=== PATIENT | male | born 1965 | race African-American/Black ===

== ENCOUNTER 2018-06-19 18:17 | Emergency (ER) | payer MEDICARE ==
[~2018-06-19] VITALS: Ht 166.4 cm; Wt 85.6 kg
[2018-06-19 18:17] VITALS: BP 147/92
[~2018-06-19 18:17] MED LIST: ALPR0.254 PO; ARIP2TAB35 PO; ASPI-482 PO; ATOR20TA58 PO; BUPR150T11 PO; CARV12.5 PO; CARV6.25 PO; FERR325T14 PO; FINA5TAB4 PO; FLUT16SP21 NS; HYDR12.58 PO; HYDR4TAB45 PO; INSU100V31 SQ; INSU100V8 SQ; LIPA1CAP14 PO; LISI40TA PO; LOPE2CAP PO; METF500T16 PO; MULT1TAB52 PO; OXYC1TAB22 PO; OXYC5TAB4 PO; PANCREAZE DR 41 EACH PO; POLY255P11 PO; PREG300C PO; RANI150T2 PO; TAMS0.4C2 PO; ZOLP10TA PO
--- NOTE | 2018-06-19 18:24 | ED.ADGEN ---
Past History Past Medical History: CAD, Diabetes, Hypertension, Pancreatitis Past Surgical History: Other Smoking: Less than 1pk/day Alcohol Use: None Drug Use: None Adult General Chief Complaint Chief Complaint "...I was coming down the stairs... and slipped... and fell on my butt and Lt. side... all way down the stairs.... I hurt like heck now... on my Lt side.. lower chest and back..."... " I even hit the back of my head and neck... " " I did not get knocked out... but I sure was stunned...." HPI HPI Patient is a 53 year old male who presents with above hx and complaints fall down stairs. Went down entire flight of stairs primarily on his left side. Patient instructed his head neck and back thoracic and posterior lumbar sacral area. Patient has been ambulatory since the fall but complains of muscle spasm and tenderness. Patient denies any loss of consciousness. Patient does have a history of marijuana and tobacco use. Patient does have a history of diabetes, hypertension, pancreatitis,. Pt. follows with Dr. Jim at [facility]. Review of Systems Review of Systems Constitutional: Denies fever or chills [] Eyes: Denies change in visual acuity, redness, or eye pain [] HENT: Denies nasal congestion or sore throat []complains of neck pain Respiratory: Denies cough or shortness of breath [] Cardiovascular: No additional information not addressed in HPI [] GI: Complaints of left flank abdominal pain, nausea,. Denies vomiting, bloody stools or diarrhea [] : Denies dysuria or hematuria [] Musculoskeletal: Complaints of back pain Integument: Denies rash or skin lesions [] Neurologic: Complains of headache,. Focal weakness or sensory changes [] Endocrine: Denies polyuria or polydipsia [] All other systems were reviewed and found to be within normal limits, except as documented in this note. Family History Family History Noncontributory Current Medications Current Medications Current Medications Medications (Trade) Dose Ordered Sig/Elfego Start Time Stop Time Status Last Admin Dose Admin Info (Do NOT chart on this entry -- for MONITORING) 1 each PRN DAILY PRN 06/19/18 19:15 06/19/18 23:41 DC Iohexol (Omnipaque 240 Mg/ml) 50 ml 1X ONCE 06/19/18 20:30 06/19/18 20:31 DC 06/19/18 20:32 50 ML Iohexol (Omnipaque 300 Mg/ml) 75 ml 1X ONCE 06/19/18 19:30 06/19/18 19:31 DC Lactated Ringer's 1,000 ml @ 1,000 mls/hr Q1H 06/19/18 18:43 06/19/18 19:42 DC Morphine Sulfate (Morphine 10mg Syringe) 10 mg 1X ONCE 06/19/18 21:45 06/19/18 21:46 DC 06/19/18 21:39 10 MG Allergies Allergies Allergies Coded Allergies Type Severity Reaction Last Updated Verified aspirin Allergy Intermediate 06/19/18 Yes fentanyl Allergy Intermediate 06/19/18 Yes ketorolac Allergy Intermediate 06/19/18 No naproxen Allergy Intermediate 06/19/18 No tramadol Allergy Intermediate 06/19/18 Yes Physical Exam Physical Exam Constitutional: Moderately acute acute distress, non-toxic appearance. [] HENT: Normocephalic, posterior scalp tender to palpation no large hematoma appreciated, bilateral external ears normal, oropharynx moist, no oral exudates , nose normal. [] Eyes: PERRLA, EOMI, conjunctiva normal, no discharge. [] Neck: Normal range of motion, no tenderness, supple, no stridor. Posterior per cervical muscles are spasming and tender to palpation. Cardiovascular:Heart rate regular rhythm, no murmur [] Lungs & Thorax: Bilateral breath sounds equal at apex with scattered wheezing throughout auscultation []trapezius pain and muscle spasm Abdomen: Bowel sounds normal, soft, left upper tenderness, no masses, no pulsatile masses. [] Large old Whipple abd. scar. Some flank tenderness on left. Skin: Warm, dry, no erythema, no rash. [] Back: Entire back is tenderness, left CVA tenderness. [] Extremities: No tenderness, no cyanosis, no clubbing, ROM intact, no edema. [] Neurologic: Alert and oriented X 3, normal motor function, normal sensory function, no focal deficits noted. [] Psychologic: Affect anxious, judgement normal, mood normal. [] Current Patient Data Vital Signs Vital Signs Date Time Temp Pulse Resp B/P (MAP) Pulse Ox O2 Delivery O2 Flow Rate FiO2 06/19/18 18:17 98.2 87 20 99 Room Air Lab Results Laboratory Tests Test 06/19/18 19:50 06/19/18 22:00 06/19/18 23:30 White Blood Count 7.0 x10^3/uL (4.0-11.0) Red Blood Count 5.09 x10^6/uL (4.30-5.70) Hemoglobin 14.5 g/dL (13.0-17.5) Hematocrit 45.2 % (39.0-53.0) Mean Corpuscular Volume 89 fL (79-100) Mean Corpuscular Hemoglobin 29 pg (25-35) Mean Corpuscular Hemoglobin Concent 32 g/dL (31-37) Red Cell Distribution Width 16.4 % (11.5-14.5) H Platelet Count 251 x10^3/uL (140-400) Neutrophils (%) (Auto) 64 % (31-73) Lymphocytes (%) (Auto) 25 % (24-48) Monocytes (%) (Auto) 10 % (0-9) H Eosinophils (%) (Auto) 1 % (0-3) Basophils (%) (Auto) 1 % (0-3) Neutrophils # (Auto) 4.4 x10^3uL (1.8-7.7) Lymphocytes # (Auto) 1.8 x10^3/uL (1.0-4.8) Monocytes # (Auto) 0.7 x10^3/uL (0.0-1.1) Eosinophils # (Auto) 0.0 x10^3/uL (0.0-0.7) Basophils # (Auto) 0.0 x10^3/uL (0.0-0.2) Prothrombin Time 9.5 SEC (9.4-11.4) Prothrombin Time INR 1.0 (0.9-1.1) PTT 25 SEC (23-33) Sodium Level 143 mmol/L (136-145) Potassium Level 4.1 mmol/L (3.5-5.1) Chloride Level 108 mmol/L (98-107) H Carbon Dioxide Level 25 mmol/L (21-32) Anion Gap 10 (6-14) Blood Urea Nitrogen 8 mg/dL (8-26) Creatinine 0.8 mg/dL (0.7-1.3) Estimated GFR (Cockcroft-Gault) 121.9 Glucose Level 78 mg/dL (70-99) Calcium Level 8.3 mg/dL (8.5-10.1) L Magnesium Level 2.2 mg/dL (1.8-2.4) Total Bilirubin 0.3 mg/dL (0.2-1.0) Direct Bilirubin 0.1 mg/dL (0.0-0.2) Aspartate Amino Transferase (AST) 27 U/L (15-37) Alanine Aminotransferase (ALT) 40 U/L (16-63) Alkaline Phosphatase 124 U/L (46-116) H Creatine Kinase 256 U/L (39-308) Troponin I Quantitative < 0.017 ng/mL (0-0.055) ZS-Cws-R-Type Natriuretic Peptide 110 pg/mL (0-124) Total Protein 6.4 g/dL (6.4-8.2) Albumin 3.1 g/dL (3.4-5.0) L Lipase 25 U/L (73-393) L Thyroid Stimulating Hormone (TSH) 1.396 uIU/mL (0.358-3.740) Urine Collection Type Void Urine Color Yellow Urine Clarity Clear Urine pH 6.5 Urine Specific [place] 1.020 Urine Protein Neg (NEG-TRACE) Urine Glucose (UA) Neg mg/dL (NEG) Urine Ketones (Stick) Neg mg/dL (NEG) Urine Blood Neg (NEG) Urine Nitrite Neg (NEG) Urine Bilirubin Neg (NEG) Urine Urobilinogen Dipstick 0.2 mg/dL (0.2 mg/dL) Urine Leukocyte Esterase Neg (NEG) Urine RBC 0 /HPF (0-2) Urine WBC 0 /HPF (0-4) Urine Bacteria 0 /HPF (0-FEW) Urine Opiates Screen Pos (NEG) Urine Methadone Screen Neg (NEG) Urine Barbiturates Neg (NEG) Urine Phencyclidine Screen Neg (NEG) Urine Amphetamine/Methamphetamine Neg (NEG) Urine Benzodiazepines Screen Neg (NEG) Urine Cocaine Screen Neg (NEG) Urine Cannabinoids Screen Pos (NEG) Urine Ethyl Alcohol Neg (NEG) Glucose (Fingerstick) 54 mg/dL (70-99) L EKG EKG My interpretation EKG shows a sinus rhythm at 57 bpm. No findings acute STEMI with contralateral changes.[] Radiology/Procedures Radiology/Procedures Interpretation of chest x-ray shows no acute cardiopulmonary findings. No free air in the diaphragm. No pneumothorax. My interpretation CT of head shows no shift, mass, edema, bleed, or fracture. Cervical shows no obvious fracture. Does have some degenerative joint changes. My interpretation of back and lumbar portions of CT shows degenerative joint changes. Scoliosis. There appears to have increased degenerative joint changes levels of 3,4 and 5 and sacral area. fracture. Some spinal stenosis Foraminal stenosis Low lumbar. No obvious displaced fractures[] see formal report when available. Course & Med Decision Making Course & Med Decision Making Pertinent Labs and Imaging studies reviewed. (See chart for details) Patient to expect increased soreness and pain over the next 3 days. Use ice packs liberally. Take Tylenol for pain. Follow-up primary care. May take Flexeril 10 mg 3 times a day. Patient to stop smoking. Patient return of any concerns. Patient to monitor his glucose levels. Recommend patient stay on a clear fluid level. Patient return if any concerns. Patient keep follow-up with Dr. Jim. [] Final Impression Final Impression 1. Multiple contusions- sprain and strain -head neck and back and lumbar area[] 2. Marijuana and tobacco use 3. History of diabetes Dragon Disclaimer Dragon Disclaimer This electronic medical record was generated, in whole or in part, using a voice recognition dictation system. Discharge Summary Visit Information Final Diagnosis Problems Medical Problems: (1) Multiple contusions Status: Acute Brief Hospital Course Allergies Allergies Coded Allergies Type Severity Reaction Last Updated Verified aspirin Allergy Intermediate 06/19/18 Yes fentanyl Allergy Intermediate 06/19/18 Yes ketorolac Allergy Intermediate 06/19/18 No naproxen Allergy Intermediate 06/19/18 No tramadol Allergy Intermediate 06/19/18 Yes Vital Signs Vital Signs Date Time Temp Pulse Resp B/P (MAP) Pulse Ox O2 Delivery O2 Flow Rate FiO2 06/19/18 18:17 98.2 87 20 99 Room Air Lab Results Laboratory Tests Test 06/19/18 19:50 06/19/18 22:00 06/19/18 23:30 White Blood Count 7.0 x10^3/uL (4.0-11.0) Red Blood Count 5.09 x10^6/uL (4.30-5.70) Hemoglobin 14.5 g/dL (13.0-17.5) Hematocrit 45.2 % (39.0-53.0) Mean Corpuscular Volume 89 fL (79-100) Mean Corpuscular Hemoglobin 29 pg (25-35) Mean Corpuscular Hemoglobin Concent 32 g/dL (31-37) Red Cell Distribution Width 16.4 % (11.5-14.5) Platelet Count 251 x10^3/uL (140-400) Neutrophils (%) (Auto) 64 % (31-73) Lymphocytes (%) (Auto) 25 % (24-48) Monocytes (%) (Auto) 10 % (0-9) Eosinophils (%) (Auto) 1 % (0-3) Basophils (%) (Auto) 1 % (0-3) Neutrophils # (Auto) 4.4 x10^3uL (1.8-7.7) Lymphocytes # (Auto) 1.8 x10^3/uL (1.0-4.8) Monocytes # (Auto) 0.7 x10^3/uL (0.0-1.1) Eosinophils # (Auto) 0.0 x10^3/uL (0.0-0.7) Basophils # (Auto) 0.0 x10^3/uL (0.0-0.2) Prothrombin Time 9.5 SEC (9.4-11.4) Prothromb Time International Ratio 1.0 (0.9-1.1) Activated Partial Thromboplast Time 25 SEC (23-33) Sodium Level 143 mmol/L (136-145) Potassium Level 4.1 mmol/L (3.5-5.1) Chloride Level 108 mmol/L (98-107) Carbon Dioxide Level 25 mmol/L (21-32) Anion Gap 10 (6-14) Blood Urea Nitrogen 8 mg/dL (8-26) Creatinine 0.8 mg/dL (0.7-1.3) Estimated GFR (Cockcroft-Gault) 121.9 Glucose Level 78 mg/dL (70-99) Calcium Level 8.3 mg/dL (8.5-10.1) Magnesium Level 2.2 mg/dL (1.8-2.4) Total Bilirubin 0.3 mg/dL (0.2-1.0) Direct Bilirubin 0.1 mg/dL (0.0-0.2) Aspartate Amino Transf (AST/SGOT) 27 U/L (15-37) Alanine Aminotransferase (ALT/SGPT) 40 U/L (16-63) Alkaline Phosphatase 124 U/L (46-116) Creatine Kinase 256 U/L (39-308) Troponin I Quantitative < 0.017 ng/mL (0-0.055) AN-Vuz-H-Type Natriuretic Peptide 110 pg/mL (0-124) Total Protein 6.4 g/dL (6.4-8.2) Albumin 3.1 g/dL (3.4-5.0) Lipase 25 U/L (73-393) Thyroid Stimulating Hormone (TSH) 1.396 uIU/mL (0.358-3.740) Urine Collection Type Void Urine Color Yellow Urine Clarity Clear Urine pH 6.5 Urine Specific [place] 1.020 Urine Protein Neg (NEG-TRACE) Urine Glucose (UA) Neg mg/dL (NEG) Urine Ketones (Stick) Neg mg/dL (NEG) Urine Blood Neg (NEG) Urine Nitrite Neg (NEG) Urine Bilirubin Neg (NEG) Urine Urobilinogen Dipstick 0.2 mg/dL (0.2 mg/dL) Urine Leukocyte Esterase Neg (NEG) Urine RBC 0 /HPF (0-2) Urine WBC 0 /HPF (0-4) Urine Bacteria 0 /HPF (0-FEW) Urine Opiates Screen Pos (NEG) Urine Methadone Screen Neg (NEG) Urine Barbiturates Neg (NEG) Urine Phencyclidine Screen Neg (NEG) Urine Amphetamine/Methamphetamine Neg (NEG) Urine Benzodiazepines Screen Neg (NEG) Urine Cocaine Screen Neg (NEG) Urine Cannabinoids Screen Pos (NEG) Urine Ethyl Alcohol Neg (NEG) Glucose (Fingerstick) 54 mg/dL (70-99) Brief Hospital Course Mr. Dawson is a 53 old male who presented with hx of fall down a flight of stairs. Discharge Information Condition at Discharge: Improved, Stable Disposition/Orders: D/C to Home Dischare Medications Current Medications Morphine Sulfate (Morphine 10mg Syringe) 10 mg 1X ONCE SQ Last administered on 06/19/18at 19:55; Admin Dose 10 MG; Start 06/19/18 at 18:45; Stop 06/19/18 at 18:50; Status DC Lactated Ringer's 1,000 ml @ 1,000 mls/hr Q1H IV ; Start 06/19/18 at 18:43; Stop 06/19/18 at 19:42; Status DC Iohexol (Omnipaque 300 Mg/ml) 75 ml 1X ONCE IV ; Start 06/19/18 at 19:30; Stop 06/19/18 at 19:31; Status DC Info (Do NOT chart on this entry -- for MONITORING) 1 each PRN DAILY PRN MC SEE COMMENTS; Start 06/19/18 at 19:15; Stop 06/19/18 at 23:41; Status DC Iohexol (Omnipaque 240 Mg/ml) 50 ml STK-MED ONCE .ROUTE ; Start 06/19/18 at 20: 14; Stop 06/19/18 at 20:15; Status DC Iohexol (Omnipaque 240 Mg/ml) 50 ml 1X ONCE PO Last administered on 06/19/18at 20:32; Admin Dose 50 ML; Start 06/19/18 at 20:30; Stop 06/19/18 at 20:31; Status DC Morphine Sulfate (Morphine 10mg Syringe) 10 mg 1X ONCE SQ Last administered on 06/19/18at 21:39; Admin Dose 10 MG; Start 06/19/18 at 21:45; Stop 06/19/18 at 21:46; Status DC Active Scripts Active Cyclobenzaprine Hcl 10 Mg Tablet 10 Mg PO TIDP Percocet 5-325 Mg Tablet (Oxycodone Hcl/Acetaminophen) 1 Each Tablet 1 Tab PO PRN Q6HRS PRN Reported Zenpep Dr 20,000 Units Capsule (Lipase/Protease/Amylase) 1 Each Capsule.dr 1 Each PO TID Multivitamins (Multivitamin) 1 Each Tablet 1 Each PO DAILY Tamsulosin Hcl 0.4 Mg Cap.er.24h 0.4 Mg PO DAILY Ranitidine Hcl 150 Mg Tablet 150 Mg PO BID Polyethylene Glycol 3350 255 Gm Powder 255 Gm PO DAILY Oxycodone Hcl Immed.release (Oxycodone Hcl) 5 Mg Tablet 5 Mg PO Q6HRS PRN Loperamide (Loperamide Hcl) 2 Mg Capsule 2 Mg PO Q4HRS PRN Hydrochlorothiazide Tablet (Hydrochlorothiazide) 12.5 Mg Tablet 12.5 Mg PO DAILY Fluticasone Propionate Nasal [place] (Fluticasone Propionate) 16 Gm [place].susp 2 [place] NS DAILY Finasteride 5 Mg Tablet 5 Mg PO DAILY Ferrous Sulfate 325 Mg Tablet 325 Mg PO BID Bupropion Hcl Sr (Bupropion Hcl) 150 Mg Tablet.er 150 Mg PO BID Abilify (Aripiprazole) 2 Mg Tablet 2.5 Mg PO DAILY Alprazolam 0.25 Mg Tablet 0.25 Mg PO QHS PRN Coreg (Carvedilol) 12.5 Mg Tablet 12.5 Mg PO BIDWMEALS Aspir 81 (Aspirin) 81 Mg Tablet.dr 81 Mg PO DAILY16 Indication: heart health LAST DOSE; YESTERDAY AT 4 PM NEXT DOSE; TODAY AT 4 PM Lantus (Insulin Glargine,Hum.rec.anlog) 100 Unit/1 Ml Vial 30 Unit SQ QHS Indication: diabetes LAST DOSE; Next dose: tonight at bedtime Lyrica (Pregabalin) 300 Mg Capsule 300 Mg PO BID LAST DOSE; TODAY AT 9 AM NEXT DOSE; TODAY AT 9 PM Novolog (Insulin Aspart) 100 Unit/1 Ml Vial 9 Unit SQ TIDWMEALS Indication: Diabetes LAST DOSE; NEXT DOSE; TODAY WITH DINNER Ambien (Zolpidem Tartrate) 10 Mg Tablet 10 Mg PO PRN QHS PRN Indication: insomnia LAST DOSE; NEXT DOSE; TONIGHT AT 9 PM IF NEEDED Curt Disclaimer This chart was dictated in whole or in part using Voice Recognition software in a busy, high-work load, and often noisy Emergency Department environment. It may contain unintended and wholly unrecognized errors or omissions. ISSAC DORAN MD Jun 19, 2018 18:24
[2018-06-19] MEDS ORDERED: IV RINGERS SOLUTION,LACTATED 1,000 ML IV SCH (18:43)
[2018-06-19] MEDS ORDERED: MORPHINE SULFATE 10 MG/ML SYRINGE. SQ ONE ×2 (18:45→21:45)
[2018-06-19] MEDS ORDERED: CONTRAST GIVEN MC PRN (19:15)
[2018-06-19] MEDS ORDERED: IOHEXOL 300 MG/ML 75 ML VIAL. IV ONE (19:30)
[2018-06-19] MEDS ORDERED: IOHEXOL 240 MG/ML 50ML VIAL. ONE (20:14)
[2018-06-19 20:21] LABS: BASO % 1 % (0-3); EOS % 1 % (0-3); HEMATOCRIT 45.2 % (39.0-53.0); HEMOGLOBIN 14.5 g/dL (13.0-17.5); LYMPH # 1.8 x10^3/uL (1.0-4.8); LYMPH % 25 % (24-48); MEAN CORPUSCULAR HEMOGLOBIN 29 pg (25-35); MEAN CORPUSCULAR HGB CONC 32 g/dL (31-37); MEAN CORPUSCULAR VOLUME 89 fL (79-100); MONO # 0.7 x10^3/uL (0.0-1.1); MONO % 10 % (0-9); NEUT # 4.4 x10^3uL (1.8-7.7); NEUT % 64 % (31-73); PLATELET COUNT 251 x10^3/uL (140-400); RED BLOOD COUNT 5.09 x10^6/uL (4.30-5.70); RED CELL DISTRIBUTION WIDTH 16.4 % (11.5-14.5)
[2018-06-19] MEDS ORDERED: IOHEXOL 240 MG/ML 50ML VIAL. PO ONE (20:30)
[2018-06-19 20:42] LABS: ALBUMIN 3.1 g/dL (3.4-5.0); CALCIUM 8.3 mg/dL (8.5-10.1); CREATININE 0.8 mg/dL (0.7-1.3); DIRECT BILIRUBIN 0.1 mg/dL (0.0-0.2); GFR 121.9; MAGNESIUM 2.2 mg/dL (1.8-2.4); POTASSIUM 4.1 mmol/L (3.5-5.1); TOTAL BILIRUBIN 0.3 mg/dL (0.2-1.0); TOTAL PROTEIN 6.4 g/dL (6.4-8.2)
--- NOTE | 2018-06-19 20:50 | RAD ---
EXAM: Chest, 2 views. HISTORY: Fall. COMPARISON: 11/12/2013 FINDINGS: 2 views the chest are obtained. There is no infiltrate, pleural effusion or pneumothorax. There is minimal biapical emphysema. The heart is normal in size. IMPRESSION: No acute pulmonary finding. Electronically signed by: Erum Sutton MD (06/19/2018 8:47 PM) [facility]
--- NOTE | 2018-06-19 21:03 | RAD ---
CT head without contrast. CT cervical spine without contrast. CT lumbar spine without contrast. CT chest and abdomen without contrast. TECHNIQUE: Helical noncontrast CT imaging of the head and cervical spine and CT imaging of the chest and abdomen with oral contrast only. HISTORY: Fall down stairs. Left-sided chest and abdomen pain. Head and neck pain. Injury. CT head findings: No intracranial hemorrhage, mass, hydrocephalus or infarction. Focal soft tissue density left occipital scalp at the vertex at site of trauma could represent small contusion. Imaged orbits, mastoids and bones are unremarkable. IMPRESSION: No acute intracranial CT abnormality. CT cervical spine findings: Craniocervical junction intact. Cervical vertebral body height and alignment intact. ACDF C4-C5 with interbody cage and osseous fusion. No fracture of the cervical spine. Scattered soft disc bulges as well as uncovertebral and facet spurs and disc osteophytes with spinal canal and neural foraminal stenoses. Imaged lung apices and paraspinal tissues are unremarkable. IMPRESSION: No acute osseous injury of the cervical spine. Cervical disc disease. ACDF C4-C5. CT lumbar spine findings: Mild thoracolumbar levoconvex scoliosis. Lumbar vertebral body height and alignment intact. No fracture. No spondylolysis defect. Scattered lumbar disc bulges and mild endplate osteophytes and facet spurs. There may be mild spinal canal stenosis at L4-L5. There may be mild neural foraminal stenoses L3-L4 through L5-S1. IMPRESSION: No acute osseous injury of the lumbar spine. Lumbar scoliosis and disc disease. CT chest findings: Absence of contrast decreases sensitivity to characterize at traumatic vascular or solid organ injury. Extensive coronary calcified plaque. Heart size normal. No pericardial effusion. Pulmonary vessels and esophagus unremarkable. Mild reflux of contrast at the esophagus. No mediastinal hematoma. Pulmonary vessels unremarkable. No adenopathy. No pneumothorax, pulmonary opacities or pleural effusions. Mild apical paraseptal pulmonary emphysema. Mild thoracic scoliosis and disc osteophytes from disc disease. IMPRESSION: No acute process in the chest. Abdomen findings: Absence of contrast decreases sensitivity to characterize vascular and organ injury. Very mild perinephric groundglass edema bilaterally perhaps the sequela of renal insufficiency. 15 mm left adrenal nodule consistent with an adenoma density of 7 units. 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 No obstruction or inflammatory changes in GI tract. No abdominal fluid or hematoma. Aortoiliac artery calcified plaque. IMPRESSION: No acute process in the abdomen. Exposure: One or more of the following individualized dose reduction techniques were utilized for this examination: 1. Automated exposure control 2. Adjustment of the mA and/or kV according to patient size 3. Use of iterative reconstruction technique Electronically signed by: Henrique Barrios MD (06/19/2018 9:00 PM) [id number]
--- NOTE | 2018-06-19 21:04 | EKG ---
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
[2018-06-19] MEDS ORDERED: CYCL-331 PO (22:38)
[2018-06-19] MEDS ORDERED: OXYC1TAB15 PO (22:38)
[2018-06-19 23:59] LABS: AMPHETAMINE/METHAMPHETAMINE NEG (NEG); BARBITURATES NEG (NEG); BENZODIAZEPINES NEG (NEG); CANNABINOIDS POS (NEG); COCAINE NEG (NEG); METHADONE NEG (NEG); OPIATES POS (NEG); PHENCYCLIDINE NEG (NEG)
[2018-06-20 00:03] LABS: BILIRUBIN,URINE NEG (NEG); CLARITY,URINE CLEAR; COLOR,URINE YELLOW; GLUCOSE,URINE NEG (NEG)
[2018-06-20 00:04] LABS: BACTERIA,URINE 0 /HPF (0-FEW); NITRITE,URINE NEG (NEG); RBC,URINE 0 /HPF (0-2); UROBILINOGEN,URINE 0.2 mg/dL (0.2 mg/dL); WBC,URINE 0 /HPF (0-4)
== END 2018-06-19 23:41 | disposition home or self-care (01) ==
LOC: ER 18:17
DX: S13.4XXA Sprain of ligaments of cervical spine, initial encounter (principal); S39.012A Strain of muscle, fascia and tendon of lower back, initial encounter; S29.012A Strain of muscle and tendon of back wall of thorax, initial encounter; S00.03XA Contusion of scalp, initial encounter; I25.10 Atherosclerotic heart disease of native coronary artery without angina pectoris; E11.9 Type 2 diabetes mellitus without complications; I10 Essential (primary) hypertension; F17.200 Nicotine dependence, unspecified, uncomplicated; Z88.6 Allergy status to analgesic agent; Z88.4 Allergy status to anesthetic agent; W10.8XXA Fall (on) (from) other stairs and steps, initial encounter; Y93.89 Activity, other specified; Y92.89 Other specified places as the place of occurrence of the external cause; Y99.8 Other external cause status
CPT/HCPCS: 36415; 70450; 71046; 71250; 72125; 72131; 74150; 80048; 80076; 80307; 81001; 82550; 82947; 83690; 83735; 83880; 84443; 84484; 85025; 85610; 85730; 93005; 96372; 99284; J2270; Q9966

== ENCOUNTER 2018-07-21 12:52 | Emergency (ER) | payer MEDICARE ==
[~2018-07-21] VITALS: Ht 166.4 cm; Wt 82.1 kg
[~2018-07-21 12:52] MED LIST changes: +CYCL-331 PO; +OXYC1TAB15 PO
[2018-07-21] MEDS ORDERED: IV NORMAL SALINE 1,000ML 1,000 ML IV SCH (13:02)
[2018-07-21] MEDS ORDERED: HYOSCYAMINE 0.125 MG TAB.RAPDIS PO ONE ×2 (13:10→13:30)
[2018-07-21] MEDS ORDERED: PROCHLORPERAZINE 10 MG/2 ML VIAL. ONE (13:10)
--- NOTE | 2018-07-21 13:19 | PHYS DOC ---
Past History Past Medical History: Diabetes, Hypertension Past Surgical History: Other Additional Past Surgical Histo: Whipple, neck surgery Smoking: Less than 1pk/day Alcohol Use: None Drug Use: None Adult General Chief Complaint Chief Complaint: ABDOMINAL PAIN HPI HPI Patient is a 53-year-old male with upper abdominal pain, diarrhea, and dysuria for the past 4 days. No blood in the stool or urine. There has been some nausea , no vomiting. Patient denies any recent travel. No migration of the pain. Nothing really seems to make the discomfort better or worse. No relief with home medication. He did receive the flu vaccination earlier this year. He does report some subjective fevers but has not taken his temperature. No shaking chills. 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 gallbladder disease.[] Review of Systems Review of Systems Constitutional: See history of present illness[] Eyes: Denies change in visual acuity, redness, or eye pain [] HENT: Denies sore throat, reports nasal congestion [] Respiratory: Denies cough or shortness of breath [] Cardiovascular: No chest pain or palpitations[] GI: See history of present illness[] : Denies dysuria or hematuria [] Musculoskeletal: Denies back pain or joint pain [] Integument: Denies rash or skin lesions [] Neurologic: Denies headache, focal weakness or sensory changes [] Endocrine: Denies polyuria or polydipsia [] All other systems were reviewed and found to be within normal limits, except as documented in this note. Allergies Allergies Allergies Coded Allergies Type Severity Reaction Last Updated Verified aspirin Allergy Intermediate 07/21/18 Yes fentanyl Allergy Intermediate 07/21/18 Yes ketorolac Allergy Intermediate 07/21/18 No naproxen Allergy Intermediate 07/21/18 No tramadol Allergy Intermediate 07/21/18 Yes Physical Exam Physical Exam Constitutional: Well developed, well nourished, no acute distress, non-toxic appearance. [] HENT: Normocephalic, atraumatic, bilateral external ears normal, oropharynx moist, no oral exudates, nose normal. [] Eyes: PERRLA, EOMI, conjunctiva normal, no discharge. [] Neck: Normal range of motion, no tenderness, supple, no stridor. [] Cardiovascular:Heart rate regular rhythm, no murmur [] Lungs & Thorax: Bilateral breath sounds clear to auscultation [] Abdomen: Bowel sounds normal, soft, epigastric tenderness, no rebound, no guarding, no rigidity, sits up and lays back without any difficulty, no masses, no pulsatile masses. : Normal male with bilateral descended testes, no tenderness, normal cremaster reflex, circumcised, no urethral discharge [] Skin: Warm, dry, no erythema, no rash. [] Back: No tenderness, no CVA tenderness. [] Extremities: No tenderness, no cyanosis, no clubbing, ROM intact, no edema. [] Neurologic: Alert and oriented X 3, normal motor function, normal sensory function, no focal deficits noted. [] Psychologic: Affect normal, judgement normal, mood normal. [] Current Patient Data Vital Signs Vital Signs Date Time Temp Pulse Resp B/P (MAP) Pulse Ox O2 Delivery O2 Flow Rate FiO2 07/21/18 12:57 97.9 90 18 100 Room Air EKG EKG EKG shows a sinus rhythm at 71 bpm, normal axis, normal QTC, no ST elevations. Interpreted by me at 1316[] Radiology/Procedures Radiology/Procedures Examination: CT ABD PELV W/ IV CONTRST ONLY History: Omni 300 75cc: Upper abdominal pain, diarrhea, history of Whipple Comparison/Correlation: 06/19/2018 CT chest abdomen and pelvis without contrast Findings: Axial images of the abdomen and pelvis were obtained following IV contrast. Sagittal and coronal reformatted images were provided. The chest lung bases are clear. Cholecystectomy noted. Suture material involving the upper abdomen is evident. Liver is unremarkable. Nodular appearance of the adrenal glands which may represent underlying adenomatous involvement is evident especially on the left. Absence of the pancreatic head. Pancreas is very diminutive. Postoperative findings corresponding to Whipple's procedure history. Moderate quantity of stool in the colon noted. No extraluminal gas. Fluid filled nondistended loops of small bowel are present without significant distention. Very small to characterize renal low-attenuation lesions which may represent cysts noted. No enlarged abdominal or pelvic lymph nodes. No ascites or pelvic free fluid. Urinary bladder is unremarkable. Impression: No evidence of obstruction. No inflammatory process identified. [] Course & Med Decision Making Course & Med Decision Making Pertinent Labs and Imaging studies reviewed. (See chart for details) ED course: Patient arrived, was placed in bed, and tolerated exam well he received minimal relief with the initial medicines administered. He was transported to and from radiology with any complications. After the return of the laboratory and imaging studies, these were discussed with the patient who voiced understanding. And all questions were answered. Medical decision making: There is no evidence of pancreatitis, acute coronary syndrome, obstruction, perforation, urinary tract infection, pyelonephritis, appendicitis, nor other significant intra-abdominal pathology. There is no evidence of torsion or infection of the scrotum. On review of [facility] patient has had multiple narcotic prescriptions from many different physicians since May of this year. This makes me reluctant to write for additional narcotic medication at this time given the possibly of findings on laboratory testing or imaging. Believe he would be better served by 1 healthcare professional managing his pain medication needs.[] Dragon Disclaimer Dragon Disclaimer This electronic medical record was generated, in whole or in part, using a voice recognition dictation system. Departure Departure: Impression: Primary Impression: Abdominal pain Disposition: HOME, SELF-CARE Condition: IMPROVED Referrals: AGNES VALDERRAMA MD (PCP) Follow-up in 2 days Patient Instructions: Abdominal Pain Additional Instructions: Drink plenty of fluids, frequent small sips. No fatty foods, no milk, and no pepper for the next 48 hours. For the next 48 hours eat a diet rich in carbohydrates with foods such as bananas, rice, applesauce, and toast. Follow- up with your regular doctor in 2 days. Return to the ER if worsening pain, unable to tolerate liquids, or any other concerns. Scripts Dicyclomine Hcl (DICYCLOMINE HCL) 20 Mg Tablet 1 TAB PO TID for abdominal pain, #30 TAB 1 Refill Prov: JEROD BLACK DO 07/21/18 Metoclopramide Hcl (REGLAN) 10 Mg Tablet 10 MG PO QID for nausea and vomiting, #30 TAB Prov: JEROD BLACK DO 07/21/18 Problem Qualifiers Primary Impression: Abdominal pain Abdominal location: unspecified location Qualified Codes: R10.9 - Unspecified abdominal pain JEROD BLACK DO Jul 21, 2018 13:19
[2018-07-21] MEDS ORDERED: IOHEXOL 300 MG/ML 75 ML VIAL. IV ONE (13:30)
[2018-07-21] MEDS ORDERED: PROCHLORPERAZINE 10 MG/2 ML VIAL. IV ONE (13:30)
[2018-07-21 13:52] LABS: BASO # 0.1 x10^3/uL (0.0-0.2); BASO % 1 % (0-3); EOS # 0.1 x10^3/uL (0.0-0.7); EOS % 1 % (0-3); HEMATOCRIT 46.1 % (39.0-53.0); HEMOGLOBIN 15.4 g/dL (13.0-17.5); LYMPH # 1.6 x10^3/uL (1.0-4.8); LYMPH % 17 % (24-48); MEAN CORPUSCULAR HEMOGLOBIN 29 pg (25-35); MEAN CORPUSCULAR HGB CONC 33 g/dL (31-37); MEAN CORPUSCULAR VOLUME 88 fL (79-100); MONO # 0.7 x10^3/uL (0.0-1.1); MONO % 7 % (0-9); NEUT # 7.3 x10^3uL (1.8-7.7); NEUT % 75 % (31-73); PLATELET COUNT 252 x10^3/uL (140-400); RED BLOOD COUNT 5.22 x10^6/uL (4.30-5.70); WHITE BLOOD COUNT 9.8 x10^3/uL (4.0-11.0)
[2018-07-21 14:06] LABS: ALBUMIN 3.1 g/dL (3.4-5.0); ALBUMIN/GLOBULIN RATIO 0.9 (1.0-1.7); CALCIUM 8.4 mg/dL (8.5-10.1); GFR 94.2; POTASSIUM 4.5 mmol/L (3.5-5.1); TOTAL BILIRUBIN 0.4 mg/dL (0.2-1.0); TOTAL PROTEIN 6.7 g/dL (6.4-8.2)
[2018-07-21 14:08] LABS: INFLUENZA A PATIENT NEGATIVE (NEGATIVE); INFLUENZA B PATIENT NEGATIVE (NEGATIVE)
--- NOTE | 2018-07-21 14:11 | RAD ---
Examination: CT ABD PELV W/ IV CONTRST ONLY History: Omni 300 75cc: Upper abdominal pain, diarrhea, history of Whipple Comparison/Correlation: 06/19/2018 CT chest abdomen and pelvis without contrast Findings: Axial images of the abdomen and pelvis were obtained following IV contrast. Sagittal and coronal reformatted images were provided. The chest lung bases are clear. Cholecystectomy noted. Suture material involving the upper abdomen is evident. Liver is unremarkable. Nodular appearance of the adrenal glands which may represent underlying adenomatous involvement is evident especially on the left. Absence of the pancreatic head. Pancreas is very diminutive. Postoperative findings corresponding to Whipple's procedure history. Moderate quantity of stool in the colon noted. No extraluminal gas. Fluid filled nondistended loops of small bowel are present without significant distention. Very small to characterize renal low-attenuation lesions which may represent cysts noted. No enlarged abdominal or pelvic lymph nodes. No ascites or pelvic free fluid. Urinary bladder is unremarkable. Impression: No evidence of obstruction. No inflammatory process identified. PQRS Compliance Statement: One or more of the following individualized dose reduction techniques were utilized for this examination: 1. Automated exposure control 2. Adjustment of the mA and/or kV according to patient size 3. Use of iterative reconstruction technique Electronically signed by: Sanjiv Farias MD (07/21/2018 2:08 PM) [facility]
[2018-07-21] MEDS ORDERED: DICYCLOMINE 20 MG/2 ML AMPUL. IM ONE (15:00)
[2018-07-21 15:18] LABS: BILIRUBIN,URINE NEG (NEG); CLARITY,URINE CLEAR; COLOR,URINE STRAW; GLUCOSE,URINE >=1000 mg/dL (NEG); UROBILINOGEN,URINE 0.2 mg/dL (0.2 mg/dL)
[2018-07-21 15:19] LABS: BACTERIA,URINE 0 /HPF (0-FEW); NITRITE,URINE NEG (NEG); RBC,URINE 0 /HPF (0-2); SQUAMOUS EPITHELIAL CELL,UR FEW /LPF; WBC,URINE 0 /HPF (0-4)
[2018-07-21] MEDS ORDERED: DICY20TA3 PO (15:46)
[2018-07-21] MEDS ORDERED: METO10TA81 PO (15:46)
[2018-07-21 15:50] VITALS: BP 133/78
--- NOTE | 2018-07-21 17:14 | EKG ---
[address] [address] Test Date: 2018-07-21 Test Time: 13:15:44 Pat Name: ADAM CASTELAN Department: Room: Gender: M [employer] Worker: : 1965 Requested By: JEROD BLACK Order Number: [id number] Reading MD: Clovis Anderson MD Measurements Intervals [place] Rate: 71 P: 45 CT: 154 QRS: 36 QRSD: 80 T: 52 QT: 368 QTc: 404 Interpretive Statements SINUS RHYTHM Electronically Signed On 08-01-2018 10:23:33 CDT by Clovis Anderson MD
== END 2018-07-21 15:50 | disposition home or self-care (01) ==
LOC: ER 12:52
DX: R10.13 Epigastric pain (principal); R19.7 Diarrhea, unspecified; R30.0 Dysuria; R11.0 Nausea; E11.9 Type 2 diabetes mellitus without complications; I10 Essential (primary) hypertension; F17.200 Nicotine dependence, unspecified, uncomplicated; Z88.6 Allergy status to analgesic agent; Z88.8 Allergy status to other drugs, medicaments and biological substances
CPT/HCPCS: 36415; 74177; 80053; 81001; 83690; 84484; 85025; 85610; 87491; 87591; 87804; 93005; 96361; 96372; 96374; 99284; J0500; J0780; Q9967; J7030

== ENCOUNTER 2019-03-20 09:42 | Emergency (ER) | payer MEDICARE ==
[~2019-03-20] VITALS: Ht 166.4 cm; Wt 82.1 kg
[~2019-03-20 09:42] MED LIST changes: +DICY20TA3 PO; +METO10TA81 PO
--- NOTE | 2019-03-20 10:04 | PHYS DOC ---
Past History Past Medical History: Anxiety, Depression, Diabetes, Hypertension Past Surgical History: Other Additional Past Surgical Histo: Whipple, neck surgery Smoking: Less than 1pk/day Alcohol Use: None Drug Use: None Adult General Chief Complaint Chief Complaint: HAND PROBLEM HPI HPI Patient is a 53-year-old male who presents to the emergency department for evaluation of bilateral hand swelling. He states his left hand has been swollen for several weeks, the swelling began after he had an ER visit, to [facility], where he had numerous IV attempts and finally had an IV placed in his left hand, and he thinks that he may have had some IV fluid infiltration. He went to an urgent care after this, and was given a course of Keflex which she completed. He states that this morning he began expressing some right hand edema. He denies any injuries, although he does report some soreness to his hands. He denies any fevers or chills, and his hands are not warm or erythematous. Movement and palpation seems to worsen his pain. There are no alleviating or exacerbating factors to his symptoms otherwise. Review of Systems Review of Systems Constitutional: Denies fever or chills [] Eyes: Denies change in visual acuity, redness, or eye pain [] HENT: Denies nasal congestion or sore throat [] Respiratory: Denies cough or shortness of breath [] Cardiovascular:The patient denies any shortness of breath, chest pain, pal pitations, or orthopnea [] GI: Denies abdominal pain, nausea, vomiting, bloody stools or diarrhea [] : Denies dysuria or hematuria [] Musculoskeletal: Denies back pain or joint pain [] Integument: Denies rash or skin lesions [] Neurologic: Denies headache, focal weakness or sensory changes [] Endocrine: Denies polyuria or polydipsia [] All other systems were reviewed and found to be within normal limits, except as documented in this note. Allergies Allergies Allergies Coded Allergies Type Severity Reaction Last Updated Verified aspirin Allergy Intermediate 07/21/18 Yes fentanyl Allergy Intermediate 07/21/18 Yes ketorolac Allergy Intermediate 07/21/18 No naproxen Allergy Intermediate 07/21/18 No tramadol Allergy Intermediate 07/21/18 Yes Physical Exam Physical Exam PHYSICAL EXAM: CONSTITUTIONAL: Well developed, well nourished HEAD: normocephalic, atraumatic EENT: PERRL, EOMI. Conjunctivae normal color, sclerae non-icteric; moist mucous membranes. NECK: Supple, non-tender; no meningismus. LUNGS: Lungs CTA, breathing even and unlabored. Normal air movement. HEART: Regular rate and rhythm, no murmur CHEST: No deformity; non-tender ABDOMEN: The abdomen is soft, and non-tender, no masses or bruits. EXTREM: There is mild to moderate edema to the left hand, mostly dorsally, without any warmth or erythema, or any skin wounds. There is trace edema noted to the dorsal aspect of the right hand. The palmar surface of the hands do not show any abnormality and are not particularly tender. There is questionable mild tenderness to palpation to the left forearm, without any significant edema, and there is no tenderness to palpation proximally. The remainder of extremities are unremarkable, with Normal ROM; no deformity, no calf tenderness. Normal pulses palpable in all extremities. There is no pedal edema. SKIN: No rash; no diaphoresis NEURO: Alert; normal speech and cognition; CN's grossly intact; strength grossly intact without focal deficit. BACK: No CVA TTP. Current Patient Data Lab Results Laboratory Tests Test 03/20/19 10:09 White Blood Count 6.5 x10^3/uL Red Blood Count 4.77 x10^6/uL Hemoglobin 13.8 g/dL Hematocrit 42.3 % Mean Corpuscular Volume 89 fL Mean Corpuscular Hemoglobin 29 pg Mean Corpuscular Hemoglobin Concent 33 g/dL Red Cell Distribution Width 15.6 % Platelet Count 211 x10^3/uL Neutrophils (%) (Auto) 74 % Lymphocytes (%) (Auto) 18 % Monocytes (%) (Auto) 8 % Eosinophils (%) (Auto) 1 % Basophils (%) (Auto) 0 % Neutrophils # (Auto) 4.8 x10^3uL Lymphocytes # (Auto) 1.1 x10^3/uL Monocytes # (Auto) 0.5 x10^3/uL Eosinophils # (Auto) 0.1 x10^3/uL Basophils # (Auto) 0.0 x10^3/uL Erythrocyte Sedimentation Rate Pending Sodium Level 140 mmol/L Potassium Level 5.1 mmol/L Chloride Level 107 mmol/L Carbon Dioxide Level 26 mmol/L Anion Gap 7 Blood Urea Nitrogen 9 mg/dL Creatinine 0.8 mg/dL Estimated GFR (Cockcroft-Gault) 121.9 BUN/Creatinine Ratio 11 Glucose Level 267 mg/dL Uric Acid 4.4 mg/dL Calcium Level 8.2 mg/dL Total Bilirubin 0.5 mg/dL Aspartate Amino Transf (AST/SGOT) 35 U/L Alanine Aminotransferase (ALT/SGPT) 59 U/L Alkaline Phosphatase 152 U/L C-Reactive Protein < 0.5 mg/L Total Protein 5.7 g/dL Albumin 2.9 g/dL Albumin/Globulin Ratio 1.0 Current Medications Medications (Trade) Dose Ordered Sig/Elfego Route PRN Reason Start Time Stop Time Status Last Admin Dose Admin Acetaminophen (Tylenol) 650 mg 1X ONCE PO 03/20/19 10:45 03/20/19 10:46 DC 03/20/19 10:46 EKG EKG [] Radiology/Procedures Radiology/Procedures PROCEDURE: VENOUS UPPER EXTREMITY LEFT VENOUS UPPER EXTREMITY LEFT History: Hand edema. Comparison: None. Procedure: Color flow Doppler, Doppler spectral analysis, and 2D images are obtained with and without compression in the jugular vein, subclavian vein, axillary vein, brachial vein, radial vein, ulnar vein, and basilic and cephalic veins. Findings: Patent left internal jugular, subclavian, brachial, radial and ulnar veins. Noncompressibility and echogenic foci within the left cephalic vein at the level of the forearm. The cephalic vein is not well seen at the level of the upper arm. IMPRESSION: 1. Left cephalic superficial vein thrombosis at the level of the forearm. 2. No evidence of deep vein thrombosis.[] PROCEDURE: HAND BILAT 2V Examination: HAND BILAT 2V History: Hand swelling bilaterally which is greater on the left Comparison/Correlation: None Findings: Frontal and lateral views of the right hand and frontal and lateral views of the left hand were provided. A total of 4 images were provided. Joint spaces are unremarkable for the patient's age. No definite or significant degenerative change. No fracture or bone destruction. Soft tissues unremarkable. Impression: No suspicious process. Course & Med Decision Making Course & Med Decision Making Pertinent Labs and Imaging studies reviewed. (See chart for details) []11:20 AM: The patient's condition remains stable. I discussed test results in detail with the patient, the need for close follow-up, and return precautions. I discussed the use of NSAIDs, he has taken ibuprofen in the past without difficulty. I discussed the importance of heat and warm compresses to the affected area, he will be started on a course of doxycycline. Dragon Disclaimer Dragon Disclaimer This electronic medical record was generated, in whole or in part, using a voice recognition dictation system. Departure Departure: Impression: Primary Impression: Superficial thrombophlebitis Disposition: HOME, SELF-CARE Condition: STABLE Referrals: AGNES VALDERRAMA MD (PCP) Patient Instructions: Phlebitis Additional Instructions: Ibuprofen 400-600 mg every 6 hours may help improve your symptoms. Applying a heating pad to the affected area may help improve your symptoms. Scripts Doxycycline Hyclate (DOXYCYCLINE HYCLATE) 100 Mg Capsule 1 CAP PO BID for -, #20 CAP Prov: CODY RAMIREZ MD 03/20/19 CODY RAMIREZ MD Mar 20, 2019 10:04
[2019-03-20 10:21] LABS: BASO % 0 % (0-3); EOS # 0.1 x10^3/uL (0.0-0.7); EOS % 1 % (0-3); HEMATOCRIT 42.3 % (39.0-53.0); HEMOGLOBIN 13.8 g/dL (13.0-17.5); LYMPH # 1.1 x10^3/uL (1.0-4.8); LYMPH % 18 % (24-48); MEAN CORPUSCULAR HEMOGLOBIN 29 pg (25-35); MEAN CORPUSCULAR HGB CONC 33 g/dL (31-37); MEAN CORPUSCULAR VOLUME 89 fL (79-100); MONO # 0.5 x10^3/uL (0.0-1.1); MONO % 8 % (0-9); NEUT # 4.8 x10^3uL (1.8-7.7); NEUT % 74 % (31-73); PLATELET COUNT 211 x10^3/uL (140-400); RED BLOOD COUNT 4.77 x10^6/uL (4.30-5.70); RED CELL DISTRIBUTION WIDTH 15.6 % (11.5-14.5); WHITE BLOOD COUNT 6.5 x10^3/uL (4.0-11.0)
[2019-03-20 10:38] LABS: ALBUMIN 2.9 g/dL (3.4-5.0); ALK PHOS 152 U/L (46-116); ALT (SGPT) 59 U/L (16-63); ANION GAP 7 (6-14); AST (SGOT) 35 U/L (15-37); BLOOD UREA NITROGEN 9 mg/dL (8-26); BUN/CREATININE RATIO 11 (6-20); CALCIUM 8.2 mg/dL (8.5-10.1); CARBON DIOXIDE 26 mmol/L (21-32); CHLORIDE 107 mmol/L (98-107); CREATININE 0.8 mg/dL (0.7-1.3); GFR 121.9; GLUCOSE 267 mg/dL (70-99); POTASSIUM 5.1 mmol/L (3.5-5.1); SODIUM 140 mmol/L (136-145); TOTAL BILIRUBIN 0.5 mg/dL (0.2-1.0); TOTAL PROTEIN 5.7 g/dL (6.4-8.2)
[2019-03-20 10:40] LABS: C REACTIVE PROTEIN < 0.5 mg/L (0-3.3)
[2019-03-20] MEDS ORDERED: ACETAMINOPHEN 325 MG TABLET PO ONE (10:45)
--- NOTE | 2019-03-20 10:46 | RAD ---
VENOUS UPPER EXTREMITY LEFT History: Hand edema. Comparison: None. Procedure: Color flow Doppler, Doppler spectral analysis, and 2D images are obtained with and without compression in the jugular vein, subclavian vein, axillary vein, brachial vein, radial vein, ulnar vein, and basilic and cephalic veins. Findings: Patent left internal jugular, subclavian, brachial, radial and ulnar veins. Noncompressibility and echogenic foci within the left cephalic vein at the level of the forearm. The cephalic vein is not well seen at the level of the upper arm. IMPRESSION: 1. Left cephalic superficial vein thrombosis at the level of the forearm. 2. No evidence of deep vein thrombosis. Electronically signed by: Nicholas Anderson DO (03/20/2019 10:44 AM) [id number]
--- NOTE | 2019-03-20 10:53 | RAD ---
Examination: HAND BILAT 2V History: Hand swelling bilaterally which is greater on the left Comparison/Correlation: None Findings: Frontal and lateral views of the right hand and frontal and lateral views of the left hand were provided. A total of 4 images were provided. Joint spaces are unremarkable for the patient's age. No definite or significant degenerative change. No fracture or bone destruction. Soft tissues unremarkable. Impression: No suspicious process. Electronically signed by: Sanjiv Farias MD (03/20/2019 10:51 AM) [facility]
[2019-03-20] MEDS ORDERED: DOXY100C2 PO (11:23)
[2019-03-20 11:24] LABS: SEDIMENTATION RATE 7 (0-15)
[2019-03-20 11:50] VITALS: BP 135/76
[2019-04-07] MEDS ORDERED: CIPR500T94 PO (11:49)
[2019-04-07] MEDS ORDERED: METR250T PO (11:49)
== END 2019-03-20 11:51 | disposition home or self-care (01) ==
LOC: ER 09:42
DX: I80.8 Phlebitis and thrombophlebitis of other sites (principal); E11.9 Type 2 diabetes mellitus without complications; I10 Essential (primary) hypertension; F17.200 Nicotine dependence, unspecified, uncomplicated; Z88.6 Allergy status to analgesic agent; Z88.8 Allergy status to other drugs, medicaments and biological substances
CPT/HCPCS: 36415; 73120; 80053; 84550; 85025; 85651; 86140; 93971; 99285

== ENCOUNTER 2019-04-05 23:57 | Observation (INO) | payer MEDICARE, MEDICAID ==
[~2019-04-05] VITALS: Ht 165.1 cm; Wt 67.2 kg
[~2019-04-05 23:57] MED LIST changes: +DOXY100C2 PO
[2019-04-06] MEDS ORDERED: ONDANSETRON PF 4 MG/2 ML VIAL. IVP ONE (00:45)
[2019-04-06] MEDS ORDERED: MORPHINE SULFATE 2 MG/ML DISP.SYRIN. IV ONE (00:45)
[2019-04-06] MEDS ORDERED: IV NORMAL SALINE 1,000ML 1,000 ML IV ONE (00:45)
[2019-04-06] MEDS ORDERED: CONTRAST GIVEN MC PRN (01:00)
[2019-04-06] MEDS ORDERED: IOHEXOL 300 MG/ML 75 ML VIAL. IV ONE (01:00)
[2019-04-06 01:07] LABS: BASO % 0 % (0-3); EOS % 0 % (0-3); HEMATOCRIT 48.2 % (39.0-53.0); HEMOGLOBIN 15.8 g/dL (13.0-17.5); LYMPH # 0.9 x10^3/uL (1.0-4.8); LYMPH % 10 % (24-48); MEAN CORPUSCULAR HEMOGLOBIN 30 pg (25-35); MEAN CORPUSCULAR HGB CONC 33 g/dL (31-37); MEAN CORPUSCULAR VOLUME 90 fL (79-100); MONO # 0.4 x10^3/uL (0.0-1.1); MONO % 5 % (0-9); NEUT # 8.2 x10^3uL (1.8-7.7); NEUT % 85 % (31-73); PLATELET COUNT 186 x10^3/uL (140-400); RED BLOOD COUNT 5.35 x10^6/uL (4.30-5.70); RED CELL DISTRIBUTION WIDTH 15.5 % (11.5-14.5); WHITE BLOOD COUNT 9.6 x10^3/uL (4.0-11.0)
[2019-04-06 01:16] LABS: CALCIUM 9.2 mg/dL (8.5-10.1); CREATININE 1.1 mg/dL (0.7-1.3); GFR 84.4; POTASSIUM 4.2 mmol/L (3.5-5.1)
[2019-04-06 01:21] LABS: ALBUMIN 3.6 g/dL (3.4-5.0); ALBUMIN/GLOBULIN RATIO 0.9 (1.0-1.7); TOTAL PROTEIN 7.5 g/dL (6.4-8.2)
--- NOTE | 2019-04-06 01:29 | PHYS DOC ---
Past History Past Medical History: Anxiety, Depression, Diabetes, Hypertension Past Surgical History: Other Additional Past Surgical Histo: Whipple, neck surgery, carpal tunnel Smoking: Less than 1pk/day Alcohol Use: None Drug Use: None Adult General Chief Complaint Chief Complaint: ABDOMINAL PAIN HPI HPI 53-year-old male presents with abdominal pain and vomiting. The patient woke up early in the morning with abdominal cramping soon followed by vomiting. He's had several episodes of vomiting throughout the day. His abdominal pain as a gene ralized cramping around the umbilicus 8 out of 10. The patient is unsure if he's had a fever. He is on chronic narcotics for pain. He has no other complaints at this time. Review of Systems Review of Systems Constitutional: Denies fever or chills [] Eyes: Denies change in visual acuity, redness, or eye pain [] HENT: Denies nasal congestion or sore throat [] Respiratory: Denies cough or shortness of breath [] Cardiovascular: No additional information not addressed in HPI [] GI: Periumbilical abdominal pain, nausea, vomiting. [] : Denies dysuria or hematuria [] Musculoskeletal: Denies back pain or joint pain [] Integument: Denies rash or skin lesions [] Neurologic: Denies headache, focal weakness or sensory changes [] Endocrine: Denies polyuria or polydipsia [] All other systems were reviewed and found to be within normal limits, except as documented in this note. Current Medications Current Medications Current Medications Medications (Trade) Dose Ordered Sig/Elfego Start Time Stop Time Status Last Admin Dose Admin Info (Do NOT chart on this entry -- for MONITORING) 1 each PRN DAILY PRN 04/06/19 01:00 04/08/19 00:59 Iohexol (Omnipaque 300 Mg/ml) 75 ml 1X ONCE 04/06/19 01:00 04/06/19 01:01 DC 04/06/19 01:03 75 ML Morphine Sulfate (Morphine 2mg Syringe) 2 mg 1X ONCE 04/06/19 00:45 04/06/19 00:46 DC 04/06/19 00:56 2 MG Morphine Sulfate (Morphine 4mg Syringe) 4 mg 1X ONCE 04/06/19 01:30 04/06/19 01:31 UNV Ondansetron HCl (Zofran) 4 mg 1X ONCE 04/06/19 00:45 04/06/19 00:46 DC 04/06/19 00:55 4 MG Sodium Chloride 1,000 ml @ 1,000 mls/hr 1X ONCE 04/06/19 00:45 04/06/19 01:44 04/06/19 00:55 1,000 MLS/HR Allergies Allergies Allergies Coded Allergies Type Severity Reaction Last Updated Verified aspirin Allergy Intermediate 07/21/18 Yes fentanyl Allergy Intermediate 07/21/18 Yes ketorolac Allergy Intermediate 07/21/18 No naproxen Allergy Intermediate 07/21/18 No tramadol Allergy Intermediate 07/21/18 Yes Physical Exam Physical Exam Constitutional: Well developed, well nourished, no acute distress, non-toxic appearance. [] HENT: Normocephalic, atraumatic, bilateral external ears normal, oropharynx mois t, no oral exudates, nose normal. [] Eyes: PERRLA, EOMI, conjunctiva normal, no discharge. [] Neck: Normal range of motion, no tenderness, supple, no stridor. [] Cardiovascular:Heart rate regular rhythm, no murmur [] Lungs & Thorax: Bilateral breath sounds clear to auscultation [] Abdomen: Bowel sounds normal, soft, mild generalized tenderness, no masses, no pulsatile masses. [] Skin: Warm, dry, no erythema, no rash. [] Back: No tenderness, no CVA tenderness. [] Extremities: No tenderness, no cyanosis, no clubbing, ROM intact, no edema. [] Neurologic: Alert and oriented X 3, normal motor function, normal sensory function, no focal deficits noted. [] Psychologic: Affect normal, judgement normal, mood normal. [] Current Patient Data Vital Signs Vital Signs Date Time Temp Pulse Resp B/P (MAP) Pulse Ox O2 Delivery O2 Flow Rate FiO2 04/06/19 00:56 14 100 04/06/19 00:09 98.0 88 Room Air Lab Results Laboratory Tests Test 04/06/19 00:48 White Blood Count 9.6 x10^3/uL (4.0-11.0) Red Blood Count 5.35 x10^6/uL (4.30-5.70) Hemoglobin 15.8 g/dL (13.0-17.5) Hematocrit 48.2 % (39.0-53.0) Mean Corpuscular Volume 90 fL (79-100) Mean Corpuscular Hemoglobin 30 pg (25-35) Mean Corpuscular Hemoglobin Concent 33 g/dL (31-37) Red Cell Distribution Width 15.5 % (11.5-14.5) H Platelet Count 186 x10^3/uL (140-400) Neutrophils (%) (Auto) 85 % (31-73) H Lymphocytes (%) (Auto) 10 % (24-48) L Monocytes (%) (Auto) 5 % (0-9) Eosinophils (%) (Auto) 0 % (0-3) Basophils (%) (Auto) 0 % (0-3) Neutrophils # (Auto) 8.2 x10^3uL (1.8-7.7) H Lymphocytes # (Auto) 0.9 x10^3/uL (1.0-4.8) L Monocytes # (Auto) 0.4 x10^3/uL (0.0-1.1) Eosinophils # (Auto) 0.0 x10^3/uL (0.0-0.7) Basophils # (Auto) 0.0 x10^3/uL (0.0-0.2) Sodium Level 139 mmol/L (136-145) Potassium Level 4.2 mmol/L (3.5-5.1) Chloride Level 99 mmol/L (98-107) Carbon Dioxide Level 29 mmol/L (21-32) Anion Gap 11 (6-14) Blood Urea Nitrogen 19 mg/dL (8-26) Creatinine 1.1 mg/dL (0.7-1.3) Estimated GFR (Cockcroft-Gault) 84.4 BUN/Creatinine Ratio 17 (6-20) Glucose Level 384 mg/dL (70-99) H Calcium Level 9.2 mg/dL (8.5-10.1) Total Bilirubin Pending Aspartate Amino Transferase (AST) Pending Alanine Aminotransferase (ALT) Pending Alkaline Phosphatase Pending Total Protein Pending Albumin Pending Albumin/Globulin Ratio Pending EKG EKG [] Radiology/Procedures Radiology/Procedures [] Impressions: Exam: CT abdomen and pelvis with contrast INDICATION: Abdominal pain TECHNIQUE: Sequential axial images through the abdomen and pelvis obtained following the administration of 75 mL of Omni 300 IV contrast. Sagittal and coronal reformatted images were reconstructed from the axial data and reviewed. Comparisons: 07/21/2018 FINDINGS: Heart size is normal. No pericardial effusion. Visualized lung bases are clear. No pleural effusion. Liver, spleen are unremarkable. There is a 2.0 cm nodule within the medial limb of the left adrenal gland, similar to the prior study. Postsurgical changes with resection of the pancreatic head, pancreaticojejunostomy and hepaticojejunostomy. These demonstrate symmetric enhancement. No perinephric inflammation or hydronephrosis. No renal or ureteral calculi are identified. Several hypoattenuating cystic lesions within the kidneys bilaterally likely representing simple cysts. Bladder is distended and appears thin-walled. Prostate is not enlarged. Bowel wall thickening involving the descending colon with mild adjacent inflammatory changes. Remainder of the large bowel is decompressed. Appendix is normal. Small bowel is unremarkable. No free intra-abdominal air or fluid. No obstruction. Abdominal aorta has normal course and caliber. Abdominal vasculature is patent. No enlarged intra-abdominal lymph nodes are identified. No suspicious osseous lesions or acute fractures. IMPRESSION: 1. Wall thickening involving the descending colon favored represent colitis. May be infectious or inflammatory in etiology. 2. Other stable findings as described above. Exposure: One or more of the following in the visualized dose reduction techniques were utilized for this examination: 1. Automated exposure control 2. Adjustment of the MA and/or KV according to patient size 3. Use of iterative of reconstructive technique Electronically signed by: Estella Singleton MD (04/06/2019 1:27 AM) [facility] DICTATED AND SIGNED BY: ESTELLA SINGLETON MD DATE: 04/06/19 0127 CC: CHAVO JASSO DO; AGNES VALDERRAMA MD ~ Course & Med Decision Making Course & Med Decision Making Pertinent Labs and Imaging studies reviewed. (See chart for details) The patient's labs are significant for a blood sugar 384. His anion gap is normal. The patient is a diabetic on insulin. Given a liter of normal saline and start with 10 units of regular insulin. The patient's CT scan shows colitis of the descending colon. I have given the patient a total of 6 mg of morphine. 2 mg and then 4 mg. He was also given Zofran. He has had no further vomiting in the ED. Given the patient's hyperglycemia, colitis, and level of pain, I will admit him to the hospital. The patient told me he was also recently on antibiotics for a hand infection. He has had several episodes of diarrhea. I ordered a C. difficile PCR. I spoke with Dr. Jeong and he has accepted the patient for admission. [] Dragon Disclaimer Dragon Disclaimer This electronic medical record was generated, in whole or in part, using a voice recognition dictation system. Departure Departure: Impression: Primary Impression: Colitis Additional Impressions: Hyperglycemia due to type 2 diabetes mellitus Abdominal pain, LLQ Disposition: ADMITTED INPATIENT Admitting Physician: Angelique Jeong Condition: STABLE Referrals: AGNES VALDERRAMA MD (PCP) Problem Qualifiers Additional Impressions: Hyperglycemia due to type 2 diabetes mellitus Diabetes mellitus [facility] insulin use: with medical terminologist use Qualified Codes: E11.65 - Type 2 diabetes mellitus with hyperglycemia; Z79.4 - joint terminal attack controller (current) use of insulin CHAVO JASSO DO Apr 06, 2019 01:29
[2019-04-06] MEDS ORDERED: MORPHINE SULFATE 4 MG/ML DISP.SYRIN. IV ONE (01:30)
[2019-04-06] MEDS ORDERED: INSULIN REGULAR 100 UNIT/ML 3ML VIAL. IV ONE (01:30)
[2019-04-06 01:42] LABS: CLARITY,URINE CLEAR; COLOR,URINE YELLOW; GLUCOSE,URINE 500 mg/dL (NEG)
[2019-04-06 01:43] LABS: BACTERIA,URINE 0 /HPF (0-FEW); BILIRUBIN,URINE NEG (NEG); NITRITE,URINE NEG (NEG); RBC,URINE OCC /HPF (0-2); SQUAMOUS EPITHELIAL CELL,UR OCC /LPF; UROBILINOGEN,URINE 0.2 mg/dL (0.2 mg/dL); WBC,URINE 0 /HPF (0-4)
[2019-04-06] MEDS: MORPHINE SULFATE 2 MG/ML DISP.SYRIN. IV PRN ×4 (02:49→21:57)
[2019-04-06] MEDS: ONDANSETRON PF 4 MG/2 ML VIAL. IV PRN ×3 (02:49→09:03)
[2019-04-06 03:00] VITALS: BP 100/69
--- NOTE | 2019-04-06 03:00 | NUR ---
Admission Note: Pt transported from ED to room 120 by EMS. Pt ambulated from cart to bed w/standby assistance. VSS. Pt continues to c/o of nausea and headache. Admission documentation completed. Home Medications not completed as pt is not knowledgeable of his current med list, to come in tomorrow with current med list. Zofran given for nausea. Pt is currently clear liquid diet, water and lemon bishop paiute rony provided.
[2019-04-06 06:25] VITALS: BP 107/63
[2019-04-06] MEDS ORDERED: DEXTROSE 50% 25 GM / 50ML DISP.SYRIN. IV PRN (09:00)
[2019-04-06] MEDS ORDERED: OXYC1TAB19 PO (09:01)
[2019-04-06] MEDS: INSULIN LISPRO 300 UNITS/3 ML VIAL. SQ SCH ×4 (09:13→20:52)
[2019-04-06 11:52] VITALS: BP 131/74
[2019-04-06] MEDS ORDERED: oxyCODONE/APAP 7.5/325 1 TAB TABLET ONE (12:44)
[2019-04-06] MEDS: oxyCODONE/APAP 7.5/325 1 TAB TABLET PO PRN (12:48)
[2019-04-06] MEDS ORDERED: INSU100V37 SQ (14:30)
[2019-04-06] MEDS ORDERED: VORT20TA PO (14:30)
--- NOTE | 2019-04-06 15:00 | NUR ---
Dr Jeong here to see patient, orders placed. Patient continues to have abdominal pain but no N/V/D. Patient resting in bed and requests to have diet advanced, okay with physician to do so. Will continue to monitor.
[2019-04-06 15:32] VITALS: BP 143/78
--- NOTE | 2019-04-06 16:47 | HP ---
ADMIT DATE: 04/06/2019 HISTORY OF PRESENT ILLNESS: The patient is a 53-year-old, -Surinamese male patient who came to the Emergency Room complaining of abdominal pain and vomiting. On Thu, the patient woke up early in the morning with abdominal cramping, soon followed by vomiting. He has had several episodes of vomiting throughout the day, abdominal pain, generalized cramping around the umbilicus, 8/10 in severity. The patient is unsure if he has fever. He is on chronic narcotic for pain. He has no other complaints at this time. He was extensively investigated in the Emergency Room. His white cell count was normal. His chemistry was unremarkable. His lipase was 29. Urinalysis was unremarkable. He has had CT scan of the abdomen and pelvis, which showed that the patient has wall thickening involving the descending colon, favored to represent colitis, may be infectious, inflammatory etiology or other stable findings as described above. The patient was admitted with acute colitis. He was treated in the Emergency Room with IV fluid, morphine, as well as regular insulin and was admitted to continue with that and monitor his blood sugar. The plan was to be started on IV antibiotic. For some reason, they did not continue his IV fluid. PAST MEDICAL HISTORY: Significant for Whipple's procedure. He is known to have hypertension, hyperlipidemia, and coronary artery disease. He has also morbid obesity, obstructive sleep apnea on CPAP, history of epilepsy before. He has also 4 or 5 episodes of pancreatitis in a span of 10 years. PAST SURGICAL HISTORY: Significant for cervical spine fusion, bilateral carpal tunnel release. He underwent esophagogastroduodenoscopy twice and colonoscopy with polypectomy twice. He apparently was recently diagnosed with a mass between his eyes from which a biopsy was taken and surgery was planned at [facility] in the near future. He has Whipple's procedure done at [facility]. ALLERGIES: HE IS ALLERGIC TO ASPIRIN, FENTANYL, KETOROLAC, NAPROXEN, AND TRAMADOL. FAMILY HISTORY: He has 1 brother and 1 sister, they are younger; 5 sisters older, almost all of them have diabetes and hypertension. His father at the age of 78 because of lymphoma and mother at the age of 76 because of end-stage renal disease and complication of hemodialysis. SOCIAL HISTORY: He is , has 1 daughter and 1 son. He smokes almost a pack a day. He used to be a heavy drinker. He quit about 7 years ago. His last alcoholic drink was about 6 years ago according to him. He smokes marijuana. He has never used illicit drugs. He is currently disabled. MEDICATIONS: He is on tamsulosin 0.4 mg at bedtime, oxycodone/APAP 7.5/325 one tablet 3 times a day as needed, pregabalin 300 mg twice a day, Wellbutrin-SR 300 mg once a day, and Trintellix 20 mg once a day, Ambien 10 mg at bedtime, hydrochlorothiazide 12.5 mg daily. He is on 9 units subcutaneous 3 times a day and Tresiba 30 units subcutaneously at bedtime, we are not really sure that his actually brings his list of medication. PHYSICAL EXAMINATION: GENERAL: On arrival to the Emergency Room, the patient looked unwell, but there is no pallor, jaundice, cyanosis, or thyromegaly. No jugular venous distention. No limb edema. VITAL SIGNS: Heart rate was 88, blood pressure was 146/73, temperature was 98, respiratory rate was 16, and oxygen saturation was 100%. HEAD, EYES, EARS, NOSE, AND THROAT: Showed normocephalic, atraumatic. NECK: Supple. HEART: Showed normal first and second heart sounds. No gallop, rub, or murmur. CHEST: Clear to auscultation. No crepitation or rhonchi. ABDOMEN: Distended, soft, mild diffuse tenderness. No guarding or rigidity. No organomegaly. All hernial orifice intact. Bowel sounds normal. NEUROLOGIC: He was awake, alert, oriented in time, place, and person. All cranial nerves intact. EXTREMITIES: He moves extremities without difficulty. He ambulates without assistance or assistive devices. LABORATORY DATA: His white cell count was 9600, hemoglobin 16.8, hematocrit 48, MCV 90, and platelet count of 186,000 with normal manual differential. His chemistry showed a serum sodium 139, potassium 4.2, chloride 99, bicarbonate 29, anion gap of 11, BUN 19, creatinine 1.1, estimated GFR was 84 mL per minute. His glucose was 184, calcium was 9.2. Total bilirubin is 1, estimated AST, ALT were normal. Alkaline phosphatase slightly elevated. Total protein 7.5, albumin 3.6. Serum lipase was 29. Urinalysis showed the urine was yellow, clear with a pH of 6.5, specific gravity 1.015, the urine was negative for protein. There was large amount of glucose, large amount of ketones, negative for blood, negative for nitrite, bilirubin and alkaline leukocyte esterase, no rbc's, no wbc's, and no bacteria. His stool was sent for C. diff toxins. He has had a CT scan of the abdomen and pelvis, which showed that the heart size is normal, no pericardial effusion. Visualized lung bases are clear, no pleural effusion. Liver and spleen are unremarkable. There is a 2-cm nodule within the medial limb of the left adrenal gland, similar to prior study. Postsurgical changes with resection of the pancreatic head, pancreaticojejunostomy, and hepatojejunostomy. Kidneys demonstrate symmetric enhancement. No perinephric inflammation or hydronephrosis, no renal or ureteral calculi identified. Several hypoattenuating cystic lesion within the kidneys bilaterally, likely representing simple cyst. Bladder is distended, appears thin walled. Prostate is not enlarged, bowel with wall thickening involving the descending colon with mild adjacent inflammatory changes. Remainder of the large bowel is decompressed. The appendix is normal. Small bowel is unremarkable. No free intra-abdominal air or fluid, no obstruction. Abdominal aorta is normal in course and caliber. Abdominal vasculature is patent. No enlarged intraabdominal lymph nodes identified. No suspicious osseous lesion or acute fracture. With the impression, the patient has wall thickening involving the descending colon. Favored represents colitis may be infectious, inflammatory in etiology. Other stable findings are described. PLAN: The plan is to start him on IV fluid, IV Cipro and Flagyl, pain medication. Await the result of the C. diff toxin and decide the further management accordingly. We will obviously monitor his blood sugar and we started him on insulin sliding scale. JOHNATHAN MORIN MD DR: FAVIAN/kyleigh JOB#: [id number] / [id number]
[2019-04-06] MEDS: IV NORMAL SALINE 1,000ML 1,000 ML IV SCH (17:01)
[2019-04-06] MEDS: CIPROFLOXACIN 400MG PREMIX 200 ML IV SCH (17:03)
[2019-04-06] MEDS: PANTOPRAZOLE IV 40 MG VIAL. IVP SCH (17:05)
[2019-04-06 19:36] VITALS: BP 108/68
[2019-04-06] MEDS ORDERED: ZOLPIDEM 5 MG TABLET. PO PRN (20:15)
[2019-04-06] MEDS: PREGABALIN 75 MG CAPSULE PO SCH (20:48)
[2019-04-06] MEDS ORDERED: INSULIN GLARGINE SYRINGE. SQ SCH (21:00)
[2019-04-06 22:22] VITALS: BP 110/74
[2019-04-07] MEDS: oxyCODONE/APAP 7.5/325 1 TAB TABLET PO PRN ×2 (02:20→08:33)
[2019-04-07] MEDS: CIPROFLOXACIN 400MG PREMIX 200 ML IV SCH (04:32)
[2019-04-07] MEDS: IV NORMAL SALINE 1,000ML 1,000 ML IV SCH (04:32)
[2019-04-07 05:01] VITALS: BP 119/75
[2019-04-07 07:48] LABS: HEMATOCRIT 39.1 % (39.0-53.0); RED BLOOD COUNT 4.46 x10^6/uL (4.30-5.70); RED CELL DISTRIBUTION WIDTH 15.1 % (11.5-14.5)
[2019-04-07 08:04] LABS: ALBUMIN 2.5 g/dL (3.4-5.0); ALBUMIN/GLOBULIN RATIO 0.9 (1.0-1.7); CALCIUM 7.9 mg/dL (8.5-10.1); CREATININE 0.7 mg/dL (0.7-1.3); GFR 142.2; POTASSIUM 4.1 mmol/L (3.5-5.1); TOTAL BILIRUBIN 0.6 mg/dL (0.2-1.0); TOTAL PROTEIN 5.3 g/dL (6.4-8.2)
[2019-04-07] MEDS: PANTOPRAZOLE IV 40 MG VIAL. IVP SCH (08:31)
[2019-04-07] MEDS: PREGABALIN 75 MG CAPSULE PO SCH (08:34)
[2019-04-07] MEDS: INSULIN LISPRO 300 UNITS/3 ML VIAL. SQ SCH (08:39)
[2019-04-07 10:58] VITALS: BP 116/69
--- NOTE | 2019-04-07 11:45 | NUR ---
Dr Jeong here to see patient, plan is to discharge home with Mikki and Kay. Prescriptions copied and given to patient. IV removed at this time. Patient verbalized understanding and feels safe to discharge home. Patient calling at this time for ride at this time.
[2019-04-07] MEDS ORDERED: METR250T PO (11:49)
[2019-04-07] MEDS ORDERED: CIPR500T94 PO (11:49)
--- NOTE | 2019-04-07 12:33 | NUR ---
Discharge instructions given to patient at this time, verbalized instructions and prescriptions given to patient, as well as transcribed to odell. Patient ambulated off unit independently with belongings, outside to crop picker patient.
--- NOTE | 2019-04-07 16:15 | DS ---
DATE OF DISCHARGE: 04/07/2019 HOSPITAL COURSE: The patient is a 53-year-old -Japanese male patient who was admitted with recurrent bouts of nausea, vomiting, abdominal cramping as well as diarrhea. His urinalysis was unremarkable and his CT scan of the abdomen and pelvis showed that he has wall thickening involving the descending colon, favored to represent colitis. Therefore, the patient was started on IV fluid, IV antibiotic in the form of Cipro and Flagyl and the patient actually did very well today. He has had no ____. No vomiting, no abdominal pain, has been up and about, tolerating his ____ therefore, a decision was made to discharge home to continue with oral antibiotic orally. PHYSICAL EXAMINATION: GENERAL: When I saw him this morning, he was resting slightly propped up in bed, in no apparent distress. No pallor, jaundice, cyanosis or thyromegaly. No jugular venous distention. No limb edema. VITAL SIGNS: His heart rate was 82, blood pressure was 116/69, temperature was 98.5, respiratory rate was 20, and oxygen saturation was 98%. HEAD, EYES, EARS, NOSE AND THROAT: Showed normocephalic, atraumatic. NECK: Supple. HEART: Showed normal first and second heart sounds. No gallop, rub or murmur. CHEST: Clear to auscultation. No crepitation or rhonchi. ABDOMEN: Distended, soft, nontender. There is no guarding or rigidity. No organomegaly. All hernial orifices intact. Bowel sounds normal. NEUROLOGIC: He is awake, alert, responding appropriately. All his cranial nerves are intact. He moves extremities without difficulty. LABORATORY DATA: His white cell count is 6000, hemoglobin 13, hematocrit 39, MCV 88 and platelet count of 153,000. Serum sodium was 137, potassium 4.1, chloride 104, bicarbonate 25, anion gap of 8, BUN 7, creatinine 0.7, estimated GFR was 142, glucose 159, calcium was 7.9. Total bilirubin, AST, ALT, alkaline phosphatase were normal. Total protein was 5.3, albumin was 2.5. Urinalysis was unremarkable and stools for C. diff toxins were negative. DISCHARGE MEDICATIONS: The patient was discharged home to continue all his medications, together with ciprofloxacin 500 mg twice a day for 7 days and metronidazole 250 mg 3 times a day. The patient was warned about drinking alcohol as Flagyl can cause severe disulfiram-like reaction. FINAL DISCHARGE DIAGNOSES: 1. Acute gastroenteritis, acute colitis, improving. 2. Acute kidney injury, resolved. His creatinine came down from 1.1 to 0.7. Other medical problems include type 2 diabetes mellitus, diabetic peripheral neuropathy, benign prostatic hypertrophy, insomnia, depression and anxiety. JOHNATHAN MORIN MD DR: FAVIAN/kyleigh JOB#: [id number] / [id number]
[2019-04-07] MEDS ORDERED: LACTOBACILLUS RHAMNOSUS GG 1 CAPSULE. PO SCH (21:00)
[2019-04-07] MEDS ORDERED: INSULIN GLARGINE SYRINGE. SQ SCH (21:00)
== END 2019-04-07 12:33 | disposition home or self-care (01) ==
LOC: ER 23:57 → 1 SOUTH 04-06 01:30 → INTOOBSV 04-06 01:30
PROVIDERS: ADMIT Internal Medicine; ATTEND Internal Medicine
DX: K52.9 Noninfective gastroenteritis and colitis, unspecified (principal); E11.65 Type 2 diabetes mellitus with hyperglycemia; I25.10 Atherosclerotic heart disease of native coronary artery without angina pectoris; I10 Essential (primary) hypertension; E78.5 Hyperlipidemia, unspecified; E66.01 Morbid (severe) obesity due to excess calories; G47.33 Obstructive sleep apnea (adult) (pediatric); F41.9 Anxiety disorder, unspecified; F17.210 Nicotine dependence, cigarettes, uncomplicated; F32.9 Major depressive disorder, single episode, unspecified
CPT/HCPCS: 36415; 74177; 80053; 81001; 82947; 83690; 85025; 85027; 87493; 96361; 96365; 96366; 96367; 96372; 96375; 96376; 99284; C9113; G0378; J0744; J1815; J2270; J2405; J3490; Q9967; 96374; G0379; 99285-25; J7030

== ENCOUNTER 2019-04-12 18:47 | Inpatient (IN) | payer MEDICARE, MEDICAID ==
[~2019-04-12] VITALS: Ht 165.1 cm; Wt 66.4 kg
[~2019-04-12 18:47] MED LIST changes: +CIPR500T94 PO; +INSU100V37 SQ; +METR250T PO; +OXYC1TAB19 PO; +VORT20TA PO
--- NOTE | 2019-04-12 18:50 | PHYS DOC ---
Past History Past Medical History: Anxiety, Arthritis, Depression, Diabetes, Hypertension, Other Past Surgical History: Other Additional Past Surgical Histo: Whipple, neck surgery, carpal tunnel Smoking: Less than 1pk/day Alcohol Use: None Drug Use: None Adult General Chief Complaint Chief Complaint: ".. I am not doing well.. I was seen in Dr. Jim office and diagnosis of Colitis.. and put on Cipro and Flagyl... but I still sick .. not able to eat... pain... fever, chills. I am diabetic... I could not keep my meds down today... " HPI HPI Patient is a 53 year old male who presents with above hx and complaints flu like symptoms. Pt. did receive flu vaccination this season. and grand child sick with colds. No recent travel. Pt. follows with Dr. Jim. Patient seen earlier in the week in Dr. Jim's office and diagnosed with colitis. Patient started on Cipro and Flagyl. Patient however complaining of increased abdomen pain and diarrhea. Patient complains of fever and chills. No history of exposure to ill animals, birds, snakes ext. patient denies any recent contact with individuals with C. difficile. No history of prior C. difficile. Abdomen pain is somewhat generalized. Pt. last took his insulin at noon. Pt. has hx of Wipple procedure 2014. Review of Systems Review of Systems Constitutional: Complaints of fever or chills [] Eyes: Denies change in visual acuity, redness, or eye pain [] HENT: Denies nasal congestion or sore throat [] Respiratory: Denies cough or shortness of breath [] Cardiovascular: No additional information not addressed in HPI [] GI: Complaints of generalize abdominal pain, nausea, vomiting, and diarrhea [] : Denies dysuria or hematuria [] Musculoskeletal: Chronic back pain and joint pain [] Integument: Denies rash or skin lesions [] Neurologic: Denies headache, focal weakness or sensory changes [] Endocrine: Denies polyuria or polydipsia []Hx DM All other systems were reviewed and found to be within normal limits, except as documented in this note. Family History Family History and grandchildren are sick with an upper respiratory infection Current Medications Current Medications See nursing for home meds Allergies Allergies Allergies Coded Allergies Type Severity Reaction Last Updated Verified aspirin Allergy Intermediate 07/21/18 Yes fentanyl Allergy Intermediate 07/21/18 Yes ketorolac Allergy Intermediate 07/21/18 No naproxen Allergy Intermediate 07/21/18 No tramadol Allergy Intermediate 07/21/18 Yes Physical Exam Physical Exam Constitutional: Moderate acute distress, non-toxic appearance. [] HENT: Normocephalic, atraumatic, bilateral external ears normal, oropharynx dry, no oral exudates, nose normal. [] Eyes: PERRLA, EOMI, conjunctiva normal, no discharge. [] Neck: Normal range of motion, no tenderness, supple, no stridor. []Old surgical scars Cardiovascular:Heart rate regular rhythm, no murmur []PMI slightly to the left Lungs & Thorax: Bilateral breath sounds equal apex on auscultation [] Abdomen: Bowel sounds hyperactive, soft, generalized tenderness, no masses, no pulsatile masses. A large inverted V-shaped scar from open procedure. No focalization on rebound- just generalized pain every where. Skin: Warm, dry, no erythema, no rash. Poor turgor Back: No tenderness, no CVA tenderness. [] Extremities: No tenderness, no cyanosis, no clubbing, ROM intact, no edema. No true psoas sign. Wrist scars. Neurologic: Alert and oriented X 3, moves extremities on request, has distal sensory function, no focal deficits noted. [] Psychologic: Affect anxious, judgement normal, mood depressed. EKG EKG I interpretation EKG shows sinus rhythm at 84 bpm. No findings of acute STEMI with contralateral changes[] Radiology/Procedures Radiology/Procedures [[address] [address] IMAGING REPORT Signed PATIENT: ADAM CASTELAN ACCOUNT: [id number] : 1965 LOCATION: ER AGE: 53 SEX: M EXAM STATUS: REG ER ORD. PHYSICIAN: ISSAC DORAN MD REASON: Chest and abdomen pain, fever, nausea PROCEDURE: ABDOMEN SUPINE & UPRIGHT ABDOMEN SUPINE UPRIGHT, CHEST PA LATERAL History: Chest and abdomen pain. Fever and nausea.. Two-view chest Comparison with 06/19/2018. Cardiomediastinal silhouette is not enlarged. No evidence of pneumothorax. No pleural effusion. Right convexity thoracic scoliosis is again seen. Bones otherwise appear grossly intact. IMPRESSION: No evidence of consolidating infiltrate. Supine and upright abdomen Scattered mildly air-filled loops of bowel are seen. No evidence of obstructive bowel gas pattern. No definite free intraperitoneal gas. Surgical clips in the abdomen. No obvious organomegaly. No evidence of concerning pathologic calcification. Pelvic calcifications are likely phleboliths. Bones appear grossly intact. IMPRESSION: Bowel gas pattern does not appear obstructive. Electronically signed by: German Galloway MD (04/12/2019 7:55 PM) [facility] DICTATED AND SIGNED BY: GERMAN GALLOWAY MD DATE: 04/12/191954 CC: ISSAC DORAN MD; AGNES JIM MD ~ ][place] [address] IMAGING REPORT Signed PATIENT: ADAM CASTELAN ACCOUNT: [id number] : 1965 LOCATION: ER AGE: 53 SEX: M EXAM STATUS: REG ER ORD. PHYSICIAN: ISSAC DORAN MD REASON: Chest and abdomen pain, fever, nausea PROCEDURE: ABDOMEN SUPINE & UPRIGHT ABDOMEN SUPINE UPRIGHT, CHEST PA LATERAL History: Chest and abdomen pain. Fever and nausea.. Two-view chest Comparison with 06/19/2018. Cardiomediastinal silhouette is not enlarged. No evidence of pneumothorax. No pleural effusion. Right convexity thoracic scoliosis is again seen. Bones otherwise appear grossly intact. IMPRESSION: No evidence of consolidating infiltrate. Supine and upright abdomen Scattered mildly air-filled loops of bowel are seen. No evidence of obstructive bowel gas pattern. No definite free intraperitoneal gas. Surgical clips in the abdomen. No obvious organomegaly. No evidence of concerning pathologic calcification. Pelvic calcifications are likely phleboliths. Bones appear grossly intact. IMPRESSION: Bowel gas pattern does not appear obstructive. Electronically signed by: German Galloway MD (04/12/2019 7:55 PM) [facility] DICTATED AND SIGNED BY: GERMAN GALLOWAY MD DATE: 04/12/191954 CC: ISSAC DORAN MD; AGNES JIM MD ~ Course & Med Decision Making Course & Med Decision Making Pertinent Labs and Imaging studies reviewed. (See chart for details) Pt. admitted to Dr Jeong for further eval . and tx. .. Will continue to hydrate, and give Levaquin and Flagyl IV. Consider switch to po Flagyl as soon as pt. tolerate po. Plan to keep pt. NPO except meds tonight to allow bowel rest. Impression: 1. Abdomen Pain 2. DM 3. Hx. Colitis ( Has been on Cipro 500 bid and Flagyl 500 tid) 4. Elevated Alk Phos 136 5. Malnutrition Alb. 2.8 6. Hx of Whipple 2015 7. Episodic Hypoglycemic - in ED that require repeat D50W [] Dragon Disclaimer Dragon Disclaimer This electronic medical record was generated, in whole or in part, using a voice recognition dictation system. Departure Departure: Disposition: 01 HOME/RESIDENCE PRIOR TO ADM Condition: STABLE Referrals: AGNES JIM MD (PCP) Curt Disclaimer This chart was dictated in whole or in part using Voice Recognition software in a busy, high-work load, and often noisy Emergency Department environment. It may contain unintended and wholly unrecognized errors or omissions. Dragon Disclaimer This chart was dictated in whole or in part using Voice Recognition software in a busy, high-work load, and often noisy Emergency Department environment. It may contain unintended and wholly unrecognized errors or omissions. Dragon Disclaimer This chart was dictated in whole or in part using Voice Recognition software in a busy, high-work load, and often noisy Emergency Department environment. It may contain unintended and wholly unrecognized errors or omissions. ISSAC DORAN MD Apr 12, 2019 18:50
[2019-04-12] MEDS ORDERED: IV RINGERS SOLUTION,LACTATED 1,000 ML IV SCH (19:12)
[2019-04-12] MEDS ORDERED: ONDANSETRON PF 4 MG/2 ML VIAL. IVP ONE (19:15)
[2019-04-12] MEDS ORDERED: FAMOTIDINE 20 MG/2 ML VIAL IVP ONE (19:15)
[2019-04-12] MEDS ORDERED: MORPHINE SULFATE 10 MG/ML SYRINGE. SQ ONE ×3 (19:30→22:00)
[2019-04-12 19:51] LABS: INFLUENZA A PATIENT NEGATIVE (NEGATIVE); INFLUENZA B PATIENT NEGATIVE (NEGATIVE)
--- NOTE | 2019-04-12 19:58 | RAD ---
ABDOMEN SUPINE UPRIGHT, CHEST PA LATERAL History: Chest and abdomen pain. Fever and nausea.. Two-view chest Comparison with 06/19/2018. Cardiomediastinal silhouette is not enlarged. No evidence of pneumothorax. No pleural effusion. Right convexity thoracic scoliosis is again seen. Bones otherwise appear grossly intact. IMPRESSION: No evidence of consolidating infiltrate. Supine and upright abdomen Scattered mildly air-filled loops of bowel are seen. No evidence of obstructive bowel gas pattern. No definite free intraperitoneal gas. Surgical clips in the abdomen. No obvious organomegaly. No evidence of concerning pathologic calcification. Pelvic calcifications are likely phleboliths. Bones appear grossly intact. IMPRESSION: Bowel gas pattern does not appear obstructive. Electronically signed by: German Galloway MD (04/12/2019 7:55 PM) [facility]
[2019-04-12 20:18] LABS: BASO % 1 % (0-3); EOS % 0 % (0-3); HEMOGLOBIN 14.4 g/dL (13.0-17.5); LYMPH # 0.7 x10^3/uL (1.0-4.8); LYMPH % 16 % (24-48); MEAN CORPUSCULAR HEMOGLOBIN 29 pg (25-35); MEAN CORPUSCULAR HGB CONC 33 g/dL (31-37); MEAN CORPUSCULAR VOLUME 88 fL (79-100); MONO # 0.5 x10^3/uL (0.0-1.1); MONO % 12 % (0-9); NEUT # 3.1 x10^3uL (1.8-7.7); NEUT % 72 % (31-73); PLATELET COUNT 172 x10^3/uL (140-400); RED BLOOD COUNT 5.01 x10^6/uL (4.30-5.70); RED CELL DISTRIBUTION WIDTH 15.3 % (11.5-14.5); WHITE BLOOD COUNT 4.3 x10^3/uL (4.0-11.0)
[2019-04-12 20:25] LABS: AMPHETAMINE/METHAMPHETAMINE NEG (NEG); BARBITURATES NEG (NEG); BENZODIAZEPINES NEG (NEG); CANNABINOIDS NEG (NEG); COCAINE NEG (NEG); METHADONE NEG (NEG); OPIATES NEG (NEG); PHENCYCLIDINE NEG (NEG)
[2019-04-12] MEDS ORDERED: IOHEXOL 240 MG/ML 50ML VIAL. PO ONE (20:30)
[2019-04-12] MEDS ORDERED: IOHEXOL 300 MG/ML 75 ML VIAL. IV ONE (20:30)
[2019-04-12 20:32] LABS: CALCIUM 8.3 mg/dL (8.5-10.1); CREATININE 0.9 mg/dL (0.7-1.3); GFR 106.4; POTASSIUM 4.1 mmol/L (3.5-5.1)
[2019-04-12 20:34] LABS: ALBUMIN 2.8 g/dL (3.4-5.0); DIRECT BILIRUBIN 0.1 mg/dL (0.0-0.2); TOTAL BILIRUBIN 0.2 mg/dL (0.2-1.0)
[2019-04-12] MEDS ORDERED: CONTRAST GIVEN MC PRN (21:00)
[2019-04-12 21:12] LABS: BACTERIA,URINE 0 /HPF (0-FEW); BILIRUBIN,URINE NEG (NEG); CLARITY,URINE CLEAR; COLOR,URINE YELLOW; GLUCOSE,URINE >=1000 mg/dL (NEG); NITRITE,URINE NEG (NEG); RBC,URINE 0 /HPF (0-2); SQUAMOUS EPITHELIAL CELL,UR OCC /LPF; UROBILINOGEN,URINE 0.2 mg/dL (0.2 mg/dL); WBC,URINE OCC /HPF (0-4)
[2019-04-12] MEDS ORDERED: ACETAMINOPHEN 325 MG TABLET PO PRN (21:15)
[2019-04-12] MEDS ORDERED: IV RINGERS SOLUTION,LACTATED 1,000 ML IV ONE (21:30)
[2019-04-12] MEDS ORDERED: DEXTROSE 50% 25 GM / 50ML DISP.SYRIN. IV ONE ×4 (21:51→23:15)
--- NOTE | 2019-04-12 22:32 | RAD ---
CT abdomen and pelvis with contrast 04/12/2019. Reason for exam: Chest and abdomen pain with nausea, vomiting and fever. History of Whipple procedure. CT images were performed through the abdomen and pelvis following oral contrast ingestion and using an infusion of 75 mL Omnipaque 300. Sagittal and coronal reconstructions were performed. Exposure: One or more of the following individualized dose reduction techniques were utilized for this examination: 1. Automated exposure control 2. Adjustment of the mA and/or kV according to patient size 3. Use of iterative reconstruction technique. Comparison is made with a study of 04/06/2019. FINDINGS: The lung bases are clear. The liver and spleen are homogeneous in density and normal in configuration. Both kidneys enhance with contrast. No solid mass or obstruction is seen. A small cyst is shown anteriorly in the left kidney. The adrenal glands are not enlarged. The pancreas shows postoperative change. An atrophied pancreatic tail is demonstrated. No mass is seen, although evaluation is limited by adjacent unopacified bowel loops. No retroperitoneal or mesenteric adenopathy is seen. There is no apparent abdominal mass or inflammatory process. No bowel obstruction is seen. Images through the pelvis show no abnormality of the distal ureters or bladder. No pelvic or inguinal adenopathy is seen. There is no apparent pelvic mass or inflammatory process. There is a large amount of stool in the distal colon. There is no longer evidence of colon wall thickening to indicate colitis. At least a portion of a normal appendix is thought to be shown in the right upper pelvis. IMPRESSION: No apparent acute abnormality. Electronically signed by: Coleman Cordero Jr., MD (04/12/2019 10:29 PM) [facility]
--- NOTE | 2019-04-12 22:49 | EKG ---
[address] [address] Test Date: 2019-04-12 Test Time: 19:37:08 Pat Name: ADAM CASTELAN Department: Room: Gender: M Requisition Approver: : 1965 Requested By: ISSAC DORAN Order Number: [id number] Reading MD: Measurements Intervals [facility] Rate: 84 P: 64 MT: 134 QRS: 69 QRSD: 82 T: 54 QT: 350 QTc: 417 Interpretive Statements SINUS RHYTHM NO SPECIFIC ECG ABNORMALITIES RI6.01 No previous ECG available for comparison
--- NOTE | 2019-04-13 00:20 | NUR ---
Admission: The patient, ADAM CASTELAN, 53 y/o, M admitted by JOHNATHAN MORIN MD, was given written information regarding hospital policies, unit procedures and contact persons. Pt to room 119 via [place] accompanied by [facility] and nursing sup. Pt amb independently from gurney to bed, steady gait noted. VSS. FSBS checked = 95. IVF D10 started at 75cc/hr per order. PRN dilaudid given for pain, rates 8/10 to abdomen. Pt currently NPO, ice chips provided. Call light in reach. Valuables were checked and logged.
[2019-04-13 00:37] VITALS: BP 139/77
[2019-04-13] MEDS: IV DEXTROSE 10% 1,000 ML IV SCH ×2 (00:37→12:35)
[2019-04-13] MEDS ORDERED: FINA5TAB4 PO (00:40)
[2019-04-13] MEDS: HYDROmorphone PF 2 MG/ML VIAL IM PRN ×3 (01:08→13:33)
[2019-04-13 05:01] VITALS: BP 127/78
[2019-04-13] MEDS: ONDANSETRON PF 4 MG/2 ML VIAL. IV PRN ×2 (05:56→19:46)
[2019-04-13 07:20] LABS: BASO # 0.1 x10^3/uL (0.0-0.2); BASO % 1 % (0-3); EOS % 0 % (0-3); HEMATOCRIT 39.4 % (39.0-53.0); LYMPH # 0.9 x10^3/uL (1.0-4.8); LYMPH % 12 % (24-48); MEAN CORPUSCULAR HEMOGLOBIN 29 pg (25-35); MEAN CORPUSCULAR HGB CONC 33 g/dL (31-37); MEAN CORPUSCULAR VOLUME 88 fL (79-100); MONO # 0.7 x10^3/uL (0.0-1.1); MONO % 9 % (0-9); NEUT # 5.5 x10^3uL (1.8-7.7); NEUT % 77 % (31-73); PLATELET COUNT 147 x10^3/uL (140-400); RED CELL DISTRIBUTION WIDTH 15.1 % (11.5-14.5); WHITE BLOOD COUNT 7.2 x10^3/uL (4.0-11.0)
[2019-04-13 07:33] LABS: CALCIUM 7.8 mg/dL (8.5-10.1); CREATININE 0.7 mg/dL (0.7-1.3); GFR 142.2; POTASSIUM 3.5 mmol/L (3.5-5.1)
[2019-04-13] MEDS ORDERED: LOSA25TA11 PO (07:53)
[2019-04-13] MEDS ORDERED: ATOR10TA60 PO (07:53)
[2019-04-13] MEDS ORDERED: INSULIN ASPART 8 UNIT SQ SCH (08:00)
[2019-04-13] MEDS ORDERED: IPRATRPIUM/ALBUTEROL 0.5/2.5MG 3 ML NEBU. NEB SCH (08:00)
[2019-04-13] MEDS: NICOTINE 14MG PATCH. TD SCH (09:05)
[2019-04-13] MEDS: oxyCODONE/APAP 7.5/325 1 TAB TABLET PO PRN ×2 (09:05→21:08)
[2019-04-13] MEDS: INSULIN LISPRO 300 UNITS/3 ML VIAL. SQ SCH ×3 (10:04→17:00)
[2019-04-13 11:08] VITALS: BP 127/72
[2019-04-13] MEDS ORDERED: IPRATRPIUM/ALBUTEROL 0.5/2.5MG 3 ML NEBU. NEB PRN (11:15)
[2019-04-13] MEDS ORDERED: INSULIN LISPRO 300 UNITS/3 ML VIAL. SQ SCH (12:00)
--- NOTE | 2019-04-13 13:56 | NUR ---
Awaiting for Dr Jeong here at this time. Spoke with patient in regards to his pain, states that he has chronic pain and feels very achy. States pain is in his lower back, abdomen and lower extremities. Patient states pain is chronic but he also states he is having oily and loose stools. Patient has has had appts with GI and recently had EGD and Colonoscopy stating that they were normal. Will discuss with Dr Jeong plan of care.
[2019-04-13 15:28] VITALS: BP 127/76
--- NOTE | 2019-04-13 17:38 | HP ---
ADMIT DATE: 04/12/2019 HISTORY OF PRESENT ILLNESS: The patient is a 53-year-old -[place] male patient who came to the Emergency Room complaining that he is not doing well. He was seen in Dr. Jim's office and diagnosed with colitis and put on Cipro and Flagyl but still sick and not able to eat and has pain, fever, chills and he was unable to keep his medication down. His and grandchildren were sick with cold. No recent travel and the patient was seen earlier in the week in Dr. Jim's office and diagnosed with colitis. The patient started on Cipro and Flagyl. The patient, however, complaining of increased abdominal pain and diarrhea. The patient complains of fever and chills. No history of exposure to ill animals, birds or snakes. Patient denied any recent contact with individuals with C. diff. No history of prior C. diff. Abdominal pain is somewhat generalized. The patient last took his ____. He had a history of Whipple procedure in 2014. He was evaluated in the Emergency Room and has had lab work done which was unremarkable. His lactic acid was slightly elevated at 2.3. He was extremely hypoglycemic with glucose of 25. His white cell count was normal and his coagulation tests are all normal. Urinalysis was essentially unremarkable. Toxic screen was essentially negative. He has had a chest x-ray which showed that there are scattered mildly air filled loops of bowel are seen. No evidence of obstructive bowel gas pattern, no definite free intraperitoneal gas. His CT scan of the abdomen and pelvis showed no apparent acute abnormality. He was admitted and he was diagnosed with abdominal pain and hypoglycemia and was started on Flagyl and Levaquin. PAST MEDICAL HISTORY: Significant for Whipple's procedure. He is known to have hypertension, hyperlipidemia, coronary artery disease, also morbid obesity, obstructive sleep apnea on CPAP, history of epilepsy before. He has also 4 or 5 episodes of pancreatitis in a span of 10 years. PAST SURGICAL HISTORY: Significant for cervical spine fusion, bilateral carpal tunnel release. He underwent esophagogastroduodenoscopy twice and colonoscopy with polypectomy twice. He apparently was recently diagnosed with a mass between his eyes for which a biopsy was taken and surgery was planned at [facility] in near future. He has Whipple procedure done at [facility]. ALLERGIES: He is allergic to ASPIRIN, FENTANYL, KETOROLAC, NAPROXEN, and TRAMADOL. FAMILY HISTORY: He has 1 brother and 1 sister, they are younger and 5 sisters older. Almost all of them have diabetes and hypertension. His father at the age 78 because of lymphoma and mother at the age of 76 because of end-stage renal disease and complication of hemodialysis. SOCIAL HISTORY: He is , has 1 daughter and 1 son. He smokes almost a pack a day. He used to be a heavy drinker. He quit about 7 years ago. His last alcoholic drink was about 6 years ago according to him. He smokes marijuana, has never used illicit drugs. He is currently disabled. MEDICATIONS: He is currently on following medications: He is on tamsulosin 0.4 mg at bedtime, atorvastatin 10 mg once at bedtime, losartan potassium 25 mg once a day, oxycodone/APAP 7.5/325 one tablet 3 times a day, Wellbutrin 300 mg once a day, and Trintellix 1 tablet daily, Ambien 10 mg at bedtime, hydrochlorothiazide 12.5 mg once a day, insulin NovoLog 8 units 3 times a day before meals, Tresiba 28 units subcutaneous at bedtime, finasteride 5 mg once a day. REVIEW OF SYSTEMS: As per history of present illness. PHYSICAL EXAMINATION: GENERAL: On arrival to the patient looked well and was clearly in no apparent respiratory distress. There is no pallor, jaundice, cyanosis or thyromegaly. No jugular venous distention. No limb edema. VITAL SIGNS: His heart rate was 82, blood pressure was 126/70, temperature was 98.3, respiratory rate was 18 and oxygen saturation was 98%. HEAD, EYES, EARS, NOSE AND THROAT: Showed normocephalic, atraumatic. NECK: Supple. HEART: Showed normal first and second heart sounds. No gallop or murmur. CHEST: Clear to auscultation. No crepitation or rhonchi. ABDOMEN: Distended, soft, nontender. NEUROLOGIC: He was awake, alert, responding appropriately. All cranial nerves intact. EXTREMITIES: He moves extremities without difficulty. LABORATORY DATA: On admission showed a white cell count 4300, hemoglobin 14.4, hematocrit 44, MCV 88 and platelet count of 172,000. His serum sodium was 143, potassium 4.1, chloride 104, bicarbonate 30, anion gap of 9, BUN 11, creatinine 0.9, estimated GFR was 106 mL per minute, his glucose 138, calcium was 8.3. Total bilirubin, AST, ALT, alkaline phosphatase were normal. Total protein was 6, albumin was 2.8. Coagulation: Prothrombin time, INR and aPTT were normal. Urinalysis was essentially unremarkable. Toxic screen was negative and influenza A and B and group A Streptococcus were negative. Clostridium difficile toxins were still pending at the time of this dictation. ASSESSMENT AND PLAN: The patient was admitted and was treated with IV fluid together with Levaquin as well as Flagyl on the assumption that the patient has C. diff colitis, although the CT scan clearly did not show it. JOHNATHAN MORIN MD DR: FAVIAN/kyleigh JOB#: [id number] / [id number]
[2019-04-13] MEDS: IV NORMAL SALINE 1,000ML 1,000 ML IV SCH (19:00)
[2019-04-13 19:45] VITALS: BP 142/79
[2019-04-13] MEDS ORDERED: INSULIN DEGLUDEC 28 UNIT SQ SCH (21:00)
[2019-04-13] MEDS ORDERED: INSULIN GLARGINE SYRINGE. SQ SCH (21:00)
[2019-04-13] MEDS ORDERED: ZOLPIDEM 5 MG TABLET. PO PRN (22:00)
[2019-04-13 22:29] VITALS: BP 131/81
--- NOTE | 2019-04-14 01:16 | PN ---
DATE: 04/13/2019 SUBJECTIVE: The patient is resting, slightly propped up in bed, in no apparent distress. On questioning, he continued to complain that he has nausea and he has no vomiting at all this morning. Said he has 2 small bowel movements this morning, although nobody has witnessed that. PHYSICAL EXAMINATION: GENERAL: When I examined him, he looked well and was clearly in no apparent respiratory distress. No pallor, jaundice, cyanosis or thyromegaly. No jugular venous distention. No limb edema. VITAL SIGNS: His heart rate was 73, blood pressure was 139/77, temperature 98.3, respiratory rate was 18 and oxygen saturation was 94% on room air. The rest of physical examination is unremarkable. His intake was 3974, output was 500. LABORATORY DATA: His lab work this morning showed his serum sodium was 138, potassium 3.5, chloride 102, bicarbonate 27, anion gap of 9, BUN 5, creatinine 0.7, estimated GFR was 142 mL per minute. His glucose was 249, calcium was 7.8. His white cell count was 7200, hemoglobin 13, hematocrit 39, MCV 88 and platelet count of 147,000. The C. diff toxins were negative. His CT scan of the abdomen and pelvis showed basically there is large amount of stool in the distal colon. There is no longer evidence of colon wall thickening to indicate colitis, at least portion of normal appendix thought to be shown in the right pelvis. PLAN: My plan is to discontinue the Levaquin and Flagyl. Continue with IV fluid. I will repeat all his labs tomorrow morning including ESR, sed rate, LDH and if they are all normal, he will be discharged home. JOHNATHAN MORIN MD DR: FAVIAN/kyleigh JOB#: [id number] / [id number]
[2019-04-14 05:18] VITALS: BP 137/76
[2019-04-14] MEDS: IV NORMAL SALINE 1,000ML 1,000 ML IV SCH (06:39)
[2019-04-14 07:00] LABS: HEMATOCRIT 38.6 % (39.0-53.0); HEMOGLOBIN 12.7 g/dL (13.0-17.5); RED BLOOD COUNT 4.43 x10^6/uL (4.30-5.70); WHITE BLOOD COUNT 4.5 x10^3/uL (4.0-11.0)
[2019-04-14 07:17] LABS: ALBUMIN 2.1 g/dL (3.4-5.0); ALBUMIN/GLOBULIN RATIO 0.7 (1.0-1.7); C REACTIVE PROTEIN 15.4 mg/L (0-3.3); CALCIUM 7.4 mg/dL (8.5-10.1); CREATININE 0.7 mg/dL (0.7-1.3); GFR 142.2; POTASSIUM 3.5 mmol/L (3.5-5.1); TOTAL BILIRUBIN 0.3 mg/dL (0.2-1.0); TOTAL PROTEIN 5.2 g/dL (6.4-8.2)
[2019-04-14] MEDS: oxyCODONE/APAP 7.5/325 1 TAB TABLET PO PRN ×2 (08:03→17:13)
[2019-04-14] MEDS: NICOTINE 14MG PATCH. TD SCH (08:04)
[2019-04-14] MEDS: INSULIN LISPRO 300 UNITS/3 ML VIAL. SQ SCH ×3 (08:12→17:13)
[2019-04-14 10:08] VITALS: BP 130/77
[2019-04-14] MEDS: HYDROmorphone PF 2 MG/ML VIAL IM PRN (12:04)
[2019-04-14 15:00] VITALS: BP 134/85
--- NOTE | 2019-04-14 17:38 | NUR ---
NURSING NOTES: PATIENT DISCHARGED TO HOME. ALL DISCHARGE INSTRUCTIONS GIVEN TO PATIENT AND VERBALIZED UNDERSTANDING. ALL PATIENT BELONGINGS SENT HOME WITH PATIENT. PATIENT AMBULATED TO FAMILY VEHICLE.
== END 2019-04-14 17:55 | disposition home or self-care (01) | DRG 371 ==
LOC: ER 18:47 → 1 SOUTH 21:00
PROVIDERS: ADMIT Internal Medicine; ATTEND Internal Medicine
DX: A04.72 Enterocolitis due to Clostridium difficile, not specified as recurrent (principal); E43 Unspecified severe protein-calorie malnutrition; Z68.24 Body mass index [BMI] 24.0-24.9, adult; Z88.8 Allergy status to other drugs, medicaments and biological substances; E11.649 Type 2 diabetes mellitus with hypoglycemia without coma; E78.5 Hyperlipidemia, unspecified; F12.90 Cannabis use, unspecified, uncomplicated; G40.909 Epilepsy, unspecified, not intractable, without status epilepticus; I10 Essential (primary) hypertension; I25.10 Atherosclerotic heart disease of native coronary artery without angina pectoris; M41.9 Scoliosis, unspecified; Z80.7 Family history of other malignant neoplasms of lymphoid, hematopoietic and related tissues; Z90.411 Acquired partial absence of pancreas; Z98.1 Arthrodesis status; E66.01 Morbid (severe) obesity due to excess calories; F32.9 Major depressive disorder, single episode, unspecified; F41.9 Anxiety disorder, unspecified; M19.90 Unspecified osteoarthritis, unspecified site
CPT/HCPCS: 36415; 71046; 74019; 74177; 80048; 80053; 80076; 80307; 81001; 82150; 82550; 82947; 83605; 83690; 84484; 85025; 85027; 85610; 85651; 85730; 86140; 87040; 87045; 87070; 87493; 87804; 87880; 93005; 94640; 96361; 96372; 96374; 96375; 96376; G0238; J1170; J1815; J1956; J2270; J2405; J3490; J7120; J7620; Q9966; Q9967; 99285-25; J7030

== ENCOUNTER 2019-09-29 18:30 | Emergency (ER) | payer MEDICARE, MEDICAID ==
[~2019-09-29] VITALS: Ht 165.1 cm; Wt 61.1 kg
[~2019-09-29 18:30] MED LIST changes: +ATOR10TA60 PO; +LOSA25TA11 PO; +MULT-445 PO; -MULT1TAB52 PO
--- NOTE | 2019-09-29 18:42 | PHYS DOC ---
Past History Past Medical History: Alcoholism, Anxiety, Arthritis, Bronchitis, CAD, Depression, Diabetes, High Cholesterol, Hypertension, Hyperthyroid, Pancreatitis, Other Past Surgical History: Other Additional Past Surgical Histo: Whipple, 2014/2016 [facility], neck surgery, carpal tunnel Smoking: Less than 1pk/day Alcohol Use: None Drug Use: None General Adult EDM: Chief Complaint: ABDOMINAL PAIN HPI: HPI: ".. I ve been sick all week.. my gut hurts so bad.. I ran out my pain meds.. I went to [place] and they gave me Bentyl and kicked me out....".." I have chronic pancreatitis... Ever since my Whipple procedure at in 2015... I had a stone that obstructed and I had to have part of my pancreas removed... I been taking my meds like they told me to... But I ran out of pain meds through 3 days ago... I normally see Dr. Jim..." Patient is a 54 year old male who presents with above hx and complaints generalized abdomen pain for the past week. Patient has had repeated episodes of vomiting for the past 3 days. Patient denies any changes in meds other than his chronic pain meds ran out. 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 Patient advises he has approximately 4-5 episodes of pancreatitis in the past 10 years. Patient is followed at for cervical spine fusion, carpal tunnel release EGDs and colonoscopies with polyp ectomy x2 seen at for mass between his eyes. Patient states his procedure was in 2016. Patient has remote history of tobacco use and alcohol use. Reportedly quit smoking 7 years ago has not consumed alcohol in 7 years. Patient does admit to occasional marijuana use. Patient is a sedative dependent for insomnia normally takes Ambien 10 mg at bedtime. Uses NovoLog for control of his diabetes. Has been taking his digestive enzymes. No history of bad food intake. Has had very poor intake for the last 48 hours. No history of recent travel outside [facility]. No specific ill contacts. Patient denies any history of immunosuppression. Patient primary is Dr. Jim. Review of Systems: Review of Systems: Constitutional: Denies fever or chills Eyes: Denies change in visual acuity HENT: Denies nasal congestion or sore throat Respiratory: Denies cough or shortness of breath Cardiovascular: Denies chest pain or edema GI: Complains of abdominal pain, nausea, vomiting, and chronic diarrhea . : Denies dysuria Musculoskeletal: Denies back pain or joint pain Integument: Denies rash Neurologic: Denies headache, focal weakness or sensory changes Endocrine: Denies polyuria or polydipsia Lymphatic: Denies swollen glands Psychiatric: Denies depression or anxiety Heart Score: HEART Score for Chest Pain: HEART Score for Chest Pain Response (Comments) Value History Moderately Suspicious 1 ECG Nonspecific Repolarizatio 1 Age >45 - < 65 1 Risk Factors 1 or 2 Risk Factors 1 Troponin < Normal Limit 0 Total 4 Risk Factors: Risk Factors: DM, Current or recent (<one month) smoker, HTN, HLP, family history of CAD, obesity. Risk Scores: Score 0 - 3: 2.5% MACE over next 6 weeks - Discharge Home Score 4 - 6: 20.3% MACE over next 6 weeks - Admit for Clinical Observation Score 7 - 10: 72.7% MACE over next 6 weeks - Early Invasive Strategies Family History: Family History: Patient's family history-has 1 brother and 5 sister they are younger. All of them have diabetes and hypertension. Father at age 78 from lymphoma. Mother age 76 because end-stage renal disease and complications of hemodialysis. Current Medications: Current Meds: See nursing for home meds Allergies: Allergies: Allergies Coded Allergies Type Severity Reaction Last Updated Verified aspirin Allergy Intermediate 07/21/18 Yes fentanyl Allergy Intermediate 07/21/18 Yes ketorolac Allergy Intermediate 07/21/18 No naproxen Allergy Intermediate 07/21/18 No tramadol Allergy Intermediate 07/21/18 Yes Physical Exam: PE: Constitutional: in acute distress, non-toxic appearance. [] HENT: Normocephalic, atraumatic, bilateral external ears normal, oropharynx dry, no oral exudates, nose normal. [] Eyes: PERRLA, EOMI, conjunctiva normal, no discharge. [] Neck: Normal range of motion, no tenderness, supple, no stridor. [] Cardiovascular: Tachycardia heart rate regular rhythm, no murmur [] Lungs & Thorax: Bilateral breath sounds equal apex with scattered wheezes and some basilar crackles on auscultation [] Abdomen: Bowel sounds decreased,, soft, generalized tenderness, no masses, no pulsatile masses. Rebound to upper abdomen. Has a very large abdomen scar Skin: Warm, dry, no erythema, no rash. [] Poor skin turgor Back: No tenderness, no CVA tenderness. [] Extremities: No tenderness, no cyanosis, no clubbing, ROM intact, no edema. No true psoas sign. Neurologic: Alert and oriented X 3, n moves extremities on request, has distal sensory,, no focal deficits noted. [] Psychologic: Affect anxious, judgement normal, mood normal. [] EKG: EKG: My interpretation EKG shows a sinus tachycardia 115 bpm. There is some bimodal P waves. But no findings of acute STEMI with contralateral changes [] Radiology/Procedures: Radiology/Procedures: My interpretation of plain films of abdomen show area of questionable free air under diaphragm bilaterally. [][address] [place] [address] IMAGING REPORT Signed PATIENT: ADAM CASTELAN ACCOUNT: [id number] : 1965 LOCATION: ER AGE: 54 SEX: M EXAM STATUS: REG ER ORD. PHYSICIAN: ISSAC ROWAN MD REASON: abdominal pain with pressure PROCEDURE: ACUTE ABDOMEN SERIES ACUTE ABDOMEN SERIES History: Reason: abdominal pain with pressure / Spl. Instructions: / History: Technique: Upright and supine view the abdomen. Comparison: CT April 12, 2019 Findings: No consolidation or pleural effusion. No pneumothorax. Normal heart size. Pneumoperitoneum. Minimal small bowel gas. Air and stool scattered throughout the imaged colon. Postop changes upper abdomen. Impression: 1. Pneumoperitoneum. Recommend CT to further evaluate. FOR INTERNAL CODING PURPOSES Critical result: Findings discussed with ISSAC ROWAN at 09/29/2019 7:30 PM. RESULT CODE: (C) Electronically signed by: Nicholas Anderson DO (09/29/2019 7:31 PM) [facility] DICTATED AND SIGNED BY: NICHOLAS ANDERSON DO DATE: 09/29/191930 CC: ISSAC ROWAN MD; AGNES JIM MD ~ [place] [address] IMAGING REPORT Signed PATIENT: ADAM CASTELAN ACCOUNT: [id number] : 1965 LOCATION: ER AGE: 54 SEX: M EXAM STATUS: REG ER ORD. PHYSICIAN: ISSAC ROWAN MD REASON: pain, appears to have free air PROCEDURE: CT ABD PEL W/ORAL CONTRST ONLY EXAM: CT ABDOMEN/PELVIS WITHOUT CONTRAST. HISTORY: Abdominal pain, pneumoperitoneum. TECHNIQUE: Computed tomography of the abdomen and pelvis was performed without intravenous contrast. One or more of the following individualized dose reduction techniques were utilized for this examination: 1. Automated exposure control. 2. Adjustment of the mA and/or kV according to patient size. 3. Use of iterative reconstruction technique. COMPARISON: 04/12/2019. FINDINGS: Lung windows through the visualized portions of the bases reveal coronary atherosclerotic calcifications and a central venous catheter tip in the superior vena cava. Bone windows reveal no suspicious lesions. There is hyperattenuating fluid throughout the abdomen. This is densest adjacent to a gastrojejunostomy, consistent with perforation of a proximal efferent ulcer or at the anastomosis. An oral contrast leak is seen on axial image 67. Given that the patient's hemoglobin is not decreased, large hemoperitoneum is not favored. There are changes of distal gastrectomy and gastrojejunostomy. The afferent limb is nondilated. There is diffuse wall thickening of the efferent limb. There is lesser wall thickening of the small bowel diffusely. There is no clear colonic wall thickening. There is no evidence of appendicitis or small bowel obstruction. The liver is unremarkable. The gallbladder is surgically absent. Pancreatic parenchymal calcifications are consistent with chronic pancreatitis. Only a small amount of the pancreatic head is been resected. Left adrenal nodules measure 2.9 cm and 2.8 cm, respectively. Attenuation is low at 7 Hounsfield units consistent with benign adenomas. The right adrenal gland is unremarkable. Subcentimeter cysts in the left kidney appear benign. The bladder is decompressed by a Colon catheter. IMPRESSION: 1. Findings consistent with perforation at the gastrojejunostomy, or just distal to this along the efferent limb. A large amount of dense material within the abdomen is likely ascites containing oral contrast rather than hemoperitoneum given that the patient's hematocrit remains normal. 2. Chronic pancreatitis. 3. Left adrenal nodules are stable and likely reflect benign adenomas. These findings were called to Dr. Rowan by Hong Hernandez on 09/29/2019 at 11:27 PM. FOR INTERNAL CODING PURPOSES RESULT CODE: (C) Electronically signed by: Mj Hernandez MD (09/29/2019 11:28 PM) [facility] DICTATED AND SIGNED BY: VIKAS HERNANDEZ MD DATE: 09/29/19 2328 IMAGING REPORT Signed PATIENT: ADAM CASTELAN ACCOUNT: [id number] : 1965 LOCATION: ER AGE: 54 SEX: M EXAM STATUS: REG ER ORD. PHYSICIAN: ISSAC ROWAN MD REASON: Central line PROCEDURE: CHEST AP ONLY CHEST AP ONLY History: Reason: Central line / Spl. Instructions: / History: Comparison: April 12, 2019 Findings: Left subclavian line with tip projecting over the lower SVC. No consolidation or pleural effusion. Normal heart size. No pneumothorax. Low lung volumes. Impression: 1. Left subclavian line with tip projecting over the lower SVC. Electronically signed by: Nicholas Anderson DO (09/29/2019 8:51 PM) [facility] DICTATED AND SIGNED BY: NICHOLAS ANDERSON DO DATE: 09/29/192050 CC: ISSAC ROWAN MD; AGNES JIM MD ~ Course & Med Decision Making: Course & Med Decision Making Pertinent Labs and Imaging studies reviewed. (See chart for details) Procedure note-central line placement-indications multiple attempts by nursing staff unable to obtain IV due to dehydration. Risk and benefits discussed with patient. Left subclavian prepped with Betadine sterile draping and procedure. Kit prep. Lidocaine infiltration .and then cannulated left. Central line passed by Seldinger technique. Return of venous blood from all [address] with Biopatch and OpSite dressing. Follow-up chest x-ray showed adequate positioning of central line with no pneumothorax. Discussed presentation, testing and tx. plan with Dr. Jin- advised he does not do Whipples recommend pt. be transfere to where he had initial surgery.. Discussed presentation testing and treatment plan with transfer. 0001. Discussed presentation, testing and tx. plan with Dr. Espinal will accept pt in transfer to . Impression: 1. Abdomen pain 2. Bowel perforation- suspect at level of gastgrojejunostomy distal along the efferent limb 3. Hx. Chronic Pancreatitis 4. DM- DKA ph 7.25 - glucose 808 5. Severe Dehydration 6. Hyponatremia 122 7. Hyperkalemia 5.7 8. Acute renal Failure- BUN 63/3.l Creat. ( prior creat. 0.9 in ) 9. Elevated Lauri T=1.6/D 0.5 10. Elevated Amylase 254 11. Elevated Alk Phos. 143 12. + Marijuana screen 13. Elevated Lactic Acid 5.8 14. SIRS Syndrome Critical Care= 120 min. Curt Disclaimer: Curt Disclaimer: This electronic medical record was generated, in whole or in part, using a voice recognition dictation system. Departure Departure: Disposition: 01 HOME/RESIDENCE PRIOR TO ADM Condition: STABLE Referrals: AGNES JIM MD (PCP) Justification of Admission: Justification of Admission: Justification of Admission Dx: N/A Dragon Disclaimer This chart was dictated in whole or in part using Voice Recognition software in a busy, high-work load, and often noisy Emergency Department environment. It may contain unintended and wholly unrecognized errors or omissions. ISSAC ROWAN MD Sep 29, 2019 18:42
[2019-09-29] MEDS ORDERED: IV RINGERS SOLUTION,LACTATED 1,000 ML IV SCH (19:00)
[2019-09-29] MEDS ORDERED: ONDANSETRON PF 4 MG/2 ML VIAL. IVP ONE (19:00)
[2019-09-29] MEDS ORDERED: FAMOTIDINE 20 MG/2 ML VIAL IVP ONE (19:00)
[2019-09-29] MEDS ORDERED: MORPHINE SULFATE 10 MG/ML SYRINGE. SQ ONE ×3 (19:15→21:30)
--- NOTE | 2019-09-29 19:34 | RAD ---
ACUTE ABDOMEN SERIES History: Reason: abdominal pain with pressure / Spl. Instructions: / History: Technique: Upright and supine view the abdomen. Comparison: CT April 12, 2019 Findings: No consolidation or pleural effusion. No pneumothorax. Normal heart size. Pneumoperitoneum. Minimal small bowel gas. Air and stool scattered throughout the imaged colon. Postop changes upper abdomen. Impression: 1. Pneumoperitoneum. Recommend CT to further evaluate. FOR INTERNAL CODING PURPOSES Critical result: Findings discussed with ISSAC DORAN at 09/29/2019 7:30 PM. RESULT CODE: (C) Electronically signed by: Nicholas Anderson DO (09/29/2019 7:31 PM) [facility]
[2019-09-29] MEDS ORDERED: IOHEXOL 240 MG/ML 50ML VIAL. ONE (19:37)
[2019-09-29] MEDS ORDERED: LIDOCAINE 2% 20 ML VIAL. ONE (20:18)
--- NOTE | 2019-09-29 20:54 | RAD ---
CHEST AP ONLY History: Reason: Central line / Spl. Instructions: / History: Comparison: April 12, 2019 Findings: Left subclavian line with tip projecting over the lower SVC. No consolidation or pleural effusion. Normal heart size. No pneumothorax. Low lung volumes. Impression: 1. Left subclavian line with tip projecting over the lower SVC. Electronically signed by: Nicholas Anderson DO (09/29/2019 8:51 PM) [facility]
[2019-09-29] MEDS ORDERED: IOHEXOL 240 MG/ML 50ML VIAL. PO ONE (21:00)
[2019-09-29] MEDS ORDERED: IOHEXOL 300 MG/ML 75 ML VIAL. IV ONE (21:00)
[2019-09-29] MEDS ORDERED: LIDOCAINE 2% TOPICAL JELLY 5GM TUBE. TP ONE (21:36)
[2019-09-29 22:04] LABS: BASO % 0 % (0-3); EOS % 0 % (0-3); HEMATOCRIT 54.9 % (39.0-53.0); LYMPH # 0.9 x10^3/uL (1.0-4.8); LYMPH % 32 % (24-48); MEAN CORPUSCULAR HEMOGLOBIN 30 pg (25-35); MEAN CORPUSCULAR HGB CONC 33 g/dL (31-37); MEAN CORPUSCULAR VOLUME 91 fL (79-100); MONO # 0.2 x10^3/uL (0.0-1.1); MONO % 8 % (0-9); NEUT # 1.6 x10^3uL (1.8-7.7); NEUT % 60 % (31-73); PLATELET COUNT 281 x10^3/uL (140-400); RED BLOOD COUNT 6.03 x10^6/uL (4.30-5.70); RED CELL DISTRIBUTION WIDTH 15.4 % (11.5-14.5); WHITE BLOOD COUNT 2.7 x10^3/uL (4.0-11.0)
[2019-09-29 22:14] LABS: BARBITURATES NEG (NEG); BENZODIAZEPINES NEG (NEG); CANNABINOIDS POS (NEG); COCAINE NEG (NEG); METHADONE NEG (NEG); OPIATES NEG (NEG); PHENCYCLIDINE NEG (NEG)
[2019-09-29 22:17] LABS: CALCIUM 8.7 mg/dL (8.5-10.1); CREATININE 3.1 mg/dL (0.7-1.3); GFR 25.4; POTASSIUM 5.7 mmol/L (3.5-5.1)
[2019-09-29 22:19] LABS: BACTERIA,URINE 0 /HPF (0-FEW); BILIRUBIN,URINE NEG (NEG); CLARITY,URINE CLOUDY; COLOR,URINE YELLOW; GLUCOSE,URINE 500 mg/dL (NEG); NITRITE,URINE NEG (NEG); RBC,URINE OCC /HPF (0-2); SQUAMOUS EPITHELIAL CELL,UR FEW /LPF; UROBILINOGEN,URINE 0.2 mg/dL (0.2 mg/dL); WBC,URINE OCC /HPF (0-4)
[2019-09-29 22:20] LABS: ALBUMIN 3.3 g/dL (3.4-5.0); DIRECT BILIRUBIN 0.5 mg/dL (0.0-0.2); TOTAL BILIRUBIN 1.6 mg/dL (0.2-1.0); TOTAL PROTEIN 6.5 g/dL (6.4-8.2)
[2019-09-29 22:20] LABS: AMORPHOUS SEDIMENT,UR PRESENT /HPF; HYALINE CASTS, URINE FEW /HPF
[2019-09-29 22:24] LABS: AMPHETAMINE/METHAMPHETAMINE NEG (NEG)
[2019-09-29] MEDS ORDERED: INSULIN REGULAR 100 UNIT/ML 3ML VIAL. IV ONE (22:45)
[2019-09-29] MEDS ORDERED: SODIUM BICARB ADULT 8.4% 50 MEQ/50 ML DISP.SYRIN. IV ONE (22:45)
[2019-09-29] MEDS ORDERED: IV NORMAL SALINE 100ML 100 ML ONE ×2 (22:52→23:35)
[2019-09-29] MEDS ORDERED: INSULIN REGULAR VIAL 100 UNIT in IV NORMAL SALINE 100ML 100 ML IV ONE (23:00)
[2019-09-29 23:23] LABS: BGAS PH 7.25 (7.35-7.46)
--- NOTE | 2019-09-29 23:31 | RAD ---
EXAM: CT ABDOMEN/PELVIS WITHOUT CONTRAST. HISTORY: Abdominal pain, pneumoperitoneum. TECHNIQUE: Computed tomography of the abdomen and pelvis was performed without intravenous contrast. One or more of the following individualized dose reduction techniques were utilized for this examination: 1. Automated exposure control. 2. Adjustment of the mA and/or kV according to patient size. 3. Use of iterative reconstruction technique. COMPARISON: 04/12/2019. FINDINGS: Lung windows through the visualized portions of the bases reveal coronary atherosclerotic calcifications and a central venous catheter tip in the superior vena cava. Bone windows reveal no suspicious lesions. There is hyperattenuating fluid throughout the abdomen. This is densest adjacent to a gastrojejunostomy, consistent with perforation of a proximal efferent ulcer or at the anastomosis. An oral contrast leak is seen on axial image 67. Given that the patient's hemoglobin is not decreased, large hemoperitoneum is not favored. There are changes of distal gastrectomy and gastrojejunostomy. The afferent limb is nondilated. There is diffuse wall thickening of the efferent limb. There is lesser wall thickening of the small bowel diffusely. There is no clear colonic wall thickening. There is no evidence of appendicitis or small bowel obstruction. The liver is unremarkable. The gallbladder is surgically absent. Pancreatic parenchymal calcifications are consistent with chronic pancreatitis. Only a small amount of the pancreatic head is been resected. Left adrenal nodules measure 2.9 cm and 2.8 cm, respectively. Attenuation is low at 7 Hounsfield units consistent with benign adenomas. The right adrenal gland is unremarkable. Subcentimeter cysts in the left kidney appear benign. The bladder is decompressed by a Colon catheter. IMPRESSION: 1. Findings consistent with perforation at the gastrojejunostomy, or just distal to this along the efferent limb. A large amount of dense material within the abdomen is likely ascites containing oral contrast rather than hemoperitoneum given that the patient's hematocrit remains normal. 2. Chronic pancreatitis. 3. Left adrenal nodules are stable and likely reflect benign adenomas. These findings were called to Dr. Rowan by Hong Hernandez on 09/29/2019 at 11:27 PM. FOR INTERNAL CODING PURPOSES RESULT CODE: (C) Electronically signed by: Mj Hernandez MD (09/29/2019 11:28 PM) [facility]
[2019-09-29] MEDS ORDERED: IV NORMAL SALINE 1,000ML 1,000 ML IV ONE (23:45)
--- NOTE | 2019-09-30 01:05 | EKG ---
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
[2019-09-30 02:45] VITALS: BP 89/32
[2019-09-30] MEDS ORDERED: IV NORMAL SALINE 1,000ML 1,000 ML IV ONE (03:30)
== END 2019-09-30 02:53 | disposition short-term general hospital (02) ==
LOC: ER 18:30
DX: N17.9 Acute kidney failure, unspecified (principal); K63.1 Perforation of intestine (nontraumatic); K86.1 Other chronic pancreatitis; E11.10 Type 2 diabetes mellitus with ketoacidosis without coma; E86.0 Dehydration; E87.1 Hypo-osmolality and hyponatremia; E87.5 Hyperkalemia; R94.8 Abnormal results of function studies of other organs and systems; R74.8 Abnormal levels of other serum enzymes; R74.0 Nonspecific elevation of levels of transaminase and lactic acid dehydrogenase [LDH]; R65.10 Systemic inflammatory response syndrome (SIRS) of non-infectious origin without acute organ dysfunction; Z03.818 Encounter for observation for suspected exposure to other biological agents ruled out; G89.29 Other chronic pain; I10 Essential (primary) hypertension; K21.9 Gastro-esophageal reflux disease without esophagitis; E78.5 Hyperlipidemia, unspecified; I25.10 Atherosclerotic heart disease of native coronary artery without angina pectoris; G40.909 Epilepsy, unspecified, not intractable, without status epilepticus; G47.33 Obstructive sleep apnea (adult) (pediatric); M19.90 Unspecified osteoarthritis, unspecified site; E78.00 Pure hypercholesterolemia, unspecified; E05.90 Thyrotoxicosis, unspecified without thyrotoxic crisis or storm; F17.200 Nicotine dependence, unspecified, uncomplicated; Z88.6 Allergy status to analgesic agent; Z88.8 Allergy status to other drugs, medicaments and biological substances
CPT/HCPCS: 36415; 36556; 71045; 74022; 74176; 80048; 80076; 80307; 81001; 82150; 82550; 82803; 82947; 83690; 84484; 85025; 85610; 85730; 93005; 96361; 96365; 96366; 96368; 96372; 96375; 96376; 99291; 99292; J0696; J1815; J2270; J2405; J3490; J7030; J7120; Q9966; Q9967; U0003

== ENCOUNTER 2019-12-10 13:28 | Emergency (ER) | payer MEDICARE, MEDICAID ==
[~2019-12-10] VITALS: Ht 165.1 cm; Wt 61.1 kg
--- NOTE | 2019-12-10 13:36 | PHYS DOC ---
Past History Past Medical History: Alcoholism, Anxiety, Arthritis, Bronchitis, CAD, Depression, Diabetes, High Cholesterol, Hypertension, Hyperthyroid, Pancreatitis, Other Past Surgical History: Other Additional Past Surgical Histo: Whipple, 2014/2015 [facility], neck surgery, carpal tunnel Smoking: Less than 1pk/day Alcohol Use: Occasionally Drug Use: None Adult General HPI HPI Patient is a 54-year-old male who presents with lower abdominal pain. Onset was 2 days ago, reports only inciting event he can think of was lifting hess of truck overhead and slamming it as potential mechanism, denies trauma. Nothing known makes better, he has taken previously prescribed Radisson 7.5 without significant relief. Everything makes worse, cannot tolerate p.o. intake per patient. Reports bilateral lower quadrant diffuse abdominal pain with minimal radiation, timing of symptoms has been constant since onset. Patient was seen at our facility in September and found to have perforated abdomen at that time, patient known to our facility given long history of abdominal surgeries managed at [facility] which includes Whipple procedure. States he was admitted at [facility] "for a while "and discharged home recently. Reports he has been asymptomatic until 2 days ago. Denies any fever, known COVID-19 contacts, recent travel, chest pain, shortness of breath, diarrhea, urinary symptoms or syncope. Patient does admit to ongoing nausea and sporadic episodes of nonbilious nonbloody emesis Review of Systems Review of Systems Fourteen body systems of review of systems have been reviewed. See HPI for pertinent positives and negative responses, other schultz all other systems are negative, non-pertinent or non-contributory Allergies Allergies Allergies Coded Allergies Type Severity Reaction Last Updated Verified aspirin Allergy Intermediate 07/21/18 Yes fentanyl Allergy Intermediate 07/21/18 Yes ketorolac Allergy Intermediate 07/21/18 No naproxen Allergy Intermediate 07/21/18 No tramadol Allergy Intermediate 09/29/19 Yes Physical Exam Physical Exam Constitutional: Well developed, well nourished, no acute distress, non-toxic appearance. HENT: Normocephalic, atraumatic, bilateral external ears normal, oropharynx moist, no oral exudates, nose normal. Eyes: PERRLA, EOMI, conjunctiva normal, no discharge. Neck: Normal range of motion, no tenderness, supple, no stridor. Cardiovascular: Heart rate regular, sinus rhythm, no murmurs rubs or gallops Lungs & Thorax: Bilateral breath sounds clear to auscultation Abdomen: Bowel sounds normal, soft, generalized tenderness to lower abdomen, mild voluntary guarding, no rebound, well-healed surgical incision sites without any concern for superficial infection from recent surgery performed September 2019, n o masses, no pulsatile masses. Nonsurgical abdomen, no peritoneal signs Skin: Warm, dry, no erythema, no rash. Back: No tenderness, no CVA tenderness. Extremities: No tenderness, no cyanosis, no clubbing, ROM intact, no edema. Neurologic: Alert and oriented X 3, grossly normal motor & sensory function, no focal deficits noted. Psychologic: Affect normal, judgement normal, anxious mood EKG EKG EKG ordered and interpreted by myself at 1350 hrs. as sinus rhythm 64 bpm, unremarkable intervals, no axis deviation, no acute ischemic findings, no STEMI Radiology/Procedures Radiology/Procedures PROCEDURE: CHEST AP ONLY EXAM: CHEST 1 VIEW History: Chest pain COMPARISON: 09/29/2019 TECHNIQUE: Single portable radiograph of the chest FINDINGS: The cardiac silhouette is unremarkable. The lungs are clear bilaterally. The costophrenic sulci are clear and well demarcated. IMPRESSION: No radiographic evidence of an acute cardiopulmonary process. Electronically signed by: Ronnie Salas MD (12/10/2019 2:37 PM) [id number] PROCEDURE: CT ABD PELV W/ IV CONTRST ONLY Examination: CT of the abdomen pelvis with IV contrast HISTORY: History bilateral lower quadrant abdominal pain COMPARISON: 09/29/2019 TECHNIQUE: Axial CT images of the abdomen pelvis were performed with IV contrast. Coronal and sagittal reformats are performed Exposure: One or more of the following individualized dose reduction techniques were utilized for this examination: 1. Automated exposure control 2. Adjustment of the mA and/or kV according to patient size 3. Use of iterative reconstruction technique FINDINGS: The bibasilar lungs are clear. No evidence of free air identified in the abdomen. The liver, right adrenal grossly appears unremarkable. There is a 1.4 cm nodule identified in the left adrenal gland similar to prior exam. The bilateral kidneys enhance symmetrically. Cystic structure identified in the left kidney measuring 1 cm likely cyst. Postoperative changes of the pancreas. Atrophic appearing pancreatic tail changes of gastrojejunostomy. The small bowel is nondilated. There is some fat stranding identified about the small bowel loops particularly in the left mid abdomen. Moderate thickened appearance of the wall of the colon with surrounding inflammatory fat stranding. Urinary bladder is mildly distended. Moderate aortic atherosclerosis. Mild degenerative changes thoracolumbar spine. IMPRESSION: 1. Thickened appearance of the wall of the colon with surrounding fat stranding likely diffuse colitis. 2. Mild fat stranding identified about the small bowel loops in the left midabdomen probably enteritis. 3. Postoperative changes of gastrojejunostomy. Electronically signed by: Ronnie Salas MD (12/10/2019 3:28 PM) [id number] Course & Med Decision Making Course & Med Decision Making Ambulatory patient seen on immediate ER arrival via POV ABCs unremarkable Comprehensive history and physical exam obtained, reviewed prior visits documentation and diagnostic work-up performed in September 2019 No emergent/surgical findings at present but high risk patient warranted further diagnostic work-up, pertinent studies ordered IV access obtained, a total of 6 mg IV morphine administered in addition to 1 L normal saline Findings indicative of colitis with enteritis discussed in high risk individual with recent postoperative abdominal surgery Patient meets no criteria for further diagnostic work-up or intervention in ER setting, joint decision to discharge home with prescription for ciprofloxacin to cover for potential infectious cause of colitis with close PCP follow-up in upcoming 1 to 6 days time Patient reports he has good access to PCP and above timeframe is realistic. I advised patient to discontinue medication such as Ambien that would interact with prescribed ciprofloxacin temporarily until completion of antibiotic use Strict return precautions discussed with good understanding by patient, all questions and concerns addressed prior to ER departure home in stable condition with prescribed ciprofloxacin and continued bowel rest and supportive care for colitis Dragon Disclaimer Dragon Disclaimer This electronic medical record was generated, in whole or in part, using a voice recognition dictation system. Departure Departure: Impression: Primary Impression: Abdominal pain Additional Impression: Colitis Disposition: 01 HOME/RESIDENCE PRIOR TO ADM Condition: STABLE Referrals: AGNES VALDERRAMA MD (PCP) Patient Instructions: Colitis Additional Instructions: You have been evaluated in the Emergency Department today for abdominal pain. Your evaluation was not suggestive of any emergent condition at this time but we did show findings suggestive of colitis As mentioned, some abdominal problems make take more time to appear. Therefore, it is important for you to watch for any new symptoms or worsening of your current condition. As discussed prior to ER departure, please call your primary care physician first thing tomorrow morning to schedule outpatient follow-up, please discuss need for additional follow-up with outpatient surgeons as deemed necessary by your PCP PLEASE TAKE YOUR CIPROFLOXACIN MEDICATION INSTRUCTED. PLEASE DISCONTINUE AMBIEN USE TEMPORARILY WHILE TAKING ANTIBIOTICS Return to the Emergency Department if you experience worsening pain, persistent fevers greater than 100.4, recurrent vomiting, blood in vomit, blood in stool, dark tarry stool, chest pain, difficulty breathing, or any other concerning symptoms. Scripts Ciprofloxacin Hcl (CIPROFLOXACIN HCL) 500 Mg Tablet 1 TAB PO BID for Colitis, #9 TAB Prov: ANTHONY VARGAS DO 12/10/19 Justification of Admission: Justification of Admission: Justification of Admission Dx: N/A Problem Qualifiers ANTHONY VARGAS DO Dec 10, 2019 13:36
[2019-12-10] MEDS ORDERED: IV NORMAL SALINE 1,000ML 1,000 ML IV ONE (13:45)
[2019-12-10] MEDS ORDERED: MORPHINE SULFATE 4 MG/ML DISP.SYRIN. IV ONE (13:45)
--- NOTE | 2019-12-10 13:53 | EKG ---
[facility] ED [facility] [address] [place] [id number] Test Date: 2019-12-10 Test Time: 13:46:50 Pat Name: ADAM CASTELAN Department: Room: Gender: M Management Trainee: : 1965 Requested By: ANTHONY VARGAS Order Number: [id number] Reading MD: Clovis Anderson MD Measurements Intervals Hope Rate: 64 P: 47 SD: 144 QRS: 40 QRSD: 82 T: 42 QT: 416 QTc: 429 Interpretive Statements SINUS RHYTHM Electronically Signed On 12-12-2019 9:16:06 CDT by Clovis Anderson MD
[2019-12-10 14:09] VITALS: BP 143/94
[2019-12-10] MEDS ORDERED: IOHEXOL 300 MG/ML 75 ML VIAL. IV ONE (14:10)
[2019-12-10] MEDS ORDERED: CONTRAST GIVEN. MC PRN (14:15)
[2019-12-10 14:40] LABS: BASO % 0 % (0-3); EOS # 0.1 x10^3/uL (0.0-0.7); EOS % 2 % (0-3); HEMATOCRIT 39.8 % (39.0-53.0); HEMOGLOBIN 12.9 g/dL (13.0-17.5); LYMPH # 1.5 x10^3/uL (1.0-4.8); LYMPH % 26 % (24-48); MEAN CORPUSCULAR HEMOGLOBIN 27 pg (25-35); MEAN CORPUSCULAR HGB CONC 32 g/dL (31-37); MEAN CORPUSCULAR VOLUME 85 fL (79-100); MONO # 0.5 x10^3/uL (0.0-1.1); MONO % 9 % (0-9); NEUT # 3.6 x10^3uL (1.8-7.7); NEUT % 62 % (31-73); PLATELET COUNT 179 x10^3/uL (140-400); RED BLOOD COUNT 4.71 x10^6/uL (4.30-5.70); RED CELL DISTRIBUTION WIDTH 19.5 % (11.5-14.5); WHITE BLOOD COUNT 5.8 x10^3/uL (4.0-11.0)
--- NOTE | 2019-12-10 14:40 | RAD ---
EXAM: CHEST 1 VIEW History: Chest pain COMPARISON: 09/29/2019 TECHNIQUE: Single portable radiograph of the chest FINDINGS: The cardiac silhouette is unremarkable. The lungs are clear bilaterally. The costophrenic sulci are clear and well demarcated. IMPRESSION: No radiographic evidence of an acute cardiopulmonary process. Electronically signed by: Ronnie Salas MD (12/10/2019 2:37 PM) [id number]
[2019-12-10 14:50] LABS: CALCIUM 7.8 mg/dL (8.5-10.1); CREATININE 0.8 mg/dL (0.7-1.3); GFR 121.4
[2019-12-10 14:56] LABS: ALBUMIN 2.7 g/dL (3.4-5.0); ALBUMIN/GLOBULIN RATIO 0.8 (1.0-1.7); TOTAL BILIRUBIN 0.2 mg/dL (0.2-1.0); TOTAL PROTEIN 6.2 g/dL (6.4-8.2)
--- NOTE | 2019-12-10 15:31 | RAD ---
Examination: CT of the abdomen pelvis with IV contrast HISTORY: History bilateral lower quadrant abdominal pain COMPARISON: 09/29/2019 TECHNIQUE: Axial CT images of the abdomen pelvis were performed with IV contrast. Coronal and sagittal reformats are performed Exposure: One or more of the following individualized dose reduction techniques were utilized for this examination: 1. Automated exposure control 2. Adjustment of the mA and/or kV according to patient size 3. Use of iterative reconstruction technique FINDINGS: The bibasilar lungs are clear. No evidence of free air identified in the abdomen. The liver, right adrenal grossly appears unremarkable. There is a 1.4 cm nodule identified in the left adrenal gland similar to prior exam. The bilateral kidneys enhance symmetrically. Cystic structure identified in the left kidney measuring 1 cm likely cyst. Postoperative changes of the pancreas. Atrophic appearing pancreatic tail changes of gastrojejunostomy. The small bowel is nondilated. There is some fat stranding identified about the small bowel loops particularly in the left mid abdomen. Moderate thickened appearance of the wall of the colon with surrounding inflammatory fat stranding. Urinary bladder is mildly distended. Moderate aortic atherosclerosis. Mild degenerative changes thoracolumbar spine. IMPRESSION: 1. Thickened appearance of the wall of the colon with surrounding fat stranding likely diffuse colitis. 2. Mild fat stranding identified about the small bowel loops in the left midabdomen probably enteritis. 3. Postoperative changes of gastrojejunostomy. Electronically signed by: Ronnie Salas MD (12/10/2019 3:28 PM) [id number]
[2019-12-10] MEDS ORDERED: CIPR500T PO (15:52)
[2019-12-10] MEDS ORDERED: CIPROFLOXACIN HCL 500 MG TABLET PO ONE (16:00)
[2019-12-10] MEDS ORDERED: MORPHINE SULFATE 2 MG/ML DISP.SYRIN. IV ONE (16:00)
== END 2019-12-10 16:02 | disposition home or self-care (01) ==
LOC: ER 13:28
DX: K52.9 Noninfective gastroenteritis and colitis, unspecified (principal); F41.9 Anxiety disorder, unspecified; M19.90 Unspecified osteoarthritis, unspecified site; I25.10 Atherosclerotic heart disease of native coronary artery without angina pectoris; E11.9 Type 2 diabetes mellitus without complications; E78.00 Pure hypercholesterolemia, unspecified; I10 Essential (primary) hypertension; E05.90 Thyrotoxicosis, unspecified without thyrotoxic crisis or storm; F17.200 Nicotine dependence, unspecified, uncomplicated; F10.20 Alcohol dependence, uncomplicated; Z88.8 Allergy status to other drugs, medicaments and biological substances; Z88.6 Allergy status to analgesic agent; Y90.9 Presence of alcohol in blood, level not specified
CPT/HCPCS: 36415; 71045; 74177; 80053; 83690; 84484; 85025; 93005; 96374; 99285; J2270; J7030; 96361

== ENCOUNTER 2019-12-11 13:57 | Emergency (ER) | payer MEDICARE, MEDICAID ==
[~2019-12-11] VITALS: Ht 165.1 cm; Wt 60.9 kg
[~2019-12-11 13:57] MED LIST changes: +CIPR500T PO
[2019-12-11] MEDS ORDERED: MORPHINE SULFATE 4 MG/ML DISP.SYRIN. IV ONE ×2 (15:15→17:15)
[2019-12-11] MEDS ORDERED: IV NORMAL SALINE 1,000ML 1,000 ML IV ONE (15:15)
[2019-12-11] MEDS ORDERED: ONDANSETRON PF 4 MG/2 ML VIAL. IVP ONE (15:15)
[2019-12-11 15:31] LABS: BASO % 1 % (0-3); EOS % 0 % (0-3); HEMATOCRIT 39.4 % (39.0-53.0); LYMPH # 1.1 x10^3/uL (1.0-4.8); LYMPH % 13 % (24-48); MEAN CORPUSCULAR HEMOGLOBIN 27 pg (25-35); MEAN CORPUSCULAR HGB CONC 33 g/dL (31-37); MEAN CORPUSCULAR VOLUME 82 fL (79-100); MONO # 0.5 x10^3/uL (0.0-1.1); MONO % 6 % (0-9); NEUT # 6.8 x10^3uL (1.8-7.7); NEUT % 81 % (31-73); PLATELET COUNT 209 x10^3/uL (140-400); RED BLOOD COUNT 4.78 x10^6/uL (4.30-5.70); WHITE BLOOD COUNT 8.4 x10^3/uL (4.0-11.0)
[2019-12-11 15:38] LABS: CALCIUM 8.8 mg/dL (8.5-10.1); CREATININE 0.6 mg/dL (0.7-1.3); GFR 169.3; POTASSIUM 3.6 mmol/L (3.5-5.1)
[2019-12-11 15:45] LABS: ALBUMIN 3.1 g/dL (3.4-5.0); ALBUMIN/GLOBULIN RATIO 0.7 (1.0-1.7); MAGNESIUM 1.7 mg/dL (1.8-2.4); TOTAL BILIRUBIN 0.5 mg/dL (0.2-1.0); TOTAL PROTEIN 7.3 g/dL (6.4-8.2)
[2019-12-11 15:54] LABS: CLARITY,URINE HAZY; COLOR,URINE YELLOW
[2019-12-11 15:55] LABS: BACTERIA,URINE 0 /HPF (0-FEW); BILIRUBIN,URINE NEG (NEG); GLUCOSE,URINE NEG (NEG); NITRITE,URINE NEG (NEG); SQUAMOUS EPITHELIAL CELL,UR FEW /LPF; UROBILINOGEN,URINE 0.2 mg/dL (0.2 mg/dL)
--- NOTE | 2019-12-11 16:13 | RAD ---
Examination: Acute abdomen series HISTORY: History of abdominal pain, nausea, vomiting COMPARISON: 09/29/2019. Findings: The lungs are clear. The cardiomediastinal silhouette grossly appears unremarkable. No evidence of free air under the hemidiaphragms. Paucity of gas in the small bowel limits evaluation. Surgical clips project in the abdomen. IMPRESSION: 1. Nonspecific bowel gas pattern. If pain persists recommend CT abdomen pelvis. 2. The lungs are clear. Electronically signed by: Ronnie Salas MD (12/11/2019 4:10 PM) [id number]
--- NOTE | 2019-12-11 17:06 | PHYS DOC ---
Past History Past Medical History: Alcoholism, Anxiety, Arthritis, Bronchitis, CAD, Depression, Diabetes, High Cholesterol, Hypertension, Hyperthyroid, Pancreatitis, Other Past Surgical History: Other Additional Past Surgical Histo: Whipple, 2015/2016 [facility], neck surgery, carpal tunnel Smoking: Less than 1pk/day Alcohol Use: None Drug Use: None General Adult EDM: Chief Complaint: NAUSEA/VOMITING/DIARRHEA HPI: HPI: Patient is a 54-year-old male who presents to ER today for evaluation of nausea vomiting abdominal pain. Symptom has been going on since last . Patient was seen here yesterday for the same problem, he had a CT scan done and lab work done, shown colitis. Patient was discharged home with Cipro and nausea medication. Patient has history of multiple abdominal surgeries in the past at [facility]. Patient denies any fever, no cough, no known exposure to anybody who tested positive for COVID-19. Review of Systems: Review of Systems: Constitutional: Denies fever or chills Eyes: Denies change in visual acuity HENT: Denies nasal congestion or sore throat Respiratory: Denies cough or shortness of breath Cardiovascular: Denies chest pain or edema GI: Positive for abdominal pain, nausea and vomiting. Patient denies diarrhea : Denies dysuria Musculoskeletal: Denies back pain or joint pain Integument: Denies rash Neurologic: Denies headache, focal weakness or sensory changes Endocrine: Denies polyuria or polydipsia Lymphatic: Denies swollen glands Psychiatric: Denies depression or anxiety Heart Score: Risk Factors: Risk Factors: DM, Current or recent (<one month) smoker, HTN, HLP, family history of CAD, obesity. Risk Scores: Score 0 - 3: 2.5% MACE over next 6 weeks - Discharge Home Score 4 - 6: 20.3% MACE over next 6 weeks - Admit for Clinical Observation Score 7 - 10: 72.7% MACE over next 6 weeks - Early Invasive Strategies Current Medications: Current Meds: Current Medications Medications (Trade) Dose Ordered Sig/Elfego Start Time Stop Time Status Last Admin Dose Admin Morphine Sulfate (Morphine 4mg Syringe) 4 mg 1X ONCE 12/11/19 15:15 12/11/19 15:20 DC 12/11/19 15:31 4 MG Ondansetron HCl (Zofran) 4 mg 1X ONCE 8/31/20 15:15 12/11/19 15:20 DC 12/11/19 15:30 4 MG Sodium Chloride 1,000 ml @ 1,000 mls/hr 1X ONCE 12/11/19 15:15 12/11/19 16:14 DC 12/11/19 15:28 1,000 MLS/HR Allergies: Allergies: Allergies Coded Allergies Type Severity Reaction Last Updated Verified aspirin Allergy Intermediate 07/21/18 Yes fentanyl Allergy Intermediate 07/21/18 Yes ketorolac Allergy Intermediate 07/21/18 No naproxen Allergy Intermediate 07/21/18 No tramadol Allergy Intermediate 09/29/19 Yes Physical Exam: PE: Constitutional: Well developed, well nourished, no acute distress, non-toxic appearance. [] HENT: Normocephalic, atraumatic, bilateral external ears normal, oropharynx moist, no oral exudates, nose normal. [] Eyes: PERRLA, EOMI, conjunctiva normal, no discharge. [] Neck: Normal range of motion, no tenderness, supple, no stridor. [] Cardiovascular:Heart rate regular rhythm, no murmur [] Lungs & Thorax: Bilateral breath sounds clear to auscultation [] Abdomen: Decreased bowel sounds in all 4 quadrants, there is tenderness to palpation at the epigastric area, no rebound, no guarding, no pulsatile mass. Skin: Warm, dry, no erythema, no rash. [] Back: No tenderness, no CVA tenderness. [] Extremities: No tenderness, no cyanosis, no clubbing, ROM intact, no edema. [] Neurologic: Alert and oriented X 3, normal motor function, normal sensory function, no focal deficits noted. [] Psychologic: Affect normal, judgement normal, mood normal. [] Current Patient Data: Labs: Laboratory Tests Test 12/11/19 14:58 12/11/19 15:03 White Blood Count 8.4 x10^3/uL (4.0-11.0) Red Blood Count 4.78 x10^6/uL (4.30-5.70) Hemoglobin 13.0 g/dL (13.0-17.5) Hematocrit 39.4 % (39.0-53.0) Mean Corpuscular Volume 82 fL (79-100) Mean Corpuscular Hemoglobin 27 pg (25-35) Mean Corpuscular Hemoglobin Concent 33 g/dL (31-37) Red Cell Distribution Width 20.0 % (11.5-14.5) H Platelet Count 209 x10^3/uL (140-400) Neutrophils (%) (Auto) 81 % (31-73) H Lymphocytes (%) (Auto) 13 % (24-48) L Monocytes (%) (Auto) 6 % (0-9) Eosinophils (%) (Auto) 0 % (0-3) Basophils (%) (Auto) 1 % (0-3) Neutrophils # (Auto) 6.8 x10^3uL (1.8-7.7) Lymphocytes # (Auto) 1.1 x10^3/uL (1.0-4.8) Monocytes # (Auto) 0.5 x10^3/uL (0.0-1.1) Eosinophils # (Auto) 0.0 x10^3/uL (0.0-0.7) Basophils # (Auto) 0.0 x10^3/uL (0.0-0.2) Platelet Estimate Pending Sodium Level 138 mmol/L (136-145) Potassium Level 3.6 mmol/L (3.5-5.1) Chloride Level 101 mmol/L (98-107) Carbon Dioxide Level 30 mmol/L (21-32) Anion Gap 7 (6-14) Blood Urea Nitrogen 9 mg/dL (8-26) Creatinine 0.6 mg/dL (0.7-1.3) L Estimated GFR (Cockcroft-Gault) 169.3 BUN/Creatinine Ratio 15 (6-20) Glucose Level 190 mg/dL (70-99) H Calcium Level 8.8 mg/dL (8.5-10.1) Magnesium Level 1.7 mg/dL (1.8-2.4) L Total Bilirubin 0.5 mg/dL (0.2-1.0) Aspartate Amino Transferase (AST) 36 U/L (15-37) Alanine Aminotransferase (ALT) 52 U/L (16-63) Alkaline Phosphatase 168 U/L (46-116) H Total Protein 7.3 g/dL (6.4-8.2) Albumin 3.1 g/dL (3.4-5.0) L Albumin/Globulin Ratio 0.7 (1.0-1.7) L Lipase 24 U/L (73-393) L Urine Collection Type Unknown Urine Color Yellow Urine Clarity Hazy Urine pH 8.5 Urine Specific [place] 1.020 Urine Protein >100 mg/dl (NEG-TRACE) Urine Glucose (UA) Neg mg/dL (NEG) Urine Ketones (Stick) 15 mg/dL (NEG) Urine Blood Trace (NEG) Urine Nitrite Neg (NEG) Urine Bilirubin Neg (NEG) Urine Urobilinogen Dipstick 0.2 mg/dL (0.2 mg/dL) Urine Leukocyte Esterase Neg (NEG) Urine RBC 6-10 /HPF (0-2) Urine WBC 1-4 /HPF (0-4) Urine Squamous Epithelial Cells Few /LPF Urine Bacteria 0 /HPF (0-FEW) Urine Mucus Slight /LPF Vital Signs: Vital Signs Date Time Temp Pulse Resp B/P (MAP) Pulse Ox O2 Delivery O2 Flow Rate FiO2 12/11/19 15:31 96 Room Air 12/11/19 14:10 97.9 61 16 181/96 (124) EKG: EKG: [] Radiology/Procedures: Radiology/Procedures: [][place] [address] IMAGING REPORT Signed PATIENT: ADAM CASTELAN ACCOUNT: [id number] : 1965 LOCATION: ER AGE: 54 SEX: M EXAM STATUS: REG ER ORD. PHYSICIAN: CONNIE ROSENBAUM DO REASON: ABDOMINAL PAIN, NAUSEA, VOMITING PROCEDURE: ACUTE ABDOMEN SERIES Examination: Acute abdomen series HISTORY: History of abdominal pain, nausea, vomiting COMPARISON: 09/29/2019. Findings: The lungs are clear. The cardiomediastinal silhouette grossly appears unremarkable. No evidence of free air under the hemidiaphragms. Paucity of gas in the small bowel limits evaluation. Surgical clips project in the abdomen. IMPRESSION: 1. Nonspecific bowel gas pattern. If pain persists recommend CT abdomen pelvis. 2. The lungs are clear. Electronically signed by: Ronnie Salas MD (12/11/2019 4:10 PM) [id number] DICTATED AND SIGNED BY: RONNIE SALAS MD DATE: 12/11/19 1610 CC: AGNES VALDERRAMA MD; CONNIE ROSENBAUM DO ~ Course & Med Decision Making: Course & Med Decision Making Pertinent Labs and Imaging studies reviewed. (See chart for details) Patient is a 54-year-old male who presented to ER today for evaluation of abdominal pain with nausea vomiting. Patient was just seen here yesterday for the same symptom, work-up included labs and CT scan of abdomen and pelvis showed some colitis . patient was discharged home with antibiotic and nausea medication and pain medication. Patient came back today with nausea vomiting and abdominal pain, his lab work today came back normal, acute abdominal series did not show an obstruction. Patient was given pain medication and IV fluid and IV nausea medication. Patient felt much better. Patient wanted to be discharged home. He said his will take him to [facility] for evaluation if he has worsen pain again. Dragon Disclaimer: Dragon Disclaimer: This electronic medical record was generated, in whole or in part, using a voice recognition dictation system. Departure Departure: Impression: Primary Impression: GENERALIZED ABDOMINAL PAIN Additional Impression: Nausea & vomiting Disposition: 01 HOME/RESIDENCE PRIOR TO ADM Condition: IMPROVED Referrals: AGNES VALDERRAMA MD (PCP) PLEASE CALL YOUR FAMILY DOCTOR FOR EVALUATION THIS WEEK. Patient Instructions: Abdominal Migraine, Nausea and Vomiting Additional Instructions: Thank you for visiting our Emergency Department. We appreciate you trusting us with your care. If any additional problems come up don't hesitate to return to visit us. Please follow up with your primary care provider so they can plan additional care if needed and know about the problem that you had. If symptoms worsen come back to the Emergency Department. Any concerning symptoms that start such as chest pain, shortness of air, weakness or numbness on one side of the body, running high fevers or any other concerning symptoms return to the ER. Justification of Admission: Justification of Admission: Justification of Admission Dx: N/A CONNIE ROSENBAUM DO Dec 11, 2019 17:05
[2019-12-11 17:11] LABS: ANISOCYTOSIS SLIGHT
[2019-12-11 17:12] LABS: PLT ESTIMATE ADEQUATE (ADEQUATE)
[2019-12-11] MEDS ORDERED: METOCLOPRAMIDE HCL 10 MG/2 ML VIAL. IVP ONE (17:15)
[2019-12-11 17:19] VITALS: BP 173/83
== END 2019-12-11 17:29 | disposition home or self-care (01) ==
LOC: ER 13:57
DX: R11.2 Nausea with vomiting, unspecified (principal); R10.84 Generalized abdominal pain; F10.20 Alcohol dependence, uncomplicated; F41.9 Anxiety disorder, unspecified; M19.90 Unspecified osteoarthritis, unspecified site; I25.10 Atherosclerotic heart disease of native coronary artery without angina pectoris; F32.9 Major depressive disorder, single episode, unspecified; E11.9 Type 2 diabetes mellitus without complications; E78.00 Pure hypercholesterolemia, unspecified; I10 Essential (primary) hypertension; E05.90 Thyrotoxicosis, unspecified without thyrotoxic crisis or storm; F17.200 Nicotine dependence, unspecified, uncomplicated; Z88.6 Allergy status to analgesic agent; Z88.8 Allergy status to other drugs, medicaments and biological substances; Y90.9 Presence of alcohol in blood, level not specified
CPT/HCPCS: 36415; 74022; 80053; 81001; 83690; 83735; 85025; 96361; 96374; 96375; 96376; 99284; J2270; J2405; J2765; J7030

== ENCOUNTER 2019-12-25 19:07 | Emergency (ER) | payer MEDICARE, MEDICAID ==
[~2019-12-25] VITALS: Ht 162.6 cm; Wt 64.2 kg
--- NOTE | 2019-12-25 19:19 | PHYS DOC ---
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 Patient is a 54-year-old male with PMH recent colectomy secondary to bowel perforation who presents with a chief complaint of abdominal pain. Patient states he has had constant abdominal pain since his surgery at [facility] around October 13. He states he has been seen multiple times in the emergency department for similar pain related complai nts. He states he does take 10 mg of oxycodone daily at home with minimal relief. He notes 2 episodes of nonbloody nonbilious emesis prior to arrival. Denies fevers. States the pain is aching and diffuse in nature. States it is nonradiating. Denies any alleviating or exacerbating factors. Has been able to eat and drink otherwise. Denies urinary symptoms. Denies changes to his stool caliber or consistency. Denies any blood in the stool. No other complaints. Review of Systems: Review of Systems: Constitutional: Denies fever or chills Eyes: Denies change in visual acuity HENT: Denies nasal congestion or sore throat Respiratory: Denies cough or shortness of breath Cardiovascular: Denies chest pain or edema GI: Positive for abdominal pain and vomiting : Denies dysuria Musculoskeletal: Denies back pain or joint pain Integument: Denies rash Neurologic: Denies headache, focal weakness or sensory changes Endocrine: Denies polyuria or polydipsia Lymphatic: Denies swollen glands Psychiatric: Denies depression or anxiety Heart Score: Risk Factors: Risk Factors: DM, Current or recent (<one month) smoker, HTN, HLP, family history of CAD, obesity. Risk Scores: Score 0 - 3: 2.5% MACE over next 6 weeks - Discharge Home Score 4 - 6: 20.3% MACE over next 6 weeks - Admit for Clinical Observation Score 7 - 10: 72.7% MACE over next 6 weeks - Early Invasive Strategies Current Medications: Current Meds: Current Medications Medications (Trade) Dose Ordered Sig/Elfego Start Time Stop Time Status Last Admin Dose Admin Ondansetron HCl (Zofran Odt) 4 mg 1X ONCE 12/25/19 19:30 12/25/19 19:31 UNV Oxycodone/ Acetaminophen (Percocet 10/325) 1 tab 1X ONCE 12/25/19 19:30 12/25/19 19:31 UNV Sodium Chloride 1,000 ml @ 1,000 mls/hr 1X ONCE 12/25/19 19:30 12/25/19 20:29 UNV Allergies: Allergies: Allergies Coded Allergies Type Severity Reaction Last Updated Verified aspirin Allergy Intermediate 07/21/18 Yes fentanyl Allergy Intermediate 07/21/18 Yes ketorolac Allergy Intermediate 07/21/18 No naproxen Allergy Intermediate 07/21/18 No tramadol Allergy Intermediate 09/29/19 Yes Physical Exam: PE: Constitutional: Well developed, well nourished, no acute distress, non-toxic appearance. [] HENT: Normocephalic, atraumatic, bilateral external ears normal, oropharynx moist, no oral exudates, nose normal. [] Eyes: PERRLA, EOMI, conjunctiva normal, no discharge. [] Neck: Normal range of motion, no tenderness, supple, no stridor. [] Cardiovascular:Heart rate regular rhythm, no murmur [] Lungs & Thorax: Bilateral breath sounds clear to auscultation [] Abdomen: Soft, nontender, nonacute abdomen. No involuntary guarding or rigidity noted. No acute peritonitis. Multiple surgical scars noted. Well-healed. Skin: Warm, dry, no erythema, no rash. [] Back: No tenderness, no CVA tenderness. [] Extremities: No tenderness, no cyanosis, no clubbing, ROM intact, no edema. [] Neurologic: Alert and oriented X 3, normal motor function, normal sensory function, no focal deficits noted. [] Psychologic: Affect normal, judgement normal, mood normal. [] Current Patient Data: Labs: Laboratory Tests Test 12/25/19 19:27 12/25/19 19:45 Urine Collection Type Unknown Urine Color Yellow Urine Clarity Clear Urine pH 6.5 Urine Specific [place] 1.015 Urine Protein Neg Urine Glucose (UA) >=1000 mg/dL Urine Ketones (Stick) Neg mg/dL Urine Blood Neg Urine Nitrite Neg Urine Bilirubin Neg Urine Urobilinogen Dipstick 0.2 mg/dL Urine Leukocyte Esterase Neg Urine RBC 0 /HPF Urine WBC 0 /HPF Urine Bacteria 0 /HPF White Blood Count 5.9 x10^3/uL Red Blood Count 4.88 x10^6/uL Hemoglobin 13.2 g/dL Hematocrit 41.2 % Mean Corpuscular Volume 85 fL Mean Corpuscular Hemoglobin 27 pg Mean Corpuscular Hemoglobin Concent 32 g/dL Red Cell Distribution Width 19.6 % Platelet Count 272 x10^3/uL Neutrophils (%) (Auto) 64 % Lymphocytes (%) (Auto) 24 % Monocytes (%) (Auto) 10 % Eosinophils (%) (Auto) 2 % Basophils (%) (Auto) 1 % Neutrophils # (Auto) 3.8 x10^3uL Lymphocytes # (Auto) 1.4 x10^3/uL Monocytes # (Auto) 0.6 x10^3/uL Eosinophils # (Auto) 0.1 x10^3/uL Basophils # (Auto) 0.0 x10^3/uL Sodium Level 139 mmol/L Potassium Level 4.6 mmol/L Chloride Level 105 mmol/L Carbon Dioxide Level 27 mmol/L Anion Gap 7 Blood Urea Nitrogen 8 mg/dL Creatinine 1.2 mg/dL Estimated GFR (Cockcroft-Gault) 76.1 BUN/Creatinine Ratio 7 Glucose Level 438 mg/dL Calcium Level 8.7 mg/dL Total Bilirubin 0.2 mg/dL Aspartate Amino Transf (AST/SGOT) 34 U/L Alanine Aminotransferase (ALT/SGPT) 49 U/L Alkaline Phosphatase 165 U/L Total Protein 7.4 g/dL Albumin 3.1 g/dL Albumin/Globulin Ratio 0.7 Lipase 29 U/L Current Medications Medications (Trade) Dose Ordered Sig/Elfego Route PRN Reason Start Time Stop Time Status Last Admin Dose Admin Sodium Chloride 1,000 ml @ 1,000 mls/hr 1X ONCE IV 12/25/19 19:30 12/25/19 20:29 DC 12/25/19 20:18 Ondansetron HCl (Zofran Odt) 4 mg 1X ONCE PO 12/25/19 19:30 12/25/19 19:31 DC 12/25/19 20:17 Oxycodone/ Acetaminophen (Percocet 10/325) 1 tab 1X ONCE PO 12/25/19 19:30 12/25/19 19:31 DC 12/25/19 20:16 Iohexol (Omnipaque 300 Mg/ml) 75 ml 1X ONCE IV 12/25/19 19:30 12/25/19 19:31 DC 12/25/19 20:24 Morphine Sulfate (Morphine 4mg Syringe) 4 mg 1X ONCE IV 12/25/19 21:45 12/25/19 21:46 UNV Vital Signs: Vital Signs Date Time Temp Pulse Resp B/P (MAP) Pulse Ox O2 Delivery O2 Flow Rate FiO2 12/25/19 20:58 88 20 168/86 (113) 97 Room Air 12/25/19 20:48 74 20 183/97 (125) 100 Room Air 12/25/19 19:56 78 20 169/89 (115) 97 Room Air 12/25/19 19:10 98.4 89 24 179/104 (129) 96 Room Air EKG: EKG: [] Radiology/Procedures: Radiology/Procedures: [place] [address] IMAGING REPORT Signed PATIENT: ADAM CASTELAN ACCOUNT: [id number] : 1965 LOCATION: ER AGE: 54 SEX: M EXAM STATUS: REG ER ORD. PHYSICIAN: KAVYA WELCH DO REASON: Diffuse abdominal pain Omni 300 75cc PROCEDURE: CT ABD PELV W/ IV CONTRST ONLY CT ABD PELV W/ IV CONTRST ONLY History: Reason: Diffuse abdominal pain Omni 300 75cc / Spl. Instructions: / History: Technique: After the administration of intravenous contrast, CT imaging was performed of the abdomen and pelvis. Multiplanar images are reviewed. Exposure: One or more of the following individualized dose reduction techniques were utilized for this examination: 1. Automated exposure control 2. Adjustment of the mA and/or kV according to patient size 3. Use of iterative reconstruction technique. Comparison: December 10, 2019 Findings: Lower chest: No consolidation or pleural effusion. Abdomen and pelvis: The liver and spleen are unremarkable. Small perisplenic and inferior hepatic fluid, unchanged. Left adrenal nodule measures 1.5 x 1.1 cm, unchanged. Prior cholecystectomy. 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 Unchanged thickening of the postoperative stomach and proximal jejunum. Mildly prominent fluid-filled loops of small bowel throughout the abdomen. Left inferior renal cyst, unchanged. No hydronephrosis. No renal calculi. Distal colonic and rectal wall thickening. Mild adjacent inflammatory changes. Moderate stool-filled colon. Normal appendix. No pathologic lymphadenopathy. Atheromatous plaque throughout the aorta and branch vessels. Bones: No pathologic osseous lesions. Impression: 1. Distal colonic and rectal wall thickening with adjacent inflammatory changes, may represent infectious or inflammatory colitis/proctitis. Recommend follow-up to ensure resolution. 2. Mildly prominent fluid-filled loops of small bowel throughout the abdomen, may represent ileus. Recommend follow-up. 3. Postoperative changes Whipple procedure. 4. Left adrenal nodule, unchanged. Electronically signed by: Nicholas Anderson DO (12/25/2019 9:04 PM) [facility] DICTATED AND SIGNED BY: NICHOLAS ANDERSON DO DATE: 12/25/192103 CC: AGNES VALDERRAMA MD; KAVYA WELCH DO ~ [] Course & Med Decision Making: Course & Med Decision Making Pertinent Labs and Imaging studies reviewed. (See chart for details) [] Patient is a 54-year-old male who presents with chief complaint of abdominal discomfort. He does have significant past surgical history including Whipple procedure approximate 1 year ago at [facility] as well as bowel perforation in October status post repair. On chart review he has been seen multiple times for similar abdominal pain related complaints. Laboratory analysis today grossly unremarkable. No leukocytosis. CT abdomen pelvis reveals no acute surgical etiology. He does have rectal wall thickening. Furthermore secondary findings concerning for potential ileus. No signs of bowel obstruction. On repeat examination patient's abdomen remains benign for me. He does appear comfortable. I did discuss the imaging findings with general surgeon Dr. Silva regarding possible hospitalization for serial abdominal exams. He felt the patient could go home and follow-up with his surgeons at [facility] or be hospitalized for serial abdominal exams. I did discuss results of labs and imaging in great detail with the patient. I did discuss the possibility of close outpatient follow-up with his surgeons at [facility] versus hospitalization for further monitoring. Patient is electing to be discharged home. I do feel this is overall reasonable. Vital signs remained stable. Exam remains benign. His symptoms and imaging findings could be related to significant opiate usage at home. I did encourage him to try to cut back on this. He was given strict 12 to 24-hour return precautions. He has tolerated p.o. no pain medication will be prescribed home given he does have an active oxycodone prescription. He expressed understanding to return precautions. Instructed to follow-up with his primary care physician in the next 2 to 3 days as well as the surgeons. Stable for discharge home. Dragon Disclaimer: Dragon Disclaimer: This electronic medical record was generated, in whole or in part, using a voice recognition dictation system. Departure Departure: Impression: Primary Impression: Chronic abdominal pain Disposition: HOME/RESIDENCE PRIOR TO ADM Condition: STABLE Referrals: AGNES VALDERRAMA MD (PCP) Additional Instructions: Discharge Abdominal Pain Re-Check Precautions: I'm unsure of the specific cause of your abdominal pain. However, at this point I feel that you are low risk for a life threatening emergency and that discharge from the Emergency Department is safe. There is a very small possibility that you are just too early in your clinical course for our physical exam/labs/imaging to ascertain whether or not you have an emergent condition that could potentially cause permanent disability or be life threatening. As such, it is very important that you follow up with your primary doctor or return to the Emergency Department in 12-24 hours for re-assessment and further evaluation if clinically indicated. If you develop new or worsening symptoms then you should return to the Emergency Department immediately. Home Care Instructions: Abdominal Pain Many things may cause abdominal pain. Your ER visit might not show the exact reason you are having pain. In some cases, additional time is needed to determine if the cause is serious. Therefore you may be told to go home and watch for any changes or worsening in your condition. Before that, we may not know if you need more testing, or if hospitalization or surgery is necessary. If its not something serious, the pain may go away without treatment or get better with simple things like avoiding certain foods or medications. In the ER, your doctor asks you questions, examines you and in some cases, may order tests. These help doctors decide if the pain is from something serious. Tests are not always done and may not provide a definite answer. There can still be a problem, even with normal test results. Abdominal pain may be caused by something serious (like appendicitis), which is not obvious right away. Because of this, another checkup is needed to make sure you are OK. It is VERY IMPORTANT to follow up for a repeat exam, especially if you have any symptoms that are not going away or are getting worse. We recommend that you RETURN TO THE EMERGENCY ROOM IN 8-12 HOURS to be rechecked. If you cannot, you may follow up with your primary care doctor or clinic. It is important that you follow all of the instructions below. RETURN TO THE EMERGENCY ROOM IMMEDIATELY IF: The pain does not go away or gets worse. You have a fever. You keep throwing up and cannot keep anything down. You pass bloody or black stools. You develop new symptoms. HOME CARE INSTRUCTIONS Come back to the ER (or see your doctor) in 8-12 hours. DO NOT take laxatives unless directed by your doctor. Avoid the use of alcohol Take pain medicine only as directed by your doctor. Only take [id number] or prescription medicine as directed by your doctor. Try a clear liquid diet (broth, tea, jello, water) for the next 12-24 hours. Slowly move to a bland diet as tolerated. Do not eat greasy, fatty or spicy foods. Once you start getting better, go back to a normal, healthy diet, slowly over a few days. DISCHARGE PT INSTRUCTIONS: YOU HAVE BEEN EVALUATED FOR ABDOMINAL PAIN. HOWEVER, WE ARE UNABLE TO PROVIDE A DEFINITE CAUSE OF YOUR SYMPTOMS. EVEN THOUGH YOUR TESTS MAY HAVE BEEN NORMAL, YOU STILL COULD HAVE A SERIOUS CAUSE FOR YOUR ABDOMINAL PAIN, INCLUDING APPENDICITIS. THE BEST TEST TO DETERMINE IF YOU HAVE A SERIOUS CAUSE IS RE-EXAMINATION OVER TIME. WE USED TO ADMIT PATIENTS TO THE HOSPITAL FOR THIS, BUT CAN NOW ALLOW YOU TO GO HOME, & RETURN TO OUR ER THE NEXT DAY FOR RE- EXAMINATION. THUS, WE WOULD LIKE YOU TO RETURN TO OUR ER TOMORROW FOR YOUR RE- EVALUATION. (IF YOUR SYMPTOMS HAVE GONE AWAY, THEN YOU DO NOT NEED TO RETURN.) IF YOUR SYMPTOMS GET WORSE BETWEEN NOW & THEN, YOU SHOULD RETURN IMMEDIATELY & NOT WAIT UNTIL TOMORROW. SYMPTOMS TO LOOK FOR WORSENING PAIN, HIGH FEVER, PERSISTENT VOMITING not controlled by her home medications, AND/OR OVERALL WORSENING OF YOUR CONDITION. Justification of Admission: Justification of Admission: Justification of Admission Dx: N/A KAVYA WELCH DO Dec 25, 2019 19:19
[2019-12-25] MEDS ORDERED: IOHEXOL 300 MG/ML 75 ML VIAL. IV ONE (19:30)
[2019-12-25] MEDS ORDERED: IV NORMAL SALINE 1,000ML 1,000 ML IV ONE (19:30)
[2019-12-25] MEDS ORDERED: oxyCODONE/APAP 10/325 1 TAB TABLET PO ONE (19:30)
[2019-12-25] MEDS ORDERED: ONDANSETRON ODT 4 MG TAB.RAPDIS PO ONE (19:30)
[2019-12-25 20:04] LABS: BACTERIA,URINE 0 /HPF (0-FEW); BILIRUBIN,URINE NEG (NEG); CLARITY,URINE CLEAR; COLOR,URINE YELLOW; GLUCOSE,URINE >=1000 mg/dL (NEG); NITRITE,URINE NEG (NEG); RBC,URINE 0 /HPF (0-2); UROBILINOGEN,URINE 0.2 mg/dL (0.2 mg/dL); WBC,URINE 0 /HPF (0-4)
[2019-12-25 20:14] LABS: BASO % 1 % (0-3); EOS # 0.1 x10^3/uL (0.0-0.7); EOS % 2 % (0-3); HEMATOCRIT 41.2 % (39.0-53.0); HEMOGLOBIN 13.2 g/dL (13.0-17.5); LYMPH # 1.4 x10^3/uL (1.0-4.8); LYMPH % 24 % (24-48); MEAN CORPUSCULAR HEMOGLOBIN 27 pg (25-35); MEAN CORPUSCULAR HGB CONC 32 g/dL (31-37); MEAN CORPUSCULAR VOLUME 85 fL (79-100); MONO # 0.6 x10^3/uL (0.0-1.1); MONO % 10 % (0-9); NEUT # 3.8 x10^3uL (1.8-7.7); NEUT % 64 % (31-73); PLATELET COUNT 272 x10^3/uL (140-400); RED BLOOD COUNT 4.88 x10^6/uL (4.30-5.70); RED CELL DISTRIBUTION WIDTH 19.6 % (11.5-14.5); WHITE BLOOD COUNT 5.9 x10^3/uL (4.0-11.0)
[2019-12-25 20:21] LABS: CALCIUM 8.7 mg/dL (8.5-10.1); CREATININE 1.2 mg/dL (0.7-1.3); GFR 76.1; POTASSIUM 4.6 mmol/L (3.5-5.1)
[2019-12-25 20:27] LABS: ALBUMIN 3.1 g/dL (3.4-5.0); ALBUMIN/GLOBULIN RATIO 0.7 (1.0-1.7); TOTAL BILIRUBIN 0.2 mg/dL (0.2-1.0); TOTAL PROTEIN 7.4 g/dL (6.4-8.2)
[2019-12-25 20:58] VITALS: BP 168/86
--- NOTE | 2019-12-25 21:07 | RAD ---
CT ABD PELV W/ IV CONTRST ONLY History: Reason: Diffuse abdominal pain Omni 300 75cc / Spl. Instructions: / History: Technique: After the administration of intravenous contrast, CT imaging was performed of the abdomen and pelvis. Multiplanar images are reviewed. Exposure: One or more of the following individualized dose reduction techniques were utilized for this examination: 1. Automated exposure control 2. Adjustment of the mA and/or kV according to patient size 3. Use of iterative reconstruction technique. Comparison: December 10, 2019 Findings: Lower chest: No consolidation or pleural effusion. Abdomen and pelvis: The liver and spleen are unremarkable. Small perisplenic and inferior hepatic fluid, unchanged. Left adrenal nodule measures 1.5 x 1.1 cm, unchanged. Prior cholecystectomy. 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 Unchanged thickening of the postoperative stomach and proximal jejunum. Mildly prominent fluid-filled loops of small bowel throughout the abdomen. Left inferior renal cyst, unchanged. No hydronephrosis. No renal calculi. Distal colonic and rectal wall thickening. Mild adjacent inflammatory changes. Moderate stool-filled colon. Normal appendix. No pathologic lymphadenopathy. Atheromatous plaque throughout the aorta and branch vessels. Bones: No pathologic osseous lesions. Impression: 1. Distal colonic and rectal wall thickening with adjacent inflammatory changes, may represent infectious or inflammatory colitis/proctitis. Recommend follow-up to ensure resolution. 2. Mildly prominent fluid-filled loops of small bowel throughout the abdomen, may represent ileus. Recommend follow-up. 3. Postoperative changes Whipple procedure. 4. Left adrenal nodule, unchanged. Electronically signed by: Nicholas Anderson DO (12/25/2019 9:04 PM) [facility]
[2019-12-25] MEDS ORDERED: MORPHINE SULFATE 4 MG/ML DISP.SYRIN. IV ONE (22:00)
== END 2019-12-25 21:58 | disposition home or self-care (01) ==
LOC: ER 19:07
DX: G89.29 Other chronic pain (principal); R10.9 Unspecified abdominal pain; R11.10 Vomiting, unspecified; F41.9 Anxiety disorder, unspecified; M19.90 Unspecified osteoarthritis, unspecified site; I25.10 Atherosclerotic heart disease of native coronary artery without angina pectoris; F32.9 Major depressive disorder, single episode, unspecified; E11.9 Type 2 diabetes mellitus without complications; E78.00 Pure hypercholesterolemia, unspecified; I10 Essential (primary) hypertension; E05.90 Thyrotoxicosis, unspecified without thyrotoxic crisis or storm; F10.20 Alcohol dependence, uncomplicated; F17.200 Nicotine dependence, unspecified, uncomplicated; Z88.6 Allergy status to analgesic agent; Z88.8 Allergy status to other drugs, medicaments and biological substances; Y90.9 Presence of alcohol in blood, level not specified
CPT/HCPCS: 36415; 74177; 80053; 81001; 83690; 83735; 85025; 96360; 99285; J7030; Q0162; Q9967

== ENCOUNTER 2020-01-08 18:47 | Emergency (ER) | payer MEDICARE, MEDICAID ==
[~2020-01-08] VITALS: Ht 162.6 cm; Wt 61.8 kg
[2020-01-08 19:05] VITALS: BP 152/88
--- NOTE | 2020-01-08 21:02 | PHYS DOC ---
Past History Past Medical History: Alcoholism, Anxiety, Arthritis, Bronchitis, CAD, Depression, Diabetes, High Cholesterol, Hypertension, Hyperthyroid, Pancreatitis Past Surgical History: Other Additional Past Surgical Histo: Whipple, 2015/2016 [facility], neck surgery, carpal tunnel Smoking: Less than 1pk/day Alcohol Use: None Drug Use: None Departure Departure: Impression: Primary Impression: Patient left without being seen Disposition: 01 LEFT WITHOUT BEING SEEN Condition: LEFT WITHOUT BEING SEEN Referrals: AGNES VALDERRAMA MD (PCP) PROVIDER NOTE PROVIDER NOTE PROVIDER NOTE I assigned myself to this patient to be seen, however I was delayed in evaluating this patient in the emergency department due to an influx of critical patients. Before I was able to evaluate the patient, he decided to leave the emergency department without being seen. He received no medical evaluation or treatments from the emergency department. BHARAT MARSHALL MD Jan 08, 2020 21:02
== END 2020-01-08 20:45 | disposition left against medical advice (07) ==
LOC: ER 18:47
DX: R10.30 Lower abdominal pain, unspecified (principal); M19.90 Unspecified osteoarthritis, unspecified site; I25.10 Atherosclerotic heart disease of native coronary artery without angina pectoris; E11.9 Type 2 diabetes mellitus without complications; E78.00 Pure hypercholesterolemia, unspecified; I10 Essential (primary) hypertension; E03.9 Hypothyroidism, unspecified; F17.200 Nicotine dependence, unspecified, uncomplicated; F10.20 Alcohol dependence, uncomplicated; Z53.21 Procedure and treatment not carried out due to patient leaving prior to being seen by health care provider; Y90.9 Presence of alcohol in blood, level not specified

== ENCOUNTER 2020-03-03 03:23 | Emergency (ER) | payer MEDICARE, MEDICAID ==
[~2020-03-03] VITALS: Ht 162.6 cm; Wt 61.8 kg
[2020-03-03] MEDS ORDERED: hydroCHLOROthiazide 25 MG TABLET PO ONE (04:00)
[2020-03-03] MEDS ORDERED: ONDANSETRON PF 4 MG/2 ML VIAL. IVP ONE (04:00)
[2020-03-03] MEDS ORDERED: MORPHINE SULFATE 4 MG/ML DISP.SYRIN. IV ONE (04:00)
[2020-03-03] MEDS ORDERED: IV NORMAL SALINE 1,000ML 1,000 ML IV SCH (04:00)
--- NOTE | 2020-03-03 04:01 | PHYS DOC ---
Past History Past Medical History: Diabetes, Pancreatitis, Other Additional Past Medical Histor: COLITIS Past Surgical History: Other Additional Past Surgical Histo: WHIPPLE SURGERY, bowel perf repair 10/2019 Smoking: Less than 1pk/day Alcohol Use: None Drug Use: None Adult General Chief Complaint Chief Complaint: ABDOMINAL PAIN HPI HPI Patient is a 54-year-old male who presents for abdominal pain. Onset was approximately 8 hours ago without any known inciting event and/or ingestion. Nothing known makes better. Patient is prescribed [place] 10 x4 times daily which is confirmed by [facility] review with the last fill 02/26/2020 with minimal relief in symptoms. P.o. intake makes worse. Pain is diffuse throughout abdomen but does not seem to radiate anywhere, is ranked 8/10 in severity with symptoms being present and constant since onset. Associated symptoms include chills, nausea, x6 episodes of nonbloody nonbilious emesis and x3 episodes of diarrhea. Patient denies any fever, headache or syncope, chest pain, shortness of breath, urinary symptoms, recent concerning ingestions, recent illicit drug abuse or changes in medication. Of note, patient has had previous Whipple and perforated bowel that was surgically repaired in October 2019. He has long history of chronic abdominal pain; specifically, recurrent episodes of pancreatitis for which he feels this feels like similar episodes. Of note, he has not taken his morning medications given that it is 4 AM Review of Systems Review of Systems Fourteen body systems of review of systems have been reviewed. See HPI for pertinent positives and negative responses, other schultz all other systems are negative, non-pertinent or non-contributory Current Medications Current Medications Current Medications Medications (Trade) Dose Ordered Sig/Elfego Start Time Stop Time Status Last Admin Dose Admin Hydrochlorothiazide (Hydrodiuril) 12.5 mg 1X ONCE 03/03/20 04:00 03/03/20 04:01 UNV Morphine Sulfate (Morphine 4mg Syringe) 4 mg 1X ONCE 03/03/20 04:00 03/03/20 04:01 UNV Ondansetron HCl (Zofran) 4 mg 1X ONCE 03/03/20 04:00 03/03/20 04:01 UNV Sodium Chloride 1,000 ml @ 1,000 mls/hr Q1H 03/03/20 04:00 03/03/20 04:59 UNV Allergies Allergies Allergies Coded Allergies Type Severity Reaction Last Updated Verified aspirin Allergy Intermediate 07/21/18 Yes fentanyl Allergy Intermediate 07/21/18 Yes ketorolac Allergy Intermediate 07/21/18 No naproxen Allergy Intermediate 07/21/18 No tramadol Allergy Intermediate 09/29/19 Yes Physical Exam Physical Exam Constitutional: Well developed, well nourished, no acute distress, non-toxic appearance. HENT: Normocephalic, atraumatic, bilateral external ears normal, oropharynx moist, no oral exudates, nose normal. Eyes: PERRLA, EOMI, conjunctiva normal, no discharge. Neck: Normal range of motion, no tenderness, supple, no stridor. Cardiovascular: Heart rate regular, sinus rhythm, no murmurs rubs or gallops Lungs & Thorax: Bilateral breath sounds clear to auscultation Abdomen: Bowel sounds normal, soft, generalized tenderness with palpation, no guarding or rebound present, no masses, no pulsatile masses. Nonsurgical abdomen, no peritoneal signs Skin: Warm, dry, no erythema, no rash. Back: No tenderness, no CVA tenderness. Extremities: No tenderness, no cyanosis, no clubbing, ROM intact, no edema. Neurologic: Alert and oriented X 3, grossly normal motor & sensory function, no focal deficits noted. Psychologic: Affect normal, judgement normal, anxious mood Current Patient Data Vital Signs Vital Signs Date Time Temp Pulse Resp B/P (MAP) Pulse Ox O2 Delivery O2 Flow Rate FiO2 03/03/20 03:41 98.4 56 20 205/93 (130) 98 Room Air Lab Results Laboratory Tests Test 03/03/20 03:30 03/03/20 03:35 03/03/20 04:10 03/03/20 05:39 White Blood Count 8.8 x10^3/uL (4.0-11.0) Red Blood Count 5.73 x10^6/uL (4.30-5.70) Hemoglobin 15.9 g/dL (13.0-17.5) Hematocrit 48.7 % (39.0-53.0) Mean Corpuscular Volume 85 fL (79-100) Mean Corpuscular Hemoglobin 28 pg (25-35) Mean Corpuscular Hemoglobin Concent 33 g/dL (31-37) Red Cell Distribution Width 21.1 % (11.5-14.5) Platelet Count 230 x10^3/uL (140-400) Neutrophils (%) (Auto) 77 % (31-73) Lymphocytes (%) (Auto) 16 % (24-48) Monocytes (%) (Auto) 6 % (0-9) Eosinophils (%) (Auto) 0 % (0-3) Basophils (%) (Auto) 1 % (0-3) Neutrophils # (Auto) 6.7 x10^3uL (1.8-7.7) Lymphocytes # (Auto) 1.4 x10^3/uL (1.0-4.8) Monocytes # (Auto) 0.6 x10^3/uL (0.0-1.1) Eosinophils # (Auto) 0.0 x10^3/uL (0.0-0.7) Basophils # (Auto) 0.1 x10^3/uL (0.0-0.2) Platelet Estimate Adequate (ADEQUATE) Anisocytosis Slight Microcytosis Slight Urine Collection Type Unknown Urine Color Yellow Urine Clarity Clear Urine pH 7.5 Urine Specific [place] 1.020 Urine Protein 100 mg/dl (NEG-TRACE) Urine Glucose (UA) >=1000 mg/dL (NEG) Urine Ketones (Stick) 80 mg/dL (NEG) Urine Blood Trace (NEG) Urine Nitrite Neg (NEG) Urine Bilirubin Neg (NEG) Urine Urobilinogen Dipstick 0.2 mg/dL (0.2 mg/dL) Urine Leukocyte Esterase Neg (NEG) Urine RBC 3-5 /HPF (0-2) Urine WBC Rare /HPF (0-4) Urine Squamous Epithelial Cells None /LPF Urine Bacteria 0 /HPF (0-FEW) Sodium Level 134 mmol/L (136-145) Potassium Level 3.7 mmol/L (3.5-5.1) Chloride Level 97 mmol/L (98-107) Carbon Dioxide Level 27 mmol/L (21-32) Anion Gap 10 (6-14) Blood Urea Nitrogen 11 mg/dL (8-26) Creatinine 1.1 mg/dL (0.7-1.3) Estimated GFR (Cockcroft-Gault) 84.1 BUN/Creatinine Ratio 10 (6-20) Glucose Level 441 mg/dL (70-99) Calcium Level 9.1 mg/dL (8.5-10.1) Total Bilirubin 0.8 mg/dL (0.2-1.0) Aspartate Amino Transf (AST/SGOT) 108 U/L (15-37) Alanine Aminotransferase (ALT/SGPT) 59 U/L (16-63) Alkaline Phosphatase 244 U/L (46-116) Creatine Kinase 99 U/L (39-308) Troponin I Quantitative < 0.017 ng/mL (0-0.055) AA-Jma-X-Type Natriuretic Peptide 347 pg/mL (0-124) Total Protein 7.9 g/dL (6.4-8.2) Albumin 3.5 g/dL (3.4-5.0) Albumin/Globulin Ratio 0.8 (1.0-1.7) Lipase 20 U/L (73-393) Urine Opiates Screen Neg (NEG) Urine Methadone Screen Neg (NEG) Urine Barbiturates Neg (NEG) Urine Phencyclidine Screen Neg (NEG) Urine Amphetamine/Methamphetamine Neg (NEG) Urine Benzodiazepines Screen Neg (NEG) Urine Cocaine Screen Neg (NEG) Urine Cannabinoids Screen Pos (NEG) Urine Ethyl Alcohol Neg (NEG) Ethyl Alcohol Level < 10 mg/dL (0-10) Lactic Acid Level 1.5 mmol/L (0.4-2.0) Glucose (Fingerstick) 220 mg/dL (70-99) EKG EKG EKG ordered and interpreted by myself at 0530 hrs. as sinus rhythm at 74 bpm, unremarkable intervals, no axis deviation, no acute ischemic findings, no STEMI Radiology/Procedures Radiology/Procedures EXAMINATION: PORTABLE CHEST 1V CLINICAL HISTORY: Reason: epigastric pain / Spl. Instructions: / History: EXAM DATE/TIME: 03/03/2020 3:51 AM COMPARISON: 12/10/2019 FINDINGS: Lines, Tubes, and Devices: None. Cardiomediastinal Silhouette: Within normal limits. Lungs and Pleura: No evidence of focal airspace consolidation or pleural effusion. Pulmonary vasculature unremarkable. Bones and Soft Tissues: Dextroconvex curvature in the lower thoracic spine. IMPRESSION: No evidence of acute cardiopulmonary abnormality or significant interval change. Electronically signed by: Daniel Gomes DO (03/03/2020 5:10 AM) [facility] PROCEDURE: CT ABD PELV W/ IV CONTRST ONLY EXAMINATION: CT ABD PELV W/ IV CONTRST ONLY (CT ABDOMEN/PELVIS WITH IV CONTRAST) CLINICAL HISTORY: Diffuse abdominal pain, history of pancreatitis TECHNIQUE: CT of the abdomen and pelvis was performed using standard technique, scanning from just above the dome of the diaphragm to the symphysis pubis following administration of intravenous contrast. CT Dose Reduction Employed: One or more of the following individualized dose reduction techniques were utilized for this examination: 1. Automated exposure control 2. Adjustment of the mA and/or kV according to patient size 3. Use of iterative reconstruction technique. COMPARISON: 12/25/2019 FINDINGS: Lower thorax: Unremarkable. Liver: No mass. Biliary: No bile duct dilation. Cholecystectomy. Spleen: No mass. No splenomegaly. Pancreas: Pancreatectomy. Adrenals: Unchanged 1.5 cm left adrenal lesion. Kidneys: Subcentimeter hypoenhancing foci in the bilateral kidneys, too small adequately characterize but likely benign. GI tract: Postoperative changes related to Whipple procedure. Redemonstration of the wall thickening, similar to slightly less prominent compared to prior study. No dilated bowel. Appendix not definitively visualized. Lymph nodes: No abdominal or pelvic lymphadenopathy. Mesentery/Peritoneum: No ascites or mass. Retroperitoneum: No mass. Vasculature: The celiac axis and SMA are patent. The portal vein and branches, splenic vein, SMV, and hepatic veins are patent. No abdominal aortic or iliac artery aneurysm. Pelvis: Mildly filled urinary bladder with diffusely prominent bladder wall is, nonspecific and may be related to underdistention. Bones/Soft Tissues: Thoracolumbar degenerative changes. IMPRESSION: Similar to slightly decreased nonspecific rectal wall thickening, otherwise no significant interval change or definitive evidence of acute abdominopelvic abnormality. Electronically signed by: Daniel Gomes DO (03/03/2020 5:23 AM) [facility] Heart Score HEART Score for Chest Pain: HEART Score for Chest Pain Response (Comments) Value History Slighlty/Non-Suspicious 0 ECG Normal 0 Age >45 - < 65 1 Risk Factors >3 Risk Factors or Hx CAD 2 Troponin < Normal Limit 0 Total 3 Risk Factors: Risk Factors: DM, Current or recent (<one month) smoker, HTN, HLP, family history of CAD, obesity. Risk Scores: Risk Factors: DM, Current or recent (<one month) smoker, HTN, HLP, family history of CAD, obesity. Course & Med Decision Making Course & Med Decision Making Pertinent Labs and Imaging studies reviewed. (See chart for details) Discussed most likely diagnosis of gastroparesis versus cannabinoid hyperemesis syndrome as cause of patient's presenting symptoms Patient reports uncontrolled blood glucose levels at home with consistent readings in the 3-400 ranges for past few days. Patient responded to ER intervention for this with improvement in blood glucose level after 10 units IV insulin and improvement in nausea/vomiting with Reglan Patient reports last marijuana use was approximately 3 days ago, denies any increase and/or changes in typical products use. Cessation of this was advised as it is likely the cause and/or contributing to symptoms today. Hypertension improved with administration of 12.5 hydrochlorothiazide which is what he takes daily at home Patient continually asking for pain medication while in ER, I tried explaining to him the importance of treating underlying pathology that would subsequently improve his symptoms first. Patient hemodynamically stable throughout entirety of ER stay and well-appearing, was often seen sleeping but on wakening to reexamine, would report maximum pain and request pain medication. I reiterated that my suspicion for emergent and/or surgical pathology is extremely low given comprehensive ER work-up today. Nonetheless, I did disclose this might be an acute presentation of more concerning pathology that has yet to fully develop and become apparent on physical examination and/or diagnostic work-up and so, I stressed importance of close outpatient follow-up with primary care physician. Patient has Reglan at home. I advised him to keep fingerstick blood glucose in addition to a blood pressure log and call his primary care physician first thing tomorrow morning to schedule outpatient follow-up within upcoming 72 hours. Continued supportive care for his nausea, vomiting diarrhea was advised. Strict return precautions were discussed with good understanding by patient, all questions and concerns addressed prior to ER departure in improved condition Dragon Disclaimer Dragon Disclaimer This electronic medical record was generated, in whole or in part, using a voice recognition dictation system. Departure Departure: Impression: Primary Impression: Nausea, vomiting, and diarrhea Additional Impressions: Hyperglycemia due to type 2 diabetes mellitus Marijuana abuse Hypertension Disposition: 01 DC HOME SELF CARE/HOMELESS Condition: IMPROVED Referrals: AGNES VALDERRAMA MD (PCP) Patient Instructions: Gastroparesis, Nausea and Vomiting Additional Instructions: You have been evaluated in the Emergency Department today for abdominal pain. Your evaluation was not suggestive of any emergent condition requiring medical intervention at this time. However, some abdominal problems make take more time to appear. Therefore, it is important for you to watch for any new symptoms or worsening of your current condition. As discussed, please ensure you keep daily fingerstick blood glucose and blood pressure logs for evaluation by your PCP in outpatient setting. I advise you to call your primary care physician first thing tomorrow morning to schedule outpatient follow-up in upcoming 72 hours Return to the Emergency Department if you experience worsening pain, persistent fevers greater than 100.4, recurrent vomiting, blood in vomit, blood in stool, dark tarry stool, chest pain, difficulty breathing, or any other concerning symptoms. Problem Qualifiers ANTHONY VARGAS DO Mar 03, 2020 04:00
[2020-03-03 04:10] LABS: BASO # 0.1 x10^3/uL (0.0-0.2); BASO % 1 % (0-3); EOS % 0 % (0-3); HEMATOCRIT 48.7 % (39.0-53.0); HEMOGLOBIN 15.9 g/dL (13.0-17.5); LYMPH # 1.4 x10^3/uL (1.0-4.8); LYMPH % 16 % (24-48); MEAN CORPUSCULAR HEMOGLOBIN 28 pg (25-35); MEAN CORPUSCULAR HGB CONC 33 g/dL (31-37); MEAN CORPUSCULAR VOLUME 85 fL (79-100); MONO # 0.6 x10^3/uL (0.0-1.1); MONO % 6 % (0-9); NEUT # 6.7 x10^3uL (1.8-7.7); NEUT % 77 % (31-73); PLATELET COUNT 230 x10^3/uL (140-400); RED BLOOD COUNT 5.73 x10^6/uL (4.30-5.70); RED CELL DISTRIBUTION WIDTH 21.1 % (11.5-14.5); WHITE BLOOD COUNT 8.8 x10^3/uL (4.0-11.0)
[2020-03-03] MEDS ORDERED: CONTRAST GIVEN. MC PRN (04:15)
[2020-03-03 04:17] LABS: BILIRUBIN,URINE NEG (NEG); CALCIUM 9.1 mg/dL (8.5-10.1); CLARITY,URINE CLEAR; COLOR,URINE YELLOW; CREATININE 1.1 mg/dL (0.7-1.3); GFR 84.1; GLUCOSE,URINE >=1000 mg/dL (NEG); POTASSIUM 3.7 mmol/L (3.5-5.1)
[2020-03-03 04:18] LABS: BACTERIA,URINE 0 /HPF (0-FEW); NITRITE,URINE NEG (NEG); UROBILINOGEN,URINE 0.2 mg/dL (0.2 mg/dL); WBC,URINE RARE /HPF (0-4)
[2020-03-03 04:19] LABS: BARBITURATES NEG (NEG); BENZODIAZEPINES NEG (NEG); CANNABINOIDS POS (NEG); COCAINE NEG (NEG); METHADONE NEG (NEG); OPIATES NEG (NEG); PHENCYCLIDINE NEG (NEG)
[2020-03-03 04:21] LABS: AMPHETAMINE/METHAMPHETAMINE NEG (NEG)
[2020-03-03 04:25] LABS: ALBUMIN 3.5 g/dL (3.4-5.0); ALBUMIN/GLOBULIN RATIO 0.8 (1.0-1.7); TOTAL BILIRUBIN 0.8 mg/dL (0.2-1.0); TOTAL PROTEIN 7.9 g/dL (6.4-8.2)
[2020-03-03] MEDS ORDERED: IOHEXOL 300 MG/ML 75 ML VIAL. IV ONE (04:30)
[2020-03-03] MEDS ORDERED: INSULIN REGULAR 100 UNIT/ML 3ML VIAL. IV ONE (04:30)
[2020-03-03 04:32] LABS: PLT ESTIMATE ADEQUATE (ADEQUATE)
[2020-03-03 04:33] LABS: ANISOCYTOSIS SLIGHT; MICROCYTOSIS SLIGHT
--- NOTE | 2020-03-03 05:12 | RAD ---
EXAMINATION: PORTABLE CHEST 1V CLINICAL HISTORY: Reason: epigastric pain / Spl. Instructions: / History: EXAM DATE/TIME: 03/03/2020 3:51 AM COMPARISON: 12/10/2019 FINDINGS: Lines, Tubes, and Devices: None. Cardiomediastinal Silhouette: Within normal limits. Lungs and Pleura: No evidence of focal airspace consolidation or pleural effusion. Pulmonary vasculature unremarkable. Bones and Soft Tissues: Dextroconvex curvature in the lower thoracic spine. IMPRESSION: No evidence of acute cardiopulmonary abnormality or significant interval change. Electronically signed by: Daniel Gomes DO (03/03/2020 5:10 AM) [facility]
--- NOTE | 2020-03-03 05:26 | RAD ---
EXAMINATION: CT ABD PELV W/ IV CONTRST ONLY (CT ABDOMEN/PELVIS WITH IV CONTRAST) CLINICAL HISTORY: Diffuse abdominal pain, history of pancreatitis TECHNIQUE: CT of the abdomen and pelvis was performed using standard technique, scanning from just above the dome of the diaphragm to the symphysis pubis following administration of intravenous contrast. CT Dose Reduction Employed: One or more of the following individualized dose reduction techniques were utilized for this examination: 1. Automated exposure control 2. Adjustment of the mA and/or kV according to patient size 3. Use of iterative reconstruction technique. COMPARISON: 12/25/2019 FINDINGS: Lower thorax: Unremarkable. Liver: No mass. Biliary: No bile duct dilation. Cholecystectomy. Spleen: No mass. No splenomegaly. Pancreas: Pancreatectomy. Adrenals: Unchanged 1.5 cm left adrenal lesion. Kidneys: Subcentimeter hypoenhancing foci in the bilateral kidneys, too small adequately characterize but likely benign. GI tract: Postoperative changes related to Whipple procedure. Redemonstration of the wall thickening, similar to slightly less prominent compared to prior study. No dilated bowel. Appendix not definitively visualized. Lymph nodes: No abdominal or pelvic lymphadenopathy. Mesentery/Peritoneum: No ascites or mass. Retroperitoneum: No mass. Vasculature: The celiac axis and SMA are patent. The portal vein and branches, splenic vein, SMV, and hepatic veins are patent. No abdominal aortic or iliac artery aneurysm. Pelvis: Mildly filled urinary bladder with diffusely prominent bladder wall is, nonspecific and may be related to underdistention. Bones/Soft Tissues: Thoracolumbar degenerative changes. IMPRESSION: Similar to slightly decreased nonspecific rectal wall thickening, otherwise no significant interval change or definitive evidence of acute abdominopelvic abnormality. Electronically signed by: Daniel Gomes DO (03/03/2020 5:23 AM) [facility]
--- NOTE | 2020-03-03 05:32 | EKG ---
[address] [address] Test Date: 2020-03-03 Test Time: 05:25:40 Pat Name: ADAM CASTELAN Department: Room: Gender: M Physician Interventional Cardiologist: : [id number] Requested By: ANTHONY VARGAS Order Number: [id number] Reading MD: Measurements Intervals [place] Rate: 74 P: 50 MT: 140 QRS: 39 QRSD: 84 T: 48 QT: 408 QTc: 458 Interpretive Statements SINUS ARRHYTHMIA LOW LIMB LEAD VOLTAGE NO SPECIFIC ECG ABNORMALITIES RI6.02 No previous ECG available for comparison
[2020-03-03 05:47] VITALS: BP 140/86
[2020-03-03] MEDS ORDERED: METOCLOPRAMIDE HCL 10 MG/2 ML VIAL. IVP ONE (06:00)
== END 2020-03-03 05:58 | disposition home or self-care (01) ==
LOC: ER 03:23
DX: E11.65 Type 2 diabetes mellitus with hyperglycemia (principal); I10 Essential (primary) hypertension; E11.9 Type 2 diabetes mellitus without complications; R19.7 Diarrhea, unspecified; F12.10 Cannabis abuse, uncomplicated; F17.200 Nicotine dependence, unspecified, uncomplicated; G89.29 Other chronic pain; Z88.6 Allergy status to analgesic agent; Z88.8 Allergy status to other drugs, medicaments and biological substances
CPT/HCPCS: 36415; 71045; 74177; 80053; 80307; 81001; 82550; 82947; 83605; 83690; 83880; 84484; 85025; 93005; 96361; 96374; 96375; 99285; G0480; J1815; J2270; J2405; J2765; J7030

== ENCOUNTER 2020-04-08 09:10 | Emergency (ER) | payer MEDICARE, MEDICAID ==
[~2020-04-08] VITALS: Ht 165.1 cm; Wt 61.0 kg
[2020-04-08] MEDS ORDERED: FAMOTIDINE 20 MG/2 ML VIAL IVP ONE (10:00)
[2020-04-08] MEDS ORDERED: ONDANSETRON PF 4 MG/2 ML VIAL. IVP ONE (10:00)
[2020-04-08] MEDS ORDERED: IV NORMAL SALINE 1,000ML 1,000 ML IV SCH (10:00)
[2020-04-08] MEDS ORDERED: MORPHINE SULFATE 4 MG/ML DISP.SYRIN. IV ONE ×2 (10:00→11:45)
--- NOTE | 2020-04-08 10:17 | PHYS DOC ---
Past History Past Medical History: Diabetes, Hypertension, [place], Pancreatitis, Other Additional Past Medical Histor: COLITIS Past Surgical History: Other Additional Past Surgical Histo: WHIPPLE SURGERY, bowel perf repair 10/2019 Smoking: Less than 1pk/day Alcohol Use: None Drug Use: None General Adult EDM: Chief Complaint: NAUSEA/VOMITING/DIARRHEA HPI: HPI: Patient is a [age] year old [sex] who presents with [] Review of Systems: Review of Systems: Constitutional: Denies fever or chills Eyes: Denies redness or eye pain HENT: Denies nasal congestion or sore throat Respiratory: Denies cough or shortness of breath Cardiovascular: Denies chest pain or palpitations GI: Denies abdominal pain, nausea, or vomiting : Denies dysuria or hematuria Musculoskeletal: Denies back pain or joint pain Integument: Denies rash or skin lesions Neurologic: Denies headache, focal weakness or sensory changes Complete systems were reviewed and found to be within normal limits, except as documented in this note. Current Medications: Current Meds: Current Medications Medications (Trade) Dose Ordered Sig/Elfego Start Time Stop Time Status Last Admin Dose Admin Famotidine (Pepcid Vial) 20 mg 1X ONCE 04/08/20 10:00 04/08/20 10:10 DC 04/08/20 10:05 20 MG Morphine Sulfate (Morphine 4mg Syringe) 4 mg 1X ONCE 04/08/20 10:00 04/08/20 10:10 DC 04/08/20 10:05 4 MG Ondansetron HCl (Zofran) 4 mg 1X ONCE 04/08/20 10:00 04/08/20 10:10 DC 04/08/20 10:05 4 MG Sodium Chloride 1,000 ml @ 1,000 mls/hr Q1H 04/08/20 10:00 04/08/20 10:59 04/08/20 10:05 1,000 MLS/HR Allergies: Allergies: Allergies Coded Allergies Type Severity Reaction Last Updated Verified aspirin Allergy Intermediate 07/21/18 Yes fentanyl Allergy Intermediate 07/21/18 Yes ketorolac Allergy Intermediate 07/21/18 No naproxen Allergy Intermediate 07/21/18 No tramadol Allergy Intermediate 09/29/19 Yes Physical Exam: PE: Constitutional: Well developed, well nourished, no acute distress, non-toxic appearance HENT: Normocephalic, atraumatic Eyes: PERRL, EOMI, conjunctiva normal, no discharge Neck: Normal range of motion, no tenderness, supple Lungs & Thorax: No respiratory distress, equal chest rise and fall Abdomen: Soft, no tenderness Skin: Warm, dry, no erythema, no rash Back: No tenderness, no CVA tenderness Extremities: No tenderness, ROM intact, no edema Neurologic: Alert and oriented X 3, normal motor function, normal sensory function, no focal deficits noted Psychologic: Affect normal, judgment normal Current Patient Data: Vital Signs: Vital Signs Date Time Temp Pulse Resp B/P (MAP) Pulse Ox O2 Delivery O2 Flow Rate FiO2 04/08/20 10:05 18 04/08/20 09:12 97.6 85 141/85 (103) 98 Room Air EKG: EKG: @1028 NSR at 73bpm with wandering baseline, no ST elevation, QRS 82MS, QT/QTc 388/431ms Radiology/Procedures: Radiology/Procedures: [] Course & Med Decision Making: Course & Med Decision Making Pertinent Labs and Imaging studies reviewed. (See chart for details) Patient stable for discharge with outpatient follow-up with PCP/GI. GI referral provided. Discussed findings and plan with patient, who acknowledges understanding and agreement. COVID-19 CRITERIA: The patient was evaluated during the global COVID-19 pandemic, and that diagnosis was suspected/considered upon their initial presentation. Their evaluation, treatment and testing was consistent with current guidelines for patients who present with complaints or symptoms that may be related to COVID-19. Dragon Disclaimer: Dragon Disclaimer: This electronic medical record was generated, in whole or in part, using a voice recognition dictation system. Departure Departure: Impression: Primary Impression: Suspected 2019 novel coronavirus infection Additional Impressions: Abdominal pain Qualified Codes: R10.84 - Generalized abdominal pain Nausea vomiting and diarrhea Hypoglycemia Disposition: 01 DC HOME SELF CARE/HOMELESS Condition: STABLE Referrals: AGNES VALDERRAMA MD (PCP) BRENDEN ALVARADO MD Patient Instructions: Abdominal Pain (Nonspecific), Diarrhea, Aflr-re-Meei, Diet for Diarrhea, Adult, Hypoglycemia, Sryo-wp-Fhkw, Nausea and Vomiting, Cyph-pk-Rahb Additional Instructions: You have been tested for or diagnosed with COVID-19. It is an infection caused by a new type of coronavirus. COVID-19 will cause cold-like or mild flu symptoms in most. It can cause more severe symptoms like problems breathing in some. There is no treatment for COVID-19. The body will clear the infection over time. Self-care will help to ease discomfort. Steps to Take: Self-Care Rest as needed. Healthy habits may help you feel better. Steps include: Choose healthy foods including fruits and vegetables. Drink water throughout the day. Get plenty of sleep each night. If you smoke, try to quit. It may ease breathing. Avoid alcohol. Keep Others Healthy The virus can spread to others. Droplets are released every time you sneeze or cough. The droplets can get into the mouth, nose, or eyes of people near you and lead to infection. To lower the chances of spreading COVID-19 to others: Stay at home until your doctor has said it is safe to leave. If you tested positive this will mean staying isolated until both of the following are true: At least 7 days have passed since the start of illness. You are free of fever for at least 72 hours without the use of medicine. During this time: - Avoid public areas, events, or transportation. Do not return to work or school until your doctor has said it is safe to do so. - Call ahead if you need to go to a medical center. Let them know you may have COVID-19. It will help them guide you where to go. They may also ask you to wear a facemask when you come to the office. - If you call for emergency medical services, let them know you may have COVID- 19. While at home: - Try to avoid close contact with others. Stay about 6 feet away. - If possible, spend most of your time in a separate room from others. - Use a face mask if you will be in close contact with others such as sharing a room or vehicle. - Have someone wipe down common surfaces in the home. Use household helicopter dispatcher every day on areas like doorknobs, counters, or sinks. - Cough or sneeze into a tissue. Throw the tissue away right after use. If a tissue is not available, cough or sneeze into your elbow. - Wash your hands often. Wash them after sneezing or coughing. Use soap and water and wash for at least 20 seconds. Alcohol based hand apron cleaner can be used if soap and water is not available. - Do not prepare food for others. Avoid sharing personal items like forks, spoons, or toothbrushes. - Avoid close contact with pets while you are sick. There is no evidence of the virus passing to pets. This is a safety step until more is known about this virus. Isolation can be frustrating. Social interaction can help. Keep in touch with friends and family through phone and tech options. You can still interact with others in your home, just keep a safe distance of about 6 feet. Follow-up: Your doctors office will check in with you to see if there are any changes in your health. You may be asked to keep track of symptoms to share with them. They will also let you know when you are clear to be in public again. Problems to Look Out For: Contact your doctor if your recovery is not going as you expect. Get emergency care if you have problems such as: - Trouble breathing - Nonstop chest pain or pressure - Changes in awareness, confusion, or problems waking - Lips or face have bluish color - Worsening of symptoms If you think you have an emergency, call for emergency medical services right away. As taken from [facility] Ondansetron (ONDANSETRON ODT) 4 Mg Tab.rapdis 1 TAB PO PRN Q6-8HRS PRN for NAUSEA, #16 TAB Prov: JEMAL GUTIERRES DO 04/08/20 Famotidine (PEPCID) 20 Mg Tablet 1 TAB PO BID for Gastritis, #30 TAB Prov: JEMAL GUTIERRES DO 04/08/20 Hyoscyamine Sulfate (LEVSIN-SL) 0.125 Mg Tab.subl 0.125 MG SL Q4-6HRS PRN for PAIN, #14 TAB Prov: JEMAL GUTIERRES DO 04/08/20 COVID-19 Assessment COVID-19 Patient Risks: Age 65 or older: No Sign of co-morbidity: Yes Exp to person + for COVID: No Exp to PUI: No Travel from affected area: No Lower respiratory symptoms: No Fever: No Other: Yes (Body aches, fatigue, headache) PPE Use: Full PPE with N95 mask or PAPR: Yes Critical Care Time Critical care time was 30 minutes which includes time at bedside, spent in discussion of patient's care with specialists and/or family members, with interpretation of laboratory and/or radiological studies and is exclusive of procedures. JEMAL GUTIERRES DO Apr 08, 2020 10:17
[2020-04-08 10:32] LABS: BASO # 0.1 x10^3/uL (0.0-0.2); BASO % 1 % (0-3); EOS # 0.1 x10^3/uL (0.0-0.7); EOS % 1 % (0-3); HEMATOCRIT 40.5 % (39.0-53.0); HEMOGLOBIN 13.1 g/dL (13.0-17.5); LYMPH # 1.2 x10^3/uL (1.0-4.8); LYMPH % 9 % (24-48); MEAN CORPUSCULAR HEMOGLOBIN 28 pg (25-35); MEAN CORPUSCULAR HGB CONC 32 g/dL (31-37); MEAN CORPUSCULAR VOLUME 87 fL (79-100); MONO # 0.8 x10^3/uL (0.0-1.1); MONO % 6 % (0-9); NEUT # 10.9 x10^3uL (1.8-7.7); NEUT % 84 % (31-73); PLATELET COUNT 620 x10^3/uL (140-400); RED BLOOD COUNT 4.66 x10^6/uL (4.30-5.70); RED CELL DISTRIBUTION WIDTH 19.1 % (11.5-14.5)
[2020-04-08 10:42] LABS: ANION GAP 9 (6-14); BLOOD UREA NITROGEN 7 mg/dL (8-26); BUN/CREATININE RATIO 12 (6-20); CALCIUM 8.6 mg/dL (8.5-10.1); CARBON DIOXIDE 27 mmol/L (21-32); CHLORIDE 106 mmol/L (98-107); CREATININE 0.6 mg/dL (0.7-1.3); GFR 169.3; GLUCOSE 48 mg/dL (70-99); POTASSIUM 3.5 mmol/L (3.5-5.1); SODIUM 142 mmol/L (136-145)
[2020-04-08 10:58] LABS: ALBUMIN 2.2 g/dL (3.4-5.0); ALBUMIN/GLOBULIN RATIO 0.6 (1.0-1.7); ALK PHOS 133 U/L (46-116); ALT (SGPT) 25 U/L (16-63); AST (SGOT) 21 U/L (15-37); LIPASE 16 U/L (73-393); MAGNESIUM 2.5 mg/dL (1.8-2.4); TOTAL BILIRUBIN 0.1 mg/dL (0.2-1.0); TOTAL PROTEIN 5.7 g/dL (6.4-8.2)
[2020-04-08] MEDS ORDERED: DEXTROSE 50% 25 GM / 50ML DISP.SYRIN. IV ONE (11:00)
[2020-04-08 12:40] LABS: BARBITURATES NEG (NEG); BENZODIAZEPINES NEG (NEG); CANNABINOIDS POS (NEG); COCAINE NEG (NEG); METHADONE NEG (NEG); OPIATES POS (NEG); PHENCYCLIDINE NEG (NEG)
[2020-04-08 12:42] LABS: AMPHETAMINE/METHAMPHETAMINE NEG (NEG)
[2020-04-08 12:45] LABS: BACTERIA,URINE FEW /HPF (0-FEW); BILIRUBIN,URINE NEG (NEG); CLARITY,URINE HAZY; COLOR,URINE YELLOW; GLUCOSE,URINE 100 mg/dL (NEG); NITRITE,URINE NEG (NEG); UROBILINOGEN,URINE 0.2 mg/dL (0.2 mg/dL)
[2020-04-08 12:46] LABS: SQUAMOUS EPITHELIAL CELL,UR OCC /LPF
[2020-04-08 13:30] VITALS: BP 139/76
[2020-04-08] MEDS ORDERED: ONDA4TAB12 PO (13:32)
[2020-04-08] MEDS ORDERED: HYOS0.1265 SL (13:32)
[2020-04-08] MEDS ORDERED: FAMO-63 PO (13:32)
--- NOTE | 2020-04-08 15:16 | EKG ---
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
== END 2020-04-08 13:43 | disposition home or self-care (01) ==
LOC: ER 09:10
DX: E11.649 Type 2 diabetes mellitus with hypoglycemia without coma (principal); E11.9 Type 2 diabetes mellitus without complications; R19.7 Diarrhea, unspecified; R10.84 Generalized abdominal pain; I25.2 Old myocardial infarction; F17.210 Nicotine dependence, cigarettes, uncomplicated; I10 Essential (primary) hypertension; Z20.828 Contact with and (suspected) exposure to other viral communicable diseases; Z88.6 Allergy status to analgesic agent; Z88.8 Allergy status to other drugs, medicaments and biological substances
CPT/HCPCS: 36415; 80053; 80307; 81001; 82553; 82947; 83690; 83735; 84484; 85025; 85610; 85730; 93005; 96361; 96374; 96375; 96376; 99285; C9803; J2270; J2405; J3490; J7030; U0003

== ENCOUNTER 2020-04-15 10:13 | Emergency (ER) | payer MEDICARE, MEDICAID ==
[~2020-04-15] VITALS: Ht 165.1 cm; Wt 61.0 kg
[~2020-04-15 10:13] MED LIST changes: +FAMO-63 PO; +HYOS0.1265 SL; +ONDA4TAB12 PO
[2020-04-15 10:14] VITALS: BP 160/77
[2020-04-15] MEDS ORDERED: DEXTROSE 50% 25 GM / 50ML DISP.SYRIN. IV ONE ×2 (10:20→10:30)
[2020-04-15] MEDS ORDERED: NALOXONE 2 MG/2 ML DISP.SYRIN. IV ONE ×2 (10:20→10:30)
--- NOTE | 2020-04-15 10:26 | PHYS DOC ---
Past History Past Medical History: Diabetes, Hypertension, [place], Pancreatitis, Other Additional Past Medical Histor: COLITIS Past Surgical History: Other Additional Past Surgical Histo: WHIPPLE SURGERY, bowel perf repair 10/2019 Smoking: Less than 1pk/day Alcohol Use: None Drug Use: None General Adult EDM: Chief Complaint: HYPOGLYCEMIA HPI: HPI: 54-year-old male past medical history (obtained from EMR not patient) significant for insulin-dependent diabetes, h/o pancreatitis s/p whipple, h/o bowel perforation w/repair 10/2019, hypertension, [place], GERD, BPH, depression and history of opioid overdose (recognized by multiple ed RNs), presents to the ED brought in by EMS with concern for altered mental status. EMS gave 1 mg IM Narcan with some improvement in mental status. Glucose was 45 and they gave 1 mg of glucagon. Patient was alert and talking in the ambulance but mental status later worsened. Review of Systems: Review of Systems: Initially unobtainable but after patient was given glucose and Narcan patient states he feels fine-does admit to smoking marijuana. Has no active complaints Current Medications: Current Meds: Current Medications Medications (Trade) Dose Ordered Sig/Elfego Start Time Stop Time Status Last Admin Dose Admin Dextrose (Dextrose 50%-Water Syringe) 25 gm 1X ONCE 04/15/20 10:30 04/15/20 10:31 UNV Naloxone HCl (Narcan) 1 mg 1X ONCE 04/15/20 10:30 04/15/20 10:31 UNV Allergies: Allergies: Allergies Coded Allergies Type Severity Reaction Last Updated Verified aspirin Allergy Intermediate 07/21/18 Yes fentanyl Allergy Intermediate 07/21/18 Yes ketorolac Allergy Intermediate 07/21/18 No naproxen Allergy Intermediate 07/21/18 No tramadol Allergy Intermediate 09/29/19 Yes Physical Exam: PE: Constitutional: Hemodynamically stable but not responding to sternal rub, protecting his airway HENT: Normocephalic, atraumatic, Eyes: EOMI, conjunctiva normal, no discharge. Neck: Normal range of motion, supple, Cardiovascular: S1/2 present, regular rhythm Lungs & Thorax: Speaking in full sentences, bilateral equal chest rise, no tachypnea or increased work of breathing Abdomen: soft, no tenderness, multiple surgical scars on abdomen Skin: Warm, dry, no erythema, no rash. [] Back: No tenderness, no CVA tenderness. [] Extremities: No tenderness, no cyanosis, no edema Neurologic: GCS9, no focal deficits noted. [] EKG: EKG: Motion artifact on EKG, sinus tachycardia 107 bpm, no axis deviation, QTC 455, no obvious T wave inversions, no ST elevations or ST depressions Radiology/Procedures: Radiology/Procedures: IMAGING REPORT Signed PATIENT: ADAM CASTELAN ACCOUNT: [id number] : 1965 LOCATION: ER AGE: 54 SEX: M EXAM STATUS: REG ER ORD. PHYSICIAN: YULI PEARCE DO REASON: ALTERED MENTAL STATUS PROCEDURE: CT HEAD WO CONTRAST EXAM: Head CT without contrast. HISTORY: Altered mental status. TECHNIQUE: Computed tomographic images of the head were obtained without contrast. *One or more of the following individualized dose reduction techniques were utilized for this examination: 1. Automated exposure control. 2. Adjustment of the mA and/or kV according to patient size. 3. Use of iterative reconstruction technique. COMPARISON: 06/19/2018. FINDINGS: There is no acute or subacute extra-axial or intraparenchymal hemorrhage. There is no mass effect or midline shift. There is no hydrocephalus. The mayes-white matter differentiation pattern is intact. The visualized portions of the orbits, paranasal sinuses and mastoid air cells are unremarkable. No suspicious calvarial lesion is seen. IMPRESSION: No acute intracranial findings. Note is made that MRI is more sensitive for acute infarction. Electronically signed by: Erum Shah MD (04/15/2020 12:00 PM) [id number] DICTATED AND SIGNED BY: ERUM SHAH MD DATE: 04/15/20 1200 CC: AGNES VALDERRAMA MD; YULI PEARCE DO ~MTH0 0 IMAGING REPORT Signed PATIENT: ADAM CASTELAN ACCOUNT: [id number] : 1965 LOCATION: ER AGE: 54 SEX: M EXAM STATUS: REG ER ORD. PHYSICIAN: YULI PEARCE DO REASON: ALTERED MENTAL STATUS PROCEDURE: PORTABLE CHEST 1V XR CHEST 1V Clinical indications: Reason: ALTERED MENTAL STATUS COMPARISON: March 03, 2020. Findings: No acute lung infiltrate or pleural effusion or pulmonary edema or lung mass or pneumothorax is seen. The heart size, pulmonary vasculature, mediastinum and both gurwinder are unremarkable. Impression: No acute radiographic abnormality is seen. Electronically signed by: Amira Trivedi MD (04/15/2020 11:37 AM) [id number] DICTATED AND SIGNED BY: AMIRA TRIVEDI MD DATE: 04/15/20 1136 CC: AGNES VALDERRAMA MD; [facility] MESAYULI DO ~MTH0 0 Heart Score: Risk Factors: Risk Factors: DM, Current or recent (<one month) smoker, HTN, HLP, family hi story of CAD, obesity. Risk Scores: Score 0 - 3: 2.5% MACE over next 6 weeks - Discharge Home Score 4 - 6: 20.3% MACE over next 6 weeks - Admit for Clinical Observation Score 7 - 10: 72.7% MACE over next 6 weeks - Early Invasive Strategies Course & Med Decision Making: Course & Med Decision Making Pertinent Labs and Imaging studies reviewed. (See chart for details) Concern for hypoglycemia -I recommended oral glucose tabs. Also with thc intoxication. Patient reports he takes 20 units of Humalog every night and usually 9 units of NovoLog 3 times a day with meals. No new changes in his medications but does report poor diet. No symptoms of infection. Pt tolerated food in ed, had a steady gait and no recurrence of drowsiness, has DMC at time of dc. Will discharge home with strict ED return precautions were given for altered mental status, diaphoresis, syncope or neurologic deficits. Encouraged urgent outpatient follow-up with PMD. Life-threatening processes were considered but are low suspicion at this time, given history, physical exam and ED workup. Pt was educated on all prescription medications and adverse effects. All patient's questions were answered and pt was stable at time of discharge. Life/limb-threatening differential includes but is not limited to, intracranial hemorrhage, diffuse axonal injury, spinal cord syndrome, unstable cervical fracture or SCIWORA, fractures or joint dislocations, neurovascular injuries, organ injury or laceration, pneumothorax, pneumoperitoneum, pericardial tamponade, unstable pelvic fracture, compartment syndrome, flail chest or respiratory distress, burn injury or asphyxiation I spoken with the patient and her caregivers. I explained the patient's condition, diagnoses and treatment plan based on the information available to me at this time. I have answered the patient and her caregiver's questions and addressed any concerns. The patient and her caregivers have a good understanding of patient's diagnosis, condition and treatment plan as can be expected at this point. Vital signs have been stable. Patient's condition is stable and appropriate for discharge from the emergency department. Patient will pursue further outpatient evaluation with primary care physician or other designated or consulting physician as outlined in the discharge instructions. The patient and/or caregivers are agreeable to this plan of care and follow-up instructions have been explained in detail. The patient and/or caregivers have received these instructions in written form and have expressed an understanding of the discharge instructions. The patient and/or caregivers are aware that any significant change of condition or worsening of symptoms should prompt immediate return to this or the closest emergency department or call to 911. Cutr Disclaimer: Curt Disclaimer: This electronic medical record was generated, in whole or in part, using a voice recognition dictation system. Departure Departure: Impression: Primary Impression: Hypoglycemia Additional Impression: Marijuana abuse Disposition: 01 DC HOME SELF CARE/HOMELESS Condition: STABLE Referrals: AGNES VALDERRAMA MD (PCP) In 1 to 2 days for reevaluation Patient Instructions: Hypoglycemia (Low Blood Sugar), Marijuana Abuse-Brief Additional Instructions: EMERGENCY DEPARTMENT GENERAL DISCHARGE INSTRUCTIONS Thank you for coming to [facility] (ED) today and trusting us with you care. We trust that you had a positivie experience in our Emergency Department. If you wish to speak to the department management, you may call the director at [phone]. YOUR FOLLOW UP INSTRUCTIONS ARE FOLLOWS: 1. Do you have a private Doctor? If you do not have a private doctor, please ask for a resource list of physicians or clinics that may be able to assist you with follow up care. 2. The Emergency Physician has interpreted your x-rays. The X-Ray specialist w ill also review them. If there is a change in the findings, you will be notified in 48 hours when at all possible. 3. A lab test or culture has been done, your results will be reviewed and you will be notified if you need a change in treatment. ADDITIONAL INSTRUCTIONS AND INFORMATION: 1. Your care today has been supervised by a physician who is specially trained in emergency care. Many problems require more than one evaluation for a complete diagnosis and treatment. We recommend that you schedule your follow up appointment as recommended to ensure complete treatment of you illness or injury. If you are unable to obtain follow up care and continue to have a problem, or if your condition worsens, we recommend that you return to the ED. 2. We are not able to safely determine your condition over the phone nor are we able to give sound medical advice over the phone. For these safety reasons, if you call for medical advice we will ask you to come to the ED for further evaluation. 3. If you have any questions regarding these discharge instructions please call the ED at [phone]. SAFETY INFORMATION: In the interest of safety, wellness, and injury prevention; we encourage you to wear your sealbelt, if you smoke; quite smoking, and we encourage family to use a protective helmet for bicycling and other sporting events that present an increased risk for head injury. IF YOUR SYMPTOMS WORSEN OR NEW SYMPTOMS DEVELOP, OR YOU HAVE CONCERNS ABOUT YOUR CONDITION; OR IF YOUR CONDITION WORSENS WHILE YOU ARE WAITING FOR YOUR FOLLOW UP APPOINTMENT; EITHER CONTACT YOUR PRIMARY CARE DOCTOR, THE PHYSICIAN WHOSE NAME AND NUMBER YOU WERE GIVEN, OR RETURN TO THE ED IMMEDIATELY. YULI PEARCE DO Apr 15, 2020 10:26
[2020-04-15] MEDS ORDERED: IV NORMAL SALINE 1,000ML 1,000 ML IV ONE (10:30)
[2020-04-15 11:04] LABS: BASO # 0.1 x10^3/uL (0.0-0.2); BASO % 1 % (0-3); EOS % 0 % (0-3); HEMATOCRIT 40.9 % (39.0-53.0); HEMOGLOBIN 13.3 g/dL (13.0-17.5); LYMPH # 0.4 x10^3/uL (1.0-4.8); LYMPH % 3 % (24-48); MEAN CORPUSCULAR HEMOGLOBIN 28 pg (25-35); MEAN CORPUSCULAR HGB CONC 33 g/dL (31-37); MEAN CORPUSCULAR VOLUME 87 fL (79-100); MONO # 0.8 x10^3/uL (0.0-1.1); MONO % 6 % (0-9); NEUT # 12.6 x10^3uL (1.8-7.7); NEUT % 90 % (31-73); PLATELET COUNT 437 x10^3/uL (140-400); RED BLOOD COUNT 4.72 x10^6/uL (4.30-5.70); RED CELL DISTRIBUTION WIDTH 18.4 % (11.5-14.5)
--- NOTE | 2020-04-15 11:07 | EKG ---
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
[2020-04-15 11:18] LABS: CALCIUM 8.8 mg/dL (8.5-10.1); CREATININE 0.5 mg/dL (0.7-1.3); GFR 208.9; POTASSIUM 4.1 mmol/L (3.5-5.1)
[2020-04-15 11:19] LABS: ACETAMIN < 2.0 mcg/mL (10-30); ALBUMIN 2.4 g/dL (3.4-5.0); DIRECT BILIRUBIN 0.1 mg/dL (0.0-0.2); SALIC 6.9 mg/dL (2.8-20.0); TOTAL BILIRUBIN 0.2 mg/dL (0.2-1.0); TOTAL PROTEIN 6.6 g/dL (6.4-8.2)
[2020-04-15 11:20] LABS: ETHANOL < 10 mg/dL (0-10)
[2020-04-15 11:23] LABS: MAGNESIUM 2.6 mg/dL (1.8-2.4)
--- NOTE | 2020-04-15 11:39 | RAD ---
XR CHEST 1V Clinical indications: Reason: ALTERED MENTAL STATUS COMPARISON: March 03, 2020. Findings: No acute lung infiltrate or pleural effusion or pulmonary edema or lung mass or pneumothora x is seen. The heart size, pulmonary vasculature, mediastinum and both gurwinder are unremarkable. Impression: No acute radiographic abnormality is seen. Electronically signed by: Fuentes Trivedi MD (04/15/2020 11:37 AM) [id number]
--- NOTE | 2020-04-15 12:03 | RAD ---
EXAM: Head CT without contrast. HISTORY: Altered mental status. TECHNIQUE: Computed tomographic images of the head were obtained without contrast. *One or more of the following individualized dose reduction techniques were utilized for this examina tion: 1. Automated exposure control. 2. Adjustment of the mA and/or kV according to patient size. 3. Use of iterative reconstruction technique. COMPARISON: 06/19/2018. FINDINGS: There is no acute or subacute extra-axial or intraparenchymal hemorrhage. There is no mass effect or midline shift. There is no hydrocephalus. The mayes-white matter differentiation pattern is intact. The visualized portions of the orbits, paranasal sinuses and mastoid air cells are unremarkable. No s uspicious calvarial lesion is seen. IMPRESSION: No acute intracranial findings. Note is made that MRI is more sensitive for acute infarction. Electronically signed by: Erum Sutton MD (04/15/2020 12:00 PM) [id number]
[2020-04-15 12:31] LABS: BARBITURATES NEG (NEG); BENZODIAZEPINES NEG (NEG); CANNABINOIDS POS (NEG); COCAINE NEG (NEG); METHADONE NEG (NEG); OPIATES NEG (NEG); PHENCYCLIDINE NEG (NEG)
[2020-04-15 12:32] LABS: AMPHETAMINE/METHAMPHETAMINE NEG (NEG)
[2020-04-15 13:03] LABS: BACTERIA,URINE 0 /HPF (0-FEW); BILIRUBIN,URINE NEG (NEG); CLARITY,URINE CLEAR; COLOR,URINE YELLOW; GLUCOSE,URINE 100 mg/dL (NEG); NITRITE,URINE NEG (NEG); RBC,URINE 0 /HPF (0-2); SQUAMOUS EPITHELIAL CELL,UR OCC /LPF; UROBILINOGEN,URINE 0.2 mg/dL (0.2 mg/dL); WBC,URINE RARE /HPF (0-4)
[2020-04-15 13:48] LABS: % LYMPHS 3 % (24-48); % MONOS 6 % (0-10); % SEGS 91 % (35-66)
[2020-04-15 13:49] LABS: ANISOCYTOSIS SLIGHT; PLT ESTIMATE INCREASED (ADEQUATE)
[2020-04-15 13:50] LABS: OVALOCYTES OCC; POLYCHROMASIA SLIGHT; TEAR DROP CELLS OCC
== END 2020-04-15 15:10 | disposition home or self-care (01) ==
LOC: ER 10:13
DX: E11.649 Type 2 diabetes mellitus with hypoglycemia without coma (principal); F12.10 Cannabis abuse, uncomplicated; I10 Essential (primary) hypertension; I25.2 Old myocardial infarction; F17.200 Nicotine dependence, unspecified, uncomplicated; Z88.6 Allergy status to analgesic agent; Z88.8 Allergy status to other drugs, medicaments and biological substances
CPT/HCPCS: 36415; 70450; 71045; 80048; 80076; 80307; 80329; 81001; 82010; 82550; 82947; 83605; 83735; 84484; 85007; 85025; 85610; 85730; 87040; 93005; 96361; 96374; 96375; 99285; G0480; J2310; J7030

== ENCOUNTER 2020-05-09 14:28 | Emergency (ER) | payer MEDICARE, MEDICAID ==
[~2020-05-09] VITALS: Ht 165.1 cm; Wt 61.0 kg
[2020-05-09] MEDS ORDERED: FAMOTIDINE 20 MG/2 ML VIAL IVP ONE (14:45)
[2020-05-09] MEDS ORDERED: IV NORMAL SALINE 1,000ML 1,000 ML IV ONE (14:45)
[2020-05-09] MEDS ORDERED: ONDANSETRON PF 4 MG/2 ML VIAL. IVP ONE ×2 (14:45→16:15)
--- NOTE | 2020-05-09 14:49 | PHYS DOC ---
Past History Past Medical History: Diabetes, Hypertension, [place], Pancreatitis, Other Additional Past Medical Histor: COLITIS Past Surgical History: Other Additional Past Surgical Histo: WHIPPLE SURGERY, bowel perf repair 10/2019 Smoking: Less than 1pk/day Alcohol Use: None Drug Use: None, Marijuana General Adult EDM: Chief Complaint: ABDOMINAL PAIN HPI: HPI: Patient is a 55 year old male who presents with abdominal and back pain. He has a PMH significant for whipple, colitis with bowel perforation and poorly controlled diabetes. Two days ago he developed acute onset of a 9/10 stabbing and cramping abdominal pain that is worst in the LLQ and radiates to his back. His pain worsens when he eats, and he has not found anything that significantly improves his pain. He admits to chills and nausea with associated green and brown vomit. He admits to dark colored diarrhea. Review of Systems: Review of Systems: Constitutional: Denies fever. admits chills Eyes: Denies redness or eye pain HENT: Denies nasal congestion or sore throat Respiratory: Denies cough or shortness of breath Cardiovascular: Admits intermittent chest pain. Deniesl palpitations GI: Admits abdominal pain, nausea, vomiting, diarrhea : Admits dysuria. Unable to state whether or not there was hematuria Musculoskeletal: Admits back pain. Denies joint pain Integument: Denies rash or skin lesions Neurologic: Denies headache, focal weakness or sensory changes Complete systems were reviewed and found to be within normal limits, except as documented in this note. Current Medications: Current Meds: Current Medications Medications (Trade) Dose Ordered Sig/[facility] Start Time Stop Time Status Last Admin Dose Admin Famotidine (Pepcid Vial) 20 mg 1X ONCE 05/09/20 14:45 05/09/20 14:46 UNV Ondansetron HCl (Zofran) 4 mg 1X ONCE 05/09/20 14:45 05/09/20 14:46 UNV Sodium Chloride 1,000 ml @ 1,000 mls/hr 1X ONCE 05/09/20 14:45 05/09/20 15:44 UNV Allergies: Allergies: Allergies Coded Allergies Type Severity Reaction Last Updated Verified aspirin Allergy Intermediate 07/21/18 Yes fentanyl Allergy Intermediate 07/21/18 Yes ketorolac Allergy Intermediate 07/21/18 No naproxen Allergy Intermediate 07/21/18 No tramadol Allergy Intermediate 09/29/19 Yes Physical Exam: PE: Constitutional: Well developed, well nourished, acute distress, non-toxic appearance HENT: Normocephalic, atraumatic Eyes: PERRL, EOMI, conjunctiva normal, no discharge Neck: Normal range of motion, no tenderness, supple Lungs & Thorax: No respiratory distress, equal chest rise and fall Abdomen: Soft,non distrended. Scar from prior sx. tender to deep palpation. worst in LLQ. No guarding. No rebound. Skin: Warm, dry, no erythema, no rash Back: Mild tenderness Left sided CVA tenderness Extremities: No tenderness, ROM intact, no edema Neurologic: Alert and oriented X 3, normal motor function, normal sensory function, no focal deficits noted Psychologic: Affect normal, judgment normal Current Patient Data: Vital Signs: Vital Signs Date Time Temp Pulse Resp B/P (MAP) Pulse Ox O2 Delivery O2 Flow Rate FiO2 05/09/20 14:41 97.8 67 16 145/93 (110) 100 Room Air EKG: EKG: @1518 NSR at 64bpm, NO ST elevation, QRS 86ms, QT/QTc 444/463ms Radiology/Procedures: Radiology/Procedures: [] Heart Score: HEART Score for Chest Pain: HEART Score for Chest Pain Response (Comments) Value History Slighlty/Non-Suspicious 0 Age >45 - < 65 1 Risk Factors >3 Risk Factors or Hx CAD 2 Total 3 Risk Factors: Risk Factors: DM, Current or recent (<one month) smoker, HTN, HLP, family history of CAD, obesity. Risk Scores: Score 0 - 3: 2.5% MACE over next 6 weeks - Discharge Home Score 4 - 6: 20.3% MACE over next 6 weeks - Admit for Clinical Observation Score 7 - 10: 72.7% MACE over next 6 weeks - Early Invasive Strategies Course & Med Decision Making: Course & Med Decision Making Pertinent Labs and Imaging studies reviewed. (See chart for details) [] Dragon Disclaimer: Dragon Disclaimer: This electronic medical record was generated, in whole or in part, using a voice recognition dictation system. Departure Departure: Impression: Primary Impression: Chronic abdominal pain Additional Impression: Nausea vomiting and diarrhea Disposition: 01 DC HOME SELF CARE/HOMELESS Condition: STABLE Referrals: AGNES VALDERRAMA MD (PCP) Patient Instructions: Abdominal Pain (Nonspecific), Chronic Pain, Diarrhea, [id number], Diet for Diarrhea, Adult, Nausea and Vomiting, [id number] Additional Instructions: Please follow with your doctors for re-evaluation. Scripts Famotidine (PEPCID) 20 Mg Tablet 1 TAB PO BID for Gastritis, #30 TAB Prov: JEMAL GUTIERRES DO 05/09/20 Dicyclomine Hcl (DICYCLOMINE HCL) 20 Mg Tablet 1 TAB PO QID PRN for PAIN, #30 TAB Prov: JEMAL GUTIERRES DO 05/09/20 Ondansetron (ONDANSETRON ODT) 4 Mg Tab.rapdis 1 TAB PO PRN Q6-8HRS PRN for NAUSEA, #16 TAB Prov: JEMAL GUTIERRES DO 05/09/20 JEMAL GUTIERRES DO May 09, 2020 14:49
[2020-05-09 15:18] LABS: BASO % 0 % (0-3); EOS % 0 % (0-3); HEMATOCRIT 44.7 % (39.0-53.0); HEMOGLOBIN 14.8 g/dL (13.0-17.5); LYMPH # 0.9 x10^3/uL (1.0-4.8); LYMPH % 10 % (24-48); MEAN CORPUSCULAR HEMOGLOBIN 29 pg (25-35); MEAN CORPUSCULAR HGB CONC 33 g/dL (31-37); MEAN CORPUSCULAR VOLUME 86 fL (79-100); MONO # 0.5 x10^3/uL (0.0-1.1); MONO % 6 % (0-9); NEUT # 7.8 x10^3uL (1.8-7.7); NEUT % 84 % (31-73); PLATELET COUNT 272 x10^3/uL (140-400); RED BLOOD COUNT 5.19 x10^6/uL (4.30-5.70); RED CELL DISTRIBUTION WIDTH 18.2 % (11.5-14.5); WHITE BLOOD COUNT 9.3 x10^3/uL (4.0-11.0)
--- NOTE | 2020-05-09 15:27 | EKG ---
[address] [address] Test Date: 2020-05-09 Test Time: 15:18:26 Pat Name: ADAM CASTELAN Department: Room: Gender: M Pig Caster: [place]IN[place] : 1965 Requested By: JMEAL GUTIERRES Order Number: [id number] Reading MD: Measurements Intervals [place] Rate: 64 P: 47 VA: 130 QRS: 41 QRSD: 86 T: 59 QT: 444 QTc: 463 Interpretive Statements SINUS RHYTHM NORMAL ECG RI6.02 No previous ECG available for comparison
[2020-05-09 15:29] LABS: CALCIUM 9.3 mg/dL (8.5-10.1); CREATININE 0.8 mg/dL (0.7-1.3); GFR 121.4; POTASSIUM 3.8 mmol/L (3.5-5.1)
[2020-05-09 15:35] LABS: ALBUMIN 3.3 g/dL (3.4-5.0); ALBUMIN/GLOBULIN RATIO 0.8 (1.0-1.7); MAGNESIUM 2.4 mg/dL (1.8-2.4); TOTAL BILIRUBIN 0.8 mg/dL (0.2-1.0); TOTAL PROTEIN 7.5 g/dL (6.4-8.2)
[2020-05-09] MEDS ORDERED: MORPHINE SULFATE 4 MG/ML DISP.SYRIN. IV ONE ×2 (16:00→17:30)
[2020-05-09 17:36] VITALS: BP 151/79
[2020-05-09 18:10] LABS: BACTERIA,URINE 0 /HPF (0-FEW); BILIRUBIN,URINE NEG (NEG); CLARITY,URINE CLEAR; COLOR,URINE YELLOW; GLUCOSE,URINE NEG (NEG); NITRITE,URINE NEG (NEG); RBC,URINE OCC /HPF (0-2); SQUAMOUS EPITHELIAL CELL,UR OCC /LPF; UROBILINOGEN,URINE 0.2 mg/dL (0.2 mg/dL); WBC,URINE RARE /HPF (0-4)
[2020-05-09] MEDS ORDERED: FAMO-63 PO (18:21)
[2020-05-09] MEDS ORDERED: ONDA4TAB12 PO (18:21)
[2020-05-09] MEDS ORDERED: DICY20TA3 PO (18:21)
== END 2020-05-09 18:35 | disposition home or self-care (01) ==
LOC: ER 14:28
DX: G89.29 Other chronic pain (principal); R10.32 Left lower quadrant pain; R11.2 Nausea with vomiting, unspecified; R19.7 Diarrhea, unspecified; R30.0 Dysuria; E11.9 Type 2 diabetes mellitus without complications; I10 Essential (primary) hypertension; I25.2 Old myocardial infarction; F17.200 Nicotine dependence, unspecified, uncomplicated; Z88.6 Allergy status to analgesic agent; Z88.8 Allergy status to other drugs, medicaments and biological substances
CPT/HCPCS: 36415; 80053; 81001; 82553; 82947; 83690; 83735; 84484; 85025; 93005; 96361; 96374; 96375; 96376; 99284; J2270; J2405; J3490; J7030

== ENCOUNTER 2020-05-26 07:33 | Emergency (ER) | payer MEDICARE, MEDICAID ==
[~2020-05-26] VITALS: Ht 165.1 cm; Wt 61.0 kg
[~2020-05-26 07:33] MED LIST changes: -CIPR500T PO; +CIPR500T2 PO; -LISI40TA PO; +LISI40TA6 PO
[2020-05-26 07:44] VITALS: BP 135/94
[2020-05-26] MEDS ORDERED: ONDANSETRON ODT 4 MG TAB.RAPDIS PO ONE (08:00)
[2020-05-26] MEDS ORDERED: HYOSCYAMINE 0.125 MG TAB.RAPDIS PO ONE (08:00)
[2020-05-26 08:58] LABS: BASO % 0 % (0-3); EOS % 0 % (0-3); HEMATOCRIT 47.2 % (39.0-53.0); HEMOGLOBIN 15.2 g/dL (13.0-17.5); LYMPH # 1.2 x10^3/uL (1.0-4.8); LYMPH % 11 % (24-48); MEAN CORPUSCULAR HEMOGLOBIN 29 pg (25-35); MEAN CORPUSCULAR HGB CONC 32 g/dL (31-37); MEAN CORPUSCULAR VOLUME 89 fL (79-100); MONO # 0.5 x10^3/uL (0.0-1.1); MONO % 5 % (0-9); NEUT # 8.8 x10^3uL (1.8-7.7); NEUT % 83 % (31-73); PLATELET COUNT 206 x10^3/uL (140-400); RED BLOOD COUNT 5.33 x10^6/uL (4.30-5.70); RED CELL DISTRIBUTION WIDTH 17.8 % (11.5-14.5); WHITE BLOOD COUNT 10.6 x10^3/uL (4.0-11.0)
[2020-05-26 08:59] LABS: BACTERIA,URINE 0 /HPF (0-FEW); BILIRUBIN,URINE NEG (NEG); CLARITY,URINE CLEAR; COLOR,URINE YELLOW; GLUCOSE,URINE NEG (NEG); NITRITE,URINE NEG (NEG); RBC,URINE OCC /HPF (0-2); SQUAMOUS EPITHELIAL CELL,UR FEW /LPF; UROBILINOGEN,URINE 0.2 mg/dL (0.2 mg/dL); WBC,URINE OCC /HPF (0-4)
[2020-05-26 09:12] LABS: CALCIUM 8.3 mg/dL (8.5-10.1); CREATININE 0.8 mg/dL (0.7-1.3); GFR 121.4; POTASSIUM 4.1 mmol/L (3.5-5.1)
[2020-05-26 09:19] LABS: ALBUMIN 3.2 g/dL (3.4-5.0); ALBUMIN/GLOBULIN RATIO 0.9 (1.0-1.7); TOTAL BILIRUBIN 0.4 mg/dL (0.2-1.0); TOTAL PROTEIN 6.8 g/dL (6.4-8.2)
--- NOTE | 2020-05-26 09:44 | PHYS DOC ---
Past History Past Medical History: Diabetes, Hypertension, [place], Pancreatitis, Other Additional Past Medical Histor: COLITIS Past Surgical History: Other Additional Past Surgical Histo: WHIPPLE SURGERY, bowel perf repair 10/2019 Smoking: Less than 1pk/day Alcohol Use: None Drug Use: None, Marijuana Adult General Chief Complaint Chief Complaint: NAUSEA[facility] HPI Patient is a 54-year-old male well-known to this emergency room who presents to the emergency room complaining of lower abdominal pain, back pain, nausea, diarrhea. He states that this started on Wednesday and has been ongoing. This is very similar to pain that he has had in the past but he states it feels worse than it was. He has had bowel perforations in the past and his also had a Whipple done. Patient states that he has had multiple episodes of diarrhea but does not had any vomiting. He states the pain in his back feels very hot and stabbing. The pain in his abdomen is a burning cramping feeling. Review of Systems Review of Systems Complete ROS is negative unless otherwise documented in HPI Current Medications Current Medications Current Medications Medications (Trade) Dose Ordered Sig/[facility] Start Time Stop Time Status Last Admin Dose Admin Hyoscyamine (Anaspaz) 0.125 mg 1X ONCE 05/26/20 08:00 05/26/20 08:01 DC 05/26/20 08:30 0.125 MG Ondansetron HCl (Zofran Odt) 4 mg 1X ONCE 05/26/20 08:00 05/26/20 08:01 DC 05/26/20 08:30 4 MG Allergies Allergies Allergies Coded Allergies Type Severity Reaction Last Updated Verified aspirin Allergy Intermediate 07/21/18 Yes fentanyl Allergy Intermediate 07/21/18 Yes ketorolac Allergy Intermediate 07/21/18 No naproxen Allergy Intermediate 07/21/18 No tramadol Allergy Intermediate 09/29/19 Yes Physical Exam Physical Exam General: Awake, alert, mild distress. Well Nourished, well hydrated. Cooperative HEENT: Atraumatic, EOMI, PERRL, airway patent, moist oral mucosa Neck: Supple, trachea midline Respiratory: CTA bilaterally, normal effort, no wheezing/crackles CV: RRR, no murmur, cap refill <2 GI: Soft, nondistended, nontender, no masses MSK: No obvious deformities Skin: Warm, dry, intact Neuro: A&O x3, speech NL, sensory and motor grossly intact, no focal deficits Psych: Normal affect, normal mood, not suicidal or homicidal Current Patient Data Vital Signs Vital Signs Date Time Temp Pulse Resp B/P (MAP) Pulse Ox O2 Delivery O2 Flow Rate FiO2 05/26/20 07:44 98.6 100 18 135/94 (108) 100 Lab Results Laboratory Tests Test 05/26/20 07:50 05/26/20 08:42 Urine Collection Type Unknown Urine Color Yellow Urine Clarity Clear Urine pH 5.5 Urine Specific Winger 1.020 Urine Protein 30 mg/dl (NEG-TRACE) Urine Glucose (UA) Neg mg/dL (NEG) Urine Ketones (Stick) Neg mg/dL (NEG) Urine Blood Neg (NEG) Urine Nitrite Neg (NEG) Urine Bilirubin Neg (NEG) Urine Urobilinogen Dipstick 0.2 mg/dL (0.2 mg/dL) Urine Leukocyte Esterase Neg (NEG) Urine RBC Occ /HPF (0-2) Urine WBC Occ /HPF (0-4) Urine Squamous Epithelial Cells Few /LPF Urine Bacteria 0 /HPF (0-FEW) Urine Mucus Slight /LPF White Blood Count 10.6 x10^3/uL (4.0-11.0) Red Blood Count 5.33 x10^6/uL (4.30-5.70) Hemoglobin 15.2 g/dL (13.0-17.5) Hematocrit 47.2 % (39.0-53.0) Mean Corpuscular Volume 89 fL (79-100) Mean Corpuscular Hemoglobin 29 pg (25-35) Mean Corpuscular Hemoglobin Concent 32 g/dL (31-37) Red Cell Distribution Width 17.8 % (11.5-14.5) H Platelet Count 206 x10^3/uL (140-400) Neutrophils (%) (Auto) 83 % (31-73) H Lymphocytes (%) (Auto) 11 % (24-48) L Monocytes (%) (Auto) 5 % (0-9) Eosinophils (%) (Auto) 0 % (0-3) Basophils (%) (Auto) 0 % (0-3) Neutrophils # (Auto) 8.8 x10^3uL (1.8-7.7) H Lymphocytes # (Auto) 1.2 x10^3/uL (1.0-4.8) Monocytes # (Auto) 0.5 x10^3/uL (0.0-1.1) Eosinophils # (Auto) 0.0 x10^3/uL (0.0-0.7) Basophils # (Auto) 0.0 x10^3/uL (0.0-0.2) Sodium Level 141 mmol/L (136-145) Potassium Level 4.1 mmol/L (3.5-5.1) Chloride Level 105 mmol/L (98-107) Carbon Dioxide Level 28 mmol/L (21-32) Anion Gap 8 (6-14) Blood Urea Nitrogen 13 mg/dL (8-26) Creatinine 0.8 mg/dL (0.7-1.3) Estimated GFR (Cockcroft-Gault) 121.4 BUN/Creatinine Ratio 16 (6-20) Glucose Level 76 mg/dL (70-99) Calcium Level 8.3 mg/dL (8.5-10.1) L Total Bilirubin 0.4 mg/dL (0.2-1.0) Aspartate Amino Transferase (AST) 54 U/L (15-37) H Alanine Aminotransferase (ALT) 83 U/L (16-63) H Alkaline Phosphatase 278 U/L (46-116) H Total Protein 6.8 g/dL (6.4-8.2) Albumin 3.2 g/dL (3.4-5.0) L Albumin/Globulin Ratio 0.9 (1.0-1.7) L EKG EKG [] Radiology/Procedures Radiology/Procedures [] Heart Score Risk Factors: Risk Factors: DM, Current or recent (<one month) smoker, HTN, HLP, family history of CAD, obesity. Risk Scores: Risk Factors: DM, Current or recent (<one month) smoker, HTN, HLP, family history of CAD, obesity. Course & Med Decision Making Course & Med Decision Making Pertinent Labs and Imaging studies reviewed. (See chart for details) Patient is a 54-year-old male who presents to the emergency room complaining of abdominal pain. Patient has a long history of chronic abdominal pain. He has normal vitals and a nonacute abdomen on exam. Abdominal work-up was ordered including an acute abdominal series to look for free air and abdominal lab work. Lab work does show elevated liver enzymes which is changed from his last visit. CT will be done to rule out any acute pathology. CT shows possible gastroenteritis. Will refrain from using narcotic pain medicine at this time. Patient has requested pain medication several times while here in the emergency room. He was given Levsin and a GI cocktail. Patient's test results and vitals while in the ED were fully reviewed and discussed with the patient. Patient is stable and at this time does not need admission to the hospital. We have discussed strict return precautions and the importance of following up with their Primary Care Physician. Patient stated understanding and was given an opportunity to ask any questions. Patient is in agreement with plan. Dragon Disclaimer Dragon Disclaimer This electronic medical record was generated, in whole or in part, using a voice recognition dictation system. Departure Departure: Impression: Primary Impression: Acute gastroenteritis Disposition: 01 DC HOME SELF CARE/HOMELESS Condition: STABLE Referrals: AGNES VALDERRAMA MD (PCP) Patient Instructions: Viral Gastroenteritis CHERY LOVETT MD May 26, 2020 09:44
[2020-05-26] MEDS ORDERED: IOHEXOL 240 MG/ML 50ML VIAL. ONE (09:48)
--- NOTE | 2020-05-26 09:57 | RAD ---
XR ABDOMEN COMP ACUTE INDICATION: Reason: abd pain, runny stool, bloating, nausea onset Wednesday / . Instructions: / Hist ory: . COMPARISON STUDY: None. FINDINGS: Lungs: Normal lung volume. No pulmonary mass or consolidation. The tracheobronchial tree and hilar st ructures are normal. Pleura: No pleural effusion or pneumothorax. Heart and Mediastinum: The cardiomediastinal silhouette is normal. The great vessels of the thorax ar e normal. Abdomen: Nonobstructive bowel gas pattern. No free air. Pelvic phleboliths.. IMPRESSION: 1. No focal airspace disease. 2. Nonobstructive bowel gas pattern. Electronically signed by: Neftaly Squires MD (05/26/2020 9:55 AM) [id number]
[2020-05-26] MEDS ORDERED: IOHEXOL 240 MG/ML 50ML VIAL. PO ONE (10:45)
[2020-05-26] MEDS ORDERED: CONTRAST GIVEN. MC PRN (11:15)
--- NOTE | 2020-05-26 11:34 | RAD ---
CT ABDOMEN+PELVIS W History: Reason: abd pain,elevated LFTs,runny stool,bloating, nausea onset Wednesday Technique: Noncontrast examination of the abdomen and pelvis. Coronal and sagittal reconstructions we re performed. Oral contrast was a critical care paramedic. Exposure: One or more of the following individualized dose reduction techniques were utilized for thi s examination: 1. Automated exposure control 2. Adjustment of the mA and/or kV according to patient size 3. Use of iterative reconstruction technique. Comparison: March 03, 2020 Findings: Lower chest: No consolidation or pleural effusion. Abdomen and pelvis: The liver, and spleen are unremarkable. Bilateral adenomatous adrenal gland thick ening with left adrenal adenoma measures 1.5 x 1.5 cm, unchanged. Mild nonspecific perinephric strand ing, unchanged. No hydronephrosis. No renal calculi. Rectal wall thickening, unchanged. Normal appendix. Moderate distal colonic stool. Moderate prominent loops of small bowel throughout the abdomen. Oral contrast opacifies the level of the distal small b owel. No significant transition point to suggest obstruction. There are regions of small bowel wall t hickening. Potential gastric wall thickening although lack of intravenous contrast degrades evaluation. No patho logic lymphadenopathy. No ascites. Mild atheromatous plaque within the nonaneurysmal abdominal aorta and branch vessels. Postoperative changes with procedure with distal pancreatectomy and distal gastrectomy as well as gas trojejunostomy. Cholecystectomy. Bones: No pathologic osseous lesions. Impression: 1. Mildly prominent small bowel loops with wall thickening, may indicate enteritis. 2. Potential gastric wall thickening, may represent gastritis. Recommend follow-up. 3. Persistent rectal wall thickening. 4. Postoperative changes within the upper abdomen. Electronically signed by: Nicholas Anderson DO (05/26/2020 11:32 AM) [facility]
[2020-05-26] MEDS ORDERED: LIDO:MAALOX 1:1 20 ML SINGLE DOSE. PO ONE (12:00)
== END 2020-05-26 12:02 | disposition home or self-care (01) ==
LOC: ER 07:33
DX: K52.9 Noninfective gastroenteritis and colitis, unspecified (principal); R10.30 Lower abdominal pain, unspecified; R11.0 Nausea; E11.9 Type 2 diabetes mellitus without complications; I10 Essential (primary) hypertension; I25.2 Old myocardial infarction; K86.1 Other chronic pancreatitis; F17.200 Nicotine dependence, unspecified, uncomplicated; F12.90 Cannabis use, unspecified, uncomplicated; Z98.890 Other specified postprocedural states; Z88.8 Allergy status to other drugs, medicaments and biological substances
CPT/HCPCS: 36415; 74022; 74176; 80053; 81001; 85025; 99285; Q0162; Q9966

== ENCOUNTER 2020-06-05 13:15 | Emergency (ER) | payer MEDICARE, MEDICAID ==
[~2020-06-05] VITALS: Ht 165.1 cm; Wt 61.0 kg
[2020-06-05 13:17] VITALS: BP 141/72
--- NOTE | 2020-06-05 13:55 | PHYS DOC ---
Past History Past Medical History: Diabetes, Hypertension, [place], Pancreatitis, Other Additional Past Medical Histor: COLITIS Past Surgical History: Other Additional Past Surgical Histo: WHIPPLE SURGERY, bowel perf repair 10/2019 Smoking: Less than 1pk/day Alcohol Use: None Drug Use: None, Marijuana General Adult EDM: Chief Complaint: KNEE INJURY HPI: HPI: Patient is a 55-year-old male who presents with left knee pain. Patient states that he was taking the trash out when he tripped over the trash bag and fell onto his left knee and twisted it. Patient denies taking anything at home for pain. Rating pain 8/10. Patient has history of diabetes and pancreatitis. Review of Systems: Review of Systems: Constitutional: Denies fever or chills Eyes: Denies change in visual acuity HENT: Denies nasal congestion or sore throat Respiratory: Denies cough or shortness of breath Cardiovascular: Denies chest pain or edema GI: Denies abdominal pain, nausea, vomiting, bloody stools or diarrhea : Denies dysuria Musculoskeletal: Denies back pain reports left knee pain Integument: Denies rash Neurologic: Denies headache, focal weakness or sensory changes Endocrine: Denies polyuria or polydipsia Lymphatic: Denies swollen glands Psychiatric: Denies depression or anxiety Allergies: Allergies: Allergies Coded Allergies Type Severity Reaction Last Updated Verified aspirin Allergy Intermediate 07/21/18 Yes fentanyl Allergy Intermediate 07/21/18 Yes ketorolac Allergy Intermediate 07/21/18 No naproxen Allergy Intermediate 07/21/18 No tramadol Allergy Intermediate 09/29/19 Yes Physical Exam: PE: Constitutional: Well developed, well nourished, no acute distress, non-toxic appearance. [] HENT: Normocephalic, atraumatic, bilateral external ears normal, oropharynx moist, no oral exudates, nose normal. [] Eyes: PERRLA, EOMI, conjunctiva normal, no discharge. [] Neck: Normal range of motion, no tenderness, supple, no stridor. [] Cardiovascular:Heart rate regular rhythm, no murmur [] Lungs & Thorax: Bilateral breath sounds clear to auscultation [] Abdomen: Bowel sounds normal, soft, no tenderness, no masses, no pulsatile masses. [] Skin: Warm, dry, no erythema, no rash. [] Back: No tenderness, no CVA tenderness. [] Extremities: Left knee tenderness,ROM intact, no swelling to left knee, abrasion to left knee Neurologic: Alert and oriented X 3, normal motor function, normal sensory function, no focal deficits noted. [] Psychologic: Affect normal, judgement normal, mood normal. [] Current Patient Data: Vital Signs: Vital Signs Date Time Temp Pulse Resp B/P (MAP) Pulse Ox O2 Delivery O2 Flow Rate FiO2 06/05/20 13:17 96.9 82 18 141/72 (95) 95 Room Air EKG: EKG: [] Radiology/Procedures: Radiology/Procedures: []XR KNEE _3 VIEWS_LT History: Reason: INJURY / Spl. Instructions: / History: Comparison: None. Technique: 3 views of the left knee. Findings: Osseous mineralization is normal. No fracture or dislocation. Joint spaces are relatively preserved without significant degenerative change. No knee effusion or focal soft tissue swelling. Impression: 1. No acute osseous abnormality of the left knee. Electronically signed by: Reggie Harris MD (06/05/2020 1:54 PM) [facility] Heart Score: Risk Factors: Risk Factors: DM, Current or recent (<one month) smoker, HTN, HLP, family history of CAD, obesity. Risk Scores: Score 0 - 3: 2.5% MACE over next 6 weeks - Discharge Home Score 4 - 6: 20.3% MACE over next 6 weeks - Admit for Clinical Observation Score 7 - 10: 72.7% MACE over next 6 weeks - Early Invasive Strategies Course & Med Decision Making: Course & Med Decision Making Pertinent Labs and Imaging studies reviewed. (See chart for details) []Patient is a 55-year-old male who presents with left knee pain. Patient states that he was taking the trash out when he tripped over the trash bag and fell onto his left knee and twisted it. Patient denies taking anything at home for pain. Rating pain 8/10. Patient has history of diabetes and pancreatitis. X-ray ordered for left knee. Hydrocodone ordered for pain. Patient is still able to ambulate. Dorsal pedal pulses intact. Patient has full range of motion but produces pain. Patient states that he was brought to the emergency room by his niece. X-ray is negative for fracture. Patient will be discharged home with instructions for RICE and follow-up with PCP. Curt Disclaimer: Curt Disclaimer: This electronic medical record was generated, in whole or in part, using a voice recognition dictation system. Departure Departure: Impression: Primary Impression: Knee abrasion Qualified Codes: S80.212A - Abrasion, left knee, initial encounter Disposition: 01 DC HOME SELF CARE/HOMELESS Condition: STABLE Referrals: AGNES VALDERRAMA MD (PCP) Patient Instructions: Knee Pain, [id number] Additional Instructions: You were seen in the emergency room today for left knee pain after a fall. Your knee x-ray is negative for fracture. Make sure to rest your leg, use ice to the affected area, and elevate to help with swelling and discomfort. You can take ibuprofen and Tylenol at home for pain. Please return to the emergency room with worsening symptoms or concerns. Otherwise follow-up with your PCP. EMERGENCY DEPARTMENT GENERAL DISCHARGE INSTRUCTIONS Thank you for coming to [facility] (ED) today and trusting us with you care. We trust that you had a positivie experience in our Emergency Department. If you wish to speak to the department management, you may call the director at [phone]. YOUR FOLLOW UP INSTRUCTIONS ARE FOLLOWS: 1. Do you have a private Doctor? If you do not have a private doctor, please ask for a resource list of physicians or clinics that may be able to assist you with follow up care. 2. The Emergency Physician has interpreted your x-rays. The X-Ray specialist will also review them. If there is a change in the findings, you will be notified in 48 hours when at all possible. 3. A lab test or culture has been done, your results will be reviewed and you will be notified if you need a change in treatment. ADDITIONAL INSTRUCTIONS AND INFORMATION: 1. Your care today has been supervised by a physician who is specially trained in emergency care. Many problems require more than one evaluation for a complete diagnosis and treatment. We recommend that you schedule your follow up appointment as recommended to ensure complete treatment of you illness or injury. If you are unable to obtain follow up care and continue to have a problem, or if your condition worsens, we recommend that you return to the ED. 2. We are not able to safely determine your condition over the phone nor are we able to give sound medical advice over the phone. For these safety reasons, if you call for medical advice we will ask you to come to the ED for further evaluation. 3. If you have any questions regarding these discharge instructions please call the ED at [phone]. SAFETY INFORMATION: In the interest of safety, wellness, and injury prevention; we encourage you to wear your sealbelt, if you smoke; quite smoking, and we encourage family to use a protective helmet for bicycling and other sporting events that present an increased risk for head injury. IF YOUR SYMPTOMS WORSEN OR NEW SYMPTOMS DEVELOP, OR YOU HAVE CONCERNS ABOUT YOUR CONDITION; OR IF YOUR CONDITION WORSENS WHILE YOU ARE WAITING FOR YOUR FOLLOW UP APPOINTMENT; EITHER CONTACT YOUR PRIMARY CARE DOCTOR, THE PHYSICIAN WHOSE NAME AND NUMBER YOU WERE GIVEN, OR RETURN TO THE ED IMMEDIATELY. ALLISON DOMÍNGUEZ APRN Jun 05, 2020 13:55
--- NOTE | 2020-06-05 13:57 | RAD ---
XR KNEE _3 VIEWS_LT History: Reason: INJURY / Spl. Instructions: / History: Comparison: None. Technique: 3 views of the left knee. Findings: Osseous mineralization is normal. No fracture or dislocation. Joint spaces are relatively preserved w ithout significant degenerative change. No knee effusion or focal soft tissue swelling. Impression: 1. No acute osseous abnormality of the left knee. Electronically signed by: Reggie Harris MD (06/05/2020 1:54 PM) [facility]
[2020-06-05] MEDS ORDERED: HYDROcodone/APAP 5/325MG 1 TAB TABLET PO ONE (14:15)
== END 2020-06-05 14:38 | disposition home or self-care (01) ==
LOC: ER 13:15
DX: S80.212A Abrasion, left knee, initial encounter (principal); E11.9 Type 2 diabetes mellitus without complications; I10 Essential (primary) hypertension; I25.2 Old myocardial infarction; F17.210 Nicotine dependence, cigarettes, uncomplicated; W18.09XA Striking against other object with subsequent fall, initial encounter; Y93.89 Activity, other specified; Y92.89 Other specified places as the place of occurrence of the external cause; Y99.8 Other external cause status
CPT/HCPCS: 73562; 99283

== ENCOUNTER 2020-06-14 15:22 | Emergency (ER) | payer MEDICARE, MEDICAID ==
[~2020-06-14] VITALS: Ht 167.6 cm; Wt 61.5 kg
[2020-06-14] MEDS ORDERED: IPRATRPIUM/ALBUTEROL 0.5/2.5MG 3 ML NEBU. NEB ONE (15:45)
--- NOTE | 2020-06-14 15:50 | PHYS DOC ---
Past History Past Medical History: Anxiety, Depression, Diabetes, GERD, Hypertension Additional Past Medical Histor: COLITIS Past Surgical History: Other Additional Past Surgical Histo: GI Smoking: Less than 1pk/day Alcohol Use: None Drug Use: None, Marijuana General Adult EDM: Chief Complaint: CHEST PAIN HPI: HPI: Patient is a 55-year-old male well-known to the emergency department coming in for chest pain, shortness of breath, cough productive of yellow phlegm, loose stools. He states that loose stools were brown for about 3 days, cough started yesterday. Patient states he woke up today with sharp left-sided chest pain that radiates to the back. Is worse with taking a deep breath and movement. Denies any fevers. Patient smokes three quarters of a pack of cigarettes daily. Has not taken any medications for his symptoms today. Review of Systems: Review of Systems: All other systems within normal limits except for as noted in the HPI Allergies: Allergies: Allergies Coded Allergies Type Severity Reaction Last Updated Verified aspirin Allergy Intermediate 07/21/18 Yes fentanyl Allergy Intermediate 07/21/18 Yes ketorolac Allergy Intermediate 07/21/18 No naproxen Allergy Intermediate 07/21/18 No tramadol Allergy Intermediate 09/29/19 Yes Physical Exam: PE: Constitutional: Well developed, well nourished, no acute distress, non-toxic appearance. [] HENT: Normocephalic, atraumatic, bilateral external ears normal, nose normal. [] Eyes: PERRLA, conjunctiva normal, no discharge. [] Neck: No rigidity, supple, no stridor. [] Cardiovascular: Regular rate and rhythm, brisk cap refill [] Lungs & Thorax: Non labored symmetric respirations, no tachypnea or respiratory distress [] Abdomen: Soft, nondistended. Skin: Warm, dry, no erythema, no rash. [] Back: Unremarkable Extremities: No deformities, range of motion grossly intact, no lower extremity edema [] Neurologic: Alert and oriented X 3, no focal deficits noted. [] Psychologic: Affect normal, judgement normal, mood normal. [] Current Patient Data: Vital Signs: Vital Signs Date Time Temp Pulse Resp B/P (MAP) Pulse Ox O2 Delivery O2 Flow Rate FiO2 06/14/20 15:32 98.2 74 6 152/73 (99) 98 Nasal Cannula EKG: EKG: Normal sinus rhythm, heart rate 70 bpm, normal axis, no ST elevation or depression, no ectopy, normal intervals. T waves unremarkable. [] Radiology/Procedures: Radiology/Procedures: XR CHEST 2V History: Reason: chest pain, cough / Comparison: AP chest April 15, 2020. Findings: The cardiomediastinal silhouette is normal. Pulmonary vasculature is normal. There is mild airspace disease in the right middle lobe. No pleural effusion or pneumothorax is seen. There is no acute bone abnormality. There is mild right convexity lower thoracic scoliosis. IMPRESSION: Mild right middle lobe airspace disease may be atelectasis or infiltrate or scarring. [] Heart Score: C/O Chest Pain: Yes HEART Score for Chest Pain: HEART Score for Chest Pain Response (Comments) Value History Slighlty/Non-Suspicious 0 ECG Normal 0 Age >45 - < 65 1 Risk Factors 1 or 2 Risk Factors 1 Troponin < Normal Limit 0 Total 2 Risk Factors: Risk Factors: DM, Current or recent (<one month) smoker, HTN, HLP, family history of CAD, obesity. Risk Scores: Score 0 - 3: 2.5% MACE over next 6 weeks - Discharge Home Score 4 - 6: 20.3% MACE over next 6 weeks - Admit for Clinical Observation Score 7 - 10: 72.7% MACE over next 6 weeks - Early Invasive Strategies Course & Med Decision Making: Course & Med Decision Making Pertinent Labs and Imaging studies reviewed. (See chart for details) [] Dragon Disclaimer: Dragon Disclaimer: This electronic medical record was generated, in whole or in part, using a voice recognition dictation system. Departure Departure: Impression: Primary Impression: Pneumonia Disposition: 01 DC HOME SELF CARE/HOMELESS Condition: STABLE Referrals: AGNES VALDERRAMA MD (PCP) Patient Instructions: Pneumonia, Adult Scripts Levofloxacin (LEVOFLOXACIN) 750 Mg Tablet 1 TAB PO DAILY for antibiotic for 10 Days, #10 TAB Prov: ENDY FRITZ MD 06/14/20 Benzonatate (TESSALON PERLE) 100 Mg Capsule 1 CAP PO TID PRN for COUGH, #21 CAP Prov: ENDY FRITZ MD 06/14/20 ENDY FRITZ MD Jun 14, 2020 15:50
[2020-06-14 16:23] LABS: BASO # 0.1 x10^3/uL (0.0-0.2); BASO % 1 % (0-3); EOS % 0 % (0-3); HEMOGLOBIN 12.7 g/dL (13.0-17.5); LYMPH # 1.2 x10^3/uL (1.0-4.8); LYMPH % 9 % (24-48); MEAN CORPUSCULAR HEMOGLOBIN 28 pg (25-35); MEAN CORPUSCULAR HGB CONC 33 g/dL (31-37); MEAN CORPUSCULAR VOLUME 87 fL (79-100); MONO % 7 % (0-9); NEUT # 11.5 x10^3uL (1.8-7.7); NEUT % 83 % (31-73); PLATELET COUNT 325 x10^3/uL (140-400); RED BLOOD COUNT 4.47 x10^6/uL (4.30-5.70); RED CELL DISTRIBUTION WIDTH 17.6 % (11.5-14.5); WHITE BLOOD COUNT 13.9 x10^3/uL (4.0-11.0)
[2020-06-14 16:29] LABS: CALCIUM 8.2 mg/dL (8.5-10.1); CREATININE 0.7 mg/dL (0.7-1.3); GFR 141.2; POTASSIUM 4.6 mmol/L (3.5-5.1)
--- NOTE | 2020-06-14 16:29 | RAD ---
XR CHEST 2V History: Reason: chest pain, cough / Comparison: AP chest April 15, 2020. Findings: The cardiomediastinal silhouette is normal. Pulmonary vasculature is normal. There is mild airspace d isease in the right middle lobe. No pleural effusion or pneumothorax is seen. There is no acute bone abnormality. There is mild right convexity lower thoracic scoliosis. IMPRESSION: Mild right middle lobe airspace disease may be atelectasis or infiltrate or scarring. Electronically signed by: Roger Mcadams MD (06/14/2020 4:27 PM) [facility]
[2020-06-14 16:41] LABS: ALBUMIN 2.6 g/dL (3.4-5.0); ALBUMIN/GLOBULIN RATIO 0.7 (1.0-1.7); TOTAL BILIRUBIN 0.3 mg/dL (0.2-1.0); TOTAL PROTEIN 6.4 g/dL (6.4-8.2)
[2020-06-14 16:52] VITALS: BP 146/75
--- NOTE | 2020-06-14 16:59 | EKG ---
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
[2020-06-14] MEDS ORDERED: LEVO750T5 PO (17:07)
[2020-06-14] MEDS ORDERED: BENZ100C PO (17:07)
== END 2020-06-14 17:14 | disposition home or self-care (01) ==
LOC: ER 15:22
DX: J18.9 Pneumonia, unspecified organism (principal); K21.9 Gastro-esophageal reflux disease without esophagitis; I10 Essential (primary) hypertension; F41.9 Anxiety disorder, unspecified; F32.9 Major depressive disorder, single episode, unspecified; F17.200 Nicotine dependence, unspecified, uncomplicated; Z88.6 Allergy status to analgesic agent; Z88.8 Allergy status to other drugs, medicaments and biological substances
CPT/HCPCS: 36415; 71046; 80053; 83880; 84484; 85025; 85379; 93005; 94640; 99285

== ENCOUNTER 2020-06-22 09:32 | Emergency (ER) | payer MEDICARE, MEDICAID ==
[~2020-06-22] VITALS: Ht 167.6 cm; Wt 61.5 kg
[~2020-06-22 09:32] MED LIST changes: +BENZ100C PO; +LEVO750T5 PO
[2020-06-22] MEDS ORDERED: LIDO:MAALOX 1:1 20 ML SINGLE DOSE. PO ONE (11:00)
--- NOTE | 2020-06-22 11:01 | PHYS DOC ---
Past History Past Medical History: Anxiety, Depression, Diabetes, GERD, Hypertension Additional Past Medical Histor: COLITIS Past Surgical History: Other Additional Past Surgical Histo: GI Smoking: Less than 1pk/day Alcohol Use: None Drug Use: None, Marijuana Adult General Chief Complaint Chief Complaint: ABDOMINAL PAIN HPI HPI Patient is a 55-year-old male who presents for nausea and vomit. This is an acute on chronic process. Patient was seen at our facility 1 month ago for identical complaints and diagnosed at that time with gastroenteritis status post comprehensive work-up including CT abdomen pelvis with contrast. Patient does have a significant past medical history of a Whipple, states he has had no changes in medication, activity or other. Nothing known makes better, "everything" makes worse. Patient reports diffuse abdominal cramping and nausea without any ripping or tearing abdominal and/or chest pain. Symptoms fluctuate since onset. Current flare has been ongoing for past 2 weeks. No fever, no chest pain or shortness of breath, no cough, pulsatile abdominal mass, changes in bladder or bowel function, no incontinence, no urinary symptoms. Patient does admit his sugars have been "higher than normal "for past 2 weeks. Continues to smoke THC routinely Review of Systems Review of Systems Fourteen body systems of review of systems have been reviewed. See HPI for pertinent positives and negative responses, other schultz all other systems are negative, non-pertinent or non-contributory Current Medications Current Medications Current Medications Medications (Trade) Dose Ordered Sig/Elfego Start Time Stop Time Status Last Admin Dose Admin Multi-Ingredient Mouthwash/Gargle (Gi Cocktail) 20 ml 1X ONCE 06/22/20 11:00 06/22/20 11:01 UNV Allergies Allergies Allergies Coded Allergies Type Severity Reaction Last Updated Verified aspirin Allergy Intermediate 07/21/18 Yes fentanyl Allergy Intermediate 07/21/18 Yes ketorolac Allergy Intermediate 07/21/18 No naproxen Allergy Intermediate 07/21/18 No tramadol Allergy Intermediate 09/29/19 Yes Physical Exam Physical Exam Constitutional: Well developed, thin, non-toxic appearance, sleeping on initial examination but when woken, in extreme pain and writhing around in bed HENT: Normocephalic, atraumatic, bilateral external ears normal, oropharynx moist, no oral exudates, nose normal. Eyes: PERRLA, EOMI, conjunctiva normal, no discharge. Neck: Normal range of motion, no tenderness, supple, no stridor. Cardiovascular: Heart rate regular, sinus rhythm, no murmurs rubs or gallops Lungs & Thorax: Bilateral breath sounds clear to auscultation Abdomen: Bowel sounds normal, soft, grossly tender to palpation with voluntary guarding present, no masses, no pulsatile masses. Nonsurgical abdomen, no peritoneal signs. Negative heel strike and obturator signs bilaterally Skin: Warm, dry, no erythema, no rash. Back: No tenderness, no CVA tenderness. Extremities: No tenderness, no cyanosis, no clubbing, ROM intact, no edema. Neurologic: Alert and oriented X 3, grossly normal motor & sensory function, no focal deficits noted. Psychologic: Anxious mood and affect Current Patient Data Vital Signs Vital Signs Date Time Temp Pulse Resp B/P (MAP) Pulse Ox O2 Delivery O2 Flow Rate FiO2 06/22/20 11:12 66 21 154/72 (99) 100 06/22/20 10:42 67 19 149/70 (96) 100 06/22/20 10:13 63 18 176/87 (116) 98 06/22/20 09:32 97.8 60 20 146/71 (96) 97 Room Air Lab Results Laboratory Tests Test 06/22/20 09:40 Glucose (Fingerstick) 200 mg/dL (70-99) H EKG EKG EKG ordered and interpreted by myself at 0941 hrs. as sinus rhythm at 59 bpm, unremarkable intervals, no axis deviation, no acute ischemic findings, no STEMI Radiology/Procedures Radiology/Procedures [] Heart Score C/O Chest Pain: No Risk Factors: Risk Factors: DM, Current or recent (<one month) smoker, HTN, HLP, family history of CAD, obesity. Risk Scores: Risk Factors: DM, Current or recent (<one month) smoker, HTN, HLP, family history of CAD, obesity. Course & Med Decision Making Course & Med Decision Making Patient afebrile, hemodynamically stable with grossly nonconcerning history and physical exam Comprehensive ER work-up reviewed. I disclose no grossly concerning abnormalities despite hyperglycemia and positive THC I reviewed prior visits at our facility for similar complaints. Most recent CT abdomen pelvis was 3 weeks ago and concerning for gastroenteritis without any other acute abnormalities. I discussed risk-benefit of repeat CT imaging and joint decision to defer Patient was given GI cocktail with significant improvement in symptoms. I discussed low likelihood of any acute abnormalities requiring further ER intervention and joint decision was made to discharge home with close PCP follow-up and instructions to return to top closer for outpatient follow-up Nonetheless, after patient was discharged, patient was found using his finger to gag self in room and attempt to throw up. He complained of ongoing nausea. He continued to request pain medication but this request was denied. Patient was given Reglan with improvement in symptoms. Advised patient management would not change at present. Strict return precautions were discussed with good understanding by patient, all questions and concerns addressed prior to ER departure in improved condition Dragon Disclaimer Dragon Disclaimer This electronic medical record was generated, in whole or in part, using a voice recognition dictation system. Departure Departure: Impression: Primary Impression: Chronic abdominal pain Additional Impressions: Hyperglycemia Tetrahydrocannabinol (THC) dependence Disposition: 01 DC HOME SELF CARE/HOMELESS Condition: IMPROVED Referrals: AGNES VALDERRAMA MD (PCP) Patient Instructions: Abdominal Pain (Nonspecific) Additional Instructions: You have been evaluated in the Emergency Department today for abdominal pain. Your evaluation was not suggestive of any emergent condition requiring medical intervention at this time. However, some abdominal problems make take more time to appear. Therefore, it is important for you to watch for any new symptoms or worsening of your current condition. Please follow up with your primary care physician as needed. As instructed, I advise you follow-up with your prior top closer given recent GI complaints Return to the Emergency Department if you experience worsening pain, persistent fevers greater than 100.4, recurrent vomiting, blood in vomit, blood in stool, dark tarry stool, chest pain, difficulty breathing, or any other concerning symptoms. Scripts Metoclopramide Hcl (REGLAN) 10 Mg Tablet 1 TAB PO TID for Gastroparesis for 7 Days, #21 TAB 0 Refills before food and bedtime Prov: ANTHONY VARGAS DO 06/22/20 Problem Qualifiers ANTHONY VARGAS DO Jun 22, 2020 11:01
--- NOTE | 2020-06-22 11:30 | EKG ---
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
[2020-06-22 11:49] LABS: CALCIUM 9.1 mg/dL (8.5-10.1); CREATININE 0.7 mg/dL (0.7-1.3); GFR 141.2; POTASSIUM 3.6 mmol/L (3.5-5.1)
[2020-06-22 11:54] LABS: ALBUMIN/GLOBULIN RATIO 0.8 (1.0-1.7); TOTAL BILIRUBIN 0.6 mg/dL (0.2-1.0); TOTAL PROTEIN 6.9 g/dL (6.4-8.2)
[2020-06-22 12:01] LABS: BASO % 1 % (0-3); EOS % 0 % (0-3); HEMATOCRIT 42.3 % (39.0-53.0); HEMOGLOBIN 13.9 g/dL (13.0-17.5); LYMPH # 1.1 x10^3/uL (1.0-4.8); LYMPH % 11 % (24-48); MEAN CORPUSCULAR HEMOGLOBIN 28 pg (25-35); MEAN CORPUSCULAR HGB CONC 33 g/dL (31-37); MEAN CORPUSCULAR VOLUME 85 fL (79-100); MONO # 0.5 x10^3/uL (0.0-1.1); MONO % 6 % (0-9); NEUT % 83 % (31-73); PLATELET COUNT 219 x10^3/uL (140-400); RED BLOOD COUNT 4.95 x10^6/uL (4.30-5.70); RED CELL DISTRIBUTION WIDTH 17.9 % (11.5-14.5); WHITE BLOOD COUNT 9.7 x10^3/uL (4.0-11.0)
[2020-06-22 12:09] LABS: AMPHETAMINE/METHAMPHETAMINE NEG (NEG); BARBITURATES NEG (NEG); BENZODIAZEPINES NEG (NEG); CANNABINOIDS POS (NEG); COCAINE NEG (NEG); METHADONE NEG (NEG); OPIATES NEG (NEG); PHENCYCLIDINE NEG (NEG)
[2020-06-22] MEDS ORDERED: METO10TA81 PO (12:29)
[2020-06-22 12:42] VITALS: BP 148/85
[2020-06-22] MEDS ORDERED: METOCLOPRAMIDE 10 MG TABLET PO ONE (13:30)
[2020-06-22 13:38] LABS: ANISOCYTOSIS SLIGHT; PLT ESTIMATE ADEQUATE (ADEQUATE); STOMATOCYTES OCC
[2020-06-22 13:39] LABS: SCHISTOCYTES OCC
== END 2020-06-22 13:08 | disposition home or self-care (01) ==
LOC: ER 09:32
DX: G89.29 Other chronic pain (principal); E11.65 Type 2 diabetes mellitus with hyperglycemia; F12.20 Cannabis dependence, uncomplicated; R10.84 Generalized abdominal pain; R11.2 Nausea with vomiting, unspecified; F41.9 Anxiety disorder, unspecified; F32.9 Major depressive disorder, single episode, unspecified; K21.9 Gastro-esophageal reflux disease without esophagitis; I10 Essential (primary) hypertension; F17.200 Nicotine dependence, unspecified, uncomplicated; Z88.6 Allergy status to analgesic agent; Z88.8 Allergy status to other drugs, medicaments and biological substances
CPT/HCPCS: 36415; 80053; 80307; 82947; 83690; 84484; 85025; 85610; 85730; 93005; 99285-25

== ENCOUNTER 2020-07-20 20:03 | Emergency (ER) | payer MEDICARE, MEDICAID ==
[~2020-07-20] VITALS: Ht 167.6 cm; Wt 61.5 kg
[2020-07-20 20:21] VITALS: BP 162/89
[2020-07-20] MEDS ORDERED: ONDANSETRON PF 4 MG/2 ML VIAL. IVP ONE (20:45)
[2020-07-20 21:00] LABS: BASO % 0 % (0-3); EOS % 1 % (0-3); HEMATOCRIT 43.2 % (39.0-53.0); HEMOGLOBIN 14.2 g/dL (13.0-17.5); LYMPH # 1.6 x10^3/uL (1.0-4.8); LYMPH % 15 % (24-48); MEAN CORPUSCULAR HEMOGLOBIN 29 pg (25-35); MEAN CORPUSCULAR HGB CONC 33 g/dL (31-37); MEAN CORPUSCULAR VOLUME 88 fL (79-100); MONO # 0.7 x10^3/uL (0.0-1.1); MONO % 6 % (0-9); NEUT # 8.1 x10^3uL (1.8-7.7); NEUT % 78 % (31-73); PLATELET COUNT 221 x10^3/uL (140-400); RED BLOOD COUNT 4.92 x10^6/uL (4.30-5.70); RED CELL DISTRIBUTION WIDTH 19.3 % (11.5-14.5); WHITE BLOOD COUNT 10.4 x10^3/uL (4.0-11.0)
--- NOTE | 2020-07-20 21:06 | PHYS DOC ---
Past History Past Medical History: Anxiety, Depression, Diabetes, GERD, Hypertension Additional Past Medical Histor: COLITIS Past Surgical History: Other Additional Past Surgical Histo: whipple Smoking: Less than 1pk/day Alcohol Use: None Drug Use: None, Marijuana Adult General Chief Complaint Chief Complaint: ABDOMINAL PAIN HPI HPI Patient is a 55-year-old male with a past medical history significant for Whipple procedure done at 4 years ago as well as cholelithiasis/cholecystitis who presents to the emergency department with a chief complaint of abdominal pain. States has been going approximately 2 days, is generalized, 7 out of 10, sharp in nature with some mild nausea but no vomiting. Denies any recent travel, traumas, known ill contacts, fevers, chest pain, shortness of breath, diarrhea, dysuria, hematuria or blood in the stool. States he called his primary care physician and was directed to the ED. Review of Systems Review of Systems Review of systems otherwise unremarkable except noted in HPI Current Medications Current Medications Current Medications Medications (Trade) Dose Ordered Sig/Elfego Start Time Stop Time Status Last Admin Dose Admin Ondansetron HCl (Zofran) 4 mg 1X ONCE 07/20/20 20:45 07/20/20 20:46 DC Allergies Allergies Allergies Coded Allergies Type Severity Reaction Last Updated Verified aspirin Allergy Intermediate 07/21/18 Yes fentanyl Allergy Intermediate 07/21/18 Yes ketorolac Allergy Intermediate 07/21/18 No naproxen Allergy Intermediate 07/21/18 No tramadol Allergy Intermediate 09/29/19 Yes Physical Exam Physical Exam Constitutional: Well developed, well nourished, no acute distress, non-toxic appearance. [] HENT: Normocephalic, atraumatic, bilateral external ears normal, oropharynx moist, no oral exudates, nose normal. [] Eyes: conjunctiva normal, no discharge. [] Neck: Normal range of motion, no tenderness, supple, no stridor. [] Cardiovascular:Heart rate regular rhythm, no murmur [] Lungs & Thorax: Bilateral breath sounds clear to auscultation [] Abdomen: Bowel sounds normal, soft, no tenderness, no masses, no pulsatile masses. [] Skin: Warm, dry, no erythema, no rash. [] Back: No tenderness, no CVA tenderness. [] Extremities: No tenderness, no cyanosis, no clubbing, ROM intact, no edema. [] Neurologic: Alert and oriented X 3, normal motor function, normal sensory function, no focal deficits noted. [] Psychologic: Affect normal, judgement normal, mood normal. [] Current Patient Data Vital Signs Vital Signs Date Time Temp Pulse Resp B/P (MAP) Pulse Ox O2 Delivery O2 Flow Rate FiO2 07/20/20 20:21 97.7 67 18 162/89 (113) 97 Room Air Lab Results Laboratory Tests Test 07/20/20 20:38 White Blood Count 10.4 x10^3/uL (4.0-11.0) Red Blood Count 4.92 x10^6/uL (4.30-5.70) Hemoglobin 14.2 g/dL (13.0-17.5) Hematocrit 43.2 % (39.0-53.0) Mean Corpuscular Volume 88 fL (79-100) Mean Corpuscular Hemoglobin 29 pg (25-35) Mean Corpuscular Hemoglobin Concent 33 g/dL (31-37) Red Cell Distribution Width 19.3 % (11.5-14.5) H Platelet Count 221 x10^3/uL (140-400) Neutrophils (%) (Auto) 78 % (31-73) H Lymphocytes (%) (Auto) 15 % (24-48) L Monocytes (%) (Auto) 6 % (0-9) Eosinophils (%) (Auto) 1 % (0-3) Basophils (%) (Auto) 0 % (0-3) Neutrophils # (Auto) 8.1 x10^3uL (1.8-7.7) H Lymphocytes # (Auto) 1.6 x10^3/uL (1.0-4.8) Monocytes # (Auto) 0.7 x10^3/uL (0.0-1.1) Eosinophils # (Auto) 0.0 x10^3/uL (0.0-0.7) Basophils # (Auto) 0.0 x10^3/uL (0.0-0.2) EKG EKG [] Radiology/Procedures Radiology/Procedures []Exam: CT of abdomen and pelvis with contrast INDICATION: Abdominal pain, nausea vomiting, TECHNIQUE: Sequential axial images through the abdomen and pelvis obtained following the administration of 75 mL of Omni 300 IV contrast. Sagittal and coronal reformatted images were reconstructed from the axial data and reviewed. Comparisons: 05/26/2020 FINDINGS: Heart size is normal. No pericardial visualized lung bases are clear. Liver, spleen, and pancreas are unremarkable. There is a left adrenal nodule which measures approximately 1.9 cm in diameter. Gallbladder surgically absent. No perinephric inflammation or hydronephrosis. No renal or ureteral calculi are identified. Bladder is distended and appears thin-walled. Prostate is not enlarged. Mild wall thickening is seen involving the small bowel loops. Otherwise, Large and small bowel are unremarkable. Appendix is not identified. No free intra- abdominal air or fluid. No obstruction. Abdominal aorta has a normal course and caliber. Abdominal vasculature is patent. No enlarged intra-abdominal lymph nodes are identified. No suspicious osseous lesions or acute fractures. IMPRESSION: 1. Mild wall thickening involving loops of small bowel, may relate to enteri tis. This may be infectious or inflammatory in etiology. 2. Left adrenal nodule measuring 1.9 cm incompletely characterized on this study, however is stable compared to prior exams. Exposure: One or more of the following in the visualized dose reduction techniques were utilized for this examination: 1. Automated exposure control 2. Adjustment of the MA and/or KV according to patient size 3. Use of iterative of reconstructive technique Electronically signed by: Estella Hall MD (07/20/2020 10:55 PM) [facility] Heart Score C/O Chest Pain: No Risk Factors: Risk Factors: DM, Current or recent (<one month) smoker, HTN, HLP, family history of CAD, obesity. Risk Scores: Risk Factors: DM, Current or recent (<one month) smoker, HTN, HLP, family history of CAD, obesity. Course & Med Decision Making Course & Med Decision Making Patient is a 55-year-old male who presents with abdominal pain and nausea Vital signs notable for hypertension. Physical exam noted above. Patient placed on the monitor with IV access established and IV fluids started. Given Zofran for nausea and fentanyl for pain. Laboratory analysis notable for mild elevation in alk phos and AST. CT notable for probable enteritis. Patient started on Augmentin, antiemetics and pain medicine in the ED. Discussed all findings with patient advised a light diet over the next several days to allow for bowel rest. Advised proper hydration. Advised a pain and antiemetic regimen at home. Advised to follow-up with primary care physician first thing Wednesday as it is important to update them on this visit and set up a follow-up as soon as possible. Gave strict return precautions to the ED.. Grateful, verbalized understanding and agreed with plan of discharge. [] Dragon Disclaimer Dragon Disclaimer This electronic medical record was generated, in whole or in part, using a voice recognition dictation system. Departure Departure: Impression: Primary Impression: Enteritis Disposition: 01 DC HOME SELF CARE/HOMELESS Condition: IMPROVED Referrals: AGNES VALDERRAMA MD (PCP) Patient Instructions: Colitis Additional Instructions: Please read all of the attached information carefully. Please eat a light diet, as discussed over the next few days including things like Gatorade, Pedialyte, Jell-O, chicken soup. Please take your antibiotics as prescribed. Please take your nausea medicine and pain medicine as prescribed. Please call your primary care physician first thing Wednesday to update on ED visit and set up a follow-up as soon as possible. Please come back to the ED with new or concerning symptoms. Scripts Ondansetron Hcl (ZOFRAN) 4 Mg Tablet 1 TAB PO PRN Q6HRS PRN for NAUSEA for 5 Days, #20 TAB Prov: JENIFER RAMOS MD 07/20/20 Hydrocodone Bit/Acetaminophen (HYDROCODONE-APAP 5-325 ) 1 Each Tablet 1 TAB PO TID PRN for abdominal pain for 5 Days, #15 TAB 0 Refills Prov: JENIFER RAMOS MD 07/20/20 Amoxicillin/Potassium Clav (AUGMENTIN 875-125 TABLET) 1 Each Tablet 1 TAB PO BID for enteritis for 10 Days, #19 TAB 0 Refills Prov: JENIFER RAMOS MD 07/20/20 JENIFER RAMOS MD Jul 20, 2020 21:06
[2020-07-20 21:11] LABS: BACTERIA,URINE 0 /HPF (0-FEW); BILIRUBIN,URINE NEG (NEG); CLARITY,URINE CLEAR; COLOR,URINE YELLOW; GLUCOSE,URINE >=1000 mg/dL (NEG); NITRITE,URINE NEG (NEG); RBC,URINE 0 /HPF (0-2); SQUAMOUS EPITHELIAL CELL,UR OCC /LPF; UROBILINOGEN,URINE 0.2 mg/dL (0.2 mg/dL); WBC,URINE OCC /HPF (0-4)
[2020-07-20] MEDS ORDERED: CONTRAST GIVEN. MC PRN (21:15)
[2020-07-20] MEDS ORDERED: MORPHINE SULFATE 4 MG/ML DISP.SYRIN. IV ONE (21:30)
[2020-07-20] MEDS ORDERED: IOHEXOL 300 MG/ML 75 ML VIAL. IV ONE (21:30)
[2020-07-20 22:12] LABS: CALCIUM 8.2 mg/dL (8.5-10.1); CREATININE 0.8 mg/dL (0.7-1.3); POTASSIUM 4.5 mmol/L (3.5-5.1)
[2020-07-20 22:18] LABS: ALBUMIN 2.7 g/dL (3.4-5.0); ALBUMIN/GLOBULIN RATIO 0.7 (1.0-1.7); TOTAL BILIRUBIN 0.3 mg/dL (0.2-1.0); TOTAL PROTEIN 6.4 g/dL (6.4-8.2)
[2020-07-20] MEDS ORDERED: diphenhydrAMINE 50 MG/ML VIAL IVP ONE (22:30)
[2020-07-20] MEDS ORDERED: MORPHINE SULFATE 2 MG/ML DISP.SYRIN. IV ONE (22:30)
[2020-07-20] MEDS ORDERED: ACETAMINOPHEN 500 MG TABLET PO ONE (22:30)
--- NOTE | 2020-07-20 22:57 | RAD ---
Exam: CT of abdomen and pelvis with contrast INDICATION: Abdominal pain, nausea vomiting, TECHNIQUE: Sequential axial images through the abdomen and pelvis obtained following the administrati on of 75 mL of Omni 300 IV contrast. Sagittal and coronal reformatted images were reconstructed from the axial data and reviewed. Comparisons: 05/26/2020 FINDINGS: Heart size is normal. No pericardial visualized lung bases are clear. Liver, spleen, and pancreas are unremarkable. There is a left adrenal nodule which measures approxima tely 1.9 cm in diameter. Gallbladder surgically absent. No perinephric inflammation or hydronephrosis. No renal or ureteral calculi are identified. Bladder is distended and appears thin-walled. Prostate is not enlarged. Mild wall thickening is seen involving the small bowel loops. Otherwise, Large and small bowel are un remarkable. Appendix is not identified. No free intra-abdominal air or fluid. No obstruction. Abdominal aorta has a normal course and caliber. Abdominal vasculature is patent. No enlarged intra-abdominal lymph nodes are identified. No suspicious osseous lesions or acute fractures. IMPRESSION: 1. Mild wall thickening involving loops of small bowel, may relate to enteritis. This may be infecti ous or inflammatory in etiology. 2. Left adrenal nodule measuring 1.9 cm incompletely characterized on this study, however is stable compared to prior exams. Exposure: One or more of the following in the visualized dose reduction techniques were utilized for this examination: 1. Automated exposure control 2. Adjustment of the MA and/or KV according to patient size 3. Use of iterative of reconstructive technique Electronically signed by: Estella Hall MD (07/20/2020 10:55 PM) [facility]
[2020-07-20] MEDS ORDERED: AMOX1TAB61 PO (23:17)
[2020-07-20] MEDS ORDERED: HYDR-2155 PO (23:17)
[2020-07-20] MEDS ORDERED: ONDA4TAB7 PO (23:18)
[2020-07-20] MEDS ORDERED: AMOXICILLIN/K CLAV 875/125MG TABLET. PO ONE (23:30)
[2020-07-20] MEDS ORDERED: ONDANSETRON ODT 4 MG TAB.RAPDIS PO ONE (23:30)
[2020-07-20] MEDS ORDERED: oxyCODONE/APAP 5/325 1 TAB TABLET PO ONE (23:30)
== END 2020-07-20 23:35 | disposition home or self-care (01) ==
LOC: ER 20:03
DX: K52.9 Noninfective gastroenteritis and colitis, unspecified (principal); E11.9 Type 2 diabetes mellitus without complications; K21.9 Gastro-esophageal reflux disease without esophagitis; I10 Essential (primary) hypertension; F17.200 Nicotine dependence, unspecified, uncomplicated; Z88.6 Allergy status to analgesic agent; Z88.8 Allergy status to other drugs, medicaments and biological substances
CPT/HCPCS: 36415; 74177; 80053; 81001; 83690; 85025; 96374; 96375; 96376; 99285; J1200; J2270; J2405; Q0162; Q9967

== ENCOUNTER 2020-07-23 11:25 | Emergency (ER) | payer MEDICARE, MEDICAID ==
[~2020-07-23] VITALS: Ht 167.6 cm; Wt 60.6 kg
[~2020-07-23 11:25] MED LIST changes: +AMOX1TAB61 PO; +HYDR-2155 PO; +ONDA4TAB7 PO
--- NOTE | 2020-07-23 11:59 | PHYS DOC ---
Past History Past Medical History: Anxiety, Depression, Diabetes, GERD, Hypertension Additional Past Medical Histor: COLITIS Past Surgical History: Other Additional Past Surgical Histo: whipple Smoking: Less than 1pk/day Alcohol Use: None Drug Use: None, Marijuana General Adult EDM: Chief Complaint: ABDOMINAL PAIN HPI: HPI: Patient is a 55-year-old male who presented to ER due to abdominal pain with nausea vomiting diarrhea. Patient has chronic abdominal problem, he has been evaluated here numerous times for the same problem. Patient was seen here on July 20 due to abdominal pain. Work-up included lab work and CT scan his abdomen pelvic did not show any acute problem on that day. Patient denies any cough, no fever, no chest pain. Review of Systems: Review of Systems: Constitutional: Denies fever or chills Eyes: Denies change in visual acuity HENT: Denies nasal congestion or sore throat Respiratory: Denies cough or shortness of breath Cardiovascular: Denies chest pain or edema GI: POSITIVE FOR abdominal pain, nausea, vomiting,diarrhea with streak of blood : Denies dysuria Musculoskeletal: Denies back pain or joint pain Integument: Denies rash Neurologic: Denies headache, focal weakness or sensory changes Endocrine: Denies polyuria or polydipsia Lymphatic: Denies swollen glands Psychiatric: Denies depression or anxiety Allergies: Allergies: Allergies Coded Allergies Type Severity Reaction Last Updated Verified aspirin Allergy Intermediate 07/23/20 Yes fentanyl Allergy Intermediate 07/23/20 Yes ketorolac Allergy Intermediate 07/23/20 No naproxen Allergy Intermediate 07/23/20 No tramadol Allergy Intermediate 07/23/20 Yes Physical Exam: PE: Constitutional: Well developed, well nourished, no acute distress, non-toxic appearance. [] HENT: Normocephalic, atraumatic, bilateral external ears normal, oropharynx moist, no oral exudates, nose normal. [] Eyes: PERRLA, EOMI, conjunctiva normal, no discharge. [] Neck: Normal range of motion, no tenderness, supple, no stridor. [] Cardiovascular:Heart rate regular rhythm, no murmur [] Lungs & Thorax: Bilateral breath sounds clear to auscultation [] Abdomen: Bowel sounds normal, soft, no tenderness, no masses, no pulsatile masses. [] Skin: Warm, dry, no erythema, no rash. [] Back: No tenderness, no CVA tenderness. [] Extremities: No tenderness, no cyanosis, no clubbing, ROM intact, no edema. [] Neurologic: Alert and oriented X 3, normal motor function, normal sensory function, no focal deficits noted. [] Psychologic: Affect normal, judgement normal, mood normal. [] Current Patient Data: Labs: Laboratory Tests Test 07/23/20 12:27 White Blood Count 9.8 x10^3/uL Red Blood Count 5.13 x10^6/uL Hemoglobin 14.9 g/dL Hematocrit 46.5 % Mean Corpuscular Volume 91 fL Mean Corpuscular Hemoglobin 29 pg Mean Corpuscular Hemoglobin Concent 32 g/dL Red Cell Distribution Width 19.9 % Platelet Count 182 x10^3/uL Neutrophils (%) (Auto) 77 % Lymphocytes (%) (Auto) 16 % Monocytes (%) (Auto) 6 % Eosinophils (%) (Auto) 0 % Basophils (%) (Auto) 0 % Neutrophils # (Auto) 7.6 x10^3uL Lymphocytes # (Auto) 1.6 x10^3/uL Monocytes # (Auto) 0.6 x10^3/uL Eosinophils # (Auto) 0.0 x10^3/uL Basophils # (Auto) 0.0 x10^3/uL Sodium Level 132 mmol/L Potassium Level 5.1 mmol/L Chloride Level 103 mmol/L Carbon Dioxide Level 23 mmol/L Anion Gap 6 Blood Urea Nitrogen 10 mg/dL Creatinine 0.8 mg/dL Estimated GFR (Cockcroft-Gault) 121.0 BUN/Creatinine Ratio 13 Glucose Level 335 mg/dL Calcium Level 8.4 mg/dL Magnesium Level 2.5 mg/dL Total Bilirubin 0.5 mg/dL Aspartate Amino Transf (AST/SGOT) 38 U/L Alanine Aminotransferase (ALT/SGPT) 59 U/L Alkaline Phosphatase 213 U/L Total Protein 7.2 g/dL Albumin 2.8 g/dL Albumin/Globulin Ratio 0.6 Lipase 27 U/L Current Medications Medications (Trade) Dose Ordered Sig/Elfego Route PRN Reason Start Time Stop Time Status Last Admin Dose Admin Sodium Chloride 1,000 ml @ 1,000 mls/hr Q1H IV 07/23/20 12:00 07/23/20 12:59 DC 07/23/20 12:23 Ondansetron HCl (Zofran) 4 mg 1X ONCE IVP 07/23/20 12:00 07/23/20 12:01 DC 07/23/20 12:24 Morphine Sulfate (Morphine 4mg Syringe) 4 mg 1X ONCE IV 07/23/20 12:00 07/23/20 12:01 DC 07/23/20 12:25 Vital Signs: Vital Signs Date Time Temp Pulse Resp B/P (MAP) Pulse Ox O2 Delivery O2 Flow Rate FiO2 07/23/20 11:30 98.0 70 16 138/91 (107) 98 EKG: EKG: [] Radiology/Procedures: Radiology/Procedures: [][address] [address] IMAGING REPORT Signed PATIENT: ADAM CASTELAN ACCOUNT: [id number] : 1965 LOCATION: ER AGE: 55 SEX: M EXAM STATUS: REG ER ORD. PHYSICIAN: CONNIE ROSENBAUM DO REASON: ABDOMINAL PAIN PROCEDURE: ACUTE ABDOMEN SERIES XR ABDOMEN COMP ACUTE History: Reason: ABDOMINAL PAIN / Spl. Instructions: / History: Technique: Upright and supine views of the abdomen. Comparison: CT July 20, 2020 Findings: No consultation or pleural effusion. Normal heart size. No pneumothorax. No pneumoperitoneum. Mild small bowel gas. Scattered fluid levels throughout the abdomen predominantly within colon. Air and stool throughout the colon. Impression: 1. Scattered air-fluid levels throughout the abdomen predominantly within colon. No significant small bowel dilatation. Findings may relate represent enterocolitis. Recommend follow-up. Electronically signed by: Nicholas Anderson DO (07/23/2020 12:41 PM) [id number] DICTATED AND SIGNED BY: NICHOLAS ANDERSON DO DATE: 07/23/20 1239 CC: AGNES VALDERRAMA MD; CONNIE ROSENBAUM DO ~MTH0 0 Heart Score: C/O Chest Pain: N/A Risk Factors: Risk Factors: DM, Current or recent (<one month) smoker, HTN, HLP, family his tory of CAD, obesity. Risk Scores: Score 0 - 3: 2.5% MACE over next 6 weeks - Discharge Home Score 4 - 6: 20.3% MACE over next 6 weeks - Admit for Clinical Observation Score 7 - 10: 72.7% MACE over next 6 weeks - Early Invasive Strategies Course & Med Decision Making: Course & Med Decision Making Pertinent Labs and Imaging studies reviewed. (See chart for details) Patient is a 55-year-old male who presented to ER due to abdominal pain, abdominal pain chronic in nature, work-up did not show any acute problem. Patient was discharged in stable condition. Patient was told to follow-up with hisr GI doctor Dr. Hayes. Curt Disclaimer: Curt Disclaimer: This electronic medical record was generated, in whole or in part, using a voice recognition dictation system. Departure Departure: Impression: Primary Impression: Chronic abdominal pain Disposition: HOME / SELF CARE / HOMELESS Condition: STABLE Referrals: AGNES VALDERRAMA MD (PCP) FOLLOW UP WITH YOUR DOCTOR THIS WEEK Patient Instructions: Abdominal Pain CONNIE ROSENBAUM DO Jul 23, 2020 11:59
[2020-07-23] MEDS ORDERED: MORPHINE SULFATE 4 MG/ML DISP.SYRIN. IV ONE (12:00)
[2020-07-23] MEDS ORDERED: IV NORMAL SALINE 1,000ML 1,000 ML IV SCH (12:00)
[2020-07-23] MEDS ORDERED: ONDANSETRON PF 4 MG/2 ML VIAL. IVP ONE (12:00)
--- NOTE | 2020-07-23 12:44 | RAD ---
XR ABDOMEN COMP ACUTE History: Reason: ABDOMINAL PAIN / Spl. Instructions: / History: Technique: Upright and supine views of the abdomen. Comparison: CT July 20, 2020 Findings: No consultation or pleural effusion. Normal heart size. No pneumothorax. No pneumoperitoneum. Mild small bowel gas. Scattered fluid levels throughout the abdomen predominantly within colon. Air a nd stool throughout the colon. Impression: 1. Scattered air-fluid levels throughout the abdomen predominantly within colon. No significant smal l bowel dilatation. Findings may relate represent enterocolitis. Recommend follow-up. Electronically signed by: Nicholas Anderson DO (07/23/2020 12:41 PM) [id number]
[2020-07-23 12:45] LABS: BASO % 0 % (0-3); EOS % 0 % (0-3); HEMATOCRIT 46.5 % (39.0-53.0); HEMOGLOBIN 14.9 g/dL (13.0-17.5); LYMPH # 1.6 x10^3/uL (1.0-4.8); LYMPH % 16 % (24-48); MEAN CORPUSCULAR HEMOGLOBIN 29 pg (25-35); MEAN CORPUSCULAR HGB CONC 32 g/dL (31-37); MEAN CORPUSCULAR VOLUME 91 fL (79-100); MONO # 0.6 x10^3/uL (0.0-1.1); MONO % 6 % (0-9); NEUT # 7.6 x10^3uL (1.8-7.7); NEUT % 77 % (31-73); PLATELET COUNT 182 x10^3/uL (140-400); RED BLOOD COUNT 5.13 x10^6/uL (4.30-5.70); RED CELL DISTRIBUTION WIDTH 19.9 % (11.5-14.5); WHITE BLOOD COUNT 9.8 x10^3/uL (4.0-11.0)
[2020-07-23 12:49] LABS: CALCIUM 8.4 mg/dL (8.5-10.1); CREATININE 0.8 mg/dL (0.7-1.3); POTASSIUM 5.1 mmol/L (3.5-5.1)
[2020-07-23 12:56] LABS: ALBUMIN 2.8 g/dL (3.4-5.0); ALBUMIN/GLOBULIN RATIO 0.6 (1.0-1.7); MAGNESIUM 2.5 mg/dL (1.8-2.4); TOTAL BILIRUBIN 0.5 mg/dL (0.2-1.0); TOTAL PROTEIN 7.2 g/dL (6.4-8.2)
[2020-07-23 13:20] VITALS: BP 155/89
== END 2020-07-23 13:20 | disposition home or self-care (01) ==
LOC: ER 11:25
DX: G89.29 Other chronic pain (principal); R10.9 Unspecified abdominal pain; R11.2 Nausea with vomiting, unspecified; R19.7 Diarrhea, unspecified; F41.9 Anxiety disorder, unspecified; F32.9 Major depressive disorder, single episode, unspecified; E11.9 Type 2 diabetes mellitus without complications; K21.9 Gastro-esophageal reflux disease without esophagitis; I10 Essential (primary) hypertension; F17.200 Nicotine dependence, unspecified, uncomplicated; Z88.6 Allergy status to analgesic agent; Z88.8 Allergy status to other drugs, medicaments and biological substances
CPT/HCPCS: 36415; 74022; 80053; 83690; 83735; 85025; 96361; 96374; 96375; 99284; J2270; J2405; J7030

== ENCOUNTER 2020-08-14 07:59 | Emergency (ER) | payer MEDICARE, MEDICAID ==
[~2020-08-14] VITALS: Ht 167.6 cm; Wt 60.6 kg
[2020-08-14 08:15] VITALS: BP 144/83
[2020-08-14] MEDS ORDERED: ORPHENADRINE CITRATE 60 MG/2 ML VIAL. IM ONE (08:30)
--- NOTE | 2020-08-14 09:09 | RAD ---
XR SHOULDER_LEFT 2+ VIEWS 08/14/2020 8:25 AM INDICATION: Pain status post fall down stairs COMPARISON: None available. TECHNIQUE: 3 views of the left shoulder are provided. FINDINGS/ IMPRESSION: There is no acute fracture or dislocation of the left shoulder. There is moderate glenohumeral joint space narrowing with marginal osteophytosis compatible with mild to moderate osteoarthrosis. Sclerosi s along the superolateral aspect of the humeral head may reflect chronic rotator cuff arthropathy. Mi ld acromial clavicular osteoarthrosis. Adjacent ribs are intact. Calcific density is identified withi n the soft tissues of the axilla measuring 10 mm. Electronically signed by: Ania Faulkner MD (08/14/2020 9:07 AM) [id number]
--- NOTE | 2020-08-14 09:33 | PHYS DOC ---
Past History Past Medical History: Anxiety, Depression, Diabetes, GERD, Hypertension Additional Past Medical Histor: COLITIS Past Surgical History: Other Additional Past Surgical Histo: whipple Smoking: Cigarettes, Less than 1pk/day Alcohol Use: None Drug Use: Marijuana General Adult EDM: Chief Complaint: MECHANICAL FALL HPI: HPI: 55-year-old male presents with report of fall down approximately 8 steps outside his home approximately 30 minutes prior to arrival. Patient reports she was trying to take out the trash at the time. Patient ended up striking the back of his head but denies loss of consciousness and also came straight down onto his tailbone. Patient also reports of left shoulder and hip pain. Denies loss of bowel or bladder. Denies numbness or tingling. Patient denies use of blood thinners. Review of Systems: Review of Systems: Constitutional: Denies fever or chills Eyes: Denies redness or eye pain HENT: Denies nasal congestion or epistaxis Respiratory: Denies cough or shortness of breath Cardiovascular: Denies chest pain or palpitations GI: Denies abdominal pain, nausea, or vomiting : Denies dysuria or hematuria Musculoskeletal: Reports pain to sacrum/tailbone, left shoulder, and left hip; denies deformity Integument: Denies rash or laceration; reports head contusion and swelling Neurologic: Reports headache; denies loss of consciousness, focal weakness, or sensory changes Complete systems were reviewed and found to be within normal limits, except as documented in this note. Current Medications: Current Meds: Current Medications Medications (Trade) Dose Ordered Sig/Elfego Start Time Stop Time Status Last Admin Dose Admin Orphenadrine Citrate (Norflex) 60 mg 1X ONCE 08/14/20 08:30 08/14/20 09:00 DC 08/14/20 09:22 60 MG Allergies: Allergies: Allergies Coded Allergies Type Severity Reaction Last Updated Verified aspirin Allergy Intermediate 07/23/20 Yes fentanyl Allergy Intermediate 07/23/20 Yes ketorolac Allergy Intermediate 07/23/20 No naproxen Allergy Intermediate 07/23/20 No tramadol Allergy Intermediate 07/23/20 Yes Physical Exam: PE: Constitutional: Well developed, well nourished, no acute distress, non-toxic appearance HENT: Normocephalic, small posterior contusion noted, TMs clear, mastoid process normal, no epistaxis Eyes: PERRL, EOMI, conjunctiva normal, no discharge, no nystagmus Neck: Normal range of motion, no midline tenderness, bilateral paraspinal tenderness noted, supple Lungs & Thorax: No respiratory distress, equal chest rise and fall Abdomen: Soft, no tenderness; pelvis stable Skin: Warm, dry, no erythema, no rash, no lacerations Back: Sacral tenderness, no midline lumbar or thoracic spinal tenderness, no CVA tenderness Extremities: No deformity, limbs neurovascularly intact, ROM intact but pain on range of motion about left shoulder and left hip, no edema Neurologic: Alert and oriented X 3, normal motor function, normal sensory function, no focal deficits noted Psychologic: Affect normal, judgment normal Current Patient Data: Vital Signs: Vital Signs Date Time Temp Pulse Resp B/P (MAP) Pulse Ox O2 Delivery O2 Flow Rate FiO2 08/14/20 08:15 98.3 83 16 144/83 (103) 99 Room Air EKG: EKG: [] Radiology/Procedures: Radiology/Procedures: PROCEDURE: SHOULDER 2+V LEFT XR SHOULDER_LEFT 2+ VIEWS 08/14/2020 8:25 AM INDICATION: Pain status post fall down stairs COMPARISON: None available. TECHNIQUE: 3 views of the left shoulder are provided. FINDINGS/ IMPRESSION: There is no acute fracture or dislocation of the left shoulder. There is moderate glenohumeral joint space narrowing with marginal osteophytosis compatible with mild to moderate osteoarthrosis. Sclerosis along the superolateral aspect of the humeral head may reflect chronic rotator cuff arthropathy. Mild acromial clavicular osteoarthrosis. Adjacent ribs are intact. Calcific density is identified within the soft tissues of the axilla measuring 10 mm. Electronically signed by: Ania Faulkner MD (08/14/2020 9:07 AM) [id number] PROCEDURE: CT HEAD AND CERVICAL SPINE [facility] Compliance Statement: One or more of the following individualized dose reduction techniques were utilized for this examination: 1. Automated exposure control 2. Adjustment of the mA and/or kV according to patient size 3. Use of iterative reconstruction technique CT HEAD AND CERVICAL SPINE WITHOUT CONTRAST History: Reason: pain s/p fall down stairs / Spl. Instructions: / History: Comparison: CT head without contrast April 15, 2020. Procedure: Axial images are obtained of the head from the skull base through the vertex without IV contrast. Noncontrast helical CT of the cervical spine was performed. Axial, sagittal, and coronal reconstructions were obtained. Findings: The ventricles and sulci are normal for the patient's age. No mass-effect, midline shift, hemorrhage or obvious acute infarction is identified. Basilar cisterns are patent. Bone windows demonstrate no significant calvarial abnormality. There is minimal left posterior vertex scalp hematoma. The visualized paranasal sinuses are clear. Mastoid air cells are well aerated. There is no evidence of acute fracture or acute malalignment of the cervical spine. There are no perched or jumped facet joints. Facet joints are mildly hypertrophic. There are findings of previous ACDF of C4-C5. There is interbody fusion. There is anterior bone graft material. There is minimal grade 1 retrolisthesis of C3 on C4. The alignment is otherwise maintained. There is disc space narrowing of C3/C4. There is degenerative endplate spurring of C3/C4 and C5/C6. There is a spondylitic disc of C3/C4 with at least mild central canal stenosis. There is narrowing of the left lateral recess. Visualized soft tissues of the neck demonstrate no significant abnormalities. The visualized lung apices are clear. There is biapical paraseptal emphysema. IMPRESSION: 1. No acute intracranial abnormality. 2. No acute fracture of the cervical spine. Electronically signed by: Roger Mcadams MD (08/14/2020 9:33 AM) [id number] PROCEDURE: XR BILATERAL HIP (WITH OR WITHOUT PELVIS) LEFT 2 VIEWS, XR SACRUM AND COCCYX 2+VIEWS History: Reason: pain s/p fall down stairs / Spl. Instructions: / History: Technique: AP view the pelvis 2 views of the sacrum and 2 views of the left hip Comparison: None. Findings: No dislocation. No fracture. Normal alignment of the sacrum and coccyx. No fracture. Mild bilateral hip DJD. Impression: 1. No acute osseous abnormality. Electronically signed by: Nicholas Anderson DO (08/14/2020 10:50 AM) [id number] PROCEDURE: CHEST AP ONLY XR CHEST 1V History: Reason: pain s/p fall down stairs / Spl. Instructions: / History: Comparison: June 14, 2020 Findings: No consolidation or pleural effusion. Normal heart size. No pneumothorax. Curvilinear density projecting over the left axillary region, unchanged compared to prior. Possible right acute fifth lateral rib fracture. Impression: 1. Possible acute right fifth anterolateral rib fracture. Recommend correlation with point tenderness. 2. Otherwise, no acute cardiopulmonary process. Electronically signed by: Nicholas Anderson DO (08/14/2020 10:05 AM) [id number] Heart Score: C/O Chest Pain: N/A Course & Med Decision Making: Course & Med Decision Making Pertinent Imaging studies reviewed. (See chart for details) Patient presents fall down approximately 8 steps at his home prior to arrival. Denies loss of conscious. Denies use of blood thinners. Patient reports pain to the back of his head at site of contusion. Patient also reports some bilateral paraspinal neck pain as well as sacral, left shoulder, and left hip pain. CT head/cervical spine without acute process. Shoulder x-ray, sacral x- ray, and pelvis/hip x-ray without acute fracture or dislocation. Chest x-ray obtained with notation of possible right lateral fifth rib fracture without pneumothorax. Patient without focal tenderness to this region. Ice applied. Pain addressed. Patient with history of 30-day prescription of Percocet 10/325mg approximately 2.5 weeks ago which was noted on [facility]. Patient stable for discharge with outpatient follow-up with PCP. Discussed findings and plan with patient, who acknowledges understanding and agreement. Curt Disclaimer: Curt Disclaimer: This electronic medical record was generated, in whole or in part, using a voice recognition dictation system. Departure Departure: Impression: Primary Impression: Fall down stairs Qualified Codes: W10.8XXA - Fall (on) (from) other stairs and steps, initial encounter Additional Impressions: Scalp contusion Qualified Codes: S00.03XA - Contusion of scalp, initial encounter Cervical strain Qualified Codes: S16.1XXA - Strain of muscle, fascia and tendon at neck level, initial encounter Left shoulder strain Qualified Codes: S46.912A - Strain of unspecified muscle, fascia and tendon at shoulder and upper arm level, left arm, initial encounter Sacral contusion Qualified Codes: S30.0XXA - Contusion of lower back and pelvis, initial encounter Disposition: 01 HOME / SELF CARE / HOMELESS Condition: STABLE Referrals: AGNES VALDERRAMA MD (PCP) Patient Instructions: Cervical Strain and Sprain with Rehab-SportsMed, Facial or Scalp Contusion, [id number], Fall Prevention and Home Safety, [id number], Shoulder Pain, [id number], Tailbone Injury, [id number] Additional Instructions: ICE areas of discomfort 20 min on then leave off next 20 mins. Repeat several times daily as needed for next few days. In addition to prescribed medications, may take previously prescribed Percocet as needed for pain. Scripts Lidocaine (Lidocaine PATCH ) 1 Each Adh..patch 1 EACH TP DAILY for FOR LOCAL PAIN, #20 PATCH REMOVE AFTER 12 HOURS Prov: JEMAL GUTIERRES DO 08/14/20 Orphenadrine Citrate (ORPHENADRINE CITRATE) 100 Mg Tablet.er 1 TAB PO BID PRN for MUSCLE PAIN, #14 TAB 0 Refills Prov: JEMAL GUTIERRES DO 08/14/20 JEMAL GUTIERRES DO August 14, 2020 09:33
--- NOTE | 2020-08-14 09:35 | RAD ---
[employer] Compliance Statement: One or more of the following individualized dose reduction techniques were utilized for this examinat ion: 1. Automated exposure control 2. Adjustment of the mA and/or kV according to patient size 3. Use of iterative reconstruction technique CT HEAD AND CERVICAL SPINE WITHOUT CONTRAST History: Reason: pain s/p fall down stairs / Spl. Instructions: / History: Comparison: CT head without contrast April 15, 2020. Procedure: Axial images are obtained of the head from the skull base through the vertex without IV co ntrast. Noncontrast helical CT of the cervical spine was performed. Axial, sagittal, and coronal rec onstructions were obtained. Findings: The ventricles and sulci are normal for the patient's age. No mass-effect, midline shift, hemorrhage or obvious acute infarction is identified. Basilar cistern s are patent. Bone windows demonstrate no significant calvarial abnormality. There is minimal left posterior vertex scalp hematoma. The visualized paranasal sinuses are clear. Mastoid air cells are well aerated. There is no evidence of acute fracture or acute malalignment of the cervical spine. There are no perched or jumped facet joints. Facet joints are mildly hypertrophic. There are findings of previous ACDF of C4-C5. There is interbody fusion. There is anterior bone graft material. There i s minimal grade 1 retrolisthesis of C3 on C4. The alignment is otherwise maintained. There is disc sp nate narrowing of C3/C4. There is degenerative endplate spurring of C3/C4 and C5/C6. There is a spondy litic disc of C3/C4 with at least mild central canal stenosis. There is narrowing of the left lateral recess. Visualized soft tissues of the neck demonstrate no significant abnormalities. The visualized lung api barry are clear. There is biapical paraseptal emphysema. IMPRESSION: 1. No acute intracranial abnormality. 2. No acute fracture of the cervical spine. Electronically signed by: Roger Mcadams MD (08/14/2020 9:33 AM) [id number]
[2020-08-14] MEDS ORDERED: LIDO700A21 TP (09:51)
[2020-08-14] MEDS ORDERED: ORPH-16 PO (09:51)
[2020-08-14] MEDS ORDERED: MORPHINE SULFATE 4 MG/ML DISP.SYRIN. IM ONE (10:00)
--- NOTE | 2020-08-14 10:08 | RAD ---
XR CHEST 1V History: Reason: pain s/p fall down stairs / Spl. Instructions: / History: Comparison: June 14, 2020 Findings: No consolidation or pleural effusion. Normal heart size. No pneumothorax. Curvilinear density project ing over the left axillary region, unchanged compared to prior. Possible right acute fifth lateral rib fracture. Impression: 1. Possible acute right fifth anterolateral rib fracture. Recommend correlation with point tendernes s. 2. Otherwise, no acute cardiopulmonary process. Electronically signed by: Nicholas Anderson DO (08/14/2020 10:05 AM) [id number]
--- NOTE | 2020-08-14 10:53 | RAD ---
XR BILATERAL HIP (WITH OR WITHOUT PELVIS) LEFT 2 VIEWS, XR SACRUM AND COCCYX 2+VIEWS History: Reason: pain s/p fall down stairs / Spl. Instructions: / History: Technique: AP view the pelvis 2 views of the sacrum and 2 views of the left hip Comparison: None. Findings: No dislocation. No fracture. Normal alignment of the sacrum and coccyx. No fracture. Mild bilateral h ip DJD. Impression: 1. No acute osseous abnormality. Electronically signed by: Nicholas Anderson DO (08/14/2020 10:50 AM) [id number]
== END 2020-08-14 10:16 | disposition home or self-care (01) ==
LOC: ER 07:59
DX: S46.912A Strain of unspecified muscle, fascia and tendon at shoulder and upper arm level, left arm, initial encounter (principal); S16.1XXA Strain of muscle, fascia and tendon at neck level, initial encounter; S00.03XA Contusion of scalp, initial encounter; S30.0XXA Contusion of lower back and pelvis, initial encounter; W10.8XXA Fall (on) (from) other stairs and steps, initial encounter; F41.9 Anxiety disorder, unspecified; F32.9 Major depressive disorder, single episode, unspecified; E11.9 Type 2 diabetes mellitus without complications; K21.9 Gastro-esophageal reflux disease without esophagitis; I10 Essential (primary) hypertension; F17.210 Nicotine dependence, cigarettes, uncomplicated; Z88.6 Allergy status to analgesic agent; Z88.8 Allergy status to other drugs, medicaments and biological substances; Y93.89 Activity, other specified; Y92.89 Other specified places as the place of occurrence of the external cause; Y99.8 Other external cause status
CPT/HCPCS: 70450; 71045; 72125; 72220; 73030; 73502; 96372; 99285; J2270; J2360

== ENCOUNTER 2020-08-19 17:04 | Emergency (ER) | payer MEDICARE, MEDICAID ==
[~2020-08-19] VITALS: Ht 167.6 cm; Wt 60.1 kg
[~2020-08-19 17:04] MED LIST changes: +LIDO700A21 TP; +ORPH-16 PO
[2020-08-19 17:20] VITALS: BP 158/93
--- NOTE | 2020-08-19 18:20 | PHYS DOC ---
Past History Past Medical History: Anxiety, Depression, Diabetes, GERD, Hypertension Additional Past Medical Histor: COLITIS (ALLISON DOMÍNGUEZ APRN) Past Surgical History: Other Additional Past Surgical Histo: whipple, bowel perforation (ALLISON DOMÍNGUEZ APRN) Smoking: Cigarettes, Less than 1pk/day Alcohol Use: None Drug Use: Marijuana (ALLISON DOMÍNGUEZ APRN) General Adult EDM: Chief Complaint: MECHANICAL FALL HPI: HPI: Patient is a 55-year-old male who presents with left-sided arm and leg pain s cora a fall last week. Patient was seen in the emergency room after the incident occurred. Patient currently takes oxycodone for pain but is out medication. "My doctor told me to double up on my oxycodone if my pain got bad, now I am out". "My doctor will not give me any more pain medication for another week". Patient denies that pain has gotten worse. Patient states "I am just needing something to manage my pain". Denies headache, dizziness, chest pain, shortness of breath. Patient has history of anxiety, GERD, chronic pain. (ALLISON DOMÍNGUEZ APRN) Review of Systems: Review of Systems: Constitutional: Denies fever or chills Eyes: Denies change in visual acuity HENT: Denies nasal congestion or sore throat Respiratory: Denies cough or shortness of breath Cardiovascular: Denies chest pain or edema GI: Denies abdominal pain, nausea, vomiting, bloody stools or diarrhea : Denies dysuria Musculoskeletal: Reports left-sided arm and leg pain Integument: Denies rash Neurologic: Denies headache, focal weakness or sensory changes Endocrine: Denies polyuria or polydipsia Lymphatic: Denies swollen glands Psychiatric: Denies depression or anxiety (ALLISON DOMÍNGUEZ APRN) Allergies: Allergies: Allergies Coded Allergies Type Severity Reaction Last Updated Verified aspirin Allergy Intermediate 08/19/20 Yes fentanyl Allergy Intermediate 08/19/20 Yes ketorolac Allergy Intermediate 08/19/20 No naproxen Allergy Intermediate 08/19/20 No tramadol Allergy Intermediate 08/19/20 Yes (ALLISON DOMÍNGUEZ APRN) Physical Exam: PE: Constitutional: Well developed, well nourished, no acute distress, non-toxic appearance. [] HENT: Normocephalic, atraumatic, bilateral external ears normal, oropharynx moist, no oral exudates, nose normal. [] Eyes: PERRLA, EOMI, conjunctiva normal, no discharge. [] Neck: Normal range of motion, no tenderness, supple, no stridor. [] Cardiovascular:Heart rate regular rhythm, no murmur [] Lungs & Thorax: Bilateral breath sounds clear to auscultation [] Abdomen: Bowel sounds normal, soft, no tenderness, no masses, no pulsatile masses. [] Skin: Warm, dry, no erythema, no rash. [] Back: No tenderness, no CVA tenderness. [] Extremities: Left-sided arm and leg tenderness, ROM intact, no edema. [] Neurologic: Alert and oriented X 3, normal motor function, normal sensory function, no focal deficits noted. [] Psychologic: Affect normal, judgement normal, mood normal. [] (ALLISON DOMÍNGUEZ APRN) Current Patient Data: Vital Signs: Vital Signs Date Time Temp Pulse Resp B/P (MAP) Pulse Ox O2 Delivery O2 Flow Rate FiO2 08/19/20 17:20 97.5 63 16 158/93 (114) 100 Room Air (ALLISON DOMÍNGUEZ APRN) EKG: EKG: [] (ALLISON DOMÍNGUEZ APRN) Radiology/Procedures: Radiology/Procedures: [] (ALLISON DOMÍNGUEZ APRN) Heart Score: C/O Chest Pain: No Risk Factors: Risk Factors: DM, Current or recent (<one month) smoker, HTN, HLP, family history of CAD, obesity. Risk Scores: Score 0 - 3: 2.5% MACE over next 6 weeks - Discharge Home Score 4 - 6: 20.3% MACE over next 6 weeks - Admit for Clinical Observation Score 7 - 10: 72.7% MACE over next 6 weeks - Early Invasive Strategies (ALLISON DOMÍNGUEZ APRN) Course & Med Decision Making: Course & Med Decision Making Pertinent Labs and Imaging studies reviewed. (See chart for details) [] 55-year-old male presents with left-sided arm and leg pain after a fall last week. Patient was seen in the emergency room after incident occurred. Patient states that he is here for pain medication. Patient's doctor would not give him any more pain meds for another week. Patient states he has an appointment with him on . Denies that symptoms have gotten worse. Just reports that he needs something for pain control. Patient given an oxycodone in the emergency room. Patient given prescription for pain medication until he can make his follow-up appointment on . Patient is appreciative and okay with discharge plan. (ALLISON DOMÍNGUEZ APRN) Denion Disclaimer: Curt Disclaimer: This electronic medical record was generated, in whole or in part, using a voice recognition dictation system. (ALLISON DOMÍNGUEZ APRN) Attending Co-Sign The patient was seen and interviewed as well as examined at the bedside. The chart was reviewed. The case was discussed. Agree with the plan of care. (CHAVO JASSO DO) Departure Departure: Impression: Primary Impression: Inadequate pain control Disposition: 01 HOME / SELF CARE / HOMELESS Condition: STABLE Referrals: AGNES VALDERRAMA MD (PCP) Patient Instructions: Fall Prevention and Home Safety, [id number] Additional Instructions: EMERGENCY DEPARTMENT GENERAL DISCHARGE INSTRUCTIONS Thank you for coming to [facility] (ED) today and trusting us with you care. We trust that you had a positivie experience in our Emergency Department. If you wish to speak to the department management, you may call the director at [phone]. YOUR FOLLOW UP INSTRUCTIONS ARE FOLLOWS: 1. Do you have a private Doctor? If you do not have a private doctor, please ask for a resource list of physicians or clinics that may be able to assist you with follow up care. 2. The Emergency Physician has interpreted your x-rays. The X-Ray specialist will also review them. If there is a change in the findings, you will be notified in 48 hours when at all possible. 3. A lab test or culture has been done, your results will be reviewed and you will be notified if you need a change in treatment. ADDITIONAL INSTRUCTIONS AND INFORMATION: 1. Your care today has been supervised by a physician who is specially trained in emergency care. Many problems require more than one evaluation for a complete diagnosis and treatment. We recommend that you schedule your follow up appointment as recommended to ensure complete treatment of you illness or injury. If you are unable to obtain follow up care and continue to have a problem, or if your condition worsens, we recommend that you return to the ED. 2. We are not able to safely determine your condition over the phone nor are we able to give sound medical advice over the phone. For these safety reasons, if you call for medical advice we will ask you to come to the ED for further evaluation. 3. If you have any questions regarding these discharge instructions please call the ED at [phone]. SAFETY INFORMATION: In the interest of safety, wellness, and injury prevention; we encourage you to wear your sealbelt, if you smoke; quite smoking, and we encourage family to use a protective helmet for bicycling and other sporting events that present an increased risk for head injury. IF YOUR SYMPTOMS WORSEN OR NEW SYMPTOMS DEVELOP, OR YOU HAVE CONCERNS ABOUT YOUR CONDITION; OR IF YOUR CONDITION WORSENS WHILE YOU ARE WAITING FOR YOUR FOLLOW UP APPOINTMENT; EITHER CONTACT YOUR PRIMARY CARE DOCTOR, THE PHYSICIAN WHOSE NAME AND NUMBER YOU WERE GIVEN, OR RETURN TO THE ED IMMEDIATELY. Scripts Oxycodone Hcl/Acetaminophen (ENDOCET 10-325 MG TABLET) 1 Each Tablet 1 EACH PO PRN Q6-8HRS PRN for PAIN, #6 TAB Prov: ALLISON DOMÍNGUEZ APRN 08/19/20 ALLISON DOMÍNGUEZ APRN August 19, 2020 18:20 CHAVO JASSO DO August 23, 2020 06:32
[2020-08-19] MEDS ORDERED: oxyCODONE/APAP 10/325 1 TAB TABLET PO ONE (18:30)
[2020-08-19] MEDS ORDERED: OXYC-317 PO (18:52)
== END 2020-08-19 18:55 | disposition home or self-care (01) ==
LOC: ER 17:04
DX: G89.4 Chronic pain syndrome (principal); M79.662 Pain in left lower leg; M79.602 Pain in left arm; K21.9 Gastro-esophageal reflux disease without esophagitis; I10 Essential (primary) hypertension; F41.9 Anxiety disorder, unspecified; F32.9 Major depressive disorder, single episode, unspecified; F12.10 Cannabis abuse, uncomplicated; W18.39XA Other fall on same level, initial encounter; Y93.89 Activity, other specified; Y92.89 Other specified places as the place of occurrence of the external cause; Y99.8 Other external cause status
CPT/HCPCS: 99283-25

== ENCOUNTER 2020-09-02 14:12 | Emergency (ER) | payer MEDICARE, MEDICAID ==
[~2020-09-02] VITALS: Ht 165.1 cm; Wt 59.9 kg
[~2020-09-02 14:12] MED LIST changes: +OXYC-317 PO
[2020-09-02] MEDS ORDERED: diphenhydrAMINE 50 MG/ML VIAL IVP ONE (14:45)
[2020-09-02] MEDS ORDERED: DICYCLOMINE 20 MG/2 ML VIAL. IM ONE (14:45)
[2020-09-02] MEDS ORDERED: ONDANSETRON PF 4 MG/2 ML VIAL. IVP ONE (14:45)
[2020-09-02] MEDS ORDERED: MORPHINE SULFATE 4 MG/ML DISP.SYRIN. IV ONE (14:45)
[2020-09-02] MEDS ORDERED: IOHEXOL 300 MG/ML 75 ML VIAL. IV ONE ×2 (15:00)
[2020-09-02 15:15] LABS: BASO # 0.1 x10^3/uL (0.0-0.2); BASO % 1 % (0-3); EOS % 1 % (0-3); HEMATOCRIT 44.4 % (39.0-53.0); HEMOGLOBIN 14.6 g/dL (13.0-17.5); LYMPH # 1.6 x10^3/uL (1.0-4.8); LYMPH % 18 % (24-48); MEAN CORPUSCULAR HEMOGLOBIN 29 pg (25-35); MEAN CORPUSCULAR HGB CONC 33 g/dL (31-37); MEAN CORPUSCULAR VOLUME 90 fL (79-100); MONO # 0.8 x10^3/uL (0.0-1.1); MONO % 9 % (0-9); NEUT # 6.3 x10^3uL (1.8-7.7); NEUT % 72 % (31-73); PLATELET COUNT 196 x10^3/uL (140-400); RED BLOOD COUNT 4.96 x10^6/uL (4.30-5.70); RED CELL DISTRIBUTION WIDTH 17.9 % (11.5-14.5); WHITE BLOOD COUNT 8.8 x10^3/uL (4.0-11.0)
[2020-09-02 15:29] LABS: CALCIUM 8.9 mg/dL (8.5-10.1); CREATININE 0.8 mg/dL (0.7-1.3); POTASSIUM 4.8 mmol/L (3.5-5.1)
[2020-09-02 15:34] LABS: ALBUMIN 3.2 g/dL (3.4-5.0); ALBUMIN/GLOBULIN RATIO 0.9 (1.0-1.7); TOTAL BILIRUBIN 0.5 mg/dL (0.2-1.0); TOTAL PROTEIN 6.9 g/dL (6.4-8.2)
--- NOTE | 2020-09-02 15:53 | RAD ---
XR ABDOMEN 1V History: Reason: abdominal pain, evaluate for constipation / Spl. Instructions: / History: Technique: Supine view the abdomen. Comparison: July 23, 2020 Findings: Mild small bowel gas. Air scattered throughout the colon. Postop changes upper abdomen. Impression: 1. Nonobstructed bowel gas pattern. Electronically signed by: Nicholas Anderson DO (09/02/2020 3:51 PM) [facility] [place]
--- NOTE | 2020-09-02 16:03 | RAD ---
EXAM: Abdomen and pelvis CT with intravenous contrast. HISTORY: Pain. TECHNIQUE: Computed tomographic images of the abdomen and pelvis were obtained following the administ ration of intravenous contrast. Multiplanar reformatting was performed. *One or more of the following individualized dose reduction techniques were utilized for this examina tion: 1. Automated exposure control. 2. Adjustment of the mA and/or kV according to patient size. 3. Use of iterative reconstruction technique. COMPARISON: 07/20/2020. FINDINGS: Evaluation of the lower thorax demonstrates no infiltrate or pleural effusion. There is sta ble mild biliary ductal dilatation and evidence of prior cholecystectomy. There is a tiny amount of p neumobilia, new compared to the prior exam. There is been partial pancreatic head resection and distal gastrectomy and gastrojejunostomy surgery. There are calcifications within the proximal pancreas due to chronic pancreatitis. No splenic lesion is seen. There is bilateral adrenal gland thickening. There is a stable 1.9 cm left adrenal nodule. There is a small simple left renal cyst. There is no hydronephrosis. There is no appendicitis. There is segmental distal colonic wall thickening. There is segmental mild small bowel wall thickening. There is also irregular wall thickening involving the rectum with slight surrounding perirectal stranding. There is no evidence of bowel obstruction. There is diastasis of the ventral abdominal wall. No marga hernia is seen. There is calcified plaque involving the aorta and main aortic branch vessels. No pathologically enlarged lymph node is seen. Th e bladder is unremarkable. There is degenerative change throughout the spine. IMPRESSION: 1. Segmental wall thickening involving the distal colon and rectum. Correlate for colitis/proctitis o f infectious or inflammatory etiologies. There is also nonspecific wall thickening involving the smal l bowel which may be due to enteritis. 2. Chronic pancreatitis and postoperative changes involving the pancreas, stomach and small bowel. 3. New pneumobilia. Correlate for interval biliary instrumentation. There is stable mild biliary duct al dilatation. 4. Stable left adrenal nodule and simple left renal cyst. Electronically signed by: Erum Sutton MD (09/02/2020 4:01 PM) [id number]
--- NOTE | 2020-09-02 16:22 | PHYS DOC ---
Past History Past Medical History: Anxiety, Depression, Diabetes, GERD, Hypertension Additional Past Medical Histor: COLITIS Past Surgical History: Other Additional Past Surgical Histo: whipple, bowel perforation Smoking: Cigarettes, Less than 1pk/day Alcohol Use: None Drug Use: Marijuana General Adult EDM: Chief Complaint: MULTIPLE COMPLAINTS HPI: HPI: 55-year-old male presents with epigastric abdominal pain. He tells me that he has been having this pain last couple of days for no apparent reason. He has seen the GI doctor and had an upper and lower endoscopy with no significant findings. He tells me it feels like a twisted up feeling. He denies fever or chills. He denies history of pancreatitis. He has been seen in the emergency room multiple times. Review of Systems: Review of Systems: Constitutional: Denies fever or chills Eyes: Denies change in visual acuity HENT: Denies nasal congestion or sore throat Respiratory: Denies cough or shortness of breath Cardiovascular: Denies chest pain or edema GI: Epigastric abdominal pain, nausea. denies vomiting, bloody stools or diarrhea : Denies dysuria Musculoskeletal: Denies back pain or joint pain Integument: Denies rash Neurologic: Denies headache, focal weakness or sensory changes Endocrine: Denies polyuria or polydipsia Lymphatic: Denies swollen glands Psychiatric: Denies depression or anxiety Current Medications: Current Meds: Current Medications Medications (Trade) Dose Ordered Sig/Elfego Start Time Stop Time Status Last Admin Dose Admin Dicyclomine HCl (Bentyl) 10 mg 1X ONCE 09/02/20 14:45 09/02/20 14:46 DC 09/02/20 15:02 10 MG Diphenhydramine HCl (Benadryl) 25 mg 1X ONCE 09/02/20 14:45 09/02/20 14:46 DC 09/02/20 15:00 25 MG Iohexol (Omnipaque 300 Mg/ml) 75 ml 1X ONCE 09/02/20 15:00 09/02/20 15:01 DC Morphine Sulfate (Morphine 4mg Syringe) 4 mg 1X ONCE 09/02/20 14:45 09/02/20 14:46 DC 09/02/20 15:03 4 MG Ondansetron HCl (Zofran) 4 mg 1X ONCE 09/02/20 14:45 09/02/20 14:46 DC 09/02/20 14:58 4 MG Allergies: Allergies: Allergies Coded Allergies Type Severity Reaction Last Updated Verified aspirin Allergy Intermediate 09/02/20 Yes fentanyl Allergy Intermediate 09/02/20 Yes ketorolac Allergy Intermediate 09/02/20 No naproxen Allergy Intermediate 09/02/20 No tramadol Allergy Intermediate 09/02/20 Yes Physical Exam: PE: Constitutional: Well developed, well nourished, no acute distress, non-toxic appearance. [] HENT: Normocephalic, atraumatic, bilateral external ears normal, oropharynx moist, no oral exudates, nose normal. [] Eyes: PERRLA, EOMI, conjunctiva normal, no discharge. [] Neck: Normal range of motion, no tenderness, supple, no stridor. [] Cardiovascular:Heart rate regular rhythm, no murmur [] Lungs & Thorax: Bilateral breath sounds clear to auscultation [] Abdomen: Bowel sounds normal, soft, no tenderness, no masses, no pulsatile masses. [] Skin: Warm, dry, no erythema, no rash. [] Back: No tenderness, no CVA tenderness. [] Extremities: No tenderness, no cyanosis, no clubbing, ROM intact, no edema. [] Neurologic: Alert and oriented X 3, normal motor function, normal sensory function, no focal deficits noted. [] Psychologic: Affect normal, judgement normal, mood normal. [] Current Patient Data: Labs: Laboratory Tests Test 09/02/20 14:54 White Blood Count 8.8 x10^3/uL (4.0-11.0) Red Blood Count 4.96 x10^6/uL (4.30-5.70) Hemoglobin 14.6 g/dL (13.0-17.5) Hematocrit 44.4 % (39.0-53.0) Mean Corpuscular Volume 90 fL (79-100) Mean Corpuscular Hemoglobin 29 pg (25-35) Mean Corpuscular Hemoglobin Concent 33 g/dL (31-37) Red Cell Distribution Width 17.9 % (11.5-14.5) H Platelet Count 196 x10^3/uL (140-400) Neutrophils (%) (Auto) 72 % (31-73) Lymphocytes (%) (Auto) 18 % (24-48) L Monocytes (%) (Auto) 9 % (0-9) Eosinophils (%) (Auto) 1 % (0-3) Basophils (%) (Auto) 1 % (0-3) Neutrophils # (Auto) 6.3 x10^3uL (1.8-7.7) Lymphocytes # (Auto) 1.6 x10^3/uL (1.0-4.8) Monocytes # (Auto) 0.8 x10^3/uL (0.0-1.1) Eosinophils # (Auto) 0.0 x10^3/uL (0.0-0.7) Basophils # (Auto) 0.1 x10^3/uL (0.0-0.2) Sodium Level 142 mmol/L (136-145) Potassium Level 4.8 mmol/L (3.5-5.1) Chloride Level 106 mmol/L (98-107) Carbon Dioxide Level 24 mmol/L (21-32) Anion Gap 12 (6-14) Blood Urea Nitrogen 10 mg/dL (8-26) Creatinine 0.8 mg/dL (0.7-1.3) Estimated GFR (Cockcroft-Gault) 121.0 BUN/Creatinine Ratio 13 (6-20) Glucose Level 333 mg/dL (70-99) H Calcium Level 8.9 mg/dL (8.5-10.1) Total Bilirubin 0.5 mg/dL (0.2-1.0) Aspartate Amino Transferase (AST) 166 U/L (15-37) H Alanine Aminotransferase (ALT) 150 U/L (16-63) H Alkaline Phosphatase 345 U/L (46-116) H Total Protein 6.9 g/dL (6.4-8.2) Albumin 3.2 g/dL (3.4-5.0) L Albumin/Globulin Ratio 0.9 (1.0-1.7) L Lipase 21 U/L (73-393) L Vital Signs: Vital Signs Date Time Temp Pulse Resp B/P (MAP) Pulse Ox O2 Delivery O2 Flow Rate FiO2 09/02/20 15:03 98 Room Air 09/02/20 14:15 98.0 84 16 151/101 (118) EKG: EKG: [] Radiology/Procedures: Radiology/Procedures: [] Heart Score: C/O Chest Pain: N/A Risk Factors: Risk Factors: DM, Current or recent (<one month) smoker, HTN, HLP, family history of CAD, obesity. Risk Scores: Score 0 - 3: 2.5% MACE over next 6 weeks - Discharge Home Score 4 - 6: 20.3% MACE over next 6 weeks - Admit for Clinical Observation Score 7 - 10: 72.7% MACE over next 6 weeks - Early Invasive Strategies Course & Med Decision Making: Course & Med Decision Making Pertinent Labs and Imaging studies reviewed. (See chart for details) The patient has several abnormal labs most notably elevated liver enzymes and glucose. These are similar to his previous labs. The patient's anion gap is normal. I have stressed that the patient needs to take care of his diabetes as this is likely a significant cause of his discomfort. His KUB is unremarkable. The CT of the abdomen and pelvis does not show any acute findings. There are significant chronic findings. See official read for more details. I looked up the patient's narcotic tracking database and he got 120 oxycodone tens 9 days ago. I have given him a dose of pain medicine in the ER. Have also tried Bentyl. He states that neither of these have helped at all. I do not have any acute findings that justify admission or further work-up. He should have more than adequate pain medication at home. He is stable for discharge at this time. [] Curt Disclaimer: Curt Disclaimer: This electronic medical record was generated, in whole or in part, using a voice recognition dictation system. Departure Departure: Impression: Primary Impression: Chronic abdominal pain Disposition: HOME / SELF CARE / HOMELESS Condition: STABLE Referrals: AGNES VALDERRAMA MD (PCP) Patient Instructions: Abdominal Pain, [id number] CHAVO JASSO DO September 02, 2020 16:22
[2020-09-02 16:35] VITALS: BP 163/88
== END 2020-09-02 16:36 | disposition home or self-care (01) ==
LOC: ER 14:12
DX: G89.29 Other chronic pain (principal); R10.13 Epigastric pain; F41.9 Anxiety disorder, unspecified; F32.9 Major depressive disorder, single episode, unspecified; E11.9 Type 2 diabetes mellitus without complications; K21.9 Gastro-esophageal reflux disease without esophagitis; I10 Essential (primary) hypertension; F17.210 Nicotine dependence, cigarettes, uncomplicated; Z88.6 Allergy status to analgesic agent; Z88.8 Allergy status to other drugs, medicaments and biological substances
CPT/HCPCS: 36415; 74018; 74177; 80053; 83690; 85025; 96372; 96374; 96375; 99285; J0500; J1200; J2270; J2405; Q9967

== ENCOUNTER 2020-09-13 11:31 | Emergency (ER) | payer MEDICARE, MEDICAID ==
[~2020-09-13] VITALS: Ht 165.1 cm; Wt 59.9 kg
[2020-09-13 11:35] VITALS: BP 163/88
--- NOTE | 2020-09-13 12:35 | PHYS DOC ---
Past History Past Medical History: Anxiety, Depression, Diabetes, GERD, Hypertension Additional Past Medical Histor: COLITIS (ALLISON DOMÍNGUEZ APRN) Past Surgical History: Other Additional Past Surgical Histo: whipple, bowel perforation (ALLISON DOMÍNGUEZ APRN) Smoking: Cigarettes, Less than 1pk/day Alcohol Use: None Drug Use: Marijuana (ALLISON DOMÍNGUEZ APRN) General Adult HPI: HPI: Patient is a-year-old male presents after a fall at home this morning. Patient states he rolled off the couch and hit his head on the coffee table. Patient is reporting head and neck pain. Denies taking anything for pain. Patient states pain is worse with ambulation. Denies loss of consciousness, denies being on blood thinners. Denies nausea/vomiting. Patient is alert and oriented hemodynamically stable. Has history of anxiety, chronic back pain, hypertension, diabetes. (ALLISON DOMÍNGUEZ APRN) Review of Systems: Review of Systems: Constitutional: Denies fever or chills Eyes: Denies change in visual acuity HENT: Denies nasal congestion or sore throat Respiratory: Denies cough or shortness of breath Cardiovascular: Denies chest pain or edema GI: Denies abdominal pain, nausea, vomiting, bloody stools or diarrhea : Denies dysuria Musculoskeletal: Reports chronic back pain or joint pain Integument: Denies rash Neurologic: Reports headache, denies focal weakness or sensory changes Endocrine: Denies polyuria or polydipsia Lymphatic: Denies swollen glands Psychiatric: Denies depression or anxiety (ALLISON DOMÍNGUEZ APRN) Allergies: Allergies: Allergies Coded Allergies Type Severity Reaction Last Updated Verified aspirin Allergy Intermediate 09/02/20 Yes fentanyl Allergy Intermediate 09/02/20 Yes ketorolac Allergy Intermediate 09/02/20 No naproxen Allergy Intermediate 09/02/20 No tramadol Allergy Intermediate 09/02/20 Yes (ALLISON DOMÍNGUEZ APRN) Physical Exam: PE: Constitutional: Well developed, well nourished, no acute distress, non-toxic appearance. HENT: atraumatic, bilateral external ears normal, oropharynx moist, Eyes: PERRLA, EOMI, conjunctiva normal, no discharge. Neck: Normal range of motion, reports midline tenderness Cardiovascular:Heart rate regular rhythm, no murmur Lungs & Thorax: Bilateral breath sounds clear to auscultation Abdomen: Bowel sounds normal, soft, no tenderness Skin: Warm, dry, no erythema, no rash. Back: Chronic back tenderness, no CVA tenderness. Extremities: No tenderness, no cyanosis,ROM intact, no edema. Neurologic: Alert and oriented X 3, normal motor function, normal sensory func tion, no focal deficits noted. Psychologic: Affect normal, judgement normal, mood normal. (ALLISON DOMÍNGUEZ APRN) EKG: EKG: [] (ALLISON DOMÍNGUEZ APRN) Radiology/Procedures: Radiology/Procedures: []CT HEAD AND C-SPINE WO dated 09/13/2020 12:36 PM. Comparison: 08/14/2020 Clinical Indication: Reason: fall, hit head on coffee table / Spl. Instructions: / History: , HEAD AND NECK PAIN Technical factors: Contiguous 5 mm axial images of the head were obtained from the skullbase to the vertex. No contrast was administered. In addition, 3 mm axial images of the cervical spine were acquired with thin cut coronal and sagittal reconstructions. One or more of the following individualized dose reduction techniques were utilized for this examination: 1. Automated exposure control 2. Adjustment of the mA and/or kV according to patient size 3. Use of iterative reconstruction technique Findings head: Ventricles and sulci are within normal limits for age. No midline shift or mass effect. Brain parenchyma is of normal attenuation. No hemorrhage or extra-axial collection. Posterior fossa and brainstem unremarkable. Visualized paranasal sinuses and mastoid air cells are clear. No apparent calvarial abnormality. IMPRESSION HEAD: 1. No evidence of acute intracranial abnormality. Findings cervical spine: Images were acquired from the skull base to mid T3. Slight retrolisthesis of C3 on C4 and C4 on C5. Sagittal alignment is otherwise anatomic. Vertebral body heights are maintained. There is been prior fusion at the C4-C5 level with fusion at the level the disc. No prevertebral soft tissue swelling. Posterior elements are intact. No evidence of fracture. There is moderate endplate hypertrophic changes. Severe disc space narrowing at C3-C4 with uncovertebral spurring. Mild uncovertebral hypertrophy at C5-C6 and C6-C7 with multilevel mild facet arthropathy. There is resultant mild central stenosis at C3-C4 with mild left foraminal stenosis. Degenerative changes of the C1-C2 articulation anteriorly. There is also some soft tissue prominence of the adenoids, unchanged. Visualized soft tissue structures unremarkable. Limited images of lung apices show mild emphysema. IMPRESSION CERVICAL SPINE: 1. No evidence of fracture or malalignment. 2. Mild multilevel spondylosis with resultant mild central stenosis at C3-C4, similar to prior study. 3. Soft tissue prominence of the adenoids, nonspecific but unchanged from prior exam. Electronically signed by: German Coleman MD (09/13/2020 12:50 PM) UIC-ROBE (ALLISON DOMÍNGUEZ APRN) Heart Score: C/O Chest Pain: No Risk Factors: Risk Factors: DM, Current or recent (<one month) smoker, HTN, HLP, family history of CAD, obesity. Risk Scores: Score 0 - 3: 2.5% MACE over next 6 weeks - Discharge Home Score 4 - 6: 20.3% MACE over next 6 weeks - Admit for Clinical Observation Score 7 - 10: 72.7% MACE over next 6 weeks - Early Invasive Strategies (ALLISON DOMÍNGUEZ APRN) Course & Med Decision Making: Course & Med Decision Making Pertinent Labs and Imaging studies reviewed. (See chart for details) 55-year-old male presents after a fall at home this morning. Patient states he rolled off the couch hit his head on the coffee table and landed on the tile floor. Patient is reporting midline neck tenderness and pain to the posterior mid head. No evidence of skull fracture, hematoma, laceration. Denies loss of consciousness. Patient denies being on blood thinners. Patient has full range of motion of his neck. Patient denies urinary retention or loss of bowel. Patient is neurologically intact, alert and oriented denies sensory changes or weakness. CT head and cervical spine ordered to rule out intracranial bleeding and/or fracture. Patient given 10/325, oxycodone in the emergency room for discomfort. CT head and cervical spine negative for intracranial bleeding or fracture. Discharging patient to home with follow-up instructions with his PCP. Patient mostly has a muscle strain after fall. Explained to patient I was unable to send him home with pain medication and that he would need to follow-up with his PCP. Patient is currently seeing Dr. Jim who treats his chronic back pain. Patient was prescribed 120, 10/325 oxycodone on 08/23. She can use ice to the area of discomfort. Rice instructions given. OTC pain relievers. Patient given strict return precautions such as decrease in mental status, increase in pain, visual changes, uncontrolled nausea and vomiting. Patient states that he understands . Patient is appreciative and okay with discharge plan (ALLISON DOMÍNGUEZ APRN) Curt Disclaimer: Curt Disclaimer: This electronic medical record was generated, in whole or in part, using a voice recognition dictation system. (ALLISON DOMÍNGUEZ APRN) Attending Co-Sign The patient was seen and interviewed as well as examined at the bedside. The chart was reviewed. The case was discussed. Agree with the plan of care. (CHAVO JASSO DO) Departure Departure: Impression: Primary Impression: Fall Qualified Codes: W19.XXXA - Unspecified fall, initial encounter Additional Impression: Chronic back pain Qualified Codes: M54.5 - Low back pain; G89.29 - Other chronic pain Referrals: AGNES JIM MD (PCP) Patient Instructions: Fall Prevention and Home Safety, [id number], RICE - Routine Care for Injuries, [id number] Additional Instructions: You were seen in the emergency room after a fall at home. We did a CT of your head and neck due to complaints of neck pain and also head pain. Your CT results were negative for bleeding or fracture. Please call your PCP for a follow-up appointment for further management. Return to emergency room if you have worsening symptoms or concerns. You can use ice to the area that is uncomfortable. ibuprofen and Tylenol for pain. EMERGENCY DEPARTMENT GENERAL DISCHARGE INSTRUCTIONS Thank you for coming to [facility] (ED) today and trusting us with you care. We trust that you had a positivie experience in our Emergency Department. If you wish to speak to the department management, you may call the director at [phone]. YOUR FOLLOW UP INSTRUCTIONS ARE FOLLOWS: 1. Do you have a private Doctor? If you do not have a private doctor, please ask for a resource list of physicians or clinics that may be able to assist you with follow up care. 2. The Emergency Physician has interpreted your x-rays. The X-Ray specialist will also review them. If there is a change in the findings, you will be notified in 48 hours when at all possible. 3. A lab test or culture has been done, your results will be reviewed and you will be notified if you need a change in treatment. ADDITIONAL INSTRUCTIONS AND INFORMATION: 1. Your care today has been supervised by a physician who is specially trained in emergency care. Many problems require more than one evaluation for a complete diagnosis and treatment. We recommend that you schedule your follow up appointment as recommended to ensure complete treatment of you illness or injury. If you are unable to obtain follow up care and continue to have a problem, or if your condition worsens, we recommend that you return to the ED. 2. We are not able to safely determine your condition over the phone nor are we able to give sound medical advice over the phone. For these safety reasons, if you call for medical advice we will ask you to come to the ED for further evaluation. 3. If you have any questions regarding these discharge instructions please call the ED at [phone]. SAFETY INFORMATION: In the interest of safety, wellness, and injury prevention; we encourage you to wear your sealbelt, if you smoke; quite smoking, and we encourage family to use a protective helmet for bicycling and other sporting events that present an increased risk for head injury. IF YOUR SYMPTOMS WORSEN OR NEW SYMPTOMS DEVELOP, OR YOU HAVE CONCERNS ABOUT YOUR CONDITION; OR IF YOUR CONDITION WORSENS WHILE YOU ARE WAITING FOR YOUR FOLLOW UP APPOINTMENT; EITHER CONTACT YOUR PRIMARY CARE DOCTOR, THE PHYSICIAN WHOSE NAME AND NUMBER YOU WERE GIVEN, OR RETURN TO THE ED IMMEDIATELY. ALLISON DOMÍNGUEZ APRN Sep 13, 2020 12:35 CHAVO JASSO DO Sep 14, 2020 06:03
--- NOTE | 2020-09-13 12:53 | RAD ---
CT HEAD AND C-SPINE WO dated 09/13/2020 12:36 PM. Comparison: 08/14/2020 Clinical Indication: Reason: fall, hit head on coffee table / Spl. Instructions: / History: , HEAD A ND NECK PAIN Technical factors: Contiguous 5 mm axial images of the head were obtained from the skullbase to the v ertex. No contrast was administered. In addition, 3 mm axial images of the cervical spine were acquir ed with thin cut coronal and sagittal reconstructions. One or more of the following individualized dose reduction techniques were utilized for this examinat ion: 1. Automated exposure control 2. Adjustment of the mA and/or kV according to patient size 3. Use of iterative reconstruction technique Findings head: Ventricles and sulci are within normal limits for age. No midline shift or mass effect. Brain parench yma is of normal attenuation. No hemorrhage or extra-axial collection. Posterior fossa and brainstem unremarkable. Visualized paranasal sinuses and mastoid air cells are clear. No apparent calvarial abnormality. IMPRESSION HEAD: 1. No evidence of acute intracranial abnormality. Findings cervical spine: Images were acquired from the skull base to mid T3. Slight retrolisthesis of C3 on C4 and C4 on C5. S agittal alignment is otherwise anatomic. Vertebral body heights are maintained. There is been prior f usion at the C4-C5 level with fusion at the level the disc. No prevertebral soft tissue swelling. Pos terior elements are intact. No evidence of fracture. There is moderate endplate hypertrophic changes. Severe disc space narrowing at C3-C4 with uncoverte bral spurring. Mild uncovertebral hypertrophy at C5-C6 and C6-C7 with multilevel mild facet arthropat hy. There is resultant mild central stenosis at C3-C4 with mild left foraminal stenosis. Degenerative changes of the C1-C2 articulation anteriorly. There is also some soft tissue prominence of the adeno ids, unchanged. Visualized soft tissue structures unremarkable. Limited images of lung apices show mild emphysema. IMPRESSION CERVICAL SPINE: 1. No evidence of fracture or malalignment. 2. Mild multilevel spondylosis with resultant mild central stenosis at C3-C4, similar to prior study. 3. Soft tissue prominence of the adenoids, nonspecific but unchanged from prior exam. Electronically signed by: German Coleman MD (09/13/2020 12:50 PM) [facility]
[2020-09-13] MEDS: oxyCODONE/APAP 10/325 1 TAB TABLET PO ONE (12:57)
== END 2020-09-13 13:22 | disposition home or self-care (01) ==
LOC: ER 11:31
DX: M54.5 Low back pain (principal); M54.2 Cervicalgia; R51.9 Headache, unspecified; W18.00XA Striking against unspecified object with subsequent fall, initial encounter; Y93.89 Activity, other specified; Y92.89 Other specified places as the place of occurrence of the external cause; Y99.8 Other external cause status
CPT/HCPCS: 70450; 72125; 99285-25

== ENCOUNTER 2020-09-22 14:33 | Emergency (ER) | payer MEDICARE, MEDICAID ==
[~2020-09-22] VITALS: Ht 165.1 cm; Wt 60.3 kg
--- NOTE | 2020-09-22 16:44 | PHYS DOC ---
Past History Past Medical History: Anxiety, Depression, Diabetes, GERD, Hypertension Additional Past Medical Histor: COLITIS Past Surgical History: Other Additional Past Surgical Histo: whipple, bowel perforation Smoking: Cigarettes, Less than 1pk/day Alcohol Use: None Drug Use: Marijuana Adult General Chief Complaint Chief Complaint: ABDOMINAL PAIN HPI HPI Patient is a [age] year old [sex] who presents with [] Review of Systems Review of Systems Fourteen body systems of review of systems have been reviewed. See HPI for pertinent positives and negative responses, other schultz all other systems are negative, non-pertinent or non-contributory Allergies Allergies Allergies Coded Allergies Type Severity Reaction Last Updated Verified aspirin Allergy Intermediate 09/02/20 Yes fentanyl Allergy Intermediate 09/02/20 Yes ketorolac Allergy Intermediate 09/02/20 No naproxen Allergy Intermediate 09/02/20 No tramadol Allergy Intermediate 09/02/20 Yes Physical Exam Physical Exam Constitutional: Well developed, well nourished, no acute distress, non-toxic appearance. HENT: Normocephalic, atraumatic, bilateral external ears normal, oropharynx moist, no oral exudates, nose normal. Eyes: PERRLA, EOMI, conjunctiva normal, no discharge. Neck: Normal range of motion, no tenderness, supple, no stridor. Cardiovascular: Heart rate regular, sinus rhythm, no murmurs rubs or gallops Lungs & Thorax: Bilateral breath sounds clear to auscultation Abdomen: Bowel sounds normal, soft, no tenderness, no masses, no pulsatile masses. Nonsurgical abdomen, no peritoneal signs Skin: Warm, dry, no erythema, no rash. Back: No tenderness, no CVA tenderness. Extremities: No tenderness, no cyanosis, no clubbing, ROM intact, no edema. Neurologic: Alert and oriented X 3, grossly normal motor & sensory function, no focal deficits noted. Psychologic: Affect normal, judgement normal, mood normal. Current Patient Data Vital Signs Vital Signs Date Time Temp Pulse Resp B/P (MAP) Pulse Ox O2 Delivery O2 Flow Rate FiO2 09/22/20 16:03 97.6 87 18 138/83 (101) 100 Room Air EKG EKG [] Radiology/Procedures Radiology/Procedures [] Heart Score Risk Factors: Risk Factors: DM, Current or recent (<one month) smoker, HTN, HLP, family history of CAD, obesity. Risk Scores: Risk Factors: DM, Current or recent (<one month) smoker, HTN, HLP, family history of CAD, obesity. Course & Med Decision Making Course & Med Decision Making Pertinent Labs and Imaging studies reviewed. (See chart for details) [] Dragon Disclaimer Dragon Disclaimer This electronic medical record was generated, in whole or in part, using a voice recognition dictation system. Departure Departure: Impression: Primary Impression: Chronic back pain Disposition: HOME / SELF CARE / HOMELESS Condition: STABLE Referrals: AGNES VALDERRAMA MD (PCP) Additional Instructions: You have been evaluated in the Emergency Department today for abdominal pain. Your evaluation was not suggestive of any emergent condition requiring medical intervention at this time. However, some abdominal problems make take more time to appear. Therefore, it is important for you to watch for any new symptoms or worsening of your current co ndition. I gave you a dose of your home pain medication and write you for x1 tablet of your regularly prescribed home pain medication since he reports running out prematurely. As such, you need to contact your primary care physician who is supplying these medications to discuss need for refill and close outpatient follow-up within the next 24 hours Return to the Emergency Department if you experience worsening pain, persistent fevers greater than 100.4, recurrent vomiting, blood in vomit, blood in stool, dark tarry stool, chest pain, difficulty breathing, or any other concerning symptoms. Scripts Oxycodone Hcl/Acetaminophen (PERCOCET 10-325 MG TABLET ) 1 Each Tablet 1 TAB PO PRN QID PRN for SEVERE PAIN 7-10 MDD 4 Tablet(s) for 1 Day, #1 TAB 0 Refills Prov: ANTHONY VARGAS DO 09/22/20 ANTHONY VARGAS DO Sep 22, 2020 16:44
[2020-09-22] MEDS ORDERED: OXYC1TAB22 PO (17:35)
[2020-09-22] MEDS ORDERED: oxyCODONE/APAP 10/325 1 TAB TABLET PO ONE (17:45)
[2020-09-22 17:50] VITALS: BP 141/78
== END 2020-09-22 17:50 | disposition home or self-care (01) ==
LOC: ER 14:33
DX: G89.29 Other chronic pain (principal); M54.9 Dorsalgia, unspecified; K21.9 Gastro-esophageal reflux disease without esophagitis; E11.9 Type 2 diabetes mellitus without complications; I10 Essential (primary) hypertension; F17.210 Nicotine dependence, cigarettes, uncomplicated; F12.10 Cannabis abuse, uncomplicated; Z88.6 Allergy status to analgesic agent; Z88.5 Allergy status to narcotic agent
CPT/HCPCS: 99282

== ENCOUNTER 2020-10-05 13:52 | Emergency (ER) | payer MEDICARE, MEDICAID ==
[~2020-10-05] VITALS: Ht 165.1 cm; Wt 61.7 kg
[2020-10-05 14:11] VITALS: BP 151/84
--- NOTE | 2020-10-05 14:45 | EKG ---
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
--- NOTE | 2020-10-05 15:01 | PHYS DOC ---
Past History Past Medical History: Anxiety, Depression, Diabetes, GERD, Hypertension Additional Past Medical Histor: COLITIS (ALLISON DOMÍNGUEZ APRN) Past Surgical History: Other Additional Past Surgical Histo: whipple, bowel perforation, NECK (ALLISON DOMÍNGUEZ APRN) Smoking: Cigarettes, Less than 1pk/day Alcohol Use: Sober Drug Use: Marijuana (ALLISON DOMÍNGUEZ APRN) General Adult EDM: Chief Complaint: UPPER EXTREMITY PAIN HPI: HPI: Patient is a 55-year-old male who presents with left arm numbness that has been coming and going since this morning. Patient is also reporting chronic back and neck pain. Patient was admitted recently for DKA. Patient was sent home with 30, oxycodone from hospitalist. Patient states that he has been taking his pain medication at home with little relief. Pain is worse with ambulation. Denies new injury. Denies urinary retention or loss of bowel. (ALLISON DOMÍNGUEZ APRN) Review of Systems: Review of Systems: Constitutional: Denies fever or chills Eyes: Denies change in visual acuity HENT: Denies nasal congestion or sore throat Respiratory: Denies cough or shortness of breath Cardiovascular: Denies chest pain or edema GI: Denies abdominal pain, nausea, vomiting, bloody stools or diarrhea : Denies dysuria Musculoskeletal: Reports chronic back pain and neck pain Integument: Denies rash Neurologic: Denies headache, focal weakness or sensory changes Endocrine: Denies polyuria or polydipsia Lymphatic: Denies swollen glands Psychiatric: Denies depression or anxiety (ALLISON DOMÍNGUEZ APRN) Allergies: Allergies: Allergies Coded Allergies Type Severity Reaction Last Updated Verified aspirin Allergy Intermediate 09/02/20 Yes fentanyl Allergy Intermediate 09/02/20 Yes ketorolac Allergy Intermediate 09/02/20 No naproxen Allergy Intermediate 09/02/20 No tramadol Allergy Intermediate 09/02/20 Yes (ALLISON DOMÍNGUEZ APRN) Physical Exam: PE: Constitutional: Well developed, well nourished, no acute distress, non-toxic appearance. [] HENT: Normocephalic, atraumatic, bilateral external ears normal, oropharynx mo ist, no oral exudates, nose normal. [] Eyes: PERRLA, EOMI, conjunctiva normal, no discharge. [] Neck: Normal range of motion, no tenderness, supple, no stridor. [] Cardiovascular:Heart rate regular rhythm, no murmur [] Lungs & Thorax: Bilateral breath sounds clear to auscultation [] Abdomen: Bowel sounds normal, soft, no tenderness, no masses, no pulsatile masses. [] Skin: Warm, dry, no erythema, no rash. [] Back: Chronic back tenderness, no CVA tenderness. [] Extremities: Left arm tingling, no cyanosis, no clubbing, ROM intact, no edema. [] Neurologic: Alert and oriented X 3, normal motor function, normal sensory function, no focal deficits noted. [] Psychologic: Affect normal, judgement normal, mood normal. [] (ALLISON DOMÍNGUEZ APRN) Current Patient Data: Vital Signs: Vital Signs Date Time Temp Pulse Resp B/P (MAP) Pulse Ox O2 Delivery O2 Flow Rate FiO2 10/05/20 14:11 98.2 79 16 151/84 (106) 97 Room Air (ALLISON DOMÍNGUEZ APRN) EKG: EKG: [] (ALLISON DOMÍNGUEZ APRN) Radiology/Procedures: Radiology/Procedures: [] (ALLISON DOMÍNGUEZ APRN) Heart Score: C/O Chest Pain: No HEART Score for Chest Pain: HEART Score for Chest Pain Response (Comments) Value Troponin < Normal Limit 0 Total 0 Risk Factors: Risk Factors: DM, Current or recent (<one month) smoker, HTN, HLP, family history of CAD, obesity. Risk Scores: Score 0 - 3: 2.5% MACE over next 6 weeks - Discharge Home Score 4 - 6: 20.3% MACE over next 6 weeks - Admit for Clinical Observation Score 7 - 10: 72.7% MACE over next 6 weeks - Early Invasive Strategies (ALLISON DOMÍNGUEZ APRN) Course & Med Decision Making: Course & Med Decision Making Pertinent Labs and Imaging studies reviewed. (See chart for details) [] 55-year-old male presents with left arm tingling that has been coming and going. Patient is also being seen for chronic back and neck pain. Patient was just recently discharged after being admitted with DKA. Patient was sent home with 30, oxycodone. Patient reports he has been taking pain medication at home with little relief. Denies chest pain, shortness of breath. Patient is frequently seen for chronic pain. Patient displays drug-seeking behavior. EKG, CBC, troponin ordered to rule out any cardiac abnormalities. EKG shows sinus rhythm. No ST elevation seen. Heart rate 67 bpm. Troponin is negative. Heart score of 3. Labs are unremarkable. Patient will be discharged to home and follow-up with PCP for further management. Patient reports he is was prescribed pain medication before being discharged from the hospital, and still has pain medication at home. Patient instructed to take pain medication at home instructed and also ibuprofen or Tylenol for discomfort. Patient given strict return precautions. Patient is hemodynamically stable and able to ambulate on his own. (ALLISON DOMÍNGUEZ APRN) Course & Med Decision Making I oversaw on the above date of service of this patient. This patient was evaluated, examined, treated, and dispositioned from the emergency department by the mid-level practitioner. Although I was working at the time and available for consultation, no assistance was requested and I did not see or immediately direct the care of this patient. I reviewed note and agree to findings, plan of care, and disposition as stated. Electronically signed, Anthony Vargas DO (ANTHONY VARGAS DO) Curt Disclaimer: Curt Disclaimer: This electronic medical record was generated, in whole or in part, using a voice recognition dictation system. (ALLISON DOMÍNGUEZ APRN) Departure Departure: Impression: Primary Impression: Chronic back pain Qualified Codes: M54.6 - Pain in thoracic spine; G89.29 - Other chronic pain Disposition: 01 HOME / SELF CARE / HOMELESS Condition: STABLE Referrals: AGNES VALDERRAMA MD (PCP) Patient Instructions: Chronic Back Pain Additional Instructions: You were seen in the emergency room for chronic back and neck pain. Along with tingling to your left arm. Your EKG was negative for any acute abnormalities. All of your labs are unremarkable. Troponin was negative. You mentioned that you have pain medication at home, please take your pain medications as directed. Can also take ibuprofen and Tylenol at home. Please return to emergency room if you have worsening symptoms or concerns. EMERGENCY DEPARTMENT GENERAL DISCHARGE INSTRUCTIONS Thank you for coming to [facility] (ED) today and trusting us with you care. We trust that you had a positivie experience in our Emergency Department. If you wish to speak to the department management, you may call the director at [phone]. YOUR FOLLOW UP INSTRUCTIONS ARE FOLLOWS: 1. Do you have a private Doctor? If you do not have a private doctor, please ask for a resource list of physicians or clinics that may be able to assist you with follow up care. 2. The Emergency Physician has interpreted your x-rays. The X-Ray specialist will also review them. If there is a change in the findings, you will be notified in 48 hours when at all possible. 3. A lab test or culture has been done, your results will be reviewed and you will be notified if you need a change in treatment. ADDITIONAL INSTRUCTIONS AND INFORMATION: 1. Your care today has been supervised by a physician who is specially trained in emergency care. Many problems require more than one evaluation for a complete diagnosis and treatment. We recommend that you schedule your follow up appointment as recommended to ensure complete treatment of you illness or injury. If you are unable to obtain follow up care and continue to have a problem, or if your condition worsens, we recommend that you return to the ED. 2. We are not able to safely determine your condition over the phone nor are we able to give sound medical advice over the phone. For these safety reasons, if you call for medical advice we will ask you to come to the ED for further evaluation. 3. If you have any questions regarding these discharge instructions please call the ED at [phone]. SAFETY INFORMATION: In the interest of safety, wellness, and injury prevention; we encourage you to wear your sealbelt, if you smoke; quite smoking, and we encourage family to use a protective helmet for bicycling and other sporting events that present an increased risk for head injury. IF YOUR SYMPTOMS WORSEN OR NEW SYMPTOMS DEVELOP, OR YOU HAVE CONCERNS ABOUT YOUR CONDITION; OR IF YOUR CONDITION WORSENS WHILE YOU ARE WAITING FOR YOUR FOLLOW UP APPOINTMENT; EITHER CONTACT YOUR PRIMARY CARE DOCTOR, THE PHYSICIAN WHOSE NAME AND NUMBER YOU WERE GIVEN, OR RETURN TO THE ED IMMEDIATELY. ALLISON DOMÍNGUEZ APRN Oct 05, 2020 15:01 ANTHONY VARGAS DO Oct 06, 2020 07:17
[2020-10-05 15:12] LABS: BASO % 1 % (0-3); EOS # 0.1 x10^3/uL (0.0-0.7); EOS % 1 % (0-3); HEMATOCRIT 43.2 % (39.0-53.0); HEMOGLOBIN 14.4 g/dL (13.0-17.5); LYMPH # 1.2 x10^3/uL (1.0-4.8); LYMPH % 14 % (24-48); MEAN CORPUSCULAR HEMOGLOBIN 30 pg (25-35); MEAN CORPUSCULAR HGB CONC 33 g/dL (31-37); MEAN CORPUSCULAR VOLUME 90 fL (79-100); MONO # 0.5 x10^3/uL (0.0-1.1); MONO % 6 % (0-9); NEUT # 6.8 x10^3uL (1.8-7.7); NEUT % 79 % (31-73); PLATELET COUNT 243 x10^3/uL (140-400); RED BLOOD COUNT 4.83 x10^6/uL (4.30-5.70); RED CELL DISTRIBUTION WIDTH 16.4 % (11.5-14.5); WHITE BLOOD COUNT 8.6 x10^3/uL (4.0-11.0)
== END 2020-10-05 15:56 | disposition home or self-care (01) ==
LOC: ER 13:52
DX: M54.6 Pain in thoracic spine (principal); G89.29 Other chronic pain; M54.2 Cervicalgia; E11.9 Type 2 diabetes mellitus without complications; K21.9 Gastro-esophageal reflux disease without esophagitis; I10 Essential (primary) hypertension; F17.210 Nicotine dependence, cigarettes, uncomplicated; Z88.6 Allergy status to analgesic agent; Z88.5 Allergy status to narcotic agent
CPT/HCPCS: 36415; 82947; 84484; 85025; 93005; 99284-25

== ENCOUNTER 2020-10-17 14:12 | Emergency (ER) | payer MEDICARE, MEDICAID ==
[~2020-10-17] VITALS: Ht 165.1 cm; Wt 61.7 kg
[2020-10-17] MEDS ORDERED: ONDANSETRON ODT 4 MG TAB.RAPDIS PO ONE (15:00)
[2020-10-17] MEDS ORDERED: HYDROcodone/APAP 5/325MG 1 TAB TABLET PO ONE (15:00)
--- NOTE | 2020-10-17 15:08 | PHYS DOC ---
Past History Past Medical History: Anxiety, Depression, Diabetes, GERD, Hypertension Additional Past Medical Histor: COLITIS (TK PUGH APRN) Past Surgical History: Other Additional Past Surgical Histo: whipple, bowel perforation, NECK (TK PUGH APRN) Smoking: Cigarettes, Less than 1pk/day Alcohol Use: Sober Drug Use: Marijuana (TK PUGH APRN) General Adult EDM: Chief Complaint: PENIS PROBLEM HPI: HPI: Patient is a 55-year-old male who presents to the ER today for general pain that radiates to his buttock and bilateral flank that started today. Patient rates pain 8 out of 10, pain is intermittent, he describes the pain as a burning pain, no treatment prior to arrival. Patient is reporting dysuria and urinary frequency with mild nausea. Patient denies any concern for STDs, penile discharge, injury, history of kidney stones, hematuria, vomiting, fevers. (TK PUGH APRN) Review of Systems: Review of Systems: 14 body systems of the review of systems have been reviewed. See HPI for pertinent positive and negative responses, otherwise all other systems are negative, nonpertinent or noncontributory (TK PUGH APRN) Current Medications: Current Meds: Current Medications Medications (Trade) Dose Ordered Sig/Elfego Start Time Stop Time Status Last Admin Dose Admin Acetaminophen/ Hydrocodone Bitart (Lortab 5/325) 1 tab 1X ONCE 10/17/20 15:00 10/17/20 15:01 UNV Ondansetron HCl (Zofran Odt) 4 mg 1X ONCE 10/17/20 15:00 10/17/20 15:01 UNV (TK PUGH APRN) Allergies: Allergies: Allergies Coded Allergies Type Severity Reaction Last Updated Verified aspirin Allergy Intermediate 09/02/20 Yes fentanyl Allergy Intermediate 09/02/20 Yes ketorolac Allergy Intermediate 09/02/20 No naproxen Allergy Intermediate 09/02/20 No tramadol Allergy Intermediate 09/02/20 Yes (TK PUGH APRN) Physical Exam: PE: Constitutional: Well developed, well nourished, no acute distress, non-toxic appearance. [] HENT: Normocephalic, atraumatic Eyes: PERRL, conjunctiva normal, no discharge. [] Neck: Normal range of motion, no stridor Cardiovascular:Heart rate regular rhythm, no murmur [] Lungs & Thorax: Bilateral breath sounds clear to auscultation [] Abdomen: Bowel sounds normal, soft, no masses, no pulsatile masses. [] Skin: Warm, dry, no erythema, no rash. [] Back: No tenderness, bilateral CVA tenderness. [] Extremities: No tenderness, no cyanosis, no clubbing, ROM intact, no edema. [] Neurologic: Alert and oriented X 3, normal motor function, normal sensory function, no focal deficits noted. [] Psychologic: Affect normal, judgement normal, mood normal. [] Genital: No penile discharge, no masses palpated, tenderness with palpation of genitals, no redness/swelling/warmth, no high riding testes. (TK PUGH APRN) EKG: EKG: [] (TK PUGH APRN) Radiology/Procedures: Radiology/Procedures: PROCEDURE: TESTICULAR/SCROTUM CLINICAL HISTORY: Reason: testicular pain / Spl. Instructions: / History: COMPARISON: None available. TECHNIQUE: Ultrasound images of the scrotum was performed with mayes-scale and color doppler. FINDINGS: The right testis measures 3.7 x 3.2 x 2.2 cm. The left testis measures 3.4 x 2.5 x 1.9 cm. There is no intratesticular abnormality. Testicular vascularity is symmetric and within normal limits. Left epididymis appears enlarged and somewhat heterogenous. There is no hydrocele or varicocele. IMPRESSION: Findings which could relate to left-sided epididymitis. No evidence for torsion. Electronically signed by: Estella Singleton MD (10/17/2020 4:42 PM) [facility] DICTATED AND SIGNED BY: ESTELLA SINGLETON MD DATE: 10/17/20 1638 CC: AGNES VALDERRAMA MD; TK PUGH APRN ~MTH0 0 (TK PUGH APRN) Heart Score: C/O Chest Pain: No Risk Factors: Risk Factors: DM, Current or recent (<one month) smoker, HTN, HLP, family history of CAD, obesity. Risk Scores: Score 0 - 3: 2.5% MACE over next 6 weeks - Discharge Home Score 4 - 6: 20.3% MACE over next 6 weeks - Admit for Clinical Observation Score 7 - 10: 72.7% MACE over next 6 weeks - Early Invasive Strategies (TK PUGH APRN) Course & Med Decision Making: Course & Med Decision Making Pertinent Labs and Imaging studies reviewed. (See chart for details) Patient is a 55-year-old male who presents to the ER today for dental pain that radiates to his bilateral flank with dysuria and urinary urgency. A UA was performed in the ER today that was unremarkable. Patient was treated for nausea with Zofran and he was also given pain medication. Testicular ultrasound performed which showed epididymitis likely. Patient treated in the ER today with Rocephin and doxycycline. Patient's urine also tested for GC chlamydia and he will be notified of those results when they become available. I discussed with patient all findings and diagnostic testing as well as the need to follow- up with PCP for further evaluation and treatment or return to the ER if any new or worsening symptoms. Strict return precautions were also discussed at length. Patient voiced understanding and agreement with the plan. Patient is hemodynamically stable at the time of disposition. (TK PUGH APRN) Dragon Disclaimer: Dragon Disclaimer: This electronic medical record was generated, in whole or in part, using a voice recognition dictation system. (TK PUGH APRN) Attending Co-Sign The patient was seen and interviewed as well as examined at the bedside. The chart was reviewed. The case was discussed. Agree with the plan of care. (CHAVO JASSO DO) Departure Departure: Impression: Primary Impression: Epididymitis Disposition: 01 HOME / SELF CARE / HOMELESS Condition: GOOD Referrals: AGNES VALDERRAMA MD (PCP) Patient Instructions: Epididymitis Additional Instructions: Your seen in the ER today for testicular pain. You did not have a urinary tract infection in your testicular ultrasound showed epididymitis which is inflammation of the tube in your testicle that holds sperm. This can be caused by sexually transmitted infection or bacteria. Your urine was tested for gonorrhea and chlamydia and you will be notified of those results when they become available to you. Please abstain from sexual intercourse until you receive the results of STD testing. You were treated in the ER with antibiotics and an antibiotic was sent to your pharmacy make sure that you start and finish it completely. You can take Tylenol or ibuprofen for pain. Follow-up with your primary care provider tomorrow regarding your ER visit today. If you develop fevers, nausea or vomiting, severe abdominal pain, worsening of your testicular pain or any new concerns please return to the ER. EMERGENCY DEPARTMENT GENERAL DISCHARGE INSTRUCTIONS Thank you for coming to [facility] (ED) today and trusting us with you care. We trust that you had a positivie experience in our Emergency Department. If you wish to speak to the department management, you may call the director at [phone]. YOUR FOLLOW UP INSTRUCTIONS ARE FOLLOWS: 1. Do you have a private Doctor? If you do not have a private doctor, please ask for a resource list of physicians or clinics that may be able to assist you with follow up care. 2. The Emergency Physician has interpreted your x-rays. The X-Ray specialist will also review them. If there is a change in the findings, you will be notified in 48 hours when at all possible. 3. A lab test or culture has been done, your results will be reviewed and you will be notified if you need a change in treatment. ADDITIONAL INSTRUCTIONS AND INFORMATION: 1. Your care today has been supervised by a physician who is specially trained in emergency care. Many problems require more than one evaluation for a complete diagnosis and treatment. We recommend that you schedule your follow up appointment as recommended to ensure complete treatment of you illness or injury. If you are unable to obtain follow up care and continue to have a problem, or if your condition worsens, we recommend that you return to the ED. 2. We are not able to safely determine your condition over the phone nor are we able to give sound medical advice over the phone. For these safety reasons, if you call for medical advice we will ask you to come to the ED for further evaluation. 3. If you have any questions regarding these discharge instructions please call the ED at [phone]. SAFETY INFORMATION: In the interest of safety, wellness, and injury prevention; we encourage you to wear your sealbelt, if you smoke; quite smoking, and we encourage family to use a protective helmet for bicycling and other sporting events that present an increased risk for head injury. IF YOUR SYMPTOMS WORSEN OR NEW SYMPTOMS DEVELOP, OR YOU HAVE CONCERNS ABOUT YOUR CONDITION; OR IF YOUR CONDITION WORSENS WHILE YOU ARE WAITING FOR YOUR FOLLOW UP APPOINTMENT; EITHER CONTACT YOUR PRIMARY CARE DOCTOR, THE PHYSICIAN WHOSE NAME AND NUMBER YOU WERE GIVEN, OR RETURN TO THE ED IMMEDIATELY. Scripts Doxycycline Hyclate (DOXYCYCLINE HYCLATE) 100 Mg Tablet 1 TAB PO BID for infection for 10 Days, #20 TAB 0 Refills Prov: KT PUGH APRN 10/17/20 TK PUGH APRN Oct 17, 2020 15:07 CHAVO JASSO DO Oct 19, 2020 08:52
[2020-10-17 15:45] LABS: CLARITY,URINE CLEAR; COLOR,URINE YELLOW
[2020-10-17 15:46] LABS: BILIRUBIN,URINE NEG (NEG); GLUCOSE,URINE >=1000 mg/dL (NEG); NITRITE,URINE NEG (NEG); UROBILINOGEN,URINE 0.2 mg/dL (0.2 mg/dL)
[2020-10-17 15:47] LABS: BACTERIA,URINE 0 /HPF (0-FEW); RBC,URINE 0 /HPF (0-2); WBC,URINE RARE /HPF (0-4)
--- NOTE | 2020-10-17 16:44 | RAD ---
CLINICAL HISTORY: Reason: testicular pain / Spl. Instructions: / History: COMPARISON: None available. TECHNIQUE: Ultrasound images of the scrotum was performed with mayes-scale and color doppler. FINDINGS: The right testis measures 3.7 x 3.2 x 2.2 cm. The left testis measures 3.4 x 2.5 x 1.9 cm. There is no intratesticular abnormality. Testicular vascularity is symmetric and within normal limit s. Left epididymis appears enlarged and somewhat heterogenous. There is no hydrocele or varicocele. IMPRESSION: Findings which could relate to left-sided epididymitis. No evidence for torsion. Electronically signed by: Estella Hall MD (10/17/2020 4:42 PM) [facility]
[2020-10-17] MEDS ORDERED: DOXY100T PO (17:02)
[2020-10-18 21:27] VITALS: BP 151/84
== END 2020-10-17 17:04 | disposition home or self-care (01) ==
LOC: ER 14:12
DX: N45.1 Epididymitis (principal); E11.9 Type 2 diabetes mellitus without complications; K21.9 Gastro-esophageal reflux disease without esophagitis; I10 Essential (primary) hypertension; F17.210 Nicotine dependence, cigarettes, uncomplicated; Z88.6 Allergy status to analgesic agent; Z88.8 Allergy status to other drugs, medicaments and biological substances
CPT/HCPCS: 36415; 76870; 81001; 87491; 87591; 99284; Q0162

== ENCOUNTER 2020-11-03 14:21 | Inpatient (IN) | payer MEDICARE, MEDICAID ==
[~2020-11-03] VITALS: Ht 165.1 cm; Wt 56.5 kg
[~2020-11-03 14:21] MED LIST changes: -DOXY100C2 PO; +DOXY100C3 PO; +DOXY100T PO
[2020-11-03] MEDS ORDERED: NALOXONE 2 MG/2 ML DISP.SYRIN. IV ONE (14:45)
[2020-11-03] MEDS ORDERED: IV NORMAL SALINE 1,000ML 1,000 ML IV ONE (14:45)
[2020-11-03] MEDS ORDERED: MORPHINE SULFATE 4 MG/ML DISP.SYRIN. IV ONE ×2 (14:45→15:30)
[2020-11-03] MEDS ORDERED: diphenhydrAMINE 50 MG/ML VIAL IVP ONE (14:45)
[2020-11-03] MEDS ORDERED: HALOPERIDOL LACT 5 MG/ML VIAL. IVP ONE (14:45)
[2020-11-03] MEDS ORDERED: ONDANSETRON PF 4 MG/2 ML VIAL. IVP ONE ×2 (14:45→15:30)
--- NOTE | 2020-11-03 14:55 | PHYS DOC ---
Past History Past Medical History: Anxiety, Depression, Diabetes, GERD, Hypertension Additional Past Medical Histor: COLITIS Past Surgical History: Other Additional Past Surgical Histo: whipple, bowel perforation, NECK Smoking: Cigarettes, Less than 1pk/day Alcohol Use: Sober Drug Use: Marijuana General Adult EDM: Chief Complaint: BLOOD SUGAR PROBLEM HPI: HPI: Patient is a 55-year-old male coming in for 3 days of vomiting via EMS. Patient fell earlier today and states he hit his head but denies loss of consciousness (c-collar placed by EMS). Patient states he has not been able to keep any of his pain medications down, usually takes oxycodone at home. Patient said he has had 1 day of diarrhea. Complaining of whole body pain. Per EMS there was some blood streaking and blood clots when he vomited two times in the back of the EMS ambulance. Patient has a history for multiple visits for abdominal pain and DKA in type II diabetic patient. Has a history of chronic pain. Review of Systems: Review of Systems: All other systems within normal limits except for as noted in the HPI Current Medications: Current Meds: Current Medications Medications (Trade) Dose Ordered Sig/Elfego Start Time Stop Time Status Last Admin Dose Admin Diphenhydramine HCl (Benadryl) 25 mg 1X ONCE 11/03/20 14:45 11/03/20 14:46 UNV Haloperidol Lactate (Haldol) 5 mg 1X ONCE 11/03/20 14:45 11/03/20 14:46 UNV Morphine Sulfate (Morphine 4mg Syringe) 4 mg 1X ONCE 11/03/20 14:45 11/03/20 14:48 DC Naloxone HCl (Narcan) 2 mg 1X ONCE 11/03/20 14:45 11/03/20 14:46 UNV Ondansetron HCl (Zofran) 4 mg 1X ONCE 11/03/20 14:45 11/03/20 14:48 DC Sodium Chloride 1,000 ml @ 1,000 mls/hr 1X ONCE 11/03/20 14:45 11/03/20 15:44 UNV Allergies: Allergies: Allergies Coded Allergies Type Severity Reaction Last Updated Verified aspirin Allergy Intermediate 09/02/20 Yes fentanyl Allergy Intermediate 09/02/20 Yes ketorolac Allergy Intermediate 09/02/20 No naproxen Allergy Intermediate 09/02/20 No tramadol Allergy Intermediate 09/02/20 Yes Physical Exam: PE: Constitutional: Well developed, well nourished, no acute distress, non-toxic appearance. [] HENT: Normocephalic, atraumatic, bilateral external ears normal, nose normal. Dry mucous membrane [] Eyes: PERRLA, pinpoint, conjunctiva normal, no discharge. [] Neck: No rigidity, supple, no stridor. No step-off or deformity, c-collar in place [] Cardiovascular: Regular rate and rhythm, brisk cap refill [] Lungs & Thorax: Non labored symmetric respirations, no tachypnea or respiratory distress [] Abdomen: Soft, nondistended, generalized tenderness. Skin: Warm, dry, no erythema, no rash. [] Back: Unremarkable Extremities: No deformities, range of motion grossly intact, no lower extremity edema [] Neurologic: Alert and oriented X 3, no focal deficits noted. [] Psychologic: Affect normal, judgement normal, mood normal. [] EKG: EKG: [] Sinus rhythm, heart rate 80 bpm, normal axis, no ST elevation or depression, no ectopy. Radiology/Procedures: Radiology/Procedures: [] Heart Score: C/O Chest Pain: No Risk Factors: Risk Factors: DM, Current or recent (<one month) smoker, HTN, HLP, family history of CAD, obesity. Risk Scores: Score 0 - 3: 2.5% MACE over next 6 weeks - Discharge Home Score 4 - 6: 20.3% MACE over next 6 weeks - Admit for Clinical Observation Score 7 - 10: 72.7% MACE over next 6 weeks - Early Invasive Strategies Course & Med Decision Making: Course & Med Decision Making Pertinent Labs and Imaging studies reviewed. (See chart for details) Patient with pinpoint pupils and lethargy, Narcan kept at bedside. Patient has a history of opioid overdose. Urine is again positive for cannabis, unclear if DKA is possibly started by cannabis hyperemesis syndrome. Patient's abdomen is soft without focal tenderness. Dragon Disclaimer: Dragon Disclaimer: This electronic medical record was generated, in whole or in part, using a voice recognition dictation system. Departure Departure: Impression: Primary Impression: DKA (diabetic ketoacidoses) Additional Impressions: Dehydration Cannabinoid hyperemesis syndrome Disposition: ADMITTED INPATIENT Admitting Physician: Ho Fragoso Condition: GUARDED Referrals: AGNES VALDERRAMA MD (PCP) ENDY FRITZ MD Nov 03, 2020 14:55
[2020-11-03] MEDS ORDERED: MORPHINE SULFATE 4 MG/ML DISP.SYRIN. ONE (15:03)
[2020-11-03] MEDS ORDERED: ONDANSETRON PF 4 MG/2 ML VIAL. ONE (15:15)
--- NOTE | 2020-11-03 15:31 | RAD ---
CT HEAD AND C-SPINE WO History: Reason: fall, neck pain, headache / Spl. Instructions: / History: Comparison: September 14, 2019 Technique: Noncontrast CT imaging was performed of the head and cervical spine. Coronal and sagittal reconstructions were performed. Exposure: One or more of the following individualized dose reduction techniques were utilized for thi s examination: 1. Automated exposure control 2. Adjustment of the mA and/or kV according to patient size 3. Use of iterative reconstruction technique. Findings: Head CT: No intracranial hemorrhage. No mass effect. No hydrocephalus. Extra-axial spaces are unrema rkable. Mild posterior scalp soft tissue swelling. Imaged orbits are unremarkable. Mild right maxillary sinus mucosal thickening. Mastoid air cells are clear. No acute calvarial fracture. Cervical spine CT: Mild retrolisthesis C3 on C4, unchanged. Intervertebral fusion C4-C5. Moderate degenerative disc spence ges most prominent C3-C4. Facet arthropathy. Moderate canal narrowing C3-C4. Multilevel neuroforamina l narrowing. Mild biapical bullous disease. Unchanged adenoidal tonsillar hypertrophy. Impression: Head CT: 1. No acute intracranial abnormality. Cervical spine CT: 1. No acute fracture or subluxation of the cervical spine. 2. Multilevel cervical spondylosis most prominent C3-C4 with moderate canal narrowing, unchanged. 3. Enlarged adenoid tonsils, unchanged. Electronically signed by: Nicholas Anderson DO (11/03/2020 3:28 PM) [id number]
[2020-11-03 16:08] LABS: BASO # 0.1 x10^3/uL (0.0-0.2); BASO % 1 % (0-3); EOS % 0 % (0-3); HEMATOCRIT 53.4 % (39.0-53.0); HEMOGLOBIN 17.2 g/dL (13.0-17.5); LYMPH # 1.5 x10^3/uL (1.0-4.8); LYMPH % 10 % (24-48); MEAN CORPUSCULAR HEMOGLOBIN 30 pg (25-35); MEAN CORPUSCULAR HGB CONC 32 g/dL (31-37); MEAN CORPUSCULAR VOLUME 92 fL (79-100); MONO # 0.9 x10^3/uL (0.0-1.1); MONO % 6 % (0-9); NEUT # 12.5 x10^3uL (1.8-7.7); NEUT % 83 % (31-73); PLATELET COUNT 259 x10^3/uL (140-400); RED BLOOD COUNT 5.79 x10^6/uL (4.30-5.70); RED CELL DISTRIBUTION WIDTH 16.5 % (11.5-14.5)
[2020-11-03 16:14] LABS: CLARITY,URINE CLEAR; COLOR,URINE YELLOW; GLUCOSE,URINE 500 mg/dL (NEG)
[2020-11-03 16:15] LABS: BILIRUBIN,URINE SMALL (NEG); NITRITE,URINE NEG (NEG); UROBILINOGEN,URINE 0.2 mg/dL (0.2 mg/dL)
[2020-11-03] MEDS ORDERED: IV RINGERS SOLUTION,LACTATED 1,000 ML IV ONE ×2 (16:15)
[2020-11-03 16:16] LABS: BARBITURATES NEG (NEG); BENZODIAZEPINES NEG (NEG); CANNABINOIDS POS (NEG); COCAINE NEG (NEG); METHADONE NEG (NEG); OPIATES NEG (NEG); PHENCYCLIDINE NEG (NEG); RBC,URINE RARE /HPF (0-2); WBC,URINE RARE /HPF (0-4)
[2020-11-03 16:17] LABS: AMPHETAMINE/METHAMPHETAMINE NEG (NEG); BACTERIA,URINE 0 /HPF (0-FEW); HYALINE CASTS, URINE OCC /HPF; SQUAMOUS EPITHELIAL CELL,UR OCC /LPF
[2020-11-03 16:27] LABS: ACETAMIN < 2.0 mcg/mL (10-30); ETHANOL < 10 mg/dL (0-10)
[2020-11-03 16:35] LABS: ALBUMIN 3.3 g/dL (3.4-5.0); ALBUMIN/GLOBULIN RATIO 1.1 (1.0-1.7); CALCIUM 7.9 mg/dL (8.5-10.1); CREATININE 1.5 mg/dL (0.7-1.3); GFR 58.6; MAGNESIUM 2.8 mg/dL (1.8-2.4); PHOSPHORUS 4.5 mg/dL (2.6-4.7); TOTAL BILIRUBIN 0.9 mg/dL (0.2-1.0); TOTAL PROTEIN 6.4 g/dL (6.4-8.2)
[2020-11-03] MEDS ORDERED: IV NORMAL SALINE 1,000ML 1,000 ML IV SCH (16:45)
[2020-11-03] MEDS ORDERED: IV DEXTROSE 5 %-0.45 % NACL 1,000 ML IV SCH (16:45)
[2020-11-03] MEDS ORDERED: POTASSIUM CHLORIDE 10MEQ 100 ML IV PRN ×4 (16:45)
[2020-11-03] MEDS ORDERED: MAGNESIUM SULFATE 2GM 50 ML IV PRN (16:45)
[2020-11-03] MEDS ORDERED: INSULIN REGULAR 100 UNIT/ML 3ML VIAL. IV ONE (17:00)
[2020-11-03] MEDS ORDERED: IV NORMAL SALINE 100ML 100 ML ONE (17:11)
[2020-11-03] MEDS: INSULIN REGULAR VIAL 100 UNIT in IV NORMAL SALINE 100ML 100 ML IV PRN (17:21)
--- NOTE | 2020-11-03 18:17 | RAD ---
EXAMINATION: XR ABDOMEN COMP ACUTE CLINICAL HISTORY: DKA, weakness, abdomen pain EXAM DATE/TIME: 11/03/2020 5:08 PM COMPARISON: None FINDINGS: Lines, Tubes, and Devices: None. Cardiomediastinal Silhouette: Within normal limits. Lungs and Pleura: No evidence of focal airspace consolidation or pleural effusion. Pulmonary vasculat ure unremarkable. Bones and Soft Tissues: Degenerative changes in the thoracolumbar spine. Abdomen: Nonobstructive bowel gas pattern. Surgical clips in the central abdomen. Pelvic phleboliths. IMPRESSION: Nonobstructive bowel gas pattern. No evidence of acute cardiopulmonary abnormality. Electronically signed by: Daniel Gomes DO (11/03/2020 6:14 PM) NORBERTO
[2020-11-03 23:01] LABS: CREATININE 1.4 mg/dL (0.7-1.3); GFR 63.4; POTASSIUM 4.9 mmol/L (3.5-5.1)
[2020-11-04 01:05] VITALS: BP 145/81
[2020-11-04] MEDS ORDERED: oxyCODONE/APAP 7.5/325 1 TAB TABLET PO PRN (03:00)
[2020-11-04] MEDS: INSULIN REGULAR VIAL 100 UNIT in IV NORMAL SALINE 100ML 100 ML IV PRN (04:05)
[2020-11-04] MEDS ORDERED: IV DEXTROSE 5% - 0.9 % NACL 1,000 ML IV SCH (04:15)
[2020-11-04 05:40] VITALS: BP 94/55
[2020-11-04 06:45] LABS: CALCIUM 7.7 mg/dL (8.5-10.1); CREATININE 1.2 mg/dL (0.7-1.3); GFR 75.8; POTASSIUM 4.8 mmol/L (3.5-5.1)
[2020-11-04] MEDS ORDERED: ONDANSETRON PF 4 MG/2 ML VIAL. IVP PRN (08:30)
[2020-11-04] MEDS: oxyCODONE/APAP 10/325 1 TAB TABLET PO PRN ×4 (09:14→21:23)
--- NOTE | 2020-11-04 10:11 | HP ---
ADMIT DATE: 11/04/2020 ATTENDING PHYSICIAN: Dr. Fragoso. CHIEF COMPLAINT: Abdominal pain and a high blood sugar. HISTORY OF PRESENT ILLNESS: The patient is a 55-year-old gentleman with multiple medical issues. He has been noncompliant with his meds. He has had vomiting for the last several days. He has ___ quite a bit of narcotics and take oxycodone at home. He has had body myalgias. Blood sugar was over 500. He was admitted then with an early diabetic ketoacidosis. Anion gap was 14. PAST MEDICAL HISTORY: Significant for type 2 diabetes, insulin-dependent, frequent admissions with elevated blood sugars, polysubstance abuse including cigarettes, alcohol, marijuana, and other street drugs. He has also had hypertension, gastroesophageal reflux disease, depression and anxiety. ALLERGIES: INCLUDE ASPIRIN, FENTANYL, KETOROLAC, NAPROSYN, TRAMADOL, EXACT REACTION IS UNCLEAR. MEDICATIONS: Scheduled medicine include the following: He was taking p.o. oxycodone from his primary care physician, regular insulin 9 units t.i.d. along with Lantus 23 units at bedtime, oxycodone, Lyrica and zolpidem at bedtime. Smoking history as noted. Substance abuse is noted. FAMILY HISTORY: Noncontributory. REVIEW OF SYSTEMS: Significant for the vomiting for 3 days. No COVID exposure. Substance abuse. No hematemesis. All other systems reviewed and turned to be negative. PHYSICAL EXAMINATION: GENERAL: When I saw him this is a pleasant, alert gentleman. VITAL SIGNS: Showed blood pressure 94/55, pulse is 82 and regular, temperature 99.3 degrees Fahrenheit, oxygen saturation 96% on room air. HEENT: Head is without trauma. Pupils are reactive. Sclerae nonicteric. Oropharynx clear. NECK: Supple. No bruits. LUNGS: Clear. CARDIOVASCULAR: Regular heart tones. No gallop. ABDOMEN: Soft. Minimal guarding. No rebound tenderness. EXTREMITIES: Without edema. NEUROLOGIC: Focally intact. Speech is fluent. SKIN: Warm and dry. PERTINENT LABORATORY STUDIES: White count of 15,000, hemoglobin 17.2 g/dL and hemoconcentrated state. Admission blood sugar was 500, repeated was down to 290, 202, 182 and 190 by the time I saw him. Creatinine is 1.2 mg percent. Potassium 4.8 mEq. DIAGNOSTIC DATA: The acute abdomen series showed nonobstructive gas pattern. No evidence of significant pathology. No blockage. No masses identified. ASSESSMENT: 1. A 55-year-old gentleman with uncontrolled diabetes. 2. Early diabetic ketoacidosis. 3. Substance abuse. PLAN: 1. Admit to the hospital. 2. Insulin drip. 3. Pain and nausea control. 4. IV hydration. KIERSTEN DR: Janay TID: [id number]
[2020-11-04 10:19] LABS: POTASSIUM 6.5 mmol/L (3.5-5.1)
[2020-11-04] MEDS: INSULIN LISPRO 300 UNITS/3 ML VIAL. SQ ONE (10:30)
[2020-11-04 11:14] VITALS: BP 114/74
--- NOTE | 2020-11-04 11:50 | EKG ---
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
[2020-11-04 13:05] VITALS: BP 146/84
[2020-11-04] MEDS ORDERED: ONDANSETRON ODT 4 MG TAB.RAPDIS PO PRN (16:00)
[2020-11-04 16:01] VITALS: BP 124/80
[2020-11-04] MEDS: INSULIN LISPRO 300 UNITS/3 ML VIAL. SQ SCH (16:30)
[2020-11-04 19:24] VITALS: BP 129/74
[2020-11-04] MEDS ORDERED: INSULIN GLARGINE SYRINGE. SQ SCH (21:00)
[2020-11-05] MEDS: oxyCODONE/APAP 10/325 1 TAB TABLET PO PRN ×2 (03:05→09:14)
[2020-11-05 05:11] VITALS: BP 105/61
[2020-11-05] MEDS: INSULIN LISPRO 300 UNITS/3 ML VIAL. SQ SCH (08:25)
--- NOTE | 2020-11-05 11:57 | DS ---
DATE OF DISCHARGE: 11/05/2020 ATTENDING PHYSICIAN: Dr. Fragoso. FINAL DISCHARGE DIAGNOSES: 1. Uncontrolled diabetes. 2. Noncompliance of medications. 3. Early diabetic ketoacidosis. 4. Polysubstance abuse. HISTORY AND PHYSICAL: The patient aged 55, has been noncompliant with sugars. He presented to the ED with vague nonspecific abdominal pain. Blood sugar was over 500 with an early acidosis. Anion gap was 14. He was admitted with DKA. PAST MEDICAL HISTORY: Significant for diabetes, polysubstance abuse, alcohol and marijuana use, gastroesophageal reflux disease and depression. PHYSICAL EXAMINATION: Please see the dictated note. PERTINENT LABORATORY AND X-RAY STUDIES: Admission hemoglobin 17.2 g/dL, white count 15,000. Blood sugars were drawn 500 down to 226, 290, 88 and 207. COURSE IN THE HOSPITAL: The patient was admitted, started on insulin drip with marked improvement, acidosis corrected. Diet was advanced. He did well. By the 3rd hospital day, his vital signs are stable. Blood pressure was 129/74. He was afebrile. Lungs were clear. Abdominal pain has resolved. Therefore, he is discharged home. He will continue his regular and Lantus insulin as scheduled along with Lyrica, zolpidem, oxycodone from his PCP's office and Zofran p.r.n. He was discharged then from our hospital in stable condition with explicit written and followup care. JAMES DR: Janay TID: [id number] CC: Mirtha VALDERRAMA MD
== END 2020-11-05 11:41 | disposition home or self-care (01) | DRG 639 ==
LOC: ER 14:21 → 1 SOUTH 11-04 00:31
PROVIDERS: ADMIT Hospitalist; ATTEND Hospitalist
DX: E11.10 Type 2 diabetes mellitus with ketoacidosis without coma (principal); E86.0 Dehydration; I10 Essential (primary) hypertension; F32.9 Major depressive disorder, single episode, unspecified; F41.9 Anxiety disorder, unspecified; G89.29 Other chronic pain; K21.9 Gastro-esophageal reflux disease without esophagitis; F19.10 Other psychoactive substance abuse, uncomplicated; Z79.4 Long term (current) use of insulin; Z87.891 Personal history of nicotine dependence; Z91.14 Patient's other noncompliance with medication regimen; Z88.6 Allergy status to analgesic agent; Z88.8 Allergy status to other drugs, medicaments and biological substances
CPT/HCPCS: 36415; 70450; 72125; 74022; 80048; 80053; 80307; 80329; 81001; 82550; 82803; 82947; 83605; 83735; 83874; 84100; 84484; 85025; 93005; 96361; 96374; 96375; G0480; J1200; J1630; J1815; J2270; J2405; J7042; J7120; 99285-25; J7030

== ENCOUNTER 2020-11-26 10:25 | Emergency (ER) | payer MEDICARE, MEDICAID ==
[~2020-11-26] VITALS: Ht 165.1 cm; Wt 56.5 kg
[2020-11-26 10:39] VITALS: BP 158/88
--- NOTE | 2020-11-26 10:45 | PHYS DOC ---
Past History Past Medical History: Anxiety, Depression, Diabetes, GERD, Hypertension Additional Past Medical Histor: COLITIS, chronic pain Past Surgical History: Other Additional Past Surgical Histo: whipple, bowel perforation, NECK Smoking: Cigarettes, Less than 1pk/day Alcohol Use: None Drug Use: Marijuana Adult General Chief Complaint Chief Complaint: CHEST PAIN HPI HPI Patient is a 55-year-old male well-known to our department presenting for chest pain. Reports onset was yesterday evening without any known inciting event, trauma or ingestion. Nothing known makes better or worse. Patient reports generalized dull ache in chest and all extremities. Timing of symptoms has been constant since onset. Denies any known sick contacts or recent travel, does admit he is not vaccinated for COVID-19. He is here requesting pain control Review of Systems Review of Systems Fourteen body systems of review of systems have been reviewed. See HPI for pertinent positives and negative responses, other schultz all other systems are negative, non-pertinent or non-contributory Allergies Allergies Allergies Coded Allergies Type Severity Reaction Last Updated Verified tramadol Allergy Severe ANAPHYLAXIS 11/04/20 Yes aspirin Allergy Intermediate 09/02/20 Yes fentanyl Allergy Intermediate 11/04/20 Yes ketorolac Allergy Intermediate 09/02/20 No naproxen Allergy Intermediate 09/02/20 No Physical Exam Physical Exam Constitutional: Well developed, well nourished, no acute distress, non-toxic appearance. HENT: Normocephalic, atraumatic, bilateral external ears normal, oropharynx moist, no oral exudates, nose normal. Eyes: PERRLA, EOMI, conjunctiva normal, no discharge. Neck: Normal range of motion, no tenderness, supple, no stridor. Cardiovascular: Heart rate regular, sinus rhythm, no murmurs rubs or gallops Lungs & Thorax: Bilateral breath sounds clear to auscultation Abdomen: Bowel sounds normal, soft, no tenderness, no masses, no pulsatile masses. Nonsurgical abdomen, no peritoneal signs Skin: Warm, dry, no erythema, no rash. Back: No tenderness, no CVA tenderness. Extremities: No tenderness, no cyanosis, no clubbing, ROM intact, no edema. Neurologic: Alert and oriented X 3, grossly normal motor & sensory function, no focal deficits noted. Psychologic: Anxious affect, normal mood Current Patient Data Vital Signs Vital Signs Date Time Temp Pulse Resp B/P (MAP) Pulse Ox O2 Delivery O2 Flow Rate FiO2 11/26/20 10:39 97.9 65 16 158/88 95 Room Air EKG EKG EKG ordered and interpreted by myself at 1040 hrs. as sinus rhythm at 66 bpm, unremarkable intervals, no axis deviation, no obvious ischemic findings, no STEMI EKG ordered and interpreted by myself at 1159 hrs. as sinus rhythm at 67 bpm, unremarkable intervals, no axis deviation, no obvious ischemic findings, no STEMI Radiology/Procedures Radiology/Procedures Single view of the chest. 11/26/2020 10:57 AM Indication: Reason: chest pain / Spl. Instructions: / History: Comparison: Chest radiograph November 03, 2020 Findings: Mild linear opacities noted in the right lung base, likely discoid a telectasis. No pneumothorax, significant effusion, or or other focal infiltrates noted. No acute osseous changes are seen. IMPRESSION: Mild linear opacities in the right lung base, likely discoid atelectasis Electronically signed by: Dyllan Alvarez MD (11/26/2020 11:20 AM) [id number] Heart Score C/O Chest Pain: Yes HEART Score for Chest Pain: HEART Score for Chest Pain Response (Comments) Value History Slighlty/Non-Suspicious 0 ECG Normal 0 Age >45 - < 65 1 Risk Factors 1 or 2 Risk Factors 1 Troponin < Normal Limit 0 Total 2 Risk Factors: Risk Factors: DM, Current or recent (<one month) smoker, HTN, HLP, family history of CAD, obesity. Risk Scores: Risk Factors: DM, Current or recent (<one month) smoker, HTN, HLP, family history of CAD, obesity. Course & Med Decision Making Course & Med Decision Making Vitals stable. HPI, physical examination and comprehensive diagnostic work-up nonconcerning for any emergent or surgical issues. I reviewed low heart score. I disclosed given vague symptoms of body aches my recommendations for COVID-19 testing, this was performed with results pending I disclosed there is little indication for further diagnostic work-up and/or need for hospital admission especially at current time when all hospitals are full with COVID-19 etc. Patient has good access to PCP, I advised patient to continue supportive care until COVID-19 test results come back with plans for close PCP follow-up for continuity of care when safe to do so in outpatient setting Strict return precautions were discussed with good understanding by patient, all questions and concerns addressed prior to ER departure Curt Disclaimer Curt Disclaimer This electronic medical record was generated, in whole or in part, using a voice recognition dictation system. Departure Departure: Impression: Primary Impression: Chest pain, unspecified Additional Impression: Person under investigation for COVID-19 Disposition: HOME / SELF CARE / HOMELESS Condition: STABLE Referrals: AGNES VALDERRAMA MD (PCP) Patient Instructions: Chest Pain (Nonspecific) Additional Instructions: You were seen for chest pain, generalized body aches, and possible infection with COVID-19. Your physical exam was reassuring. Your chest x-ray and comprehensive ER work-up was normal. We tested you for COVID-19 but this test does not come back for 1 to 2 days. In the meantime you need to quarantine yourself at home away from all other individuals, especially those who are elderly or have any other chronic health issues or an immunocompromised status. You should return to the ED if you develop worsening cough, shortness of breath, chest pain, or any other new or concerning symptoms. Alternate Tylenol and ibuprofen as needed for body aches and pain. If your test does come back positive you need to quarantine yourself for 10 days until symptom-free. You should make sure to drink plenty of fluids and get plenty of rest. Problem Qualifiers ANTHONY VARGAS DO Nov 26, 2020 10:45
--- NOTE | 2020-11-26 10:50 | EKG ---
[address] [address] Test Date: 2020-11-26 Test Time: 10:27:41 Pat Name: ADAM CASTELAN Department: Room: Gender: M Registration Coordinator: MCKENNA : 1965 Requested By: ANTHONY VARGAS Order Number: [id number] Reading MD: Measurements Intervals [place] Rate: 66 P: 47 CO: 130 QRS: 29 QRSD: 82 T: 22 QT: 394 QTc: 415 Interpretive Statements SINUS RHYTHM LOW LIMB LEAD VOLTAGE NO SPECIFIC ECG ABNORMALITIES RI6.02 No previous ECG available for comparison
--- NOTE | 2020-11-26 11:23 | RAD ---
Single view of the chest. 11/26/2020 10:57 AM Indication: Reason: chest pain / Spl. Instructions: / History: Comparison: Chest radiograph November 03, 2020 Findings: Mild linear opacities noted in the right lung base, likely discoid atelectasis. No pneumoth orax, significant effusion, or or other focal infiltrates noted. No acute osseous changes are seen. IMPRESSION: Mild linear opacities in the right lung base, likely discoid atelectasis Electronically signed by: Dyllan Alvarez MD (11/26/2020 11:20 AM) [id number]
[2020-11-26 11:35] LABS: BASO % 1 % (0-3); EOS % 0 % (0-3); HEMATOCRIT 37.4 % (39.0-53.0); HEMOGLOBIN 12.2 g/dL (13.0-17.5); LYMPH # 0.8 x10^3/uL (1.0-4.8); LYMPH % 11 % (24-48); MEAN CORPUSCULAR HEMOGLOBIN 29 pg (25-35); MEAN CORPUSCULAR HGB CONC 33 g/dL (31-37); MEAN CORPUSCULAR VOLUME 89 fL (79-100); MONO # 0.6 x10^3/uL (0.0-1.1); MONO % 7 % (0-9); NEUT # 6.1 x10^3uL (1.8-7.7); NEUT % 81 % (31-73); PLATELET COUNT 325 x10^3/uL (140-400); RED CELL DISTRIBUTION WIDTH 15.5 % (11.5-14.5); WHITE BLOOD COUNT 7.5 x10^3/uL (4.0-11.0)
[2020-11-26 11:39] LABS: CALCIUM 6.8 mg/dL (8.5-10.1); CREATININE 0.7 mg/dL (0.7-1.3); GFR 141.2; POTASSIUM 4.2 mmol/L (3.5-5.1)
--- NOTE | 2020-11-26 12:16 | EKG ---
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
== END 2020-11-26 12:21 | disposition home or self-care (01) ==
LOC: ER 10:25
DX: R07.9 Chest pain, unspecified (principal); E11.9 Type 2 diabetes mellitus without complications; K21.9 Gastro-esophageal reflux disease without esophagitis; I10 Essential (primary) hypertension; F17.210 Nicotine dependence, cigarettes, uncomplicated; Z20.822 Contact with and (suspected) exposure to COVID-19; Z88.6 Allergy status to analgesic agent; Z88.8 Allergy status to other drugs, medicaments and biological substances
CPT/HCPCS: 36415; 71045; 80048; 84484; 85025; 93005; 99285; C9803; U0003

== ENCOUNTER 2020-12-05 15:00 | Emergency (ER) | payer MEDICARE, MEDICAID ==
[~2020-12-05] VITALS: Ht 165.1 cm; Wt 62.1 kg
[2020-12-05 15:59] VITALS: BP 151/83
--- NOTE | 2020-12-05 16:20 | PHYS DOC ---
Past History Past Medical History: Anxiety, Depression, Diabetes, GERD, Hypertension Additional Past Medical Histor: COLITIS, chronic pain Past Surgical History: Other Additional Past Surgical Histo: whipple, bowel perforation, NECK Smoking: Cigarettes, Less than 1pk/day Alcohol Use: None Drug Use: Marijuana Adult General Chief Complaint Chief Complaint: MULTIPLE COMPLAINTS [facility] HPI Patient is a 55-year-old male well-known to our department presenting for chronic pain. Presents with 3-day history of generalized pain without any known inciting event, trauma, change in medication, ingestion or other concerning exposure. He has been taking home prescribed medication without significant relief in symptoms. He has not contacted his primary care physician regarding this. He was seen earlier this month for similar symptoms and was found to be Covid negative, he did not call his primary care physician to review that ER visit either. States he has chronic generalized pain that has not been well controlled by his primary care physician and has several outpatient specialists pending such as GI and pain. He is requesting pain control and hospital admi ssion/transfer for further evaluation Review of Systems Review of Systems Fourteen body systems of review of systems have been reviewed. See HPI for pertinent positives and negative responses, other schultz all other systems are negative, non-pertinent or non-contributory Allergies Allergies Allergies Coded Allergies Type Severity Reaction Last Updated Verified tramadol Allergy Severe ANAPHYLAXIS 12/05/20 Yes aspirin Allergy Intermediate 12/05/20 Yes fentanyl Allergy Intermediate 12/05/20 Yes ketorolac Allergy Intermediate 12/05/20 No naproxen Allergy Intermediate 12/05/20 No Physical Exam Physical Exam Constitutional: Well developed, well nourished, no acute distress, non-toxic appearance. HENT: Normocephalic, atraumatic, bilateral external ears normal, oropharynx moist, no oral exudates, nose normal. Eyes: PERRLA, EOMI, conjunctiva normal, no discharge. Neck: Normal range of motion, no tenderness, supple, no stridor. Cardiovascular: Heart rate regular, sinus rhythm, no murmurs rubs or gallops Lungs & Thorax: Bilateral breath sounds clear to auscultation Abdomen: Bowel sounds normal, soft, generalized tenderness without guarding or rebound, no masses, no pulsatile masses. Nonsurgical abdomen, no peritoneal signs Skin: Warm, dry, no erythema, no rash. Back: No tenderness, no CVA tenderness. Extremities: No tenderness, no cyanosis, no clubbing, ROM intact, no edema. Neurologic: Alert and oriented X 3, grossly normal motor & sensory function, no focal deficits noted. Psychologic: Affect normal, judgement normal, mood normal. Current Patient Data Vital Signs Vital Signs Date Time Temp Pulse Resp B/P (MAP) Pulse Ox O2 Delivery O2 Flow Rate FiO2 12/05/20 15:59 99.5 94 20 151/83 99 Room Air Lab Results Laboratory Tests Test 12/05/20 15:51 Glucose (Fingerstick) 317 mg/dL (70-99) H EKG EKG [] Radiology/Procedures Radiology/Procedures [] Heart Score C/O Chest Pain: No Risk Factors: Risk Factors: DM, Current or recent (<one month) smoker, HTN, HLP, family history of CAD, obesity. Risk Scores: Risk Factors: DM, Current or recent (<one month) smoker, HTN, HLP, family history of CAD, obesity. Course & Med Decision Making Course & Med Decision Making Vitals stable. HPI and physical examination nonconcerning for any emergent or surgical issues. [id number] glucose 360 I reviewed patient's extensive history and visits in our ER. He has not called his primary care physician after several ER visits at our facility. I reviewed prior extensive work-up that has been performed at our facility with patient I disclosed I would not be providing any narcotic pain relief at this time and that there was no immediate indication for hospital admission or transfer without work-up. I reported I could perform typical work-up given his history of comorbid conditions but patient deferred I did offer patient IV and to trial Tylenol in the meantime for his pain but patient deferred saying Tylenol does not work for him. He states he can hydrate himself and give himself insulin at home so he does not see the point in staying. He is requesting to leave if he is not getting narcotic meds I advised him to utilize his primary care physician and go up typical chain of command when facing medical issues in the future given high capacity of all healthcare facilities given current COVID-19 pandemic Strict return precautions discussed with good understanding by patient, all questions and concerns addressed prior to ER departure in stable condition Curt Disclaimer Dragon Disclaimer This electronic medical record was generated, in whole or in part, using a voice recognition dictation system. Departure Departure: Impression: Primary Impression: Chronic pain Additional Impression: Uncontrolled type 2 diabetes mellitus with hyperglycemia Disposition: HOME / SELF CARE / HOMELESS Condition: STABLE Referrals: AGNES VALDERRAMA MD (PCP) Additional Instructions: You were seen for hyperglycemia. You need to start taking your insulin/diabetes medications as prescribed and follow up with your primary care doctor as soon as possible. It is important for good glycemic control to reduce the risks of acute and chronic medical problems. Return to the ED if you develop any abdominal pain, vomiting, cough, chest pain, fever, or any other new or concerning symptoms. Problem Qualifiers ANTHONY VARGAS DO Dec 05, 2020 16:20
== END 2020-12-05 16:30 | disposition home or self-care (01) ==
LOC: ER 15:00
DX: E11.65 Type 2 diabetes mellitus with hyperglycemia (principal); G89.29 Other chronic pain; K21.9 Gastro-esophageal reflux disease without esophagitis; I10 Essential (primary) hypertension; F17.210 Nicotine dependence, cigarettes, uncomplicated; F12.10 Cannabis abuse, uncomplicated; Z88.5 Allergy status to narcotic agent; Z88.6 Allergy status to analgesic agent
CPT/HCPCS: 82947; 99282

== ENCOUNTER 2020-12-27 15:42 | Emergency (ER) | payer MEDICARE, MEDICAID ==
[~2020-12-27] VITALS: Ht 165.1 cm; Wt 62.0 kg
[2020-12-27] MEDS ORDERED: IOHEXOL 300 MG/ML 75 ML VIAL. IV ONE (16:15)
[2020-12-27] MEDS ORDERED: MORPHINE SULFATE 4 MG/ML DISP.SYRIN. IV ONE ×3 (16:15→20:45)
--- NOTE | 2020-12-27 16:34 | PHYS DOC ---
Past History Past Medical History: Anxiety, Depression, Diabetes, GERD, Hypertension Additional Past Medical Histor: COLITIS, chronic pain (VIKAS HIGUERA MD) Past Surgical History: Other Additional Past Surgical Histo: whipple, bowel perforation, NECK (VIKAS HGIUERA MD) Smoking: Cigarettes, Less than 1pk/day Alcohol Use: None Drug Use: Marijuana (VIKAS HIGUERA MD) General Adult EDM: Chief Complaint: MECHANICAL FALL HPI: HPI: Patient is a 55 year old male who presents with a fall. States he was walking in his garage steps when he tripped on the last step and fell onto a concrete floor. States he struck his head. He is amnestic to some period of time after the fall. Thinks he may have lost consciousness. He has felt nauseous but has not vomited. He has had a headache since the fall. Also complains of neck pain, thoracic back pain, lumbar back pain. No numbness/tingling. Does have pain in the left-sided rib cage and left hip. Has walked a few steps since the fall. He is on aspirin 81 mg daily. No anticoagulants. (VIKAS HIGUERA MD) Review of Systems: Review of Systems: Constitutional: Denies fever or chills Eyes: Denies change in visual acuity HENT: Denies nasal congestion or sore throat Respiratory: Denies cough or shortness of breath Cardiovascular: Denies chest pain or edema GI: Denies abdominal pain, nausea, vomiting, bloody stools or diarrhea : Denies dysuria Musculoskeletal: Reports headache, neck pain, back pain, left sided rib pain, left hip pain, left foot pain Integument: Denies rash Neurologic: Denies headache, focal weakness or sensory changes Endocrine: Denies polyuria or polydipsia Lymphatic: Denies swollen glands Psychiatric: Denies depression or anxiety (VIKAS HIGUERA MD) Current Medications: Current Meds: Current Medications Medications (Trade) Dose Ordered Sig/Elfego Start Time Stop Time Status Last Admin Dose Admin Iohexol (Omnipaque 300 Mg/ml) 75 ml 1X ONCE 12/27/20 16:15 12/27/20 16:17 DC Morphine Sulfate (Morphine 4mg Syringe) 4 mg 1X ONCE 12/27/20 16:15 12/27/20 16:17 DC (VIKAS HIGUERA MD) Allergies: Allergies: Allergies Coded Allergies Type Severity Reaction Last Updated Verified tramadol Allergy Severe ANAPHYLAXIS 12/05/20 Yes aspirin Allergy Intermediate 12/05/20 Yes fentanyl Allergy Intermediate 12/05/20 Yes ketorolac Allergy Intermediate 12/05/20 No naproxen Allergy Intermediate 12/05/20 No (VIKAS HIGUERA MD) Physical Exam: PE: Constitutional: Well developed, well nourished, no acute distress, non-toxic appearance. [] HENT: Normocephalic, atraumatic,[] Eyes: conjunctiva normal, no discharge. [] Neck: Midline cervical tenderness to palpation.. [] Cardiovascular:Heart rate regular rhythm, no murmur [] Lungs & Thorax: Left-sided rib tenderness to palpation. Bilateral breath sounds clear to auscultation [] Abdomen: Bowel sounds normal, soft, no tenderness, no masses, no pulsatile masses. [] Skin: Warm, dry, no erythema, no rash. [] Back: Midline tenderness all the way down the thoracic and lumbar spine.. [] Extremities: Mild pain over the fifth metatarsal with palpation. No obvious deformity or edema. [] Neurologic: Alert and oriented X 3, normal motor function, normal sensory function, no focal deficits noted. [] Psychologic: Affect normal, judgement normal, mood normal. [] (VIKAS HIGUERA MD) EKG: EKG: [] (VIKAS HIGUERA MD) Radiology/Procedures: Radiology/Procedures: [] Impressions: [place] [id number] IMAGING REPORT Signed PATIENT: ADAM CASTELAN ACCOUNT: [id number] : 1965 LOCATION: ER AGE: 55 SEX: M EXAM STATUS: REG ER ORD. PHYSICIAN: VIKAS HIGUERA MD REASON: fall, neck pain, loc PROCEDURE: CT HEAD AND CERVICAL SPINE WO CT HEAD AND C-SPINE WO Date: 12/27/2020 4:14 PM Clinical Indication: fall, neck pain, loc Comparison: None. Technique: 5 mm axial tomographic images were obtained of the head without contrast. These were viewed on brain and bone windows. CT imaging of the cervical spine was performed without contrast. Coronal and sagittal reformatted images were performed. One or more of the following dose reduction techniques were utilized: Automated exposure control (AEC), Adjustment of mA and/or kV according to patient size, Use of iterative reconstruction technique such as ASiR, CT scan done according to ALARA and image gently/image wisely HEAD FINDINGS: The brain parenchyma is normal in attenuation. No intra- or extra-axial mass or fluid collection. No acute hemorrhage. The ventricles are normal in size, shape, and morphology. The mayes-white matter junction is normal. The basilar cisterns are patent. The visualized paranasal sinuses are normal. The visualized portions of the orbits and globes are normal. The mastoid air cells are clear. No aggressive osseous lesion or fracture. CERVICAL SPINE FINDINGS: Postsurgical changes at C4-5 with interbody spacer and osseous fusion across the disc space. Straightening of the cervical lordosis. No acute fracture. No aggressive lytic or blastic osseous lesion. Multilevel degenerative disc height loss. Multilevel disc protrusions and marginal osteophytes results in multilevel spinal canal stenosis. Multilevel uncovertebral and facet arthrosis results in multilevel neural foraminal narrowing. The thyroid gland is normal. No cervical lymphadenopathy. The visualized aerodigestive tract is unremarkable. The visualized lung apices are clear. IMPRESSION: 1. No acute intracranial process. 2. No acute osseous abnormality of the cervical spine. Electronically signed by: Daniel Squires MD (12/27/2020 5:31 PM) [facility] DICTATED AND SIGNED BY: DANIEL SQUIRES MD DATE: 12/27/20 1725 CC: VIKAS HIGUERA MD; AGNES VALDERRAMA MD ~MTH0 0 [place] [id number] IMAGING REPORT Signed PATIENT: ADAM CASTELAN ACCOUNT: [id number] : 1965 LOCATION: ER AGE: 55 SEX: M EXAM STATUS: REG ER ORD. PHYSICIAN: VIKAS HIGUERA MD REASON: fall, left foot pain PROCEDURE: FOOT LEFT 3V EXAM: Left foot, 3 views. HISTORY: Fall. Pain. COMPARISON: None. FINDINGS: 3 views of the left foot are obtained. There is no acute fracture, dislocation or subluxation. No foreign body is seen. There is a tiny calc ification or ossicle medial to the navicular bone. IMPRESSION: No acute osseous finding. Electronically signed by: Erum Shah MD (12/27/2020 5:13 PM) [id number] DICTATED AND SIGNED BY: ERUM SHAH MD DATE: 12/27/20 1712 CC: VIKAS HIGUERA MD; AGNES VALDERRAMA MD ~MTH0 0 (VIKAS HIGUERA MD) Heart Score: C/O Chest Pain: No Risk Factors: Risk Factors: DM, Current or recent (<one month) smoker, HTN, HLP, family history of CAD, obesity. Risk Scores: Score 0 - 3: 2.5% MACE over next 6 weeks - Discharge Home Score 4 - 6: 20.3% MACE over next 6 weeks - Admit for Clinical Observation Score 7 - 10: 72.7% MACE over next 6 weeks - Early Invasive Strategies (VIKAS HIGUERA MD) Course & Med Decision Making: Course & Med Decision Making Pertinent Labs and Imaging studies reviewed. (See chart for details) Patient 55-year-old male who presents with a mechanical fall onto cement. Vital signs stable. Primary exam intact. Secondary exam pertinent for midline neck and back pain, left-sided rib pain, left hip pain, and left foot pain. CT ames scan and images of the left foot ordered.\ 1634 CT head and neck negative XR foot negative. Glucose 741. No DKA. K is 5.0 Calculated osms 313. Serum osm pending. No altered mental status. 1L NS ordered. Given home 18 u lantus and an additional 10 units IV insulin. Will check q1hr glucose. Will be signed out with CT body imaging and ultimate disposition pending. 1751 (VIKAS HIGUERA MD) Course & Med Decision Making Patient care handed off to me at checkout pending labs and imaging. Patient awake alert and oriented complaining of abdominal pain. Made n.p.o. Given morphine and Tylenol for pain. Started on IV fluid resuscitation. Given Zofran for nausea. Laboratory analysis relatively unremarkable. Urinalysis with no ketones but glucosuria. Patient with history of Whipple procedure. Imaging of head, neck chest abdomen and pelvis notable for partial bowel obstruction. Continued on IV fluid resuscitation and continued pain and nausea medicine as well as started on antibiotic. Discussed findings with patient and recommended admission and patient requested to be transferred to as this is where his surgery was performed. Discussed patient with transfer line who accepted patient to Dr. Loomis's surgical service. Patient grateful, verbalized understanding and agreed with plan of transfer and admission. (JENIFER RAMOS MD) Dragon Disclaimer: Dragon Disclaimer: This electronic medical record was generated, in whole or in part, using a voice recognition dictation system. (VIKAS HIGUERA MD) Departure Departure: Impression: Primary Impression: Hyperglycemia Additional Impression: Fall Disposition: 02 SHORT TERM [facility]OSPITAL Admitting Physician: Other (JENIFER RAMOS MD) Condition: STABLE Referrals: AGNES VALDERRAMA MD (PCP) VIKAS HIGUERA MD Dec 27, 2020 16:34 JENIFER RAMOS MD Dec 27, 2020 20:13
[2020-12-27 17:09] LABS: BASO % 0 % (0-3); EOS # 0.1 x10^3/uL (0.0-0.7); EOS % 1 % (0-3); HEMATOCRIT 40.1 % (39.0-53.0); HEMOGLOBIN 12.9 g/dL (13.0-17.5); LYMPH # 1.3 x10^3/uL (1.0-4.8); LYMPH % 16 % (24-48); MEAN CORPUSCULAR HEMOGLOBIN 30 pg (25-35); MEAN CORPUSCULAR HGB CONC 32 g/dL (31-37); MEAN CORPUSCULAR VOLUME 92 fL (79-100); MONO # 0.4 x10^3/uL (0.0-1.1); MONO % 6 % (0-9); NEUT # 6.1 x10^3uL (1.8-7.7); NEUT % 77 % (31-73); PLATELET COUNT 290 x10^3/uL (140-400); RED BLOOD COUNT 4.36 x10^6/uL (4.30-5.70); RED CELL DISTRIBUTION WIDTH 18.4 % (11.5-14.5); WHITE BLOOD COUNT 7.9 x10^3/uL (4.0-11.0)
--- NOTE | 2020-12-27 17:16 | RAD ---
EXAM: Left foot, 3 views. HISTORY: Fall. Pain. COMPARISON: None. FINDINGS: 3 views of the left foot are obtained. There is no acute fracture, dislocation or subluxati on. No foreign body is seen. There is a tiny calcification or ossicle medial to the navicular bone. IMPRESSION: No acute osseous finding. Electronically signed by: Erum Sutton MD (12/27/2020 5:13 PM) [id number]
[2020-12-27 17:23] LABS: CALCIUM 7.7 mg/dL (8.5-10.1); CREATININE 1.4 mg/dL (0.7-1.3); GFR 63.4
[2020-12-27] MEDS ORDERED: IV NORMAL SALINE 1,000ML 1,000 ML IV ONE (17:30)
--- NOTE | 2020-12-27 17:33 | RAD ---
CT HEAD AND C-SPINE WO Date: 12/27/2020 4:14 PM Clinical Indication: fall, neck pain, loc Comparison: None. Technique: 5 mm axial tomographic images were obtained of the head without contrast. These were view ed on brain and bone windows. CT imaging of the cervical spine was performed without contrast. Coron al and sagittal reformatted images were performed. One or more of the following dose reduction techni ques were utilized: Automated exposure control (AEC), Adjustment of mA and/or kV according to patient size, Use of iterative reconstruction technique such as ASiR, CT scan done according to ALARA and im age gently/image wisely HEAD FINDINGS: The brain parenchyma is normal in attenuation. No intra- or extra-axial mass or fluid collection. No acute hemorrhage. The ventricles are normal in size, shape, and morphology. The mayes-white matter kinjal ction is normal. The basilar cisterns are patent. The visualized paranasal sinuses are normal. The visualized portions of the orbits and globes are no rmal. The mastoid air cells are clear. No aggressive osseous lesion or fracture. CERVICAL SPINE FINDINGS: Postsurgical changes at C4-5 with interbody spacer and osseous fusion across the disc space. Straightening of the cervical lordosis. No acute fracture. No aggressive lytic or blastic osseous les ion. Multilevel degenerative disc height loss. Multilevel disc protrusions and marginal osteophytes result s in multilevel spinal canal stenosis. Multilevel uncovertebral and facet arthrosis results in multil evel neural foraminal narrowing. The thyroid gland is normal. No cervical lymphadenopathy. The visualized aerodigestive tract is unrem arkable. The visualized lung apices are clear. IMPRESSION: 1. No acute intracranial process. 2. No acute osseous abnormality of the cervical spine. Electronically signed by: Neftaly Squires MD (12/27/2020 5:31 PM) [facility]
--- NOTE | 2020-12-27 17:44 | RAD ---
CT chest, abdomen and pelvis with contrast PQRS statement: CT scans at this facility use dose reduction including either automated exposure cont rol, iterative reconstructions, and /or weight based radiation dosing via mA and kV modification when appropriate to reduce radiation dose to as low as reasonably achievable. HISTORY: Fall, left rib pain, thoracic spine pain, lumbar spine pain, left hip pain. Contrast: 80 mL Isovue-370 venous contrast. Chest findings: Coronary calcified plaque. Calcification of the aortic root. Heart size normal. Aorta , pulmonary vessels and esophagus are unremarkable. No mediastinal hematoma. Calcification of the lef t axilla perhaps a granuloma. Mild thoracic scoliosis. Trachea and bronchi are unremarkable. Apical p araseptal emphysema. No pneumothorax. No pleural effusions. Small calcified granuloma left upper lobe apex. Abdomen findings: L1 vertebral body sclerotic bony lesion given absence of other lesions elsewhere wi thin the skeleton of doubtful significance most likely a bone island. Mild lumbar scoliosis. Small re nal hypodensities too small to characterize most likely cysts. Cholecystectomy. Spleen is atrophic. A drenals and liver are unremarkable. The pancreas is not well delineated, there are postoperative spence ges of Whipple procedure with gastric antrectomy and gastrojejunostomy and biliary enteric anastomosi s, there is a presumed residual markedly atrophic tail of the pancreas leading up to the enteric anas tomosis at the katerine hepatis, this is somewhat obscured by motion artifact by the patient, limiting a ssessment. At the mid to lower abdomen there are dilated small bowel whereas the distal small bowel i s collapsed, there is no discrete focal transition point evident rather gradual collapse of the dista l bowel, this could indicate a low-grade small bowel obstruction. The small bowel has increased fluid distention and air-fluid levels since prior imaging. Maximum small bowel diameter is 3.5 cm. Perhaps this is due to an adhesion. There is no closed loop obstruction or sequestering of small bowel loops to suggest an internal hernia as etiology of this obstruction. There is a mild volume of stool. Appe ndix is negative. Extensive calcified likely aorta. No abdominal fluid or hematoma. No adenopathy. Raji anil are unremarkable. Pelvis findings: Moderate volume of stool within the rectosigmoid., The lower rectum leading up to th e anorectal junction demonstrates abrupt circumferential wall thickening and mucosal hyperenhancement for length of 4 cm. Bladder is moderately distended. Prostate and bones are unremarkable. No pelvic fluid or hematoma. IMPRESSION: 1. No acute traumatic process in the chest, abdomen or pelvis. 2. Small bowel obstruction as described above. 3. Postoperative changes as described above. Electronically signed by: Henrique Barrios MD (12/27/2020 5:41 PM) [facility]US[facility]SANA
[2020-12-27] MEDS ORDERED: INSULIN REGULAR 100 UNIT/ML 3ML VIAL. IV ONE (17:45)
[2020-12-27] MEDS ORDERED: IV RINGERS SOLUTION,LACTATED 1,000 ML IV ONE (18:45)
[2020-12-27] MEDS ORDERED: ACETAMINOPHEN 500 MG TABLET PO ONE ×2 (18:54→19:00)
[2020-12-27 19:22] LABS: BGAS PH 7.32 (7.35-7.46)
[2020-12-27] MEDS ORDERED: ONDANSETRON PF 4 MG/2 ML VIAL. IVP ONE (19:30)
[2020-12-27 19:38] LABS: BACTERIA,URINE 0 /HPF (0-FEW); BILIRUBIN,URINE NEG (NEG); CLARITY,URINE CLEAR; COLOR,URINE YELLOW; GLUCOSE,URINE >=1000 mg/dL (NEG); NITRITE,URINE NEG (NEG); SQUAMOUS EPITHELIAL CELL,UR OCC /LPF; UROBILINOGEN,URINE 0.2 mg/dL (0.2 mg/dL); WBC,URINE OCC /HPF (0-4)
[2020-12-27] MEDS ORDERED: PIPERACILLIN/TAZOBACTAM 3.375 GM in IV NORMAL SALINE 50ML 50 ML IV ONE (19:45)
[2020-12-27] MEDS ORDERED: PIPERACILLIN/TAZOBACTAM 3.375 GM VIAL IV ONE (20:03)
[2020-12-27] MEDS ORDERED: IV NORMAL SALINE 50ML 50 ML ONE (20:03)
[2020-12-27 20:12] VITALS: BP 159/81
[2020-12-27] MEDS ORDERED: IV DEXTROSE 5% - 0.9 % NACL 1,000 ML IV ONE (20:45)
[2020-12-27] MEDS ORDERED: INSULIN GLARGINE SYRINGE. SQ SCH (21:00)
== END 2020-12-27 20:31 | disposition short-term general hospital (02) ==
LOC: ER 15:42
DX: E11.65 Type 2 diabetes mellitus with hyperglycemia (principal); F17.210 Nicotine dependence, cigarettes, uncomplicated; K21.9 Gastro-esophageal reflux disease without esophagitis; G89.29 Other chronic pain; M54.2 Cervicalgia; M54.5 Low back pain; M54.6 Pain in thoracic spine; R07.81 Pleurodynia; M25.552 Pain in left hip; R51.9 Headache, unspecified; Z88.6 Allergy status to analgesic agent; Z88.8 Allergy status to other drugs, medicaments and biological substances; W01.198A Fall on same level from slipping, tripping and stumbling with subsequent striking against other object, initial encounter; Y93.89 Activity, other specified; Y92.89 Other specified places as the place of occurrence of the external cause; Y99.8 Other external cause status
CPT/HCPCS: 36415; 70450; 71260; 72125; 73630; 74177; 80048; 81001; 82803; 82947; 83735; 83930; 85025; 96361; 96365; 96372; 96375; 96376; 99285; J1815; J2270; J2405; J2543; J7030; J7042; J7120; Q9967

== ENCOUNTER 2021-01-05 11:01 | Emergency (ER) | payer MEDICARE, MEDICAID ==
[~2021-01-05] VITALS: Ht 165.1 cm; Wt 62.0 kg
[2021-01-05 11:05] VITALS: BP 186/88
[2021-01-05] MEDS ORDERED: IV NORMAL SALINE 1,000ML 1,000 ML IV ONE (11:45)
[2021-01-05] MEDS ORDERED: MORPHINE SULFATE 4 MG/ML DISP.SYRIN. IV ONE (12:00)
[2021-01-05] MEDS ORDERED: CONTRAST GIVEN. MC PRN (12:00)
[2021-01-05] MEDS ORDERED: ONDANSETRON PF 4 MG/2 ML VIAL. IVP ONE (12:00)
[2021-01-05] MEDS ORDERED: IOHEXOL 300 MG/ML 75 ML VIAL. IV ONE (12:00)
[2021-01-05 12:28] LABS: BARBITURATES NEG (NEG); BENZODIAZEPINES NEG (NEG); CANNABINOIDS POS (NEG); COCAINE NEG (NEG); METHADONE NEG (NEG); OPIATES POS (NEG); PHENCYCLIDINE NEG (NEG)
[2021-01-05 12:29] LABS: AMPHETAMINE/METHAMPHETAMINE NEG (NEG)
[2021-01-05 12:31] LABS: BASO % 1 % (0-3); EOS # 0.1 x10^3/uL (0.0-0.7); EOS % 1 % (0-3); HEMATOCRIT 44.4 % (39.0-53.0); HEMOGLOBIN 14.5 g/dL (13.0-17.5); LYMPH # 1.2 x10^3/uL (1.0-4.8); LYMPH % 15 % (24-48); MEAN CORPUSCULAR HEMOGLOBIN 29 pg (25-35); MEAN CORPUSCULAR HGB CONC 33 g/dL (31-37); MEAN CORPUSCULAR VOLUME 90 fL (79-100); MONO # 0.6 x10^3/uL (0.0-1.1); MONO % 7 % (0-9); NEUT # 6.3 x10^3uL (1.8-7.7); NEUT % 77 % (31-73); PLATELET COUNT 247 x10^3/uL (140-400); RED BLOOD COUNT 4.94 x10^6/uL (4.30-5.70); RED CELL DISTRIBUTION WIDTH 17.5 % (11.5-14.5); WHITE BLOOD COUNT 8.2 x10^3/uL (4.0-11.0)
[2021-01-05 12:41] LABS: CALCIUM 8.8 mg/dL (8.5-10.1); CREATININE 0.7 mg/dL (0.7-1.3); GFR 141.2
[2021-01-05 12:47] LABS: ALBUMIN 2.9 g/dL (3.4-5.0); ALBUMIN/GLOBULIN RATIO 0.8 (1.0-1.7); TOTAL BILIRUBIN 0.3 mg/dL (0.2-1.0); TOTAL PROTEIN 6.5 g/dL (6.4-8.2)
--- NOTE | 2021-01-05 12:47 | RAD ---
XR CHEST 1V 01/05/2021 12:09 PM INDICATION: Cough COMPARISON: None available TECHNIQUE: Portable frontal view of the chest is provided. FINDINGS: The cardiomediastinal silhouette is within normal limits. Lungs are clear. There are no significant pleural effusions. There is no pulmonary vascular congestion. No pneumothora x. No suspicious osseous abnormality. Dextroconvex curvature of the thoracic spine is noted. IMPRESSION: There is no acute cardiopulmonary process. Electronically signed by: Ania Faulkner MD (01/05/2021 12:45 PM) YESENIA
--- NOTE | 2021-01-05 12:53 | RAD ---
PQRS Compliance Statement: One or more of the following individualized dose reduction techniques were utilized for this examinat ion: 1. Automated exposure control 2. Adjustment of the mA and/or kV according to patient size 3. Use of iterative reconstruction technique CT ABDOMEN+PELVIS W Clinical Indication: Reason: recent obstruction, pain / Comparison: CT chest abdomen and pelvis with contrast December 27, 2020. Technique: Helical CT imaging of the abdomen and pelvis is performed after 75 cc of Omnipaque 300 IV contrast. Oral contrast not administered. Findings: Lung bases are clear. Cardiac size normal. Redemonstrated findings of Whipple procedure. Atrophic pancreas tail is stable. There is adrenal glan d hyperplasia. There is no hydronephrosis. Kidneys enhance symmetrically. Circumferential thickening of the distal rectum is unchanged from prior study. There is wall thickeni ng of the descending colon. Colon stool volume is improved from prior study. Multiple small bowel loops appear thick walled. Small bowel dilation is improved from prior study. Th e jejunum distal to the gastrojejunostomy demonstrates wall thickening and enhancement. The urinary bladder is normal. Prostate and seminal vesicles are normal. Arthropathy the bilateral hips. IMPRESSION: 1. Multiple small bowel loops are thick-walled suggesting enteritis. Findings of small bowel obstruc tion are improved. 2. There is wall thickening of the descending colon suggesting colitis. 3. Circumferential thickening of the distal rectum is unchanged. Malignancy is not excluded. If not performed recommend correlation with sigmoidoscopy. Electronically signed by: Roger Mcadams MD (01/05/2021 12:51 PM) [id number]
[2021-01-05 12:59] LABS: BILIRUBIN,URINE NEG (NEG); CLARITY,URINE CLEAR; COLOR,URINE YELLOW; GLUCOSE,URINE 250 mg/dL (NEG); NITRITE,URINE NEG (NEG); UROBILINOGEN,URINE 0.2 mg/dL (0.2 mg/dL)
[2021-01-05 13:00] LABS: BACTERIA,URINE 0 /HPF (0-FEW); SQUAMOUS EPITHELIAL CELL,UR FEW /LPF; WBC,URINE RARE /HPF (0-4)
--- NOTE | 2021-01-05 13:22 | PHYS DOC ---
Past History Past Medical History: Anxiety, Depression, Diabetes, GERD, Hypertension Additional Past Medical Histor: COLITIS, chronic pain Past Surgical History: Other Additional Past Surgical Histo: whipple Smoking: Cigarettes, Less than 1pk/day Alcohol Use: None Drug Use: Marijuana General Adult EDM: Chief Complaint: ABDOMINAL PAIN HPI: HPI: 35-year-old male returns the emergency room with his abdominal pain. Patient has a chronic abdominal pain person. He was seen in this emergency room several days ago and sent to with a small bowel obstruction. He states that they observed him for a couple days and discharged him on . He continues to have pain today that he describes as a cramping sensation all over. He denies fever or chills. Review of Systems: Review of Systems: Constitutional: Denies fever or chills Eyes: Denies change in visual acuity HENT: Denies nasal congestion or sore throat Respiratory: Denies cough or shortness of breath Cardiovascular: Denies chest pain or edema GI: Generalized abdominal pain, nausea. : Denies dysuria Musculoskeletal: Denies back pain or joint pain Integument: Denies rash Neurologic: Denies headache, focal weakness or sensory changes Endocrine: Denies polyuria or polydipsia Lymphatic: Denies swollen glands Psychiatric: Denies depression or anxiety Current Medications: Current Meds: Current Medications Medications (Trade) Dose Ordered Sig/Elfego Start Time Stop Time Status Last Admin Dose Admin Info (Do NOT chart on this entry -- for MONITORING) 1 each PRN DAILY PRN 01/05/21 12:00 01/07/21 11:59 Iohexol (Omnipaque 300 Mg/ml) 75 ml 1X ONCE 01/05/21 12:00 01/05/21 12:01 DC 01/05/21 12:22 75 ML Morphine Sulfate (Morphine 4mg Syringe) 4 mg 1X ONCE 01/05/21 12:00 01/05/21 12:01 DC 01/05/21 12:09 4 MG Ondansetron HCl (Zofran) 4 mg 1X ONCE 01/05/21 12:00 01/05/21 12:01 DC 01/05/21 12:08 4 MG Sodium Chloride 1,000 ml @ 1,000 mls/hr 1X ONCE 01/05/21 11:45 01/05/21 12:44 DC 01/05/21 12:08 1,000 MLS/HR Allergies: Allergies: Allergies Coded Allergies Type Severity Reaction Last Updated Verified tramadol Allergy Severe ANAPHYLAXIS 12/05/20 Yes aspirin Allergy Intermediate 12/05/20 Yes fentanyl Allergy Intermediate 12/05/20 Yes ketorolac Allergy Intermediate 12/05/20 No naproxen Allergy Intermediate 12/05/20 No acetaminophen Allergy Mild Hives 12/27/20 Yes Physical Exam: PE: Constitutional: Well developed, well nourished, no acute distress, non-toxic appearance. [] HENT: Normocephalic, atraumatic, bilateral external ears normal, oropharynx moist, no oral exudates, nose normal. [] Eyes: PERRLA, EOMI, conjunctiva normal, no discharge. [] Neck: Normal range of motion, no tenderness, supple, no stridor. [] Cardiovascular: Heart rate regular rhythm, no murmur [] Lungs & Thorax: Bilateral breath sounds clear to auscultation [] Abdomen: Bowel sounds normal, soft, generalized tenderness with voluntary guarding, no masses, no pulsatile masses. [] Skin: Warm, dry, no erythema, no rash. [] Back: No tenderness, no CVA tenderness. [] Extremities: No tenderness, no cyanosis, no clubbing, ROM intact, no edema. [] Neurologic: Alert and oriented X 3, normal motor function, normal sensory function, no focal deficits noted. [] Psychologic: Affect normal, judgement normal, mood normal. [] Current Patient Data: Labs: Laboratory Tests Test 01/05/21 11:51 01/05/21 12:02 Urine Collection Type Unknown Urine Color Yellow Urine Clarity Clear Urine pH 7.5 Urine Specific [place] >=1.030 Urine Protein >100 mg/dl (NEG-TRACE) Urine Glucose (UA) 250 mg/dL (NEG) Urine Ketones (Stick) Neg mg/dL (NEG) Urine Blood Trace (NEG) Urine Nitrite Neg (NEG) Urine Bilirubin Neg (NEG) Urine Urobilinogen Dipstick 0.2 mg/dL (0.2 mg/dL) Urine Leukocyte Esterase Neg (NEG) Urine RBC 3-5 /HPF (0-2) Urine WBC Rare /HPF (0-4) Urine Squamous Epithelial Cells Few /LPF Urine Bacteria 0 /HPF (0-FEW) Urine Opiates Screen Pos (NEG) Urine Methadone Screen Neg (NEG) Urine Barbiturates Neg (NEG) Urine Phencyclidine Screen Neg (NEG) Urine Amphetamine/Methamphetamine Neg (NEG) Urine Benzodiazepines Screen Neg (NEG) Urine Cocaine Screen Neg (NEG) Urine Cannabinoids Screen Pos (NEG) Urine Ethyl Alcohol Neg (NEG) White Blood Count 8.2 x10^3/uL (4.0-11.0) Red Blood Count 4.94 x10^6/uL (4.30-5.70) Hemoglobin 14.5 g/dL (13.0-17.5) Hematocrit 44.4 % (39.0-53.0) Mean Corpuscular Volume 90 fL (79-100) Mean Corpuscular Hemoglobin 29 pg (25-35) Mean Corpuscular Hemoglobin Concent 33 g/dL (31-37) Red Cell Distribution Width 17.5 % (11.5-14.5) H Platelet Count 247 x10^3/uL (140-400) Neutrophils (%) (Auto) 77 % (31-73) H Lymphocytes (%) (Auto) 15 % (24-48) L Monocytes (%) (Auto) 7 % (0-9) Eosinophils (%) (Auto) 1 % (0-3) Basophils (%) (Auto) 1 % (0-3) Neutrophils # (Auto) 6.3 x10^3uL (1.8-7.7) Lymphocytes # (Auto) 1.2 x10^3/uL (1.0-4.8) Monocytes # (Auto) 0.6 x10^3/uL (0.0-1.1) Eosinophils # (Auto) 0.1 x10^3/uL (0.0-0.7) Basophils # (Auto) 0.0 x10^3/uL (0.0-0.2) Sodium Level 142 mmol/L (136-145) Potassium Level 4.0 mmol/L (3.5-5.1) Chloride Level 106 mmol/L (98-107) Carbon Dioxide Level 31 mmol/L (21-32) Anion Gap 5 (6-14) L Blood Urea Nitrogen 11 mg/dL (8-26) Creatinine 0.7 mg/dL (0.7-1.3) Estimated GFR (Cockcroft-Gault) 141.2 BUN/Creatinine Ratio 16 (6-20) Glucose Level 213 mg/dL (70-99) H Calcium Level 8.8 mg/dL (8.5-10.1) Total Bilirubin 0.3 mg/dL (0.2-1.0) Aspartate Amino Transferase (AST) 33 U/L (15-37) Alanine Aminotransferase (ALT) 50 U/L (16-63) Alkaline Phosphatase 195 U/L (46-116) H Total Protein 6.5 g/dL (6.4-8.2) Albumin 2.9 g/dL (3.4-5.0) L Albumin/Globulin Ratio 0.8 (1.0-1.7) L Vital Signs: Vital Signs Date Time Temp Pulse Resp B/P (MAP) Pulse Ox O2 Delivery O2 Flow Rate FiO2 01/05/21 12:09 16 01/05/21 11:05 98.7 67 186/88 (120) 100 Room Air EKG: EKG: [] Radiology/Procedures: Radiology/Procedures: [] Impressions: PQRS Compliance Statement: One or more of the following individualized dose reduction techniques were utilized for this examination: 1. Automated exposure control 2. Adjustment of the mA and/or kV according to patient size 3. Use of iterative reconstruction technique CT ABDOMEN+PELVIS W Clinical Indication: Reason: recent obstruction, pain / Comparison: CT chest abdomen and pelvis with contrast December 27, 2020. Technique: Helical CT imaging of the abdomen and pelvis is performed after 75 cc of Omnipaque 300 IV contrast. Oral contrast not administered. Findings: Lung bases are clear. Cardiac size normal. Redemonstrated findings of Whipple procedure. Atrophic pancreas tail is stable. There is adrenal gland hyperplasia. There is no hydronephrosis. Kidneys enhance symmetrically. Circumferential thickening of the distal rectum is unchanged from prior study. There is wall thickening of the descending colon. Colon stool volume is improved from prior study. Multiple small bowel loops appear thick walled. Small bowel dilation is improved from prior study. The jejunum distal to the gastrojejunostomy demonstrates wall thickening and enhancement. The urinary bladder is normal. Prostate and seminal vesicles are normal. Arthropathy the bilateral hips. IMPRESSION: 1. Multiple small bowel loops are thick-walled suggesting enteritis. Findings of small bowel obstruction are improved. 2. There is wall thickening of the descending colon suggesting colitis. 3. Circumferential thickening of the distal rectum is unchanged. Malignancy is not excluded. If not performed recommend correlation with sigmoidoscopy. Electronically signed by: Roger Mcadams MD (01/05/2021 12:51 PM) [id number] DICTATED AND SIGNED BY: ROGER MCADAMS MD DATE: 01/05/21 1239 CC: CHAVO JASSO DO; AGNES VALDERRAMA MD ~MTH0 0 XR CHEST 1V 01/05/2021 12:09 PM INDICATION: Cough COMPARISON: None available TECHNIQUE: Portable frontal view of the chest is provided. FINDINGS: The cardiomediastinal silhouette is within normal limits. Lungs are clear. There are no significant pleural effusions. There is no pulmonary vascular congestion. No pneumothorax. No suspicious osseous abnormality. Dextroconvex curvature of the thoracic spine is noted. IMPRESSION: There is no acute cardiopulmonary process. Electronically signed by: Sandip Harris MD (01/05/2021 12:45 PM) [id number] DICTATED AND SIGNED BY: SANDIP HARRIS MD DATE: 01/05/21 1243 CC: CHAVO JASSO DO; ALLISON DOMÍNGUEZ APRN; AGNES VALDERRAMA MD ~MTH0 0 Heart Score: C/O Chest Pain: N/A Risk Factors: Risk Factors: DM, Current or recent (<one month) smoker, HTN, HLP, family h istory of CAD, obesity. Risk Scores: Score 0 - 3: 2.5% MACE over next 6 weeks - Discharge Home Score 4 - 6: 20.3% MACE over next 6 weeks - Admit for Clinical Observation Score 7 - 10: 72.7% MACE over next 6 weeks - Early Invasive Strategies Course & Med Decision Making: Course & Med Decision Making Pertinent Labs and Imaging studies reviewed. (See chart for details) The patient's labs are significant for an elevated glucose and alk phos. The rest are essentially unremarkable. The patient CT scan shows enteritis of the small bowel as well as the descending colon. I will treat the patient with Zosyn in the ER and discharge him with a prescription for Ativan Augmentin for 10 days. We have given him 4 mg of morphine in the ED. He is stable for discharge at this time. [] Dragon Disclaimer: Dragon Disclaimer: This electronic medical record was generated, in whole or in part, using a voice recognition dictation system. Departure Departure: Impression: Primary Impression: Enteritis Disposition: HOME / SELF CARE / HOMELESS Condition: STABLE Referrals: AGNES VALDERRAMA MD (PCP) Patient Instructions: Abdominal Pain, [id number], Colitis Scripts Amoxicillin/Potassium Clav (AUGMENTIN 875-125 TABLET) 1 Each Tablet 1 TAB PO BID for colon infection for 10 Days, #20 TAB 0 Refills Prov: CHAVO JASSO DO 01/05/21 CHAVO JASSO DO Jan 05, 2021 13:22
[2021-01-05] MEDS ORDERED: AMOX1TAB61 PO (13:42)
[2021-01-05] MEDS ORDERED: HYDROmorphone PF 1 MG/ML DISP.SYRIN IVP ONE (13:45)
[2021-01-05] MEDS ORDERED: PIPERACILLIN/TAZOBACTAM 3.375 GM in IV NORMAL SALINE 50ML 50 ML IV ONE (13:45)
[2021-01-05] MEDS ORDERED: PIPERACILLIN/TAZOBACTAM 3.375 GM VIAL IV ONE (13:48)
[2021-01-05] MEDS ORDERED: IV NORMAL SALINE 50ML 50 ML ONE (13:48)
== END 2021-01-05 14:01 | disposition home or self-care (01) ==
LOC: ER 11:01
DX: K52.9 Noninfective gastroenteritis and colitis, unspecified (principal); F41.9 Anxiety disorder, unspecified; F32.9 Major depressive disorder, single episode, unspecified; E11.9 Type 2 diabetes mellitus without complications; K21.9 Gastro-esophageal reflux disease without esophagitis; I10 Essential (primary) hypertension; G89.29 Other chronic pain; F17.210 Nicotine dependence, cigarettes, uncomplicated; Z88.6 Allergy status to analgesic agent; Z88.8 Allergy status to other drugs, medicaments and biological substances
CPT/HCPCS: 36415; 71045; 74177; 80053; 80307; 81001; 85025; 96361; 96374; 96375; 99285; J1170; J2270; J2405; J2543; J7030; Q9967

== ENCOUNTER 2021-01-07 08:54 | Emergency (ER) | payer MEDICARE, MEDICAID ==
[~2021-01-07] VITALS: Ht 165.1 cm; Wt 62.0 kg
--- NOTE | 2021-01-07 09:06 | PHYS DOC ---
Past History Past Medical History: Anxiety, Depression, Diabetes, GERD, Hypertension Additional Past Medical Histor: COLITIS, chronic pain Past Surgical History: Other Additional Past Surgical Histo: whipple Smoking: Cigarettes, Less than 1pk/day Alcohol Use: None Drug Use: Marijuana General Adult HPI: HPI: 55 yo M PMH DM, HTN, anxiety/depression, pancreatitis w/whipple, chronic pain (on oxycodone) and gerd, presents to the ed with complaints of diffuse, cramping abdominal pain with associated nausea, nonbloody nonbilious vomiting and black diarrhea, x 4-5 days. Pt was seen in the ED 2 days ago for enteritis and prescribed Augmentin. Prior to this was discharged from [facility] for a small bowel obstruction. Has not refilled his Augmentin prescription because he states he cannot afford it. Follows with Dr. Fausto Jim and is out of his oxycodone prescription, which will be ready for refill in a few days. Frequently asking f or analgesia in the ed. Review of Systems: Review of Systems: Constitutional: Denies fever or chills Eyes: Denies change in visual acuity HENT: Denies nasal congestion or sore throat Respiratory: Denies cough or shortness of breath Cardiovascular: Denies chest pain or edema GI: Denies constipation or hematemesis : Denies dysuria or hematuria Musculoskeletal: Denies back pain or joint pain Integument: Denies rash or diaphoresis Neurologic: Denies headache, focal weakness or sensory changes Endocrine: Denies polyuria or polydipsia Lymphatic: Denies swollen glands Psychiatric: Denies depression or anxiety Allergies: Allergies: Allergies Coded Allergies Type Severity Reaction Last Updated Verified tramadol Allergy Severe ANAPHYLAXIS 12/05/20 Yes aspirin Allergy Intermediate 12/05/20 Yes fentanyl Allergy Intermediate 12/05/20 Yes ketorolac Allergy Intermediate 12/05/20 No naproxen Allergy Intermediate 12/05/20 No acetaminophen Allergy Mild Hives 12/27/20 Yes Physical Exam: PE: Constitutional: Well developed, well nourished, no acute distress, non-toxic appearance, cows score 3 points HENT: Normocephalic, atraumatic, moist mucous membranes Eyes: EOMI, conjunctiva normal, no discharge. Neck: Normal range of motion, supple, Cardiovascular: S1/2 present, regular rhythm Lungs & Thorax: Speaking in full sentences, bilateral equal chest rise, no tachypnea or increased work of breathing Abdomen: soft, no distention, large vertical and large rup scar, reports diffuse ttp with voluntary guarding but no peritoneal signs or rigidity Skin: Warm, dry, no erythema, no rash. [] Back: No tenderness, no CVA tenderness. [] Extremities: No tenderness, no cyanosis, Neurologic: Alert and oriented X 3, normal motor function, normal sensory function, no focal deficits noted. [] Psychologic: Affect normal, judgement normal, mood normal. [] EKG: EKG: Sinus rhythm 73 bpm, no axis deviation, normal intervals, no T wave inversions, no ST elevations or ST depression Radiology/Procedures: Radiology/Procedures: []IMAGING REPORT Signed PATIENT: ADAM CASTELAN ACCOUNT: [id number] : 1965 LOCATION: ER AGE: 55 SEX: M EXAM STATUS: REG ER ORD. PHYSICIAN: YULI PEARCE DO REASON: abd pain PROCEDURE: ACUTE ABDOMEN SERIES XR ABDOMEN COMP ACUTE History: Abdominal pain Comparison: Chest x-ray 01/05/2021. CT abdomen pelvis 01/05/2021 Technique: Frontal chest with upright and supine radiographs. Findings: Chest: Clear lungs. Normal cardiomediastinal silhouette. Bowel gas pattern: Nonobstructive bowel gas pattern. Mild colonic stool burden with stool noted at the rectum. Free air: None. Abnormal calcifications: A few pelvic phleboliths. Bones: Degenerative changes of the bilateral hips. Multiphasic curvature of the thoracolumbar spine. Other: Surgical clips in the upper abdomen. Impression: 1. No acute abdominal findings. 2. No acute cardiopulmonary findings. Electronically signed by: Reggie Abreu MD (01/07/2021 10:10 AM) [id number] DICTATED AND SIGNED BY: REGGIE ABREU MD DATE: 01/07/21 1008 CC: AGNES JIM MD; YULI PEARCE DO ~MTH0 0 IMAGING REPORT Signed PATIENT: ADAM CASTELAN ACCOUNT: [id number] : 1965 LOCATION: ER AGE: 55 SEX: M EXAM STATUS: REG ER ORD. PHYSICIAN: YULI PEARCE DO REASON: abd pain,sbo, recent CT AP 01/05/21,pt didn't hold breath in scan PROCEDURE: CT ABD PELV W/ IV CONTRST ONLY EXAMINATION: CT abdomen and pelvis with IV contrast. INDICATION:55 years, Male, abdominal pain, small bowel obstruction on recent CT. TECHNIQUE: Axial CT images of the abdomen and pelvis were obtained. Coronal and sagittal reformatted performed. COMPARISON: 01/05/2021. Exposure: One or more of the following individualized dose reduction techniques were utilized for this examination: 1. Automated exposure control 2. Adjustment of the mA and/or kV according to patient size 3. Use of iterative reconstruction technique. FINDINGS: The study is limited by motion artifact. LOWER CHEST: Unremarkable ABDOMEN/PELVIS: No suspicious focal hepatic lesion. Cholecystectomy. No biliary ductal dilation. Unremarkable spleen. Diffuse atrophic pancreas. No adrenal nodule. No hydronephrosis or nephrolithiasis in either kidney. Subcentimeter hypodensity in the interpolar left kidney, too small to characterize. Stable small simple left renal cortical cyst. No bowel dilatation. Redemonstrated diffuse small bowel wall thickening. Normal appendix. Mild aortoiliac atherosclerotic calcifications without narrowing or dilatation. Mesenteric arteries and portal vein are patent. No lymphadenopathy in the abdomen or pelvis by size criteria. No pneumoperitoneum or ascites. Unremarkable urinary bladder and prostate. MUSCULOSKELETAL: No acute osseous process or suspicious lesion. Multilevel degenerative changes in the spine. Small fat-containing right inguinal hernia. Postsurgical changes along the anterior abdominal wall. IMPRESSION: Limited exam due to motion artifact. 1. Redemonstrated wall thickening involving multiple loops of small bowel, suggesting of enteritis. No small bowel obstruction. 2. Previously seen wall thickening of the descending colon and distal rectum are likely secondary to underdistended lumen. Electronically signed by: Kian Caballero MD (01/07/2021 11:02 AM) [id number] DICTATED AND SIGNED BY: KIAN CABALLERO MD DATE: 01/07/21 1046 CC: AGNES JIM MD; YULI PEARCE DO ~MTH0 0 Heart Score: C/O Chest Pain: No Risk Factors: Risk Factors: DM, Current or recent (<one month) smoker, HTN, HLP, family history of CAD, obesity. Risk Scores: Score 0 - 3: 2.5% MACE over next 6 weeks - Discharge Home Score 4 - 6: 20.3% MACE over next 6 weeks - Admit for Clinical Observation Score 7 - 10: 72.7% MACE over next 6 weeks - Early Invasive Strategies Course & Med Decision Making: Course & Med Decision Making Pertinent Labs and Imaging studies reviewed. (See chart for details) Concern for enteritis with medication noncompliance and uncontrolled, asymptomatic hypertension, no evidence of endorgan damage. Patient with no active emesis in emergency department. Patient was treated with ketamine, Haldol, Benadryl and antiemetics. Augementin was also given. I encouraged medication noncomplianceto avoid any drug use until enteritis has resolved (pt reported an "allergy" to haldol). Will prescribe Zofran ODT. Labs show no leukocytosis. Patient does have uncontrolled, nonketotic, nonanion gap hyperglycemia (improved after IVFs). Lipase/troponin are within normal limits. Unremarkable EKG and acute abdominal series. CT showed no evidence of bowel obstruction. On reevaluation patient calm, resting comfortably in the emergency department asking for something to help him sleep (why bendryl was given). Given pts' allergy hx and lack of current opiods, I do suspect some component of drug-seeking behavior. Pt with no evidence of opiod withdrawal. Will discharge home with strict ED return precautions were given for dehydration, fever, severe pain or syncope. Encouraged urgent outpatient follow-up with PMD and GI for definitive management of abdominal pain. Life-threatening processes were considered but are low suspicion at this time, given history, physical exam and ED workup. Pt was educated on all prescription medications and adverse effects. All patient's questions were answered and pt was stable at time of discharge. Life/limb-threatening differential includes but is not limited to, aortic dissection, aortic aneurysm, acute coronary syndrome, surgical abdomen (appendicitis, cholecystitis, ischemic bowel, strangulated hernia, etc), bowel o bstruction or volvulus, bladder outlet obstruction, gastrointestinal bleeding, inflammatory bowel disease, peptic ulcer disease, ACS/CAD, sepsis, diverticular disease, ureterolithiasis, nephrolithiasis, ovarian or testicular torsion, ectopic , vaginal hemorrhage, or genitourinary infection. I have spoken with the patient and/or caregivers. I explained the patient's condition, diagnoses and treatment plan based on the information available to me at this time. I have answered the patient and/or caregiver's questions and addressed any concerns. The patient and/or caregivers have a good understanding of patient's diagnosis, condition and treatment plan as can be expected at this point. Vital signs have been stable. Patient's condition is stable and appropriate for discharge from the emergency department. Patient will pursue further outpatient evaluation with primary care physician or other designated or consulting physician as outlined in the discharge instructions. The patient and/or caregivers are agreeable to this plan of care and follow-up instructions have been explained in detail. The patient and/or caregivers have received these instructions in written form and have expressed an understanding of the discharge instructions. The patient and/or caregivers are aware that any significant change of condition or worsening of symptoms should prompt immediate return to this or the closest emergency department or call to 911. Curt Disclaimer: Curt Disclaimer: This electronic medical record was generated, in whole or in part, using a voice recognition dictation system. Departure Departure: Impression: Primary Impression: Enteritis Additional Impressions: Abdominal pain Uncontrolled diabetes mellitus Marijuana use Uncontrolled hypertension Disposition: 01 HOME / SELF CARE / HOMELESS Condition: STABLE Referrals: AGNES JIM MD (PCP) Follow up with your pcp in 1-2 days or [facility] [phone] OR [facility]-Dr. Bhatt [phone] Patient Instructions: Abdominal Pain, Diabetes, FAQs Additional Instructions: FOLLOW UP WITH GASTROENTEROLOGY: For definitive management of abdominal pain [facility] [address], [address] [place] [address] OR [facility] [address], [address], [place] [address] EMERGENCY DEPARTMENT GENERAL DISCHARGE INSTRUCTIONS Thank you for coming to [facility] (ED) today and trusting us with you care. We trust that you had a positivie experience in our Emergency Department. If you wish to speak to the department management, you may call the director at . YOUR FOLLOW UP INSTRUCTIONS ARE FOLLOWS: 1. Do you have a private Doctor? If you do not have a private doctor, please ask for a resource list of physicians or clinics that may be able to assist you with follow up care. 2. The Emergency Physician has interpreted your x-rays. The X-Ray specialist will also review them. If there is a change in the findings, you will be notified in 48 hours when at all possible. 3. A lab test or culture has been done, your results will be reviewed and you will be notified if you need a change in treatment. ADDITIONAL INSTRUCTIONS AND INFORMATION: 1. Your care today has been supervised by a physician who is specially trained in emergency care. Many problems require more than one evaluation for a complete diagnosis and treatment. We recommend that you schedule your follow up appointment as recommended to ensure complete treatment of you illness or injury. If you are unable to obtain follow up care and continue to have a problem, or if your condition worsens, we recommend that you return to the ED. 2. We are not able to safely determine your condition over the phone nor are we able to give sound medical advice over the phone. For these safety reasons, if you call for medical advice we will ask you to come to the ED for further evaluation. 3. If you have any questions regarding these discharge instructions please call the ED at [phone]. SAFETY INFORMATION: In the interest of safety, wellness, and injury prevention; we encourage you to wear your sealbelt, if you smoke; quite smoking, and we encourage family to use a protective helmet for bicycling and other sporting events that present an increased risk for head injury. IF YOUR SYMPTOMS WORSEN OR NEW SYMPTOMS DEVELOP, OR YOU HAVE CONCERNS ABOUT YOUR CONDITION; OR IF YOUR CONDITION WORSENS WHILE YOU ARE WAITING FOR YOUR FOLLOW UP APPOINTMENT; EITHER CONTACT YOUR PRIMARY CARE DOCTOR, THE PHYSICIAN WHOSE NAME AND NUMBER YOU WERE GIVEN, OR RETURN TO THE ED IMMEDIATELY. Scripts Ondansetron (ONDANSETRON ODT) 4 Mg Tab.rapdis 4 MG PO Q6HRS for Nausea/Vomiting, #15 TAB Prov: YULI PEARCE DO 01/07/21 YULI PEARCE DO Jan 07, 2021 09:06
[2021-01-07] MEDS ORDERED: IV NORMAL SALINE 1,000ML 1,000 ML IV SCH (09:15)
[2021-01-07] MEDS ORDERED: KETAMINE HCL IN NACL, ISO-OSM 50 MG/5 ML SYRINGE IM ONE (09:45)
[2021-01-07] MEDS ORDERED: FAMOTIDINE 20 MG TABLET PO ONE (09:45)
[2021-01-07] MEDS ORDERED: ONDANSETRON ODT 4 MG TAB.RAPDIS PO ONE (09:45)
--- NOTE | 2021-01-07 10:12 | RAD ---
XR ABDOMEN COMP ACUTE History: Abdominal pain Comparison: Chest x-ray 01/05/2021. CT abdomen pelvis 01/05/2021 Technique: Frontal chest with upright and supine radiographs. Findings: Chest: Clear lungs. Normal cardiomediastinal silhouette. Bowel gas pattern: Nonobstructive bowel gas pattern. Mild colonic stool burden with stool noted at th e rectum. Free air: None. Abnormal calcifications: A few pelvic phleboliths. Bones: Degenerative changes of the bilateral hips. Multiphasic curvature of the thoracolumbar spine. Other: Surgical clips in the upper abdomen. Impression: 1. No acute abdominal findings. 2. No acute cardiopulmonary findings. Electronically signed by: Reggie Harris MD (01/07/2021 10:10 AM) [id number]
[2021-01-07 10:23] LABS: BARBITURATES NEG (NEG); BENZODIAZEPINES NEG (NEG); CANNABINOIDS POS (NEG); COCAINE NEG (NEG); METHADONE NEG (NEG); OPIATES NEG (NEG); PHENCYCLIDINE NEG (NEG)
[2021-01-07 10:24] LABS: AMPHETAMINE/METHAMPHETAMINE NEG (NEG)
[2021-01-07] MEDS ORDERED: CONTRAST GIVEN. MC PRN (10:30)
[2021-01-07] MEDS ORDERED: IOHEXOL 300 MG/ML 75 ML VIAL. IV ONE (10:30)
[2021-01-07 10:42] LABS: BASO % 0 % (0-3); EOS % 0 % (0-3); HEMATOCRIT 50.3 % (39.0-53.0); HEMOGLOBIN 16.6 g/dL (13.0-17.5); LYMPH # 1.2 x10^3/uL (1.0-4.8); LYMPH % 11 % (24-48); MEAN CORPUSCULAR HEMOGLOBIN 30 pg (25-35); MEAN CORPUSCULAR HGB CONC 33 g/dL (31-37); MEAN CORPUSCULAR VOLUME 90 fL (79-100); MONO # 0.9 x10^3/uL (0.0-1.1); MONO % 9 % (0-9); NEUT # 8.2 x10^3uL (1.8-7.7); NEUT % 79 % (31-73); PLATELET COUNT 261 x10^3/uL (140-400); RED BLOOD COUNT 5.62 x10^6/uL (4.30-5.70); RED CELL DISTRIBUTION WIDTH 17.9 % (11.5-14.5); WHITE BLOOD COUNT 10.3 x10^3/uL (4.0-11.0)
[2021-01-07] MEDS ORDERED: KETAMINE HCL IN NACL, ISO-OSM 50 MG/5 ML SYRINGE IV ONE (11:00)
--- NOTE | 2021-01-07 11:04 | RAD ---
EXAMINATION: CT abdomen and pelvis with IV contrast. INDICATION:55 years, Male, abdominal pain, small bowel obstruction on recent CT. TECHNIQUE: Axial CT images of the abdomen and pelvis were obtained. Coronal and sagittal reformatted performed. COMPARISON: 01/05/2021. Exposure: One or more of the following individualized dose reduction techniques were utilized for thi s examination: 1. Automated exposure control 2. Adjustment of the mA and/or kV according to patient size 3. Use of iterative reconstruction technique. FINDINGS: The study is limited by motion artifact. LOWER CHEST: Unremarkable ABDOMEN/PELVIS: No suspicious focal hepatic lesion. Cholecystectomy. No biliary ductal dilation. Unremarkable spleen. Diffuse atrophic pancreas. No adrenal nodule. No hydronephrosis or nephrolithiasis in either kidney. Subcentimeter hypodensity in the interpolar left kidney, too small to characterize. Stable small sim ple left renal cortical cyst. No bowel dilatation. Redemonstrated diffuse small bowel wall thickening. Normal appendix. Mild aortoi liac atherosclerotic calcifications without narrowing or dilatation. Mesenteric arteries and portal v ein are patent. No lymphadenopathy in the abdomen or pelvis by size criteria. No pneumoperitoneum or ascites. Unremarkable urinary bladder and prostate. MUSCULOSKELETAL: No acute osseous process or suspicious lesion. Multilevel degenerative changes in the spine. Small fa t-containing right inguinal hernia. Postsurgical changes along the anterior abdominal wall. IMPRESSION: Limited exam due to motion artifact. 1. Redemonstrated wall thickening involving multiple loops of small bowel, suggesting of enteritis. N o small bowel obstruction. 2. Previously seen wall thickening of the descending colon and distal rectum are likely secondary to underdistended lumen. Electronically signed by: Moe Caballero MD (01/07/2021 11:02 AM) [id number]
[2021-01-07] MEDS ORDERED: ONDA4TAB12 PO (11:26)
[2021-01-07] MEDS ORDERED: METOCLOPRAMIDE HCL 10 MG/2 ML VIAL. IVP ONE (11:30)
[2021-01-07] MEDS ORDERED: diphenhydrAMINE 50 MG/ML VIAL IVP ONE (11:30)
[2021-01-07] MEDS ORDERED: AMOXICILLIN/K CLAV 875/125MG TABLET. PO ONE (11:30)
[2021-01-07 11:32] LABS: CALCIUM 8.2 mg/dL (8.5-10.1); CREATININE 1.3 mg/dL (0.7-1.3); GFR 69.1; POTASSIUM 3.9 mmol/L (3.5-5.1)
[2021-01-07 11:38] LABS: ALBUMIN 2.8 g/dL (3.4-5.0); DIRECT BILIRUBIN 0.1 mg/dL (0.0-0.2); TOTAL BILIRUBIN 0.3 mg/dL (0.2-1.0); TOTAL PROTEIN 6.3 g/dL (6.4-8.2)
[2021-01-07 12:20] VITALS: BP 186/96
--- NOTE | 2021-01-07 19:36 | EKG ---
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
== END 2021-01-07 12:27 | disposition home or self-care (01) ==
LOC: ER 08:54
DX: K52.9 Noninfective gastroenteritis and colitis, unspecified (principal); E11.65 Type 2 diabetes mellitus with hyperglycemia; I10 Essential (primary) hypertension; F41.9 Anxiety disorder, unspecified; F32.9 Major depressive disorder, single episode, unspecified; K21.9 Gastro-esophageal reflux disease without esophagitis; G89.29 Other chronic pain; F17.210 Nicotine dependence, cigarettes, uncomplicated; F12.10 Cannabis abuse, uncomplicated; Z88.8 Allergy status to other drugs, medicaments and biological substances; Z88.6 Allergy status to analgesic agent
CPT/HCPCS: 36415; 74022; 74177; 80048; 80076; 80307; 82550; 82947; 83690; 84484; 85025; 93005; 96361; 96372; 96374; 96375; 99285; J1200; J2765; J7030; Q0162; Q9967

== ENCOUNTER 2021-01-19 14:27 | Emergency (ER) | payer MEDICARE, MEDICAID ==
[~2021-01-19] VITALS: Ht 165.1 cm; Wt 62.0 kg
[2021-01-19 14:27] VITALS: BP 148/74
[2021-01-19] MEDS ORDERED: FAMOTIDINE 20 MG/2 ML VIAL IVP ONE (16:00)
[2021-01-19] MEDS ORDERED: IV NORMAL SALINE 1,000ML 1,000 ML IV SCH (16:00)
--- NOTE | 2021-01-19 16:07 | EKG ---
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
[2021-01-19] MEDS ORDERED: IOHEXOL 300 MG/ML 75 ML VIAL. IV ONE (16:15)
--- NOTE | 2021-01-19 17:20 | PHYS DOC ---
Past History Past Medical History: Anxiety, Depression, Diabetes, GERD, Hypertension Additional Past Medical Histor: COLITIS, chronic pain (YULI PEARCE DO) Past Surgical History: Other Additional Past Surgical Histo: whipple, intestional repair x 2 (YULI PEARCE DO) Smoking: Cigarettes, Less than 1pk/day Alcohol Use: None Drug Use: Marijuana (YULI PEARCE DO) General Adult EDM: Chief Complaint: ABDOMINAL PAIN HPI: HPI: 55-year-old male past medical history of Whipple status post gallstone pancreatitis with history of recent enteritis seen in the ED on January 05 and , presents to the ED with complaints of upper abdominal pain stating " my stomach pain, back pain that comes in waves and cramping in my fingers," x 2 days. Reports dissolvable Zofran does nothing. 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 Has oxycodone 10/[address] Jim, "I just vomit it back up." Cannot recall any sick contacts, poorly prepared food or water. No recent foreign travel. Admits to frequent marijuana use. (YULI PEARCE DO) Review of Systems: Review of Systems: Constitutional: Denies fever or chills Eyes: Denies change in visual acuity HENT: Denies nasal congestion or sore throat Respiratory: Denies cough or shortness of breath Cardiovascular: Denies chest pain or edema GI: Denies melena, hematochezia or hematemesis : Denies dysuria or hematuria Musculoskeletal: Denies flank pain or joint swelling Integument: Denies rash or diaphoresis Neurologic: Denies headache, focal weakness or sensory changes Endocrine: Denies polyuria or polydipsia Lymphatic: Denies swollen glands Psychiatric: Denies depression or anxiety (YULI PEARCE DO) Current Medications: Current Meds: Current Medications Medications (Trade) Dose Ordered Sig/Elfego Start Time Stop Time Status Last Admin Dose Admin Famotidine (Pepcid Vial) 20 mg 1X ONCE 01/19/21 16:00 01/19/21 16:11 DC Iohexol (Omnipaque 300 Mg/ml) 75 ml 1X ONCE 01/19/21 16:15 01/19/21 16:18 DC Sodium Chloride 1,000 ml @ 1,000 mls/hr Q1H 01/19/21 16:00 01/19/21 16:59 DC (YULI PEARCE DO) Allergies: Allergies: Allergies Coded Allergies Type Severity Reaction Last Updated Verified tramadol Allergy Severe ANAPHYLAXIS 01/07/21 Yes aspirin Allergy Intermediate 01/07/21 Yes fentanyl Allergy Intermediate 01/07/21 Yes ketorolac Allergy Intermediate 01/07/21 Yes naproxen Allergy Intermediate 01/07/21 Yes acetaminophen Allergy Mild Hives 01/07/21 Yes (YULI PEARCE DO) Physical Exam: PE: Constitutional: Well developed, well nourished, no acute distress, non- toxic/unkept appearance, sits up and leans but in ed chair w/no distress-moves up and down quickly HENT: Normocephalic, atraumatic, Eyes: EOMI, conjunctiva normal, no discharge. Neck: Normal range of motion, supple, Cardiovascular: S1/2 present, regular rhythm Lungs & Thorax: Speaking in full sentences, bilateral equal chest rise, no tachypnea or increased work of breathing Abdomen: soft, large upper abdominal scar, no rigidity or guarding, comfortable with exam, reports pain is in right upper quadrant and left upper quadrant-no grimace with palpation Skin: Warm, dry, no erythema, no rash. [] Back: No midline tenderness, no CVA tenderness. [] Extremities: No tenderness, no cyanosis, no lower extremity edema Neurologic: Alert and oriented X 3, normal motor function, normal sensory func tion, no focal deficits noted. [] Psychologic: Affect normal, judgement normal, mood normal. [] (YULI PEARCE DO) Current Patient Data: Labs: Laboratory Tests Test 01/19/21 15:04 Glucose (Fingerstick) 324 mg/dL (70-99) H (YULI PEARCE DO) EKG: EKG: Sinus rhythm 84 bpm, no axis deviation, normal intervals, no T wave inversion, no ST elevation or ST depression (YULI PEARCE DO) Radiology/Procedures: Radiology/Procedures: IMAGING REPORT Signed PATIENT: ADAM CASTELAN ACCOUNT: [id number] : 1965 LOCATION: ER AGE: 55 SEX: M EXAM STATUS: REG ER ORD. PHYSICIAN: YULI PEARCE DO REASON: n/v/d, abd pain PROCEDURE: PORTABLE CHEST 1V XR CHEST 1V Clinical History: Reason: n/v/d, abd pain / Spl. Instructions: / History: Technique: AP view of the chest was obtained at 01/19/2021 4:48 PM. Comparison: January 05, 2021. Findings: The cardiomediastinal silhouette is normal. The pulmonary vasculature is normal. The lungs and pleural margins are clear. Mild degenerative dextro convex scoliosis of thoracic spine was seen previously. Impression: No evidence of an acute cardiopulmonary process. Electronically signed by: Timoteo Segura III, MD (01/19/2021 5:25 PM) [facility] DICTATED AND SIGNED BY: TIMOTEO SEGURA III, MD DATE: 01/19/211723 CC: AGNES JIM MD; YULI PEARCE DO ~MTH0 0 (YULI PEARCE DO) Radiology/Procedures: CT ABDOMEN+PELVIS WO Clinical Indication: Reason: n/v/d upper abd pain / Comparison: CT abdomen and pelvis with contrast January 07, 2021. Technique: Helical CT imaging of the abdomen and pelvis is performed without IV or oral contrast. Findings: Lung bases are clear. Coronary artery disease. Cardiac size normal. Cholecystectomy. The liver, spleen, pancreas, and right adrenal gland are stable. There is 1.8 cm left adrenal adenoma. Atherosclerotic abdominal aorta and iliac arteries, no aneurysm. There is no hydronephrosis. Question postsurgical change of the stomach. Similar to prior study, there are several small bowel loops that demonstrate wall thickening. There is borderline wall thickening of the rectum. There is wall thickening of the descending and proximal sigmoid colon. Transverse colon is decompressed, limiting evaluation. The appendix is normal. The urinary bladder is unremarkable. Prostate size normal. No pelvic free fluid is seen. No acute bone abnormality. IMPRESSION: 1. Multiple thick-walled small bowel loops are similar to prior study suggesting enteritis. No evidence of obstruction. 2. There is wall thickening of the descending and proximal sigmoid colon. Considerations include pseudothickening due to lack of distention versus mild colitis. Electronically signed by: Roger Mcadams MD (01/19/2021 8:37 PM) [facility] (JENIFER RAMOS MD) Heart Score: C/O Chest Pain: No Risk Factors: Risk Factors: DM, Current or recent (<one month) smoker, HTN, HLP, family history of CAD, obesity. Risk Scores: Score 0 - 3: 2.5% MACE over next 6 weeks - Discharge Home Score 4 - 6: 20.3% MACE over next 6 weeks - Admit for Clinical Observation Score 7 - 10: 72.7% MACE over next 6 weeks - Early Invasive Strategies (YULI PEARCE DO) Course & Med Decision Making: Course & Med Decision Making Pertinent Labs and Imaging studies reviewed. (See chart for details) Concern for nausea, vomiting and diarrhea in the setting of diffuse abdominal pain. Labs and CT imaging pending. No active emesis in the emergency department, patient does not appear in any distress. Due to shift change patient was signed out to oncoming physician Dr. Ramos for further medical evaluation disposition (YULI PEARCE DO) Course & Med Decision Making Patient care handed off to me at checkout pending labs and imaging. Patient alert and oriented in no acute distress. Patient pain managed in the ED. Patient without any nausea and able to take p.o. laboratory analysis notable for hyperglycemia. CT notable for probable colitis. Patient started on antibiotics in the ED. Discussed all findings with patient. Advised a course of antibiotics, nausea medicine and pain medicine at home as well as a light clear diet over the next several days. Advised to call his primary care physician in the morning to update on ED visit and set up a follow-up as soon as possible. Gave return precautions to the ED. Patient grateful, verbalized understanding and agreed with plan of discharge. (JENIFER RAMOS MD) Dragon Disclaimer: Dragon Disclaimer: This electronic medical record was generated, in whole or in part, using a voice recognition dictation system. (YULI PEARCE DO) Departure Departure: Impression: Primary Impression: Colitis Additional Impression: Abdominal pain Disposition: HOME / SELF CARE / HOMELESS Condition: IMPROVED Referrals: AGNES JIM MD (PCP) Patient Instructions: Colitis Additional Instructions: Thank you for coming into the emergency department tonight and allowing us to take care of you. Please read the attached information carefully to go over things we discussed. Please take your antibiotics as prescribed and until gone. Please take your pain medicine and nausea medicine as well as prescribed and only as needed. Please call your primary care physician in the morning to update on ED visit and set up a follow-up visit as soon as possible. Please come back to the ED with new or concerning symptoms as discussed. Scripts Hydrocodone Bit/Acetaminophen (HYDROCODONE-APAP 5-325 ) 1 Each Tablet 1 TAB PO PRN Q6HRS PRN for PAIN for 3 Days, #12 TAB 0 Refills Prov: JENIFER RAMOS MD 01/19/21 Amoxicillin/Potassium Clav (AUGMENTIN 875-125 TABLET) 1 Each Tablet 1 TAB PO BID for colitis for 10 Days, #20 TAB 0 Refills Prov: JENIFER RAMOS MD 01/19/21 YULI PEARCE DO Jan 19, 2021 17:20 JENIFER RAMOS MD Jan 19, 2021 23:05
--- NOTE | 2021-01-19 17:28 | RAD ---
XR CHEST 1V Clinical History: Reason: n/v/d, abd pain / Spl. Instructions: / History: Technique: AP view of the chest was obtained at 01/19/2021 4:48 PM. Comparison: January 05, 2021. Findings: The cardiomediastinal silhouette is normal. The pulmonary vasculature is normal. The lungs and pleura l margins are clear. Mild degenerative dextro convex scoliosis of thoracic spine was seen previously. Impression: No evidence of an acute cardiopulmonary process. Electronically signed by: Murali Mattson III, MD (01/19/2021 5:25 PM) [facility]
[2021-01-19] MEDS ORDERED: IV RINGERS SOLUTION,LACTATED 1,000 ML IV ONE (18:30)
[2021-01-19] MEDS ORDERED: MORPHINE SULFATE 4 MG/ML DISP.SYRIN. IV ONE (18:45)
[2021-01-19] MEDS ORDERED: MORPHINE SULFATE 2 MG/ML DISP.SYRIN. IV ONE (18:45)
[2021-01-19] MEDS ORDERED: HYDROmorphone PF 2 MG/ML VIAL IVP ONE ×3 (19:45→23:30)
--- NOTE | 2021-01-19 20:39 | RAD ---
PQRS Compliance Statement: One or more of the following individualized dose reduction techniques were utilized for this examinat ion: 1. Automated exposure control 2. Adjustment of the mA and/or kV according to patient size 3. Use of iterative reconstruction technique CT ABDOMEN+PELVIS WO Clinical Indication: Reason: n/v/d upper abd pain / Comparison: CT abdomen and pelvis with contrast January 07, 2021. Technique: Helical CT imaging of the abdomen and pelvis is performed without IV or oral contrast. Findings: Lung bases are clear. Coronary artery disease. Cardiac size normal. Cholecystectomy. The liver, spleen, pancreas, and right adrenal gland are stable. There is 1.8 cm lef t adrenal adenoma. Atherosclerotic abdominal aorta and iliac arteries, no aneurysm. There is no hydro nephrosis. Question postsurgical change of the stomach. Similar to prior study, there are several small bowel lo ops that demonstrate wall thickening. There is borderline wall thickening of the rectum. There is wal l thickening of the descending and proximal sigmoid colon. Transverse colon is decompressed, limiting evaluation. The appendix is normal. The urinary bladder is unremarkable. Prostate size normal. No pelvic free fluid is seen. No acute bone abnormality. IMPRESSION: 1. Multiple thick-walled small bowel loops are similar to prior study suggesting enteritis. No evide nce of obstruction. 2. There is wall thickening of the descending and proximal sigmoid colon. Considerations include pse udothickening due to lack of distention versus mild colitis. Electronically signed by: Roger Mcadams MD (01/19/2021 8:37 PM) [facility]
[2021-01-19 20:40] LABS: BASO % 1 % (0-3); EOS % 1 % (0-3); HEMOGLOBIN 12.5 g/dL (13.0-17.5); LYMPH # 1.5 x10^3/uL (1.0-4.8); LYMPH % 24 % (24-48); MEAN CORPUSCULAR HEMOGLOBIN 29 pg (25-35); MEAN CORPUSCULAR HGB CONC 33 g/dL (31-37); MEAN CORPUSCULAR VOLUME 88 fL (79-100); MONO # 0.7 x10^3/uL (0.0-1.1); MONO % 11 % (0-9); NEUT # 3.9 x10^3uL (1.8-7.7); NEUT % 63 % (31-73); PLATELET COUNT 221 x10^3/uL (140-400); RED CELL DISTRIBUTION WIDTH 17.8 % (11.5-14.5); WHITE BLOOD COUNT 6.2 x10^3/uL (4.0-11.0)
[2021-01-19 20:52] LABS: CALCIUM 8.3 mg/dL (8.5-10.1); CREATININE 0.5 mg/dL (0.7-1.3); GFR 208.1; POTASSIUM 3.8 mmol/L (3.5-5.1)
[2021-01-19 20:59] LABS: ALBUMIN 2.3 g/dL (3.4-5.0); DIRECT BILIRUBIN 0.1 mg/dL (0.0-0.2); TOTAL BILIRUBIN 0.1 mg/dL (0.2-1.0); TOTAL PROTEIN 5.7 g/dL (6.4-8.2)
[2021-01-19] MEDS ORDERED: metroNIDAZOLE 500 MG TABLET PO ONE (22:00)
[2021-01-19] MEDS ORDERED: IV NORMAL SALINE 50ML 50 ML ONE (22:20)
[2021-01-19] MEDS ORDERED: cefTRIAXone SODIUM 1 GM VIAL ONE (22:20)
[2021-01-19] MEDS ORDERED: AMOX1TAB61 PO (23:01)
[2021-01-19] MEDS ORDERED: HYDR-2155 PO ×2 (23:02→23:03)
[2021-01-19 23:33] LABS: COLOR,URINE YELLOW
[2021-01-19 23:34] LABS: BACTERIA,URINE 0 /HPF (0-FEW); BILIRUBIN,URINE NEG (NEG); CLARITY,URINE CLEAR; GLUCOSE,URINE NEG (NEG); NITRITE,URINE NEG (NEG); RBC,URINE 0 /HPF (0-2); SQUAMOUS EPITHELIAL CELL,UR OCC /LPF; UROBILINOGEN,URINE 0.2 mg/dL (0.2 mg/dL); WBC,URINE RARE /HPF (0-4)
== END 2021-01-19 23:43 | disposition home or self-care (01) ==
LOC: ER 14:27
DX: K52.9 Noninfective gastroenteritis and colitis, unspecified (principal); E11.9 Type 2 diabetes mellitus without complications; K21.9 Gastro-esophageal reflux disease without esophagitis; I10 Essential (primary) hypertension; G89.29 Other chronic pain; F17.210 Nicotine dependence, cigarettes, uncomplicated; Z88.8 Allergy status to other drugs, medicaments and biological substances; Z88.6 Allergy status to analgesic agent
CPT/HCPCS: 36415; 71045; 74176; 80048; 80076; 81001; 82550; 82803; 82947; 83690; 84484; 85025; 93005; 96361; 96365; 96375; 96376; 99285; G0480; J0696; J1170; J2270; J3490; J7030; J7120; 96374

== ENCOUNTER 2021-01-28 09:33 | Emergency (ER) | payer MEDICARE, MEDICAID ==
[~2021-01-28] VITALS: Ht 165.1 cm; Wt 62.0 kg
[~2021-01-28 09:33] MED LIST changes: -CYCL-331 PO; +CYCL10TA19 PO; +DICY20TA PO; -DICY20TA3 PO
[2021-01-28] MEDS ORDERED: IOHEXOL 300 MG/ML 75 ML VIAL. IV ONE (10:30)
--- NOTE | 2021-01-28 10:37 | PHYS DOC ---
Past History Past Medical History: Anxiety, Depression, Diabetes, GERD, Hypertension Additional Past Medical Histor: COLITIS, chronic pain Past Surgical History: Other Additional Past Surgical Histo: whipple, intestional repair x 2 Smoking: Cigarettes, Less than 1pk/day Alcohol Use: None Drug Use: Marijuana General Adult EDM: Chief Complaint: ABDOMINAL PAIN HPI: HPI: 55-year-old male with a history of chronic abdominal pain, previous Whipple surgery, previous GI obstruction presents to the emergency department today c omplaining of acute on chronic abdominal pain over the last few days it is been gradual onset, located across his abdomen and associated with nausea vomiting and diarrhea along with some chills. He reports that his pain has been difficult to control at home with his outpatient regimen. He denies any radiation of pain. The patient denies blood in the stools, fever, chest pain, shortness of breath, urinary symptoms, cough, recent trauma, or any other complaints. Review of Systems: Review of Systems: ROS is otherwise negative except for what was mentioned in HPI Current Medications: Current Meds: Current Medications Medications (Trade) Dose Ordered Sig/Elfego Start Time Stop Time Status Last Admin Dose Admin Iohexol (Omnipaque 300 Mg/ml) 75 ml 1X ONCE 01/28/21 10:30 01/28/21 10:31 UNV Allergies: Allergies: Allergies Coded Allergies Type Severity Reaction Last Updated Verified tramadol Allergy Severe ANAPHYLAXIS 01/07/21 Yes aspirin Allergy Intermediate 01/07/21 Yes fentanyl Allergy Intermediate 01/07/21 Yes ketorolac Allergy Intermediate 01/07/21 Yes naproxen Allergy Intermediate 01/07/21 Yes acetaminophen Allergy Mild Hives 01/07/21 Yes Physical Exam: PE: Constitutional: No acute distress, non-toxic appearance. HENT: Atraumatic, bilateral external ears normal, nose normal. Eyes: PERRLA, EOMI, conjunctiva normal, no discharge. Neck: Normal range of motion, supple, no stridor. Cardiovascular: Heart rate regular rhythm. 2+ radial pulses Lungs & Thorax: No respiratory distress, symmetrical expansion. Abdomen: Nonspecific abdominal tenderness is noted, there is no rebound or guarding Skin: Warm, dry. Extremities: No tenderness, no cyanosis, ROM intact, no edema. Neurologic: Alert and oriented X 3, normal motor function, normal sensory function, no focal deficits noted. Non ataxic gait. GCS 15. Psychologic: Affect normal, judgment normal, mood normal. Current Patient Data: Labs: Laboratory Tests Test 01/28/21 11:52 White Blood Count 9.4 x10^3/uL (4.0-11.0) Red Blood Count 4.68 x10^6/uL (4.30-5.70) Hemoglobin 13.8 g/dL (13.0-17.5) Hematocrit 42.1 % (39.0-53.0) Mean Corpuscular Volume 90 fL (79-100) Mean Corpuscular Hemoglobin 30 pg (25-35) Mean Corpuscular Hemoglobin Concent 33 g/dL (31-37) Red Cell Distribution Width 18.0 % (11.5-14.5) H Platelet Count 308 x10^3/uL (140-400) Neutrophils (%) (Auto) 76 % (31-73) H Lymphocytes (%) (Auto) 15 % (24-48) L Monocytes (%) (Auto) 7 % (0-9) Eosinophils (%) (Auto) 0 % (0-3) Basophils (%) (Auto) 1 % (0-3) Neutrophils # (Auto) 7.2 x10^3uL (1.8-7.7) Lymphocytes # (Auto) 1.4 x10^3/uL (1.0-4.8) Monocytes # (Auto) 0.7 x10^3/uL (0.0-1.1) Eosinophils # (Auto) 0.0 x10^3/uL (0.0-0.7) Basophils # (Auto) 0.1 x10^3/uL (0.0-0.2) Sodium Level 140 mmol/L (136-145) Potassium Level 4.4 mmol/L (3.5-5.1) Chloride Level 104 mmol/L (98-107) Carbon Dioxide Level 29 mmol/L (21-32) Anion Gap 7 (6-14) Blood Urea Nitrogen 9 mg/dL (8-26) Creatinine 0.6 mg/dL (0.7-1.3) L Estimated GFR (Cockcroft-Gault) 168.6 BUN/Creatinine Ratio 15 (6-20) Glucose Level 157 mg/dL (70-99) H Calcium Level 8.4 mg/dL (8.5-10.1) L Total Bilirubin 0.3 mg/dL (0.2-1.0) Aspartate Amino Transferase (AST) 52 U/L (15-37) H Alanine Aminotransferase (ALT) 75 U/L (16-63) H Alkaline Phosphatase 226 U/L (46-116) H Total Protein 6.4 g/dL (6.4-8.2) Albumin 2.8 g/dL (3.4-5.0) L Albumin/Globulin Ratio 0.8 (1.0-1.7) L Lipase 19 U/L (73-393) L Vital Signs: Vital Signs Date Time Temp Pulse Resp B/P (MAP) Pulse Ox O2 Delivery O2 Flow Rate FiO2 01/28/21 10:13 98.1 74 16 154/85 (108) 100 Room Air EKG: EKG: [] Radiology/Procedures: Radiology/Procedures: PROCEDURE: CT ABD PELV W/ IV CONTRST ONLY CT scan of the abdomen and pelvis with contrast 01/28/2021 CLINICAL HISTORY: Generalized abdominal pain. TECHNIQUE: After the intravenous administration of 75 cc of Omnipaque 300 only, contiguous, 5 mm axial sections were obtained through the abdomen and pelvis. One or more of the following individualized dose reduction techniques were utilized for this study: 1. Automated exposure control. 2. Adjustment of the mA and/or kV according to patient size. 3. Use of iterative reconstruction technique. FINDINGS: Comparison study is dated 01/19/2021. The absence of oral contrast material limits the sensitivity of this study for the detection of bowel pathology. Images through the lung bases demonstrate minimal dependent subsegmental atel ectasis bilaterally. The liver, spleen, pancreas, right adrenal gland and kidneys are within normal limits. A 2 cm low-attenuation lesion is seen involving the left adrenal gland consistent with an adrenal adenoma. This is unchanged. Atherosclerotic calcification of the abdominal aorta is seen. The abdominal aorta tapers normally. Surgical clips are seen scattered throughout the upper abdomen. No free fluid or free air is seen within the abdomen. There is no evidence of bowel obstruction. The appendix is well-visualized and is within normal limits. Images through the pelvis demonstrate the urinary bladder distended with urine. A moderate to large amount of stool is seen involving the rectum and sigmoid colon. Calcifications are seen within the pelvis consistent phleboliths. No free fluid is seen. The osseous structures are unchanged. IMPRESSION: No acute abnormality is seen. Electronically signed by: Kendell Rivera MD (01/28/2021 12:25 PM) Heart Score: C/O Chest Pain: No Course & Med Decision Making: Course & Med Decision Making My Orders - ALLAN CASTELAN DO Procedure Category Date Status Time Cbc W Autodiff LAB 01/28/21 Complete 10:23 Ua, Cult If Indicated LAB 01/28/21 Logged 10:23 Lipase LAB 01/28/21 Complete 10:23 Ct Abd Pelv W/ Iv CT 01/28/21 Resulted Contrst Only 10:23 Comprehensive LAB 01/28/21 Complete Metabolic Panel 10:23 Iohexol 300 Mg/Ml PHA 01/28/21 Complete (Omnipaque 300 Mg/Ml) 10:30 Metoclopramide Vial PHA 01/28/21 Complete (Reglan Vial) 10:45 Morphine Sulfate PHA 01/28/21 Complete (Morphine 4mg Syringe) 10:45 Iv Normal Saline PHA 01/28/21 Complete 1,000ml (Iv Sodium 10:45 Lido:Maalox 1:1 (Gi PHA 01/28/21 Verified Cocktail) 12:45 Famotidine Pf (Pepcid PHA 01/28/21 Verified Vial) 12:45 CT scan and lab work today are unremarkable, patient will be discharged home and was advised to follow-up with his primary care doctor for further narcotic pain medicine. Departure Departure: Impression: Primary Impression: Chronic abdominal pain Disposition: HOME / SELF CARE / HOMELESS Condition: STABLE Referrals: AGNES VALDERRAMA MD (PCP) Patient Instructions: Abdominal Pain (Nonspecific) Additional Instructions: You were seen in the emergency department for abdominal pain. Your tests did not show any obvious acute cause of your symptoms and your physical exam was non concerning for a dangerous disease process at this time. This however can change early in a disease course. You must return to the ED if you develop any new or worrisome symptoms for another exam. - Make sure to drink plenty of fluids at home - You may take a gentle laxative such as Miralax (over the counter) for bowel comfort. - Avoid drinking alcohol while you are having abdominal pain as this may worsen symptoms. - Return to the ER if you are not able to tolerate water and/or a normal diet, have increased pain or a change in character of your pain, develop a fever (>100.3 F), have nausea, vomiting and/or diarrhea that is unable to be treated at home, pass out, and/or you are not able to perform you normal daily activity. ALLAN CASTELAN DO Jan 28, 2021 10:37
[2021-01-28] MEDS ORDERED: MORPHINE SULFATE 4 MG/ML DISP.SYRIN. IV ONE (10:45)
[2021-01-28] MEDS ORDERED: IV NORMAL SALINE 1,000ML 1,000 ML IV ONE (10:45)
[2021-01-28] MEDS ORDERED: METOCLOPRAMIDE HCL 10 MG/2 ML VIAL. IVP ONE (10:45)
[2021-01-28 12:03] LABS: BASO # 0.1 x10^3/uL (0.0-0.2); BASO % 1 % (0-3); EOS % 0 % (0-3); HEMATOCRIT 42.1 % (39.0-53.0); HEMOGLOBIN 13.8 g/dL (13.0-17.5); LYMPH # 1.4 x10^3/uL (1.0-4.8); LYMPH % 15 % (24-48); MEAN CORPUSCULAR HEMOGLOBIN 30 pg (25-35); MEAN CORPUSCULAR HGB CONC 33 g/dL (31-37); MEAN CORPUSCULAR VOLUME 90 fL (79-100); MONO # 0.7 x10^3/uL (0.0-1.1); MONO % 7 % (0-9); NEUT # 7.2 x10^3uL (1.8-7.7); NEUT % 76 % (31-73); PLATELET COUNT 308 x10^3/uL (140-400); RED BLOOD COUNT 4.68 x10^6/uL (4.30-5.70); WHITE BLOOD COUNT 9.4 x10^3/uL (4.0-11.0)
[2021-01-28 12:11] LABS: CALCIUM 8.4 mg/dL (8.5-10.1); CREATININE 0.6 mg/dL (0.7-1.3); GFR 168.6; POTASSIUM 4.4 mmol/L (3.5-5.1)
[2021-01-28 12:17] LABS: ALBUMIN 2.8 g/dL (3.4-5.0); ALBUMIN/GLOBULIN RATIO 0.8 (1.0-1.7); TOTAL BILIRUBIN 0.3 mg/dL (0.2-1.0); TOTAL PROTEIN 6.4 g/dL (6.4-8.2)
--- NOTE | 2021-01-28 12:27 | RAD ---
CT scan of the abdomen and pelvis with contrast 01/28/2021 CLINICAL HISTORY: Generalized abdominal pain. TECHNIQUE: After the intravenous administration of 75 cc of Omnipaque 300 only, contiguous, 5 mm axia l sections were obtained through the abdomen and pelvis. One or more of the following individualized dose reduction techniques were utilized for this study: 1. Automated exposure control. 2. Adjustment of the mA and/or kV according to patient size. 3. Use of iterative reconstruction technique. FINDINGS: Comparison study is dated 01/19/2021. The absence of oral contrast material limits the sensitivity of this study for the detection of bowel pathology. Images through the lung bases demonstrate minimal dependent subsegmental atelectasis bilaterally. The liver, spleen, pancreas, right adrenal gland and kidneys are within normal limits. A 2 cm low-att enuation lesion is seen involving the left adrenal gland consistent with an adrenal adenoma. This is unchanged. Atherosclerotic calcification of the abdominal aorta is seen. The abdominal aorta tapers normally. Pride rgical clips are seen scattered throughout the upper abdomen. No free fluid or free air is seen withi n the abdomen. There is no evidence of bowel obstruction. The appendix is well-visualized and is with in normal limits. Images through the pelvis demonstrate the urinary bladder distended with urine. A moderate to large a mount of stool is seen involving the rectum and sigmoid colon. Calcifications are seen within the pel vis consistent phleboliths. No free fluid is seen. The osseous structures are unchanged. IMPRESSION: No acute abnormality is seen. Electronically signed by: Kendell Rivera MD (01/28/2021 12:25 PM) [id number]
[2021-01-28] MEDS ORDERED: LIDO:MAALOX 1:1 20 ML SINGLE DOSE. PO ONE (12:45)
[2021-01-28] MEDS ORDERED: FAMOTIDINE 20 MG/2 ML VIAL IVP ONE (12:45)
[2021-01-28 12:53] VITALS: BP 145/76
== END 2021-01-28 12:53 | disposition home or self-care (01) ==
LOC: ER 09:33
DX: G89.29 Other chronic pain (principal); R10.9 Unspecified abdominal pain; R11.2 Nausea with vomiting, unspecified; R19.7 Diarrhea, unspecified; E11.9 Type 2 diabetes mellitus without complications; K21.9 Gastro-esophageal reflux disease without esophagitis; I10 Essential (primary) hypertension; F17.210 Nicotine dependence, cigarettes, uncomplicated; Z88.6 Allergy status to analgesic agent; Z88.8 Allergy status to other drugs, medicaments and biological substances
CPT/HCPCS: 36415; 74177; 80053; 83690; 85025; 96361; 96374; 96375; 99285; J2270; J2765; J7030

== ENCOUNTER 2021-02-17 12:37 | Emergency (ER) | payer MEDICARE, MEDICAID ==
[~2021-02-17] VITALS: Ht 165.1 cm; Wt 63.6 kg
[2021-02-17] MEDS ORDERED: ORPHENADRINE CITRATE 60 MG/2 ML VIAL. IM ONE (13:15)
[2021-02-17] MEDS: IBUPROFEN 400 MG TABLET. PO ONE ×2 (13:40→13:53)
--- NOTE | 2021-02-17 13:49 | PHYS DOC ---
Past History Past Medical History: Anxiety, Depression, Diabetes, GERD, Hypertension Additional Past Medical Histor: COLITIS, chronic pain (ARTEMIO GREENBERG) Past Surgical History: Other Additional Past Surgical Histo: whipple, intestinal repair x 2 (ARTEMIO GREENBERG) Smoking: Cigarettes, Less than 1pk/day Alcohol Use: None Drug Use: Marijuana (ARTEMIO GREENBERG) General Adult EDM: Chief Complaint: ABDOMINAL PAIN HPI: HPI: Patient is a 55 year old male with history of chronic pain who presents with 1-2-month history of flank pain, abdominal pain, back pain, neck pain. Patient rates his pain equally in all areas 12/20. He states that his low back pain radiates bilaterally across the sides into his abdomen. He reports his pain was "excruciating last night." Patient also states he has associated chills. He has an appointment with his doctor on 02/26 or 02/27, but could not wait to be seen. 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 Patient reports he has had kidney stones in the past, and he states this does not feel similar. Patient denies fever, night sweats, N/V/D, dysuria, hematuria, foul- smelling urine. (ARTEMIO GREENBERG) Review of Systems: Review of Systems: 12 systems reviewed. ROS negative except as mentioned in HPI. (ARTEMIO GREENBERG) Current Medications: Current Meds: Current Medications Medications (Trade) Dose Ordered Sig/Elfego Start Time Stop Time Status Last Admin Dose Admin Ibuprofen (Motrin) 800 mg 1X ONCE 02/17/21 13:15 02/17/21 13:20 DC 02/17/21 13:40 800 MG Orphenadrine Citrate (Norflex) 60 mg 1X ONCE 02/17/21 13:15 02/17/21 13:17 DC 02/17/21 13:39 60 MG (ARTEMIO GREENBERG) Allergies: Allergies: Allergies Coded Allergies Type Severity Reaction Last Updated Verified tramadol Allergy Severe ANAPHYLAXIS 01/07/21 Yes aspirin Allergy Intermediate 02/17/21 Yes fentanyl Allergy Intermediate 01/07/21 Yes ketorolac Allergy Intermediate 02/17/21 Yes naproxen Allergy Intermediate 02/17/21 Yes acetaminophen Allergy Mild Hives 01/07/21 Yes (ARTEMIO GREENBERG) Physical Exam: PE: Constitutional: Well developed, well nourished, no acute distress, non-toxic appearance. Neck: Normal range of motion, no midline tenderness, supple, no stridor. Cardiovascular: Heart rate regular rhythm, no murmur. Lungs & Thorax: Bilateral breath sounds clear to auscultation. Abdomen: Bowel sounds normal, soft, no tenderness, no masses, no pulsatile masses. Back: No step-offs, no midline tenderness. Neurologic: Alert and oriented x4, motor function grossly intact, sensory function grossly intact, no focal deficits noted. (ARTEMIO GREENBERG) Current Patient Data: Vital Signs: Vital Signs Date Time Temp Pulse Resp B/P (MAP) Pulse Ox O2 Delivery O2 Flow Rate FiO2 02/17/21 12:52 98.6 78 20 166/86 (112) 100 Room Air (ARTEMIO GREENBERG) Radiology/Procedures: Radiology/Procedures: PROCEDURE: CT ABDOMEN PELVIS WO CONTRAST Exam Date: 02/17/2021 1:[address] ABDOMEN+PELVIS WO Indication: Reason: flank pain / Spl. Instructions: / History: . TECHNIQUE: CT examination of the abdomen and pelvis was performed without oral or intravenous contrast. One or more of the following dose reduction techniques were utilized: *Automated exposure control (AEC) *Adjustment of mA and/or kV according to patient size *Use of iterative reconstruction technique *CT scan done according to ALARA, or ALARA/IMAGE GENTLY COMPARISON: January 28, 2021 FINDINGS: There are small bilateral pleural effusions. There is mild right basilar scarring and/or atelectasis. Postoperative changes of suspected gastric bypass are seen in the upper abdomen. Gallbladder is not identified suggesting prior cholecystectomy. Calcified granulomas are seen in the liver. 2 cm hypodense lesion in the lateral limb of the left adrenal gland consistent with an adrenal adenoma is unchanged. 1.4 x 0.8 cm nodule near the medial limb of the left adrenal gland (image 31 series 2) measures approximately 31 Hounsfield units, unchanged and likely representing a small lymph node. The liver, spleen, pancreas, and right adrenal gland are otherwise normal. The kidneys are normal bilaterally. No hydronephrosis or hydroureter is seen. No urinary tract calculi are seen. Urinary bladder is normal in appearance. There is suggestion of mural thickening involving the rectum, raising the possibility of proctitis. There is no bowel obstruction. The appendix is normal. Mild to moderate atherosclerotic calcifications are seen. No lymphadenopathy or ascites is seen. Degenerative changes are seen in the spine. IMPRESSION: Normal appearance of the kidneys and bladder. No hydronephrosis or hydroureter. No urinary tract calculi. Suggestion of mural thickening involving the rectum raises the possibility of proctitis. Correlate clinically. Hypodense nodule in the left adrenal gland laterally is consistent with an adrenal adenoma, also unchanged. Electronically signed by: Jonel Rojas MD (02/17/2021 1:54 PM) [id number] (ARTEMIO GREENBERG) Heart Score: C/O Chest Pain: No (ARTEMIO GREENBERG) Course & Med Decision Making: Course & Med Decision Making Pertinent Labs and Imaging studies reviewed. (See chart for details) Patient is well-known to the emergency department and visits frequently for chronic pain and gastritis. Patient reports he is recently seen his lumber straightener and has an appointment with his primary care doctor in the next 2 weeks. Patient will be evaluated for abdominal pathology and renal stones. Patient request morphine when offered NSAID and muscle relaxer. Patient agrees to ibuprofen and Norflex for now. Patient symptoms not relieved by ibuprofen and Norflex. Patient will be provided with 4 morphine IM. Discussed with patient that he should follow with pain management doctor and/or primary care provider for further pain management. Patient understands that the emergency department cannot treat chronic pain. He states he does have an appointment next week, not 2 weeks from now. Additionally, patient made aware of rectal inflammation, which he should have evaluated by gastroenterology. Patient agreeable to discharge plan. (ARTEMIO GREENBERG) Dragon Disclaimer: Dragon Disclaimer: This electronic medical record was generated, in whole or in part, using a voice recognition dictation system. (ARTEMIO GREENBERG) Attending Co-Sign The patient was seen and interviewed as well as examined at the bedside. The chart was reviewed. The case was discussed. Agree with the plan of care. (CHAVO JASSO DO) Departure Departure: Impression: Primary Impression: Proctitis Additional Impressions: Chronic abdominal pain Chronic back pain greater than 3 months duration Disposition: 01 HOME / SELF CARE / HOMELESS Condition: STABLE Referrals: AGNES VALDERRAMA MD (PCP) Patient Instructions: Abdominal Pain, [id number], Back Pain, Adult, [id number], Proctitis Additional Instructions: As discussed, the emergency department can treat acute pain, however chronic pain needs further evaluation and closer monitoring. Additionally, you should follow with your GI doctor regarding rectal inflammation. Please return to the emergency department if you develop new symptoms or your current symptoms worsen. ARTEMIO GREENBERG Feb 17, 2021 13:49 CHAVO JASSO DO Feb 17, 2021 17:47
--- NOTE | 2021-02-17 13:56 | RAD ---
Exam Date: 02/17/2021 1:[address] ABDOMEN+PELVIS WO Indication: Reason: flank pain / Spl. Instructions: / History: . TECHNIQUE: CT examination of the abdomen and pelvis was performed without oral or intravenous contra st. One or more of the following dose reduction techniques were utilized: *Automated exposure control (AEC) *Adjustment of mA and/or kV according to patient size *Use of iterative reconstruction technique *CT scan done according to ALARA, or ALARA/IMAGE GENTLY COMPARISON: January 28, 2021 FINDINGS: There are small bilateral pleural effusions. There is mild right basilar scarring and/or atelectasis . Postoperative changes of suspected gastric bypass are seen in the upper abdomen. Gallbladder is not identified suggesting prior cholecystectomy. Calcified granulomas are seen in the liver. 2 cm hypod ense lesion in the lateral limb of the left adrenal gland consistent with an adrenal adenoma is uncha nged. 1.4 x 0.8 cm nodule near the medial limb of the left adrenal gland (image 31 series 2) measure s approximately 31 Hounsfield units, unchanged and likely representing a small lymph node. The liver, spleen, pancreas, and right adrenal gland are otherwise normal. The kidneys are normal bilaterally. No hydronephrosis or hydroureter is seen. No urinary tract calc yari are seen. Urinary bladder is normal in appearance. There is suggestion of mural thickening involving the rectum, raising the possibility of proctitis. There is no bowel obstruction. The appendix is normal. Mild to moderate atherosclerotic calcifications are seen. No lymphadenopathy or ascites is seen. Degenerative changes are seen in the spine. IMPRESSION: Normal appearance of the kidneys and bladder. No hydronephrosis or hydroureter. No urinary tract ca lculi. Suggestion of mural thickening involving the rectum raises the possibility of proctitis. Correlate c linically. Hypodense nodule in the left adrenal gland laterally is consistent with an adrenal adenoma, also unch anged. Electronically signed by: Jonel Rojas MD (02/17/2021 1:54 PM) [id number]
[2021-02-17 14:05] LABS: BASO # 0.1 x10^3/uL (0.0-0.2); BASO % 1 % (0-3); EOS % 0 % (0-3); HEMATOCRIT 47.5 % (39.0-53.0); HEMOGLOBIN 15.3 g/dL (13.0-17.5); LYMPH # 1.3 x10^3/uL (1.0-4.8); LYMPH % 18 % (24-48); MEAN CORPUSCULAR HEMOGLOBIN 29 pg (25-35); MEAN CORPUSCULAR HGB CONC 32 g/dL (31-37); MEAN CORPUSCULAR VOLUME 91 fL (79-100); MONO # 0.6 x10^3/uL (0.0-1.1); MONO % 9 % (0-9); NEUT # 5.3 x10^3uL (1.8-7.7); NEUT % 72 % (31-73); PLATELET COUNT 333 x10^3/uL (140-400); RED BLOOD COUNT 5.23 x10^6/uL (4.30-5.70); RED CELL DISTRIBUTION WIDTH 18.1 % (11.5-14.5); WHITE BLOOD COUNT 7.3 x10^3/uL (4.0-11.0)
[2021-02-17] MEDS ORDERED: MORPHINE SULFATE 4 MG/ML DISP.SYRIN. IM ONE (15:00)
[2021-02-17 15:16] LABS: BILIRUBIN,URINE NEG (NEG); CLARITY,URINE CLEAR; COLOR,URINE YELLOW; GLUCOSE,URINE 500 mg/dL (NEG)
[2021-02-17 15:17] LABS: BACTERIA,URINE 0 /HPF (0-FEW); NITRITE,URINE NEG (NEG); RBC,URINE OCC /HPF (0-2); UROBILINOGEN,URINE 0.2 mg/dL (0.2 mg/dL); WBC,URINE OCC /HPF (0-4)
[2021-02-17 15:55] VITALS: BP 162/76
== END 2021-02-17 15:59 | disposition home or self-care (01) ==
LOC: ER 12:37
DX: K62.89 Other specified diseases of anus and rectum (principal); G89.29 Other chronic pain; M54.59 Other low back pain; F41.9 Anxiety disorder, unspecified; F32.9 Major depressive disorder, single episode, unspecified; E11.9 Type 2 diabetes mellitus without complications; K21.9 Gastro-esophageal reflux disease without esophagitis; I10 Essential (primary) hypertension; F17.210 Nicotine dependence, cigarettes, uncomplicated; Z88.6 Allergy status to analgesic agent; Z88.8 Allergy status to other drugs, medicaments and biological substances
CPT/HCPCS: 36415; 74176; 81001; 85025; 96372; 99284; J2270; J2360

== ENCOUNTER 2021-02-25 12:49 | Observation (INO) | payer MEDICARE, MEDICAID ==
[~2021-02-25] VITALS: Ht 165.1 cm; Wt 62.8 kg
--- NOTE | 2021-02-25 12:57 | PHYS DOC ---
Past History Past Medical History: Anxiety, Depression, Diabetes, GERD, Hypertension Additional Past Medical Histor: COLITIS, chronic pain Past Surgical History: Other Additional Past Surgical Histo: whipple, intestinal repair x 2 Smoking: Cigarettes, Less than 1pk/day Alcohol Use: None Drug Use: Marijuana Adult General Chief Complaint Chief Complaint: ALTERED MENTAL STATUS HPI HPI Patient is a 55-year-old male presenting via EMS for altered mental status. It was reported that patient called EMS approximately 1 hour prior to arrival for a hypoglycemic episode. Patient reportedly took his short acting insulin instead of his long-acting insulin and suffered a hypoglycemic episode in which his sugar dropped to 43. He states he tried to drink syrup in attempt to improve his fingerstick blood glucose but continued to feel poorly prompting him to call EMS. On arrival, EMS report that patient was hemodynamically stable but was altered past baseline. There is no obvious trauma, patient denies any loss of consciousness, trauma, major change in medication regimen etc. He was subsequently transported to our facility for evaluation. On arrival, patient continuing to complain of chronic pain otherwise has no acute complaints. Reports he remembers entirety of events today, reiterates no new trauma or falls occurred and that he simply took his short acting insulin instead of his long- acting insulin Review of Systems Review of Systems Fourteen body systems of review of systems have been reviewed. See HPI for pertinent positives and negative responses, other schultz all other systems are negative, non-pertinent or non-contributory Allergies Allergies Allergies Coded Allergies Type Severity Reaction Last Updated Verified tramadol Allergy Severe ANAPHYLAXIS 01/07/21 Yes aspirin Allergy Intermediate 02/17/21 Yes fentanyl Allergy Intermediate 01/07/21 Yes ketorolac Allergy Intermediate 02/17/21 Yes naproxen Allergy Intermediate 02/17/21 Yes acetaminophen Allergy Mild Hives 01/07/21 Yes Physical Exam Physical Exam Constitutional: Well developed, well nourished, no acute distress, non-toxic appearance. HENT: Normocephalic, atraumatic, bilateral external ears normal, oropharynx moist, no oral exudates, nose normal. Eyes: PERRLA, EOMI, conjunctiva normal, no discharge. Neck: Normal range of motion, no tenderness, supple, no stridor. Cardiovascular: Heart rate regular, sinus rhythm, no murmurs rubs or gallops Lungs & Thorax: Bilateral breath sounds clear to auscultation Abdomen: Bowel sounds normal, soft, no tenderness, no masses, no pulsatile masses. Nonsurgical abdomen, no peritoneal signs Skin: Warm, dry, no erythema, no rash. Back: No tenderness, no CVA tenderness. Extremities: No tenderness, no cyanosis, no clubbing, ROM intact, no edema. Neurologic: Alert and oriented X 3, grossly normal motor & sensory function, no focal deficits noted. Psychologic: Affect normal, judgement normal, mood normal. Current Patient Data Vital Signs Vital Signs Date Time Temp Pulse Resp B/P (MAP) Pulse Ox O2 Delivery O2 Flow Rate FiO2 02/25/21 13:01 98.6 76 16 148/94 (112) 100 Room Air Vital Signs Date Time Temp Pulse Resp B/P (MAP) Pulse Ox O2 Delivery O2 Flow Rate FiO2 02/25/21 14:09 84 16 162/83 (109) 100 Room Air 02/25/21 13:01 98.6 Lab Results Laboratory Tests Test 02/25/21 13:19 02/25/21 14:09 02/25/21 14:18 02/25/21 14:52 White Blood Count 9.6 x10^3/uL Red Blood Count 4.62 x10^6/uL Hemoglobin 13.4 g/dL Hematocrit 41.2 % Mean Corpuscular Volume 89 fL Mean Corpuscular Hemoglobin 29 pg Mean Corpuscular Hemoglobin Concent 33 g/dL Red Cell Distribution Width 17.5 % Platelet Count 302 x10^3/uL Neutrophils (%) (Auto) 80 % Lymphocytes (%) (Auto) 13 % Monocytes (%) (Auto) 6 % Eosinophils (%) (Auto) 0 % Basophils (%) (Auto) 0 % Neutrophils # (Auto) 7.7 x10^3uL Lymphocytes # (Auto) 1.2 x10^3/uL Monocytes # (Auto) 0.6 x10^3/uL Eosinophils # (Auto) 0.0 x10^3/uL Basophils # (Auto) 0.0 x10^3/uL Sodium Level 139 mmol/L Potassium Level 3.0 mmol/L Chloride Level 106 mmol/L Carbon Dioxide Level 28 mmol/L Anion Gap 5 Blood Urea Nitrogen 6 mg/dL Creatinine 0.7 mg/dL Estimated GFR (Cockcroft-Gault) 141.2 BUN/Creatinine Ratio 9 Glucose Level 65 mg/dL Calcium Level 8.1 mg/dL Magnesium Level 1.9 mg/dL Total Bilirubin 0.3 mg/dL Aspartate Amino Transf (AST/SGOT) 29 U/L Alanine Aminotransferase (ALT/SGPT) 76 U/L Alkaline Phosphatase 208 U/L Total Protein 5.8 g/dL Albumin 2.6 g/dL Albumin/Globulin Ratio 0.8 Glucose (Fingerstick) 17 mg/dL 140 mg/dL 121 mg/dL Test 02/25/21 16:41 Glucose (Fingerstick) 35 mg/dL Current Medications Medications (Trade) Dose Ordered Sig/Elfego Route PRN Reason Start Time Stop Time Status Last Admin Dose Admin Potassium Chloride (Klor-Con) 40 meq 1X ONCE PO 02/25/21 14:15 02/25/21 14:22 DC 02/25/21 14:15 Dextrose (Dextrose 50%-Water Syringe) 25 gm STK-MED ONCE IV 02/25/21 14:09 02/25/21 14:10 DC Oxycodone/ Acetaminophen (Percocet 10/325) 1 tab PRN Q6HRS PRN PO PAIN 02/25/21 16:30 Dextrose (Dextrose 50%-Water Syringe) 25 gm 1X ONCE IV 02/25/21 16:45 02/25/21 16:46 UNV EKG EKG EKG ordered and interpreted by myself at 1331 hrs. sinus rhythm 76 bpm, unremarkable intervals, no axis deviation, no obvious ischemic findings, no STEMI Radiology/Procedures Radiology/Procedures Single view of the chest. 02/25/2021 1:05 PM Indication: Reason: HYPOGLYCEMIA / Spl. Instructions: / History: Comparison: Chest radiograph January 19, 2021 Findings: There is no focal consolidation. There is no pleural effusion or pneumothorax. Heart size is normal. No acute osseous abnormalities are seen. Impression: No evidence of acute cardiopulmonary process. Electronically signed by: Dyllan Alvarez MD (02/25/2021 1:21 PM) [id number] Heart Score C/O Chest Pain: No HEART Score for Chest Pain: HEART Score for Chest Pain Response (Comments) Value History Slighlty/Non-Suspicious 0 ECG Normal 0 Age >45 - < 65 1 Risk Factors No Risk Factors 0 Troponin < Normal Limit 0 Total 1 Risk Factors: Risk Factors: DM, Current or recent (<one month) smoker, HTN, HLP, family history of CAD, obesity. Risk Scores: Risk Factors: DM, Current or recent (<one month) smoker, HTN, HLP, family history of CAD, obesity. Course & Med Decision Making Course & Med Decision Making Airway patent, breathing unlabored, IV access and vitals obtained that were grossly nonconcerning Repeat [id number] glucose on arrival 78. Patient AAO x3 and GCS 15. Compl aining of chronic pain requesting opiate pain medication on arrival which is typical for this individual Further history, comprehensive physical exam and diagnostic work-up obtained that was grossly nonconcerning for any emergent or surgical issues With that said, there was a complication while in ER as patient was found to be diaphoretic and poor appearing on repeat assessment, repeat fingerstick glucose 17. Amp of dextrose administered with improvement in symptoms. Patient fed peanut butter and jelly sandwich and juice Patient continuing to complain and requests opiate pain medication at present. I deferred stating importance of stabilizing patient's labile blood sugars was paramount Nonetheless, given the fact that patient is unsure the amount of fast acting insulin he took prior to arrival, I discussed need for hospitalization for close monitoring of symptoms as he is not safe for discharge home for self-care instructions I contacted hospitalist and patient ultimately accepted for inpatient admission for ongoing glycemic management under Dr. Fragoso I updated patient on need for hospitalization and he was amenable. All questions and concerns addressed prior to hospital admission Dragon Disclaimer Dragon Disclaimer This electronic medical record was generated, in whole or in part, using a voice recognition dictation system. Departure Departure: Impression: Primary Impression: Hypoglycemia associated with type 2 diabetes mellitus Disposition: ADMITTED INPATIENT Admitting Physician: Ho Fragoso Condition: STABLE Referrals: AGNES VALDERRAMA MD (PCP) ANTHONY VARGAS DO Feb 25, 2021 12:57
--- NOTE | 2021-02-25 13:24 | RAD ---
Single view of the chest. 02/25/2021 1:05 PM Indication: Reason: HYPOGLYCEMIA / Spl. Instructions: / History: Comparison: Chest radiograph January 19, 2021 Findings: There is no focal consolidation. There is no pleural effusion or pneumothorax. Heart size i s normal. No acute osseous abnormalities are seen. Impression: No evidence of acute cardiopulmonary process. Electronically signed by: Dyllan Alvarez MD (02/25/2021 1:21 PM) [id number]
[2021-02-25 13:44] LABS: BASO % 0 % (0-3); EOS % 0 % (0-3); HEMATOCRIT 41.2 % (39.0-53.0); HEMOGLOBIN 13.4 g/dL (13.0-17.5); LYMPH # 1.2 x10^3/uL (1.0-4.8); LYMPH % 13 % (24-48); MEAN CORPUSCULAR HEMOGLOBIN 29 pg (25-35); MEAN CORPUSCULAR HGB CONC 33 g/dL (31-37); MEAN CORPUSCULAR VOLUME 89 fL (79-100); MONO # 0.6 x10^3/uL (0.0-1.1); MONO % 6 % (0-9); NEUT # 7.7 x10^3uL (1.8-7.7); NEUT % 80 % (31-73); PLATELET COUNT 302 x10^3/uL (140-400); RED BLOOD COUNT 4.62 x10^6/uL (4.30-5.70); RED CELL DISTRIBUTION WIDTH 17.5 % (11.5-14.5); WHITE BLOOD COUNT 9.6 x10^3/uL (4.0-11.0)
--- NOTE | 2021-02-25 13:44 | EKG ---
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
[2021-02-25 13:53] LABS: ALBUMIN 2.6 g/dL (3.4-5.0); ALBUMIN/GLOBULIN RATIO 0.8 (1.0-1.7); CALCIUM 8.1 mg/dL (8.5-10.1); CREATININE 0.7 mg/dL (0.7-1.3); GFR 141.2; TOTAL BILIRUBIN 0.3 mg/dL (0.2-1.0); TOTAL PROTEIN 5.8 g/dL (6.4-8.2)
[2021-02-25] MEDS ORDERED: DEXTROSE 50% 25 GM / 50ML DISP.SYRIN. IV ONE ×2 (14:09→16:45)
[2021-02-25] MEDS ORDERED: POTASSIUM CHLORIDE 20 MEQ TABLET.ER. PO ONE (14:15)
[2021-02-25 16:16] VITALS: BP 135/84
[2021-02-25] MEDS: oxyCODONE/APAP 10/325 1 TAB TABLET PO PRN ×2 (16:56→22:44)
--- NOTE | 2021-02-25 17:47 | NUR ---
Arrived to unit @ 1600. Admitted for hypoglycemia. Belongings at bedside include shoes, cell phone, wallet, drivers license, pants, shirt, socks, and sweatshirt. Pt reports having keys with him in the ambulance but has not seen them since. Spoke withe the ER and no keys found. Pt believes keys were left in ambulance. Pt reports severe back pain. Home meds reviewed. Spoke with Dr. Fragoso. Home Percocet restarted. VSS. CONNELL.
[2021-02-25 19:01] VITALS: BP 156/72
[2021-02-25 22:49] VITALS: BP 166/82
[2021-02-26] MEDS: oxyCODONE/APAP 10/325 1 TAB TABLET PO PRN ×2 (04:48→09:34)
[2021-02-26 05:18] VITALS: BP 149/67
[2021-02-26 11:40] VITALS: BP 168/88
[2021-02-26] MEDS ORDERED: oxyCODONE/APAP 10/325 1 TAB TABLET PO PRN (13:00)
[2021-02-26] MEDS ORDERED: ONDANSETRON ODT 4 MG TAB.RAPDIS PO PRN (13:00)
[2021-02-26] MEDS ORDERED: OXYC10TA46 PO (13:21)
[2021-02-26] MEDS ORDERED: ZOLPIDEM 5 MG TABLET. PO PRN (13:30)
--- NOTE | 2021-02-26 13:57 | SSS ---
DATE OF SERVICE: 02/26/2021 ADMIT DATE: 02/25/2021 HISTORY OF PRESENT ILLNESS: The patient is a 55-year-old male patient who was brought to the Emergency Room by EMS for altered mental status. It was reported that the patient called EMS approximately an hour prior to arrival to the Emergency Room for a hypoglycemic episode. He reportedly took his long-acting insulin instead of his longer acting insulin, suffered a hypoglycemic episode in which his blood sugar dropped down to 43 mg/dL. He stated that he tried to drink syrup in attempts to improve his fingerstick blood sugar, but continued to feel poorly, prompting him to call EMS. On arrival, EMS reported that the patient was hemodynamically stable, but was altered from baseline. There was no obvious trauma. The patient denies any loss of consciousness, trauma or major changes in medication. He was subsequently transported to the Emergency Room. On arrival, the patient continued to complain of chronic back pain. Otherwise, has no other complaint. Reports he remembers the entirety of events today, reiterates no new trauma or falls occurred and that he simply took his short-acting insulin instead of his longer acting insulin. He was extensively investigated in the Emergency Room and his CBC was unremarkable. His chemistry showed initially his blood sugar was down to 17 mg and was treated accordingly as well as given 60 mL of 50% glucose twice and did very well. He was able to eat and drink and his blood sugar over last night and today has remained well within normal range or slightly higher. He was awake, alert when I saw him, continued to complain of abdominal and back pain for which he sees his primary care physician, Dr. Jim at [facility]. He is already on Percocet four times a day. Looking at how many times he was seen in the Emergency Room, he was actually we counted 27 visits from April of this year, averaging about 2 visits every month and some months he has been here 4 times. PAST MEDICAL HISTORY: Significant for Whipple's procedure for chronic gallstone pancreatitis. He is known to have hypertension, hyperlipidemia, coronary artery disease. He also has morbid obesity, obstructive sleep apnea, on CPAP, history of epilepsy before. He has also 4-5 episodes of pancreatitis in a span of 10 years. PAST SURGICAL HISTORY: Significant for Whipple's procedure, cervical spine fusion, bilateral carpal tunnel release. He underwent esophagogastroduodenoscopy twice and colonoscopy with polypectomy twice. He apparently has had surgery for that at [facility] and Whipple procedure was done in 2016 at [facility]. ALLERGIES: HE IS ALLERGIC TO ASPIRIN, FENTANYL, KETOROLAC, NAPROXEN AND TRAMADOL. FAMILY HISTORY: He has one brother and one sister, both are younger and 5 sisters older, almost all of them have diabetes and hypertension. His father at age of 78 because of lymphoma and his mother at age of 76 because of end-stage renal disease and complication of hemodialysis. SOCIAL HISTORY: He is , has 1 daughter and 1 son. He smokes almost a pack a day. He used to be a heavy drinker, he quit about 7 years ago. His last alcoholic drink was about 6 years ago according to him. He smokes marijuana. He never used illicit drugs. He is currently disabled. MEDICATIONS: He is currently on the following medication: He is on Percocet 10/325 one tablet 4 times a day, pregabalin 300 mg twice a day, Ambien 10 mg at bedtime, ondansetron 4 mg every 6-8 hours. He is on NovoLog insulin 9 units 3 times a day before meals and Tresiba 23 units subcutaneously at bedtime. PHYSICAL EXAMINATION: GENERAL: On arrival to the Emergency Room, he looked well and was clearly in no apparent respiratory distress. No pallor, jaundice, cyanosis, or thyromegaly. No jugular venous distention. No lower limb edema. VITAL SIGNS: Her heart rate was 88, blood pressure is 135/84, temperature was 98.3, respiratory rate was 16 and oxygen saturation was 99% on room air. HEAD, EYES, EARS, NOSE, AND THROAT: Normocephalic, atraumatic. NECK: Supple. HEART: Showed normal first and second heart sounds. No gallop, rub or murmur. CHEST: Clear to auscultation, no crepitation or rhonchi. ABDOMEN: Distended, soft with old scars of Whipple procedure. There is no guarding or rigidity. No organomegaly. All hernial orifice intact. Bowel sounds normal. NEUROLOGIC: He is awake, alert, responding appropriately. All his cranial nerves are intact. He moves extremities without difficulty. He ambulates with a cane. LABORATORY DATA: Showed a white cell count 9600, hemoglobin 13, hematocrit 41, MCV 89 and platelet count 302,000. His chemistry showed that his serum sodium was 139, potassium 3, chloride 106, bicarbonate 28, anion gap of 5, BUN 6, creatinine 0.7. Estimated GFR was 141 mL per minute. His glucose was 65, calcium was 8.1. Total bilirubin, AST, ALT were normal. Alkaline phosphatase slightly elevated. Total protein 5.8, albumin was 2.6. DISCHARGE MEDICATIONS: The patient was discharged home to continue on OxyContin 10 mg twice a day for 7 days and his NovoLog insulin 9 units 3 times a day before meals, Tresiba 23 units at bedtime, ondansetron ODT 4 mg every 6-8 hours, Percocet 10/325 four times a day, pregabalin 300 mg twice a day, Ambien 10 mg at bedtime. FINAL DISCHARGE DIAGNOSES: 1. Insulin-induced hypoglycemia. 2. Insulin requiring type 2 diabetes mellitus. 3. Chronic pain syndrome. 4. Hypertension. 5. Hyperlipidemia. RECOMMENDATIONS: I recommended that he should follow with his primary care physician that might help him to make an appointment with pain management clinic at [facility]. FAVIAN/CARIE CHAVES: Awais TID: [id number]
[2021-02-26] MEDS ORDERED: INSULIN LISPRO 300 UNITS/3 ML VIAL. SQ SCH (17:00)
[2021-02-26] MEDS ORDERED: INSULIN GLARGINE SYRINGE. SQ SCH (21:00)
[2021-02-26] MEDS ORDERED: PREGABALIN 75 MG CAPSULE PO SCH (21:00)
== END 2021-02-26 14:15 | disposition home or self-care (01) ==
LOC: ER 12:49 → 1 SOUTH 14:28 → INTOOBSV 14:28 → ER 15:42
PROVIDERS: ADMIT Hospitalist; ATTEND Hospitalist
DX: E11.649 Type 2 diabetes mellitus with hypoglycemia without coma (principal); Z20.822 Contact with and (suspected) exposure to COVID-19; T38.3X5A Adverse effect of insulin and oral hypoglycemic [antidiabetic] drugs, initial encounter; I10 Essential (primary) hypertension; E78.5 Hyperlipidemia, unspecified; G89.4 Chronic pain syndrome; K85.10 Biliary acute pancreatitis without necrosis or infection; I25.10 Atherosclerotic heart disease of native coronary artery without angina pectoris; G40.909 Epilepsy, unspecified, not intractable, without status epilepticus; E66.01 Morbid (severe) obesity due to excess calories; K21.9 Gastro-esophageal reflux disease without esophagitis; G47.33 Obstructive sleep apnea (adult) (pediatric); F12.90 Cannabis use, unspecified, uncomplicated; F41.9 Anxiety disorder, unspecified; F32.A Depression, unspecified; F17.210 Nicotine dependence, cigarettes, uncomplicated; Z79.4 Long term (current) use of insulin; Z79.899 Other long term (current) drug therapy; Z98.890 Other specified postprocedural states; Z98.1 Arthrodesis status; Z68.23 Body mass index [BMI] 23.0-23.9, adult
CPT/HCPCS: 36415; 71045; 80053; 82947; 83735; 85025; 87426; 93005; 96374; 99285; G0378; J1815; U0003; G0379

== ENCOUNTER 2021-03-03 13:26 | Emergency (ER) | payer MEDICARE, MEDICAID ==
[~2021-03-03] VITALS: Ht 165.1 cm; Wt 62.8 kg
[~2021-03-03 13:26] MED LIST changes: +OXYC10TA46 PO
[2021-03-03 13:49] VITALS: BP 187/79
[2021-03-03] MEDS ORDERED: IOHEXOL 300 MG/ML 75 ML VIAL. IV ONE (14:00)
[2021-03-03] MEDS ORDERED: IV NORMAL SALINE 1,000ML 1,000 ML IV SCH (14:00)
--- NOTE | 2021-03-03 14:28 | PHYS DOC ---
Past History Past Medical History: Anxiety, Depression, Diabetes, GERD, Hypertension Additional Past Medical Histor: COLITIS, chronic pain (TK PUGH APRN) Past Surgical History: Other Additional Past Surgical Histo: whipple, intestinal repair x 2 (TK PUGH APRN) Smoking: Cigarettes, Less than 1pk/day Alcohol Use: None Drug Use: Marijuana (TK PUGH APRN) General Adult EDM: Chief Complaint: NAUSEA/VOMITING/DIARRHEA HPI: HPI: Patient is a 55-year-old male who presents to the emergency department for lower abdominal pain that radiates to bilateral flanks and nausea, vomiting and diarrhea. Patient is also reporting dysuria, urinary frequency. Symptoms have been going on for several days. Patient reports that he normally takes 10 mg of oxycodone at home but ran out of his medications 2 days ago. Patient is well- known to this ER and presents frequently for chronic abdominal and back pain. Patient denies any fevers or blood in his stools or vomit. (TK PUGH APRN) Review of Systems: Review of Systems: Constitutional: See HPI GI: See HPI : See HPI Musculoskeletal: See HPI (TK PUGH APRN) Current Medications: Current Meds: Current Medications Medications (Trade) Dose Ordered Sig/Elfego Start Time Stop Time Status Last Admin Dose Admin Iohexol (Omnipaque 300 Mg/ml) 75 ml 1X ONCE 03/03/21 14:00 03/03/21 14:17 DC Ondansetron HCl (Zofran Odt) 4 mg 1X ONCE 03/03/21 14:30 03/03/21 14:31 Sodium Chloride 1,000 ml @ 1,000 mls/hr Q1H 03/03/21 14:00 03/03/21 14:17 DC (TK PUGH APRN) Allergies: Allergies: Allergies Coded Allergies Type Severity Reaction Last Updated Verified tramadol Allergy Severe ANAPHYLAXIS 01/07/21 Yes aspirin Allergy Intermediate 02/17/21 Yes fentanyl Allergy Intermediate 01/07/21 Yes ketorolac Allergy Intermediate 02/17/21 Yes naproxen Allergy Intermediate 02/17/21 Yes acetaminophen Allergy Mild Hives 01/07/21 Yes (TK PUGH APRN) Physical Exam: PE: Constitutional: Well developed, well nourished, no acute distress, non-toxic appearance. [] HENT: Normocephalic, atraumatic, bilateral external ears normal, oropharynx moist, no oral exudates, nose normal. [] Eyes: PERRL, EOMI, conjunctiva normal, no discharge. [] Neck: Normal range of motion, no stridor Cardiovascular:Heart rate regular rhythm, no murmur [] Lungs & Thorax: Bilateral breath sounds clear to auscultation [] Abdomen: Bowel sounds normal, soft, no rigidity, no guarding, generalized abdominal pain with palpation, no masses, no pulsatile masses. [] Skin: Warm, dry, no erythema, no rash. [] Back: No tenderness, no CVA tenderness. [] Extremities: No tenderness, no cyanosis, no clubbing, ROM intact, no edema. [] Neurologic: Alert and oriented X 3, normal motor function, normal sensory function, no focal deficits noted. [] Psychologic: Affect normal, judgement normal, mood normal. [] (TK PUGH APRN) Current Patient Data: Labs: Laboratory Tests Test 03/03/21 13:34 Glucose (Fingerstick) 262 mg/dL (70-99) H Vital Signs: Vital Signs Date Time Temp Pulse Resp B/P (MAP) Pulse Ox O2 Delivery O2 Flow Rate FiO2 03/03/21 13:49 98.0 70 18 187/79 (115) 100 (TK PUGH APRN) EKG: EKG: [] (TK PUGH APRN) Radiology/Procedures: Radiology/Procedures: []PROCEDURE: CT ABDOMEN PELVIS WO CONTRAST Exam: CT of abdomen and pelvis without contrast INDICATION: Abdominal pain TECHNIQUE: Sequential axial images through the abdomen and pelvis obtained without IV contrast. Sagittal and coronal reformatted images were reconstructed from the axial data and reviewed. Exposure: One or more of the following in the visualized dose reduction te chniques were utilized for this examination: 1. Automated exposure control 2. Adjustment of the MA and/or KV according to patient size 3. Use of iterative of reconstructive technique Comparisons: 02/17/2021 FINDINGS: Heart size is normal. No pericardial effusion. Visualized lung bases are clear. No pleural effusion. Evaluation solid organs is limited secondary to noncontrast technique. Liver, spleen, and adrenals are unremarkable. Pancreas is markedly atrophic gallbladder surgically absent. No renal or ureteral calculi. No hydronephrosis. Bladder is partially distended and not well evaluated. Prostate is not enlarged. Large and small bowel are unremarkable. No free intra-abdominal air or fluid. No obstruction. Abdominal aorta has a normal course and caliber. No enlarged intra-abdominal lymph nodes are identified. No suspicious osseous lesions or acute fractures. IMPRESSION: No acute process identified within the abdomen or pelvis. Electronically signed by: Estella Singleton MD (03/03/2021 3:31 PM) [facility] DICTATED AND SIGNED BY: ESTELLA SINGLETON MD DATE: 03/03/211510 CC: AGNES JIM MD; TK PUGH APRN ~MTH0 0 (TK PUGH APRN) Heart Score: C/O Chest Pain: N/A Risk Factors: Risk Factors: DM, Current or recent (<one month) smoker, HTN, HLP, family history of CAD, obesity. Risk Scores: Score 0 - 3: 2.5% MACE over next 6 weeks - Discharge Home Score 4 - 6: 20.3% MACE over next 6 weeks - Admit for Clinical Observation Score 7 - 10: 72.7% MACE over next 6 weeks - Early Invasive Strategies (TK PUGH APRN) Course & Med Decision Making: Course & Med Decision Making Pertinent Labs and Imaging studies reviewed. (See chart for details) Patient presents to the emergency department for lower abdominal pain that radiates into bilateral flanks with nausea, vomiting and diarrhea, dysuria and urinary frequency.. Work-up in the ER consisted of blood work, urinalysis and CT imaging of abdomen and pelvis. IV fluids and nausea medication ordered. 1417: Nursing staff reports that they are unable to obtain an IV on patient. Patient treated with ODT Zofran. CT of abdomen pelvis without contrast ordered. Patient was noted to have mild leukocytosis with a white blood cell count of 12.4, likely due to his vomiting. Remaining lab work is unremarkable. CT scan of abdomen and pelvis was unremarkable. Patient PO challenged and tolerating fluids. Patient advised to follow-up with his primary care provider if he needs any additional pain medication, he states that he has a refill for his oxycodone that he takes. He last filled 150 tabs of 10mg oxycodone on 02/07, when asked why thepatient does not have any left at home when he should have enough to last him to his appointment with Dr. Jim on 03/07, he states because he is moving and the movers took some of his pain medications. I discussed with patient all findings and diagnostic testing as well as the need to follow-up with PCP for further evaluation and treatment or return to the ER if any new or worsening s ymptoms. Strict return precautions were also discussed at length. Patient voiced understanding and agreement with the plan. Patient is hemodynamically stable at the time of disposition. (TK PUGH APRN) Course & Med Decision Making Did not see or evaluate patient. Did not discuss patient with CAMP DINING ROOM ATTENDANT. Agree with CAMP DINING ROOM ATTENDANT's work-up and disposition per note (JENIFER RAMOS MD) Dragon Disclaimer: Dragon Disclaimer: This electronic medical record was generated, in whole or in part, using a voice recognition dictation system. (TK PUGH APRN) Departure Departure: Impression: Primary Impression: Chronic abdominal pain Disposition: HOME / SELF CARE / HOMELESS Condition: GOOD Referrals: AGNES JIM MD (PCP) Patient Instructions: Abdominal Pain Additional Instructions: You were seen in the emergency department today for abdominal pain. Your work- up in the ER was unremarkable. You are being discharged home with nausea medication that you can take as needed. If you require any pain medication, please follow-up with your primary care provider to get a refill on your oxycodone that you take for your chronic abdominal pain. Increase your fluids. I would eat a bland diet for the next 24 hours, you can follow the brat diet which includes bananas, rice, applesauce and toast. Avoid any spicy, greasy or fatty foods. Continue to monitor your blood sugars at home and take your medications as prescribed. Return to the emergency department if you develop worsening of your abdominal pain, intractable nausea or vomiting, high fevers refractory to treatment, blood in your stools or vomit, weakness, fatigue, lightheadedness. Scripts Ondansetron (ONDANSETRON ODT) 4 Mg Tab.rapdis 1 TAB PO PRN Q6-8HRS for nausea for 5 Days, #20 TAB 0 Refills Prov: TK PUGH APRN 03/03/21 TK PUGH APRN Mar 03, 2021 14:28 JENIFER RAMOS MD Mar 03, 2021 17:07
[2021-03-03] MEDS ORDERED: ONDANSETRON ODT 4 MG TAB.RAPDIS PO ONE (14:30)
[2021-03-03] MEDS ORDERED: IV NORMAL SALINE 1,000ML 1,000 ML IV ONE (15:00)
[2021-03-03] MEDS ORDERED: ONDANSETRON PF 4 MG/2 ML VIAL. IVP ONE (15:00)
[2021-03-03 15:10] LABS: BASO # 0.1 x10^3/uL (0.0-0.2); BASO % 1 % (0-3); EOS # 0.1 x10^3/uL (0.0-0.7); EOS % 1 % (0-3); HEMATOCRIT 42.9 % (39.0-53.0); HEMOGLOBIN 13.8 g/dL (13.0-17.5); LYMPH # 1.2 x10^3/uL (1.0-4.8); LYMPH % 10 % (24-48); MEAN CORPUSCULAR HEMOGLOBIN 29 pg (25-35); MEAN CORPUSCULAR HGB CONC 32 g/dL (31-37); MEAN CORPUSCULAR VOLUME 90 fL (79-100); MONO # 0.6 x10^3/uL (0.0-1.1); MONO % 5 % (0-9); NEUT # 10.4 x10^3uL (1.8-7.7); NEUT % 84 % (31-73); PLATELET COUNT 195 x10^3/uL (140-400); RED BLOOD COUNT 4.77 x10^6/uL (4.30-5.70); RED CELL DISTRIBUTION WIDTH 17.1 % (11.5-14.5); WHITE BLOOD COUNT 12.4 x10^3/uL (4.0-11.0)
[2021-03-03] MEDS ORDERED: MORPHINE SULFATE 2 MG/ML DISP.SYRIN. IV ONE ×2 (15:30→17:00)
--- NOTE | 2021-03-03 15:34 | RAD ---
Exam: CT of abdomen and pelvis without contrast INDICATION: Abdominal pain TECHNIQUE: Sequential axial images through the abdomen and pelvis obtained without IV contrast. Sagit jesus and coronal reformatted images were reconstructed from the axial data and reviewed. Exposure: One or more of the following in the visualized dose reduction techniques were utilized for this examination: 1. Automated exposure control 2. Adjustment of the MA and/or KV according to patient size 3. Use of iterative of reconstructive technique Comparisons: 02/17/2021 FINDINGS: Heart size is normal. No pericardial effusion. Visualized lung bases are clear. No pleural effusion. Evaluation solid organs is limited secondary to noncontrast technique. Liver, spleen, and adrenals are unremarkable. Pancreas is markedly atrophic gallbladder surgically ab sent. No renal or ureteral calculi. No hydronephrosis. Bladder is partially distended and not well evaluate d. Prostate is not enlarged. Large and small bowel are unremarkable. No free intra-abdominal air or fluid. No obstruction. Abdominal aorta has a normal course and caliber. No enlarged intra-abdominal lymph nodes are identified. No suspicious osseous lesions or acute fractures. IMPRESSION: No acute process identified within the abdomen or pelvis. Electronically signed by: Estella Hall MD (03/03/2021 3:31 PM) [facility]
[2021-03-03 16:19] LABS: CLARITY,URINE CLEAR; COLOR,URINE YELLOW
[2021-03-03 16:20] LABS: BACTERIA,URINE 0 /HPF (0-FEW); BILIRUBIN,URINE NEG (NEG); GLUCOSE,URINE 500 mg/dL (NEG); NITRITE,URINE NEG (NEG); UROBILINOGEN,URINE 0.2 mg/dL (0.2 mg/dL); WBC,URINE 0 /HPF (0-4)
[2021-03-03 16:24] LABS: CALCIUM 8.2 mg/dL (8.5-10.1); CREATININE 0.6 mg/dL (0.7-1.3); GFR 168.6; POTASSIUM 4.2 mmol/L (3.5-5.1)
[2021-03-03 16:29] LABS: ALBUMIN 2.9 g/dL (3.4-5.0); TOTAL BILIRUBIN 0.4 mg/dL (0.2-1.0); TOTAL PROTEIN 5.7 g/dL (6.4-8.2)
[2021-03-03] MEDS ORDERED: ONDA4TAB12 PO (16:50)
== END 2021-03-03 17:18 | disposition home or self-care (01) ==
LOC: ER 13:26
DX: G89.29 Other chronic pain (principal); R10.84 Generalized abdominal pain; R11.2 Nausea with vomiting, unspecified; R19.7 Diarrhea, unspecified; R30.0 Dysuria; R35.0 Frequency of micturition; E11.9 Type 2 diabetes mellitus without complications; K21.9 Gastro-esophageal reflux disease without esophagitis; I10 Essential (primary) hypertension; F17.210 Nicotine dependence, cigarettes, uncomplicated; Z88.6 Allergy status to analgesic agent; Z88.8 Allergy status to other drugs, medicaments and biological substances
CPT/HCPCS: 36415; 74176; 80053; 81001; 82947; 83690; 85025; 96361; 96374; 96375; 96376; 99285; J2270; J2405; J7030

== ENCOUNTER 2021-03-28 09:44 | Emergency (ER) | payer MEDICARE, MEDICAID ==
[~2021-03-28] VITALS: Ht 165.1 cm; Wt 62.8 kg
--- NOTE | 2021-03-28 10:19 | PHYS DOC ---
Past History Past Medical History: Anxiety, Depression, Diabetes, GERD, Hypertension Additional Past Medical Histor: COLITIS, chronic pain (ALLISON DOMÍNGUEZ APRN) Past Surgical History: Other Additional Past Surgical Histo: whipple, intestinal repair x 2 (ALLISON DOMÍNGUEZ APRN) Smoking: Cigarettes, Less than 1pk/day Alcohol Use: None Drug Use: Marijuana (ALLISON DOMÍNGUEZ APRN) General Adult EDM: Chief Complaint: SHORTNESS OF BREATH HPI: HPI: Patient is a 55-year-old male presents with back pain, shoulder pain, headache, cough and chest pressure, nausea. Patient states his symptoms started on Wednesday. Patient is well-known to this ER and presents frequently for chronic abdominal and back pain. Patient is prescribed oxycodone to take at home for chronic pain. Patient denies fever. History of chronic abdominal and back pain, diabetes, COPD, anxiety, hypertension, hyperlipidemia, RI. (ALLISON DOMÍNGUEZ APRN) Review of Systems: Review of Systems: ROS At least 10 ROS systems have been reviewed and are negative except as documented in the HPI. General: Negative except as outlined in HPI above. Skin: Negative except as outlined in HPI above. HEENT: Negative except as outlined in HPI above. Neck: Negative except as outlined in HPI above. Respiratory: Negative except as outlined in HPI above.. Cardiovascular: Negative except as outlined in HPI above. Abdomen: Negative except as outlined in HPI above. : Negative except as outlined in HPI above. Back/MSK: Negative except as outlined in HPI above. Neuro: Negative except as outlined in HPI above. Psych: Negative except as outlined in HPI above. (ALLISON DOMÍNGUEZ APRN) Allergies: Allergies: Allergies Coded Allergies Type Severity Reaction Last Updated Verified tramadol Allergy Severe ANAPHYLAXIS 01/07/21 Yes aspirin Allergy Intermediate 02/17/21 Yes fentanyl Allergy Intermediate 01/07/21 Yes ketorolac Allergy Intermediate 02/17/21 Yes naproxen Allergy Intermediate 02/17/21 Yes acetaminophen Allergy Mild Hives 01/07/21 Yes (ALLISON DOMÍNGUEZ APRN) Physical Exam: PE: Constitutional: Well developed, well nourished, no acute distress, non-toxic appearance. [] HENT: Normocephalic, atraumatic, bilateral external ears normal, oropharynx moist, no oral exudates, nose normal. [] Eyes: PERRLA, EOMI, conjunctiva normal, no discharge. [] Neck: Normal range of motion, no tenderness, supple, no stridor. [] Cardiovascular:Heart rate regular rhythm, no murmur [] Lungs & Thorax: Wheezing heard throughout on auscultation Abdomen: Bowel sounds normal, soft, no tenderness, no masses, no pulsatile masses. [] Skin: Warm, dry, no erythema, no rash. [] Back: Generalized tenderness, no CVA tenderness. [] Extremities: No tenderness, no cyanosis, no clubbing, ROM intact, no edema. [] Neurologic: Alert and oriented X 3, normal motor function, normal sensory function, no focal deficits noted. [] Psychologic: Affect normal, judgement normal, mood normal. [] (ALLISON DOMÍNGUEZ APRN) Current Patient Data: Vital Signs: Vital Signs Date Time Temp Pulse Resp B/P (MAP) Pulse Ox O2 Delivery O2 Flow Rate FiO2 03/28/21 10:01 98.2 89 16 162/93 (116) 100 (ALLISON DOMÍNGUEZ APRN) EKG: EKG: Sinus rhythm. Heart rate 86 bpm. No STEMI. [] (ALLISON DOMÍNGUEZ APRN) Radiology/Procedures: Radiology/Procedures: [] XR CHEST 1V History: Reason: cough, CHEST PAIN / Spl. Instructions: / History: Comparison: February 25, 2021 Findings: No consolidation or pleural effusion. Normal heart size. No pneumothorax. Impression: 1. No acute cardiopulmonary process. Electronically signed by: Nicholas Anderson DO (03/28/2021 11:39 AM) [id number] Site ID: [id number] EXAMINATION: CTA chest. Technique: Axial images with coronal and sagittal reconstructions with MIP technique are performed of chest with angiogram protocol. 100 mL of Omnipaque 350 administered intravenously. One or more of the following radiation dose reduction techniques was used: automated exposure control, adjustment of mA and/or KV according to patient size, and/or utilization of iterative reconstruction technique. HISTORY: 55 years Male Reason: sob COMPARISON: June 19, 2018. FINDINGS: There is good opacification of the pulmonary arteries with no filling defects to suggest pulmonary embolism. The thoracic aorta is normal in caliber. The heart size is normal. No pericardial effusion. There is no pleural effusion. There is a no mediastinal mass or lymphadenopathy. No lymphadenopathy in the gurwinder or axilla. The lungs demonstrate the minimal nonspecific groundglass opacities in the upper lobes. There is no lung mass, significant consolidation or suspicious nodules seen otherwise. Sections in the upper abdomen demonstrate low density thickening in the left adrenal gland and the adrenal nodule measuring 1.9 cm could represent an adenoma. The adrenal nodule is stable from June 19, 2018 CT. The osseous structures demonstrate scoliosis convex to the right with degenerative changes.Multilevel degenerative the osteophytes are also seen in the thoracic spine. IMPRESSION: 1. No PE or aortic dissection. 2. Mild groundglass opacities mostly involving the upper lobes could relate to mild atypical infectious or inflammatory pneumonitis. 3. Left adrenal thickening with 1.9 cm nodule is stable from 2019 suggestive of an adenoma. Electronically signed by: Carlos Manuel Ni MD (03/28/2021 12:39 PM) [id number] (ALLISON DOMÍNGUEZ APRN) Heart Score: C/O Chest Pain: No Risk Factors: Risk Factors: DM, Current or recent (<one month) smoker, HTN, HLP, family history of CAD, obesity. Risk Scores: Score 0 - 3: 2.5% MACE over next 6 weeks - Discharge Home Score 4 - 6: 20.3% MACE over next 6 weeks - Admit for Clinical Observation Score 7 - 10: 72.7% MACE over next 6 weeks - Early Invasive Strategies (ALLISON DOMÍNGUEZ APRN) Course & Med Decision Making: Course & Med Decision Making Pertinent Labs and Imaging studies reviewed. (See chart for details) [] 55-year-old male presents with back pain, shoulder pain, headache, cough chest pressure and nausea. Work-up in ER consisted of EKG, lab work, urinalysis, chest x-ray. Patient's pain was treated in the emergency room. est x-ray ordered. Patient given breathing treat treatment and steroids. Chest x-ray is unremarkable. D-dimer elevated at 0.64. Negative for PE. CTA shows bilateral, groundglass opacities. Suspicious for Covid pneumonia. Patient started on Rocephin and azithromycin. Sending patient home with antibiotic. Blood sugar is elevated. Patient denies taking medication for diabetes today. Discussed with patient importance of continuing medication. Patient states that he will take his medication when he arrives at home. Discussed all results with patient. Discussed quarantining at home until Covid results are back. Patient to take ibuprofen and Tylenol at home. Continue taking oxycodone prescribed by primary care physician. Make an appointment with PCP for follow-up management. Return to emergency room with worsening symptoms or concerns. (ALLISON DOMÍNGUEZ APRN) Curt Disclaimer: Curt Disclaimer: This electronic medical record was generated, in whole or in part, using a voice recognition dictation system. (ALLISON DOMÍNGUEZ APRN) Attending Co-Sign The patient was seen and interviewed as well as examined at the bedside. The chart was reviewed. The case was discussed. Agree with the plan of care. (CHAVO JASSO DO) Departure Departure: Impression: Primary Impression: Pneumonia Qualified Codes: J18.9 - Pneumonia, unspecified organism Additional Impression: Person under investigation for COVID-19 Disposition: 01 HOME / SELF CARE / HOMELESS Condition: STABLE Referrals: AGNES VALDERRAMA MD (PCP) Patient Instructions: Pneumonia, Adult Additional Instructions: EMERGENCY DEPARTMENT GENERAL DISCHARGE INSTRUCTIONS Thank you for coming to [facility] (ED) today and trusting us with you care. We trust that you had a positivie experience in our Emergency Department. If you wish to speak to the department management, you may call the director at [phone]. YOUR FOLLOW UP INSTRUCTIONS ARE FOLLOWS: 1. Do you have a private Doctor? If you do not have a private doctor, please ask for a resource list of physicians or clinics that may be able to assist you with foll ow up care. 2. The Emergency Physician has interpreted your x-rays. The X-Ray specialist will also review them. If there is a change in the findings, you will be notified in 48 hours when at all possible. 3. A lab test or culture has been done, your results will be reviewed and you will be notified if you need a change in treatment. ADDITIONAL INSTRUCTIONS AND INFORMATION: 1. Your care today has been supervised by a physician who is specially trained in emergency care. Many problems require more than one evaluation for a complete diagnosis and treatment. We recommend that you schedule your follow up appointment as re commended to ensure complete treatment of you illness or injury. If you are unable to obtain follow up care and continue to have a problem, or if your condition worsens, we recommend that you return to the ED. 2. We are not able to safely determine your condition over the phone nor are we able to give sound medical advice over the phone. For these safety reasons, if you call for medical advice we will ask you to come to the ED for further evaluation. 3. If you have any questions regarding these discharge instructions please call the ED at [phone]. SAFETY INFORMATION: In the interest of safety, wellness, and injury prevention; we encourage you to wear your sealbelt, if you smoke; quite smoking, and we encourage family to use a protective helmet for bicycling and other sporting events that present an increased risk for head injury. IF YOUR SYMPTOMS WORSEN OR NEW SYMPTOMS DEVELOP, OR YOU HAVE CONCERNS ABOUT YOUR CONDITION; OR IF YOUR CONDITION WORSENS WHILE YOU ARE WAITING FOR YOUR FOLLOW UP APPOINTMENT; EITHER CONTACT YOUR PRIMARY CARE DOCTOR, THE PHYSICIAN WHOSE NAME AND NUMBER YOU WERE GIVEN, OR RETURN TO THE ED IMMEDIATELY. You have been tested for or diagnosed with COVID-19. It is an infection caused by a new type of coronavirus. COVID-19 will cause cold-like or mild flu symptoms in most. It can cause more severe symptoms like problems breathing in some. There is no treatment for COVID-19. The body will clear the infection over time. Self-care will help to ease discomfort. Steps to Take: Self-Care Rest as needed. Healthy habits may help you feel better. Steps include: Choose healthy foods including fruits and vegetables. Drink water throughout the day. Get plenty of sleep each night. If you smoke, try to quit. It may ease breathing. Avoid alcohol. Keep Others Healthy The virus can spread to others. Droplets are released every time you sneeze or cough. The droplets can get into the mouth, nose, or eyes of people near you and lead to infection. To lower the chances of spreading COVID-19 to others: Stay at home until your doctor has said it is safe to leave. If you tested positive this will mean staying isolated until both of the following are true: At least 7 days have passed since the start of illness. You are free of fever for at least 72 hours without the use of medicine. During this time: - Avoid public areas, events, or transportation. Do not return to work or school until your doctor has said it is safe to do so. - Call ahead if you need to go to a medical center. Let them know you may have COVID-19. It will help them guide you where to go. They may also ask you to wear a facemask when you come to the office. - If you call for emergency medical services, let them know you may have COVID- 19. While at home: - Try to avoid close contact with others. Stay about 6 feet away. - If possible, spend most of your time in a separate room from others. - Use a face mask if you will be in close contact with others such as sharing a room or vehicle. - Have someone wipe down common surfaces in the home. Use household advance scout every day on areas like doorknobs, counters, or sinks. - Cough or sneeze into a tissue. Throw the tissue away right after use. If a tissue is not available, cough or sneeze into your elbow. - Wash your hands often. Wash them after sneezing or coughing. Use soap and water and wash for at least 20 seconds. Alcohol based hand commercial cleaner can be used if soap and water is not available. - Do not prepare food for others. Avoid sharing personal items like forks, spoons, or toothbrushes. - Avoid close contact with pets while you are sick. There is no evidence of the virus passing to pets. This is a safety step until more is known about this virus. Isolation can be frustrating. Social interaction can help. Keep in touch with friends and family through phone and tech options. You can still interact with others in your home, just keep a safe distance of about 6 feet. Follow-up: Your doctors office will check in with you to see if there are any changes in your health. You may be asked to keep track of symptoms to share with them. They will also let you know when you are clear to be in public again. Problems to Look Out For: Contact your doctor if your recovery is not going as you expect. Get emergency care if you have problems such as: - Trouble breathing - Nonstop chest pain or pressure - Changes in awareness, confusion, or problems waking - Lips or face have bluish color - Worsening of symptoms If you think you have an emergency, call for emergency medical services right away. As taken from [facility] SANGALLISONTEJAL LEYVA Mar 28, 2021 10:19 CHAVO JASSO DO Mar 29, 2021 11:43
[2021-03-28] MEDS ORDERED: ONDANSETRON PF 4 MG/2 ML VIAL. IVP ONE (10:30)
[2021-03-28] MEDS ORDERED: IPRATRPIUM/ALBUTEROL 0.5/2.5MG 3 ML NEBU. NEB ONE (10:30)
[2021-03-28 10:58] LABS: BASO % 0 % (0-3); EOS % 0 % (0-3); HEMATOCRIT 43.3 % (39.0-53.0); HEMOGLOBIN 14.3 g/dL (13.0-17.5); LYMPH # 1.2 x10^3/uL (1.0-4.8); LYMPH % 13 % (24-48); MEAN CORPUSCULAR HEMOGLOBIN 29 pg (25-35); MEAN CORPUSCULAR HGB CONC 33 g/dL (31-37); MEAN CORPUSCULAR VOLUME 89 fL (79-100); MONO # 0.4 x10^3/uL (0.0-1.1); MONO % 5 % (0-9); NEUT # 7.2 x10^3uL (1.8-7.7); NEUT % 81 % (31-73); PLATELET COUNT 381 x10^3/uL (140-400); RED BLOOD COUNT 4.88 x10^6/uL (4.30-5.70); RED CELL DISTRIBUTION WIDTH 16.6 % (11.5-14.5); WHITE BLOOD COUNT 8.9 x10^3/uL (4.0-11.0)
[2021-03-28] MEDS ORDERED: HYDROmorphone PF 1 MG/ML DISP.SYRIN IVP ONE ×2 (11:00→13:45)
--- NOTE | 2021-03-28 11:12 | EKG ---
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
[2021-03-28 11:16] LABS: CALCIUM 7.9 mg/dL (8.5-10.1); CREATININE 0.8 mg/dL (0.7-1.3); POTASSIUM 5.2 mmol/L (3.5-5.1)
--- NOTE | 2021-03-28 11:42 | RAD ---
XR CHEST 1V History: Reason: cough, CHEST PAIN / Spl. Instructions: / History: Comparison: February 25, 2021 Findings: No consolidation or pleural effusion. Normal heart size. No pneumothorax. Impression: 1. No acute cardiopulmonary process. Electronically signed by: Nicholas Anderson DO (03/28/2021 11:39 AM) [id number]
[2021-03-28] MEDS ORDERED: IOHEXOL 350 MG/ML 100 ML VIAL. IV ONE (11:45)
[2021-03-28 12:15] LABS: BILIRUBIN,URINE NEG (NEG); CLARITY,URINE CLEAR; COLOR,URINE YELLOW; GLUCOSE,URINE >=1000 mg/dL (NEG); NITRITE,URINE NEG (NEG); UROBILINOGEN,URINE 0.2 mg/dL (0.2 mg/dL)
[2021-03-28 12:16] LABS: BACTERIA,URINE 0 /HPF (0-FEW); RBC,URINE 0 /HPF (0-2); SQUAMOUS EPITHELIAL CELL,UR OCC /LPF; WBC,URINE RARE /HPF (0-4)
--- NOTE | 2021-03-28 12:41 | RAD ---
Site ID: [id number] EXAMINATION: CTA chest. Technique: Axial images with coronal and sagittal reconstructions with MIP technique are performed of chest with angiogram protocol. 100 mL of Omnipaque 350 administered intravenously. One or more of the following radiation dose reduction techniques was used: automated exposure control , adjustment of mA and/or KV according to patient size, and/or utilization of iterative reconstructio n technique. HISTORY: 55 years Male Reason: sob COMPARISON: June 19, 2018. FINDINGS: There is good opacification of the pulmonary arteries with no filling defects to suggest pulmonary em bolism. The thoracic aorta is normal in caliber. The heart size is normal. No pericardial effusion. T here is no pleural effusion. There is a no mediastinal mass or lymphadenopathy. No lymphadenopathy in the gurwinder or axilla. The lungs demonstrate the minimal nonspecific groundglass opacities in the upper lobes. There is no l olga mass, significant consolidation or suspicious nodules seen otherwise. Sections in the upper abdomen demonstrate low density thickening in the left adrenal gland and the ad renal nodule measuring 1.9 cm could represent an adenoma. The adrenal nodule is stable from June 19, 2018 CT. The osseous structures demonstrate scoliosis convex to the right with degenerative changes.Multilevel degenerative the osteophytes are also seen in the thoracic spine. IMPRESSION: 1. No PE or aortic dissection. 2. Mild groundglass opacities mostly involving the upper lobes could relate to mild atypical infectio us or inflammatory pneumonitis. 3. Left adrenal thickening with 1.9 cm nodule is stable from 2019 suggestive of an adenoma. Electronically signed by: Carlos Manuel Ni MD (03/28/2021 12:39 PM) [id number]
[2021-03-28] MEDS ORDERED: DEXAMETHASONE SOD PHOS 10 MG/ML VIAL. IVP ONE (13:45)
[2021-03-28] MEDS ORDERED: AZITHROMYCIN 500 MG in IV NORMAL SALINE 250ML 250 ML IV ONE (13:45)
[2021-03-28] MEDS ORDERED: IV NORMAL SALINE 50ML 50 ML ONE (14:20)
[2021-03-28] MEDS ORDERED: cefTRIAXone SODIUM 1 GM VIAL ONE (14:20)
[2021-03-28] MEDS ORDERED: IV NORMAL SALINE 250ML 250 ML ONE (14:21)
[2021-03-28] MEDS ORDERED: AZITHROMYCIN 500 MG VIAL. IV ONE (14:21)
[2021-03-28 15:41] VITALS: BP 128/70
== END 2021-03-28 15:41 | disposition home or self-care (01) ==
LOC: ER 09:44
DX: J18.9 Pneumonia, unspecified organism (principal); M54.89 Other dorsalgia; M25.519 Pain in unspecified shoulder; E11.9 Type 2 diabetes mellitus without complications; K21.9 Gastro-esophageal reflux disease without esophagitis; I10 Essential (primary) hypertension; G89.29 Other chronic pain; F17.210 Nicotine dependence, cigarettes, uncomplicated; Z20.822 Contact with and (suspected) exposure to COVID-19; Z88.6 Allergy status to analgesic agent; Z88.8 Allergy status to other drugs, medicaments and biological substances
CPT/HCPCS: 36415; 71045; 71275; 80048; 81001; 82947; 84484; 85025; 85379; 93005; 94640; 96365; 96368; 96375; 96376; 99285; C9803; J0456; J0696; J1100; J1170; J2405; J7050; Q9967; U0003

== ENCOUNTER 2021-04-02 06:41 | Emergency (ER) | payer MEDICARE, MEDICAID ==
[~2021-04-02] VITALS: Ht 165.1 cm; Wt 58.4 kg
[2021-04-02] MEDS ORDERED: ONDANSETRON PF 4 MG/2 ML VIAL. IVP ONE (07:00)
[2021-04-02] MEDS ORDERED: DICYCLOMINE 20 MG/2 ML VIAL. IM ONE (07:00)
--- NOTE | 2021-04-02 07:14 | PHYS DOC ---
Past History Past Medical History: Anxiety, Depression, Diabetes, GERD, Hypertension Additional Past Medical Histor: COLITIS, chronic pain Past Surgical History: Other Additional Past Surgical Histo: whipple, intestinal repair x 2 Smoking: Cigarettes, Less than 1pk/day Alcohol Use: None Drug Use: Marijuana General Adult EDM: Chief Complaint: ABDOMINAL PAIN HPI: HPI: Patient is a 55-year-old male presents to emergency department via EMS. Patient is well-known to the emergency department for chronic abdominal pain. States the pain is generalized and radiates to his back, has some nausea but no vomiting. Had a normal bowel yesterday, denies any change in urination. Describes the pain as cramping. He states he has been compliant with insulin, but blood glucose was over 400 on EMS evaluation Review of Systems: Review of Systems: All other systems within normal limits except for as noted in the HPI Current Medications: Current Meds: Current Medications Medications (Trade) Dose Ordered Sig/Elfego Start Time Stop Time Status Last Admin Dose Admin Dicyclomine HCl (Bentyl) 10 mg 1X ONCE 04/02/21 07:00 04/02/21 07:06 DC Ondansetron HCl (Zofran) 4 mg 1X ONCE 04/02/21 07:00 04/02/21 07:06 DC Allergies: Allergies: Allergies Coded Allergies Type Severity Reaction Last Updated Verified tramadol Allergy Severe ANAPHYLAXIS 04/02/21 Yes acetaminophen Allergy Intermediate Hives 04/02/21 Yes aspirin Allergy Intermediate 04/02/21 Yes fentanyl Allergy Intermediate 04/02/21 Yes ketorolac Allergy Intermediate 04/02/21 Yes naproxen Allergy Intermediate 04/02/21 Yes Physical Exam: PE: Constitutional: Well developed, well nourished, no acute distress, non-toxic appearance. [] HENT: Normocephalic, atraumatic, bilateral external ears normal, nose normal. [] Eyes: PERRLA, conjunctiva normal, no discharge. [] Neck: No rigidity, supple, no stridor. [] Cardiovascular: Regular rate and rhythm, brisk cap refill [] Lungs & Thorax: Non labored symmetric respirations, no tachypnea or respiratory distress [] Abdomen: Soft, nondistended, generalized abdominal pain with voluntary guarding, well-healed surgical scars without hernias. Skin: Warm, dry, no erythema, no rash. [] Back: Unremarkable Extremities: No deformities, range of motion grossly intact, no lower extremity edema [] Neurologic: Alert and oriented X 3, no focal deficits noted. [] Psychologic: Affect normal, judgement normal, mood normal. [] Current Patient Data: Vital Signs: Vital Signs Date Time Temp Pulse Resp B/P (MAP) Pulse Ox O2 Delivery O2 Flow Rate FiO2 04/02/21 07:09 83 18 145/88 (107) 100 Room Air 04/02/21 06:46 97.9 EKG: EKG: Sinus rhythm, heart rate 80 bpm, normal axis, no ST ovation or depression, no ectopy. [] Radiology/Procedures: Radiology/Procedures: [] Heart Score: C/O Chest Pain: No Risk Factors: Risk Factors: DM, Current or recent (<one month) smoker, HTN, HLP, family history of CAD, obesity. Risk Scores: Score 0 - 3: 2.5% MACE over next 6 weeks - Discharge Home Score 4 - 6: 20.3% MACE over next 6 weeks - Admit for Clinical Observation Score 7 - 10: 72.7% MACE over next 6 weeks - Early Invasive Strategies Course & Med Decision Making: Course & Med Decision Making Patient well-known to the emergency department and has had numerous visits. Discussed with patient that his labs are unremarkable, he has a benign abdominal exam, and his vital signs have been stable. Patient states that he is low on his OxyContin but says he has been take them despite having no opiates on his U DS. Did test positive for marijuana advised patient to discontinue marijuana use as it can add to his chronic abdominal pain and nausea. Patient asking for narcotics several times in emergency department discussed that we will try other measures than narcotics since he is already on chronic pain management. This patient risks of his numerous CTs he has had (between here in [place] he has had 10 abdominal CTs in the past 1 year) discussed since his labs and exam are unremarkable that we will discharge with return precautions to avoid further unnecessary radiation. Patient agreeable to plan and asking for cab Voucher. Curt Disclaimer: Curt Disclaimer: This electronic medical record was generated, in whole or in part, using a voice recognition dictation system. Departure Departure: Impression: Primary Impression: Poorly controlled diabetes mellitus Additional Impression: Chronic abdominal pain Disposition: HOME / SELF CARE / HOMELESS Condition: STABLE Referrals: AGNES VALDERRAMA MD (PCP) Patient Instructions: Abdominal Pain (Nonspecific) ENDY FRITZ MD Apr 02, 2021 07:14
--- NOTE | 2021-04-02 07:31 | EKG ---
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
[2021-04-02 07:40] LABS: BASO # 0.1 x10^3/uL (0.0-0.2); BASO % 1 % (0-3); EOS # 0.1 x10^3/uL (0.0-0.7); EOS % 1 % (0-3); HEMATOCRIT 45.3 % (39.0-53.0); HEMOGLOBIN 14.8 g/dL (13.0-17.5); LYMPH # 1.3 x10^3/uL (1.0-4.8); LYMPH % 13 % (24-48); MEAN CORPUSCULAR HEMOGLOBIN 29 pg (25-35); MEAN CORPUSCULAR HGB CONC 33 g/dL (31-37); MEAN CORPUSCULAR VOLUME 89 fL (79-100); MONO # 0.8 x10^3/uL (0.0-1.1); MONO % 8 % (0-9); NEUT % 78 % (31-73); PLATELET COUNT 319 x10^3/uL (140-400); RED BLOOD COUNT 5.08 x10^6/uL (4.30-5.70); RED CELL DISTRIBUTION WIDTH 16.8 % (11.5-14.5); WHITE BLOOD COUNT 10.3 x10^3/uL (4.0-11.0)
[2021-04-02] MEDS ORDERED: INSULIN REGULAR 100 UNIT/ML 3ML VIAL. IV ONE (08:15)
[2021-04-02 08:28] LABS: BARBITURATES NEG (NEG); BENZODIAZEPINES NEG (NEG); CANNABINOIDS POS (NEG); COCAINE NEG (NEG); METHADONE NEG (NEG); OPIATES NEG (NEG); PHENCYCLIDINE NEG (NEG)
[2021-04-02 08:29] LABS: AMPHETAMINE/METHAMPHETAMINE NEG (NEG)
[2021-04-02 08:34] LABS: BACTERIA,URINE 0 /HPF (0-FEW); BILIRUBIN,URINE NEG (NEG); CLARITY,URINE CLEAR; COLOR,URINE YELLOW; GLUCOSE,URINE >=1000 mg/dL (NEG); NITRITE,URINE NEG (NEG); RBC,URINE 0 /HPF (0-2); SQUAMOUS EPITHELIAL CELL,UR FEW /LPF; UROBILINOGEN,URINE 0.2 mg/dL (0.2 mg/dL); WBC,URINE 0 /HPF (0-4)
[2021-04-02 08:37] LABS: CALCIUM 7.7 mg/dL (8.5-10.1); CREATININE 0.7 mg/dL (0.7-1.3); GFR 141.2; POTASSIUM 4.9 mmol/L (3.5-5.1)
[2021-04-02 08:50] LABS: ALBUMIN 2.5 g/dL (3.4-5.0); ALBUMIN/GLOBULIN RATIO 0.8 (1.0-1.7); MAGNESIUM 2.6 mg/dL (1.8-2.4); PHOSPHORUS 3.1 mg/dL (2.6-4.7); TOTAL BILIRUBIN 0.3 mg/dL (0.2-1.0); TOTAL PROTEIN 5.7 g/dL (6.4-8.2)
[2021-04-02] MEDS ORDERED: LIDO:MAALOX 1:1 20 ML SINGLE DOSE. ONE (08:51)
[2021-04-02] MEDS ORDERED: LIDO:MAALOX 1:1 20 ML SINGLE DOSE. PO ONE (09:00)
[2021-04-02 09:14] VITALS: BP 164/89
[2021-04-02 10:48] LABS: SCHISTOCYTES FEW; TARGET CELLS PRESENT
[2021-04-02 10:49] LABS: PLT ESTIMATE ADEQUATE (ADEQUATE)
[2021-04-02 10:51] LABS: PLATELET CLUMP PRESENT
== END 2021-04-02 09:17 | disposition home or self-care (01) ==
LOC: ER 06:41
DX: G89.29 Other chronic pain (principal); R10.84 Generalized abdominal pain; E11.65 Type 2 diabetes mellitus with hyperglycemia; K21.9 Gastro-esophageal reflux disease without esophagitis; I10 Essential (primary) hypertension; F17.210 Nicotine dependence, cigarettes, uncomplicated; Z88.4 Allergy status to anesthetic agent; Z88.5 Allergy status to narcotic agent; Z88.6 Allergy status to analgesic agent
CPT/HCPCS: 36415; 80053; 80307; 81001; 82947; 83605; 83690; 83735; 83880; 84100; 84484; 85025; 93005; 96372; 96374; 99285; J0500; J2405

== ENCOUNTER 2021-04-23 11:45 | Emergency (ER) | payer MEDICARE, MEDICAID ==
[~2021-04-23] VITALS: Ht 165.1 cm; Wt 61.0 kg
--- NOTE | 2021-04-23 12:39 | PHYS DOC ---
Past History Past Medical History: Anxiety, Depression, Diabetes, GERD, Hypertension Additional Past Medical Histor: COLITIS, chronic pain Past Surgical History: Other Additional Past Surgical Histo: whipple, intestinal repair x 2 Smoking: Cigarettes, Less than 1pk/day Alcohol Use: None Drug Use: Marijuana General Adult EDM: Chief Complaint: back pain, nausea HPI: HPI: 55-year-old male returns the emergency room with back pain and nausea. Patient is a diabetic and hypoglycemia. Today he states he has had full back cramping pain for 2 days. He is already on narcotic pain medication for chronic stomach pain. He states that this is not helping. Patient is vaccinated against COVID- 19. He has had some nausea and vomiting at home. Denies fever or chills. Review of Systems: Review of Systems: Constitutional: Denies fever or chills Eyes: Denies change in visual acuity HENT: Denies nasal congestion or sore throat Respiratory: Denies cough or shortness of breath Cardiovascular: Denies chest pain or edema GI: Chronic abdominal pain, nausea, vomiting. : Denies dysuria Musculoskeletal: Generalized back pain Integument: Denies rash Neurologic: Denies headache, focal weakness or sensory changes Endocrine: Denies polyuria or polydipsia Lymphatic: Denies swollen glands Psychiatric: Denies depression or anxiety Allergies: Allergies: Allergies Coded Allergies Type Severity Reaction Last Updated Verified tramadol Allergy Severe ANAPHYLAXIS 04/02/21 Yes acetaminophen Allergy Intermediate Hives 04/02/21 Yes aspirin Allergy Intermediate 04/02/21 Yes fentanyl Allergy Intermediate 04/02/21 Yes ketorolac Allergy Intermediate 04/02/21 Yes naproxen Allergy Intermediate 04/02/21 Yes Physical Exam: PE: Constitutional: Well developed, well nourished, no acute distress, non-toxic appearance. [] HENT: Normocephalic, atraumatic, bilateral external ears normal, oropharynx moist, no oral exudates, nose normal. [] Eyes: PERRLA, EOMI, conjunctiva normal, no discharge. [] Neck: Normal range of motion, no tenderness, supple, no stridor. [] Cardiovascular: Heart rate regular rhythm, no murmur [] Lungs & Thorax: Bilateral breath sounds clear to auscultation [] Abdomen: Bowel sounds normal, soft, no tenderness, no masses, no pulsatile masses. [] Skin: Warm, dry, no erythema, no rash. [] Back: No point tenderness, some muscle spasm. [] Extremities: No tenderness, no cyanosis, no clubbing, ROM intact, no edema. [] Neurologic: Alert and oriented X 3, normal motor function, normal sensory function, no focal deficits noted. [] Psychologic: Affect normal, judgement normal, mood normal. [] EKG: EKG: [] Radiology/Procedures: Radiology/Procedures: [] Heart Score: C/O Chest Pain: N/A Risk Factors: Risk Factors: DM, Current or recent (<one month) smoker, HTN, HLP, family history of CAD, obesity. Risk Scores: Score 0 - 3: 2.5% MACE over next 6 weeks - Discharge Home Score 4 - 6: 20.3% MACE over next 6 weeks - Admit for Clinical Observation Score 7 - 10: 72.7% MACE over next 6 weeks - Early Invasive Strategies Course & Med Decision Making: Course & Med Decision Making Pertinent Labs and Imaging studies reviewed. (See chart for details) The patient already has narcotics at home. I will give him Norflex and Zofran in the emergency room. He still having pain I will give him 10 mg IM. He is stable for discharge at this time. If he needs any further pain medication he will have to follow-up with his prescribing doctor. [] Curt Disclaimer: Curt Disclaimer: This electronic medical record was generated, in whole or in part, using a voice recognition dictation system. Departure Departure: Impression: Primary Impression: Chronic back pain Disposition: HOME / SELF CARE / HOMELESS Condition: STABLE Referrals: AGNES VALDERRAMA MD (PCP) Patient Instructions: Back Pain, Adult, [id number] CHAVO JASSO DO Apr 23, 2021 12:39
[2021-04-23] MEDS ORDERED: ONDANSETRON ODT 4 MG TAB.RAPDIS PO ONE (13:00)
[2021-04-23] MEDS ORDERED: ORPHENADRINE CITRATE 60 MG/2 ML VIAL. IM ONE (13:00)
[2021-04-23 13:46] LABS: INFLUENZA A PATIENT NEGATIVE (NEGATIVE); INFLUENZA B PATIENT NEGATIVE (NEGATIVE)
[2021-04-23] MEDS ORDERED: MORPHINE SULFATE 10 MG/ML SYRINGE. IM ONE (14:15)
[2021-04-23 14:55] VITALS: BP 142/77
== END 2021-04-23 14:59 | disposition home or self-care (01) ==
LOC: ER 11:45
DX: G89.29 Other chronic pain (principal); M54.89 Other dorsalgia; M62.830 Muscle spasm of back; E11.9 Type 2 diabetes mellitus without complications; K21.9 Gastro-esophageal reflux disease without esophagitis; I10 Essential (primary) hypertension; F17.210 Nicotine dependence, cigarettes, uncomplicated; R11.2 Nausea with vomiting, unspecified; Z20.822 Contact with and (suspected) exposure to COVID-19; Z88.6 Allergy status to analgesic agent; Z88.8 Allergy status to other drugs, medicaments and biological substances
CPT/HCPCS: 87428; 96372; 99284; J2270; J2360; Q0162

== ENCOUNTER 2021-04-27 12:10 | Emergency (ER) | payer MEDICARE, MEDICAID ==
[~2021-04-27] VITALS: Ht 165.1 cm; Wt 61.0 kg
--- NOTE | 2021-04-27 12:14 | PHYS DOC ---
Past History Past Medical History: Anxiety, Depression, Diabetes, GERD, Hypertension Additional Past Medical Histor: COLITIS, chronic pain Past Surgical History: Other Additional Past Surgical Histo: whipple, intestinal repair x 2 Smoking: Cigarettes, Less than 1pk/day Alcohol Use: None Drug Use: Marijuana Adult General Chief Complaint Chief Complaint: MECHANICAL FALL HPI HPI Patient is a 55-year-old male who presents to the emergency department after slipping and falling in his driveway and landing on his right side. Denies headache, neck pain, chest pain, shortness of breath, abdominal pain, nausea, vomiting, dysuria, hematuria, blood in the stool or diarrhea. Denies any numbness/weakness/tingling. States he is having some right-sided shoulder discomfort, 6 out of 10, dull and achy in nature. Review of Systems Review of Systems Review of systems otherwise unremarkable except noted in HPI Allergies Allergies Allergies Coded Allergies Type Severity Reaction Last Updated Verified tramadol Allergy Severe ANAPHYLAXIS 04/02/21 Yes acetaminophen Allergy Intermediate Hives 04/02/21 Yes aspirin Allergy Intermediate 04/02/21 Yes fentanyl Allergy Intermediate 04/02/21 Yes ketorolac Allergy Intermediate 04/02/21 Yes naproxen Allergy Intermediate 04/02/21 Yes Physical Exam Physical Exam Constitutional: Well developed, well nourished, no acute distress, non-toxic appearance. [] HENT: Normocephalic, atraumatic, bilateral external ears normal, oropharynx moist, no oral exudates, nose normal. [] Eyes: PERRLA, EOMI, conjunctiva normal, no discharge. [] Neck: Normal range of motion, no tenderness, supple, no stridor. [] Cardiovascular:Heart rate regular rhythm, no murmur [] Lungs & Thorax: Bilateral breath sounds clear to auscultation [] Abdomen: soft, no tenderness, no masses, no pulsatile masses. [] Skin: Warm, dry, no erythema, no rash. [] Back: No tenderness, no CVA tenderness. [] Extremities: No tenderness, no cyanosis, no clubbing, ROM intact, no edema. [] Neurologic: Alert and oriented X 3, normal motor function, normal sensory function, able to sit, stand and walk without issue, no focal deficits noted. [] Psychologic: Affect normal, judgement normal, mood normal. [] EKG EKG [] Radiology/Procedures Radiology/Procedures [] Heart Score C/O Chest Pain: No Risk Factors: Risk Factors: DM, Current or recent (<one month) smoker, HTN, HLP, family history of CAD, obesity. Risk Scores: Risk Factors: DM, Current or recent (<one month) smoker, HTN, HLP, family history of CAD, obesity. Course & Med Decision Making Course & Med Decision Making Patient is a 55-year-old male with presents to the emergency department after falling in his driveway Vital signs nonconcerning. Physical exam noted above. Patient offered CT scans of his head, neck, chest and x-rays of his right arm. Patient stated that nothing is broken, he is just sore and wants some pain medicine. Discussed with patient the need for further evaluation and treatment to be sure there is no intracranial bleeding or broken/fractured or dislocated bones. Patient states that he knows nothing is broken and just wants some pain medi cine. States he does not want any imaging. Just wants something for the pain. Advised that this would not be prudent. Patient stated he just wants to go home. Advised that this would be AGAINST MEDICAL ADVICE as he needed further work-up. Patient stated that he just wanted us to call an ambulance for taxi and given a ride home. Dragon Disclaimer Dragon Disclaimer This electronic medical record was generated, in whole or in part, using a voice recognition dictation system. Departure Departure: Impression: Primary Impression: Fall Disposition: LEFT AGAINST MEDICAL ADVICE Condition: STABLE Referrals: AGNES VALDERRAMA MD (PCP) Patient Instructions: Fall Prevention and Home Safety Additional Instructions: Thank you for coming into the emergency department tonight and allowing us to take care of you. Please read the attached information carefully to go back over some of the things we discussed. As we discussed it would have been prudent for you to stay here in the emergency department and get the x-rays of your head, neck, chest and arm but you stated that you knew nothing was broken and wanted to be discharged home. We discussed the risks of this including significant pain, worsening pain, bleeding in the head, likelihood of coming back to the hospital, disability and even the worst case scenario . Stated that you did not think anything was broken, just wanted pain medicine and wanted to be discharged home. You stated you wanted us to call a taxi or ambulance because you did not have any money and wanted to be discharged home. It is very important that you follow-up with your primary care physician on Wednesday to update on ED visit. Is very important you come back to the emergency department immediately with new or concerning symptoms as we discussed. JENIFER RAMOS MD Apr 27, 2021 12:14
[2021-04-27 12:35] VITALS: BP 135/85
[2021-04-27] MEDS ORDERED: oxyCODONE IR 5 MG TABLET PO PRN (13:00)
== END 2021-04-27 13:07 | disposition left against medical advice (07) ==
LOC: ER 12:10
DX: M25.511 Pain in right shoulder (principal); F41.9 Anxiety disorder, unspecified; F32.9 Major depressive disorder, single episode, unspecified; E11.9 Type 2 diabetes mellitus without complications; K21.9 Gastro-esophageal reflux disease without esophagitis; I10 Essential (primary) hypertension; F17.210 Nicotine dependence, cigarettes, uncomplicated; G89.29 Other chronic pain; Z88.6 Allergy status to analgesic agent; Z88.8 Allergy status to other drugs, medicaments and biological substances; W18.49XA Other slipping, tripping and stumbling without falling, initial encounter; Y93.89 Activity, other specified; Y92.89 Other specified places as the place of occurrence of the external cause; Y99.8 Other external cause status
CPT/HCPCS: 99283

== ENCOUNTER 2021-04-29 16:04 | Emergency (ER) | payer MEDICARE, MEDICAID ==
[~2021-04-29] VITALS: Ht 165.1 cm; Wt 54.0 kg
--- NOTE | 2021-04-29 16:25 | PHYS DOC ---
Past History Past Medical History: Anxiety, Depression, Diabetes, GERD, Hypertension Additional Past Medical Histor: COLITIS, chronic pain (ANTHONY VARGAS DO) Past Surgical History: Other Additional Past Surgical Histo: whipple, intestinal repair x 2 (ANTHONY VARGAS DO) Smoking: Cigarettes, Less than 1pk/day Alcohol Use: None Drug Use: Marijuana (ANTHONY VARGAS DO) Adult General Chief Complaint Chief Complaint: ALTERED MENTAL STATUS HPI HPI Patient is a 55-year-old male presenting via EMS for diabetic emergency. Patient was reportedly at home with autistic children and eating [place] food when he became altered and had difficulty being aroused to verbal and painful stimuli prompting patient's children to call 911. On arrival, patient was found to be on the ground nauseous with emesis around him. Patient was found to be hemodynamically stable but his [id number] glucose was greater than 600 prompting him to be transported to our facility for arrival. On arrival, patient complains of ongoing nausea, has reported numerous episodes of nonbloody nonbilious emesis and generalized abdominal pain. Admits he has not taken any of his insulin today that is typically prescribed. Denies any falls, trauma, toxic ingestions or other exposures. Reports he is otherwise been at baseline health (ANTHONY VARGAS DO) Review of Systems Review of Systems Fourteen body systems of review of systems have been reviewed. See HPI for pertinent positives and negative responses, other schultz all other systems are negative, non-pertinent or non-contributory (ANTHONY VARGAS DO) Allergies Allergies Allergies Coded Allergies Type Severity Reaction Last Updated Verified tramadol Allergy Severe ANAPHYLAXIS 04/02/21 Yes acetaminophen Allergy Intermediate Hives 04/02/21 Yes aspirin Allergy Intermediate 04/02/21 Yes fentanyl Allergy Intermediate 04/02/21 Yes ketorolac Allergy Intermediate 04/02/21 Yes naproxen Allergy Intermediate 04/02/21 Yes (ANTHONY VARGAS DO) Physical Exam Physical Exam Constitutional: Well developed, well nourished, no acute distress, non-toxic appearance. HENT: Normocephalic, atraumatic, bilateral external ears normal, oropharynx moist, no oral exudates, nose normal. Eyes: PERRLA, EOMI, conjunctiva normal, no discharge. Neck: Normal range of motion, no tenderness, supple, no stridor. Cardiovascular: Heart rate regular, sinus rhythm, no murmurs rubs or gallops Lungs & Thorax: Bilateral breath sounds clear to auscultation Abdomen: Bowel sounds normal, soft, no tenderness, no masses, no pulsatile masses. Nonsurgical abdomen, no peritoneal signs Skin: Warm, dry, no erythema, no rash. Back: No tenderness, no CVA tenderness. Extremities: No tenderness, no cyanosis, no clubbing, ROM intact, no edema. Neurologic: Alert and oriented X 3, grossly normal motor & sensory function, no focal deficits noted. Psychologic: Affect normal, judgement normal, mood normal. (ANTHONY VARGAS DO) Current Patient Data Vital Signs Vital Signs Date Time Temp Pulse Resp B/P (MAP) Pulse Ox O2 Delivery O2 Flow Rate FiO2 04/29/21 16:15 97.4 94 19 153/81 (105) 98 Vital Signs Date Time Temp Pulse Resp B/P (MAP) Pulse Ox O2 Delivery O2 Flow Rate FiO2 04/29/21 16:15 97.4 94 19 153/81 (105) 98 Lab Results Laboratory Tests Test 04/29/21 16:19 04/29/21 17:03 White Blood Count 14.5 x10^3/uL Red Blood Count 5.73 x10^6/uL Hemoglobin 16.5 g/dL Hematocrit 52.3 % Mean Corpuscular Volume 91 fL Mean Corpuscular Hemoglobin 29 pg Mean Corpuscular Hemoglobin Concent 32 g/dL Red Cell Distribution Width 17.4 % Platelet Count 526 x10^3/uL Neutrophils (%) (Auto) 87 % Lymphocytes (%) (Auto) 9 % Monocytes (%) (Auto) 3 % Eosinophils (%) (Auto) 0 % Basophils (%) (Auto) 1 % Neutrophils # (Auto) 12.6 x10^3uL Lymphocytes # (Auto) 1.3 x10^3/uL Monocytes # (Auto) 0.4 x10^3/uL Eosinophils # (Auto) 0.0 x10^3/uL Basophils # (Auto) 0.1 x10^3/uL Sodium Level 133 mmol/L Potassium Level 4.2 mmol/L Chloride Level 94 mmol/L Carbon Dioxide Level 21 mmol/L Anion Gap 18 Blood Urea Nitrogen 9 mg/dL Creatinine 0.8 mg/dL Estimated GFR (Cockcroft-Gault) 121.0 BUN/Creatinine Ratio 11 Glucose Level 565 mg/dL Calcium Level 8.6 mg/dL Total Bilirubin 0.8 mg/dL Aspartate Amino Transf (AST/SGOT) 19 U/L Alanine Aminotransferase (ALT/SGPT) 73 U/L Alkaline Phosphatase 267 U/L Troponin I High Sensitivity 6 ng/L Total Protein 6.8 g/dL Albumin 3.0 g/dL Albumin/Globulin Ratio 0.8 Acetone Level Sm pos Blood Gas pH 7.50 Blood Gas PCO2 28 mmHg Blood Gas PO2 109 mmHg Blood Gas HCO3 22 mmol/L Arterial Bld O2 Saturation (Calc) 99 % FiO2 21 % Current Medications Medications (Trade) Dose Ordered Sig/Elfego Route PRN Reason Start Time Stop Time Status Last Admin Dose Admin Sodium Chloride 1,000 ml @ 1,000 mls/hr 1X ONCE IV 04/29/21 16:30 04/29/21 17:29 DC 04/29/21 16:59 (ANTHONY VARGAS DO) EKG EKG EKG ordered and interpreted by myself 1630 hrs. is sinus rhythm at 77 bpm, unremarkable intervals, no axis deviation, no acute ischemic findings, no STEMI (ANTHONY VARGAS DO) Radiology/Procedures Radiology/Procedures EXAM: XR CHEST 1V 04/29/2021 4:30 PM CLINICAL INDICATION: Hyperglycemia COMPARISON: Chest radiograph 03/28/[address] chest abdomen pelvis 06/19/2018 TECHNIQUE: AP view of the chest FINDINGS: The heart is normal in size. Lungs are well-expanded. No consolidation, pleural effusion, or pneumothorax. There are degenerative changes of the glenohumeral and acromioclavicular joints. Mild thoracic scoliosis. There is a 6 mm sclerotic lesion in the left anterior fourth rib, stable from CT chest abdomen pelvis 06/19/2018. Sclerotic foci in the right glenoid and left proximal humerus are unchanged from CT chest 12/27/2020. A 4 mm sclerotic focus projecting over the right humeral head likely corresponds with a soft tissue calcification on prior CT. IMPRESSION: 1. No acute cardiopulmonary abnormality. 2. Stable 6 mm sclerotic lesion in the left anterior fourth rib and small sclerotic foci in the shoulders. These may be bone islands in the absence of known malignancy. Electronically signed by: Elicia Logan MD (04/29/2021 5:04 PM) [id number] (ANTHONY VARGAS DO) Heart Score C/O Chest Pain: No HEART Score for Chest Pain: HEART Score for Chest Pain Response (Comments) Value History Slighlty/Non-Suspicious 0 ECG Nonspecific Repolarizatio 1 Age >45 - < 65 1 Risk Factors >3 Risk Factors or Hx CAD 2 Troponin < Normal Limit 0 Total 4 Risk Factors: Risk Factors: DM, Current or recent (<one month) smoker, HTN, HLP, family history of CAD, obesity. Risk Scores: Risk Factors: DM, Current or recent (<one month) smoker, HTN, HLP, family history of CAD, obesity. (ANTHONY VARGAS DO) Course & Med Decision Making Course & Med Decision Making HPI physical exam and initial ER work-up obtained and patient well-known to our facility with chronic pain and opiate dependence who openly disclosed he did not use any insulin today Initial work-up showing hyperglycemia with no true diagnosis of DKA. At this time in patient care, signout given to oncoming physician. Please defer to Dr. Ramos's documentation regarding future care of patient in ER setting (ANTHONY VARGAS DO) Course & Med Decision Making Patient care handed off to me at checkout pending labs, imaging and disposition. On reevaluation patient comfortable, sleeping and snoring. On awakening, patient alert and oriented no acute distress. Vital signs with a heart rate at 93 with a blood pressure of 156/68 breathing room air saturating 98% breathing 12 times a minute. Blood sugar down to. Positive marijuana. Urinalysis not concerning. On reassessment patient stated he was feeling better, was ready to go home and we should call him a cab. States he wanted pain medicine before he went home. Discussed with patient that over the last 2 months his doctors gave him 300 Percocets which he denied, but noted this was in [place]. States he was ready to go home, said getting a Percocet and call me a cab. Discussed following up in the morning with his primary care and returning to the ED with new or concerning symptoms. Patient grateful, verbalized understanding and agreed with plan of discharge. (JENIFER RAMOS MD) Dragon Disclaimer Dragon Disclaimer This electronic medical record was generated, in whole or in part, using a voice recognition dictation system. (ANTHONY VARGAS DO) Departure Departure: Impression: Primary Impression: Hyperglycemia Additional Impressions: Chronic back pain Marijuana use Disposition: HOME / SELF CARE / HOMELESS Condition: STABLE Referrals: AGNES VALDERRAMA MD (PCP) Patient Instructions: Back Pain, Adult, Hyperglycemia Additional Instructions: Thank you for coming into the emergency department tonight and allowing us to take care of you. Please read the attached information carefully to go over things we discussed. Please be sure to take all your medicines as prescribed, check your blood sugar several times daily and eat and drink appropriately as we discussed. Please take your medicines at home given to you by your primary care physician for your chronic back pain. Please follow-up in the morning with your primary care physician to update on your ED visit and set up a follow-up visit. Please come back with new or concerning symptoms as discussed. Problem Qualifiers ANTHONY VARGAS DO Apr 29, 2021 16:25 JENIFER RAMOS MD Apr 29, 2021 22:33
[2021-04-29] MEDS ORDERED: IV NORMAL SALINE 1,000ML 1,000 ML IV ONE (16:30)
[2021-04-29 16:42] LABS: BASO # 0.1 x10^3/uL (0.0-0.2); BASO % 1 % (0-3); EOS % 0 % (0-3); HEMATOCRIT 52.3 % (39.0-53.0); HEMOGLOBIN 16.5 g/dL (13.0-17.5); LYMPH # 1.3 x10^3/uL (1.0-4.8); LYMPH % 9 % (24-48); MEAN CORPUSCULAR HEMOGLOBIN 29 pg (25-35); MEAN CORPUSCULAR HGB CONC 32 g/dL (31-37); MEAN CORPUSCULAR VOLUME 91 fL (79-100); MONO # 0.4 x10^3/uL (0.0-1.1); MONO % 3 % (0-9); NEUT # 12.6 x10^3uL (1.8-7.7); NEUT % 87 % (31-73); PLATELET COUNT 526 x10^3/uL (140-400); RED BLOOD COUNT 5.73 x10^6/uL (4.30-5.70); RED CELL DISTRIBUTION WIDTH 17.4 % (11.5-14.5); WHITE BLOOD COUNT 14.5 x10^3/uL (4.0-11.0)
--- NOTE | 2021-04-29 17:00 | EKG ---
[address] [address] Test Date: 2021-04-29 Test Time: 16:20:40 Pat Name: ADAM CASTELAN Department: Room: Gender: M Resp Therapist: [facility] : 1965 Requested By: ANTHONY VARGAS Order Number: [id number] Reading MD: Clovis Anderson MD Measurements Intervals [place] Rate: 77 P: [place]: QRS: 45 QRSD: 82 T: 54 QT: 398 QTc: 452 Interpretive Statements SINUS RHYTHM PROBABLE SINO ATRIAL EXIT BLOCK WITH JUNCTIONAL ESCAPE Electronically Signed On 04-30-2021 20:46:31 [employer] by Clovis Anderson MD
[2021-04-29 17:06] LABS: BGAS PH 7.5 (7.35-7.46)
--- NOTE | 2021-04-29 17:07 | RAD ---
EXAM: XR CHEST 1V 04/29/2021 4:30 PM CLINICAL INDICATION: Hyperglycemia COMPARISON: Chest radiograph 03/28/[address] chest abdomen pelvis 06/19/2018 TECHNIQUE: AP view of the chest FINDINGS: The heart is normal in size. Lungs are well-expanded. No consolidation, pleural effusion, or pneumothorax. There are degenerative changes of the glenohumeral and acromioclavicular joints. Mil d thoracic scoliosis. There is a 6 mm sclerotic lesion in the left anterior fourth rib, stable from C T chest abdomen pelvis 06/19/2018. Sclerotic foci in the right glenoid and left proximal humerus are u nchanged from CT chest 12/27/2020. A 4 mm sclerotic focus projecting over the right humeral head likel y corresponds with a soft tissue calcification on prior CT. IMPRESSION: 1. No acute cardiopulmonary abnormality. 2. Stable 6 mm sclerotic lesion in the left anterior fourth rib and small sclerotic foci in the shoul ders. These may be bone islands in the absence of known malignancy. Electronically signed by: Elicia Logan MD (04/29/2021 5:04 PM) [id number]
[2021-04-29 17:22] LABS: ALBUMIN/GLOBULIN RATIO 0.8 (1.0-1.7); CALCIUM 8.6 mg/dL (8.5-10.1); CREATININE 0.8 mg/dL (0.7-1.3); POTASSIUM 4.2 mmol/L (3.5-5.1); TOTAL BILIRUBIN 0.8 mg/dL (0.2-1.0); TOTAL PROTEIN 6.8 g/dL (6.4-8.2)
[2021-04-29] MEDS ORDERED: INSULIN REGULAR 100 UNIT/ML 3ML VIAL. IV ONE (18:00)
[2021-04-29 18:24] LABS: INFLUENZA A PATIENT NEGATIVE (NEGATIVE); INFLUENZA B PATIENT NEGATIVE (NEGATIVE)
[2021-04-29 18:27] LABS: BACTERIA,URINE 0 /HPF (0-FEW); BILIRUBIN,URINE NEG (NEG); CLARITY,URINE CLEAR; COLOR,URINE YELLOW; GLUCOSE,URINE >=1000 mg/dL (NEG); NITRITE,URINE NEG (NEG); UROBILINOGEN,URINE 0.2 mg/dL (0.2 mg/dL); WBC,URINE 0 /HPF (0-4)
[2021-04-29] MEDS ORDERED: IV RINGERS SOLUTION,LACTATED 1,000 ML IV ONE ×2 (18:45→19:30)
[2021-04-29 19:12] LABS: BARBITURATES NEG (NEG); BENZODIAZEPINES NEG (NEG); CANNABINOIDS POS (NEG); COCAINE NEG (NEG); METHADONE NEG (NEG); OPIATES NEG (NEG); PHENCYCLIDINE NEG (NEG)
[2021-04-29] MEDS ORDERED: METOCLOPRAMIDE HCL 10 MG/2 ML VIAL. IVP ONE (19:15)
[2021-04-29] MEDS ORDERED: MORPHINE SULFATE 4 MG/ML DISP.SYRIN. IV ONE (19:15)
[2021-04-29 19:16] LABS: AMPHETAMINE/METHAMPHETAMINE NEG (NEG)
[2021-04-29 19:19] LABS: MAGNESIUM 2.5 mg/dL (1.8-2.4); PHOSPHORUS 3.6 mg/dL (2.6-4.7)
--- NOTE | 2021-04-29 20:29 | RAD ---
CT scan abdomen and pelvis without contrast 04/29/2021 CLINICAL HISTORY: Abdominal pain. TECHNIQUE: Unenhanced, contiguous, 2.5 mm axial sections were obtained through the abdomen and pelvis . One or more of the following individualized dose reduction techniques were utilized for this study: 1. Automated exposure control. 2. Adjustment of the mA and/or kV according to patient size. 3. Use of iterative reconstruction technique. FINDINGS: Comparison study is dated 03/03/2021. Images through the lung bases demonstrate scattered coronary artery calcifications. The unenhanced CT appearance of the liver, spleen, pancreas, right adrenal gland and right kidney are within normal limits. A 1 cm rounded low-attenuation lesion is seen involving the midpole the left k idney. This likely represents a cyst. No further imaging evaluation is recommended. Fullness of the l eft adrenal gland is again seen. Atherosclerotic calcification abdominal aorta and its branches is noted. The gallbladder is not visua lized consistent with a cholecystectomy. Surgical clips are seen within the upper abdomen. There is n o evidence of bowel obstruction. No free fluid or free air is seen within the abdomen. Images through the pelvis demonstrate the urinary bladder distended with urine. Calcifications are se en within the pelvis consistent with phleboliths. A moderate amount stool seen within the rectum and sigmoid colon. The fluid is seen. The osseous structures are unchanged. IMPRESSION: No acute abnormality is seen. Electronically signed by: Kendell Rivera MD (04/29/2021 8:27 PM) [id number]
[2021-04-29 22:45] VITALS: BP 166/96
[2021-04-29] MEDS ORDERED: oxyCODONE/APAP 5/325 1 TAB TABLET PO ONE (23:00)
== END 2021-04-29 22:45 | disposition home or self-care (01) ==
LOC: ER 16:04
DX: E11.65 Type 2 diabetes mellitus with hyperglycemia (principal); F12.10 Cannabis abuse, uncomplicated; K21.9 Gastro-esophageal reflux disease without esophagitis; I10 Essential (primary) hypertension; F17.210 Nicotine dependence, cigarettes, uncomplicated; Z88.6 Allergy status to analgesic agent; Z88.5 Allergy status to narcotic agent
CPT/HCPCS: 36415; 36600; 71045; 74176; 80053; 80307; 81001; 82010; 82803; 82947; 83735; 84100; 84484; 85025; 93005; 96361; 96374; 96375; 99285; J1815; J2270; J2765; J7030; J7120; 87428

== ENCOUNTER 2021-05-07 00:32 | Inpatient (IN) | payer MEDICARE, MEDICAID ==
[~2021-05-07] VITALS: Ht 165.1 cm; Wt 55.2 kg
[2021-05-07] MEDS ORDERED: ONDANSETRON ODT 4 MG TAB.RAPDIS ONE (00:46)
--- NOTE | 2021-05-07 00:47 | PHYS DOC ---
Past History Past Medical History: Anxiety, Depression, Diabetes, GERD, Hypertension Additional Past Medical Histor: COLITIS, chronic pain Past Surgical History: Other Additional Past Surgical Histo: whipple, intestinal repair x 2 Smoking: Cigarettes, Less than 1pk/day Alcohol Use: None Drug Use: Marijuana Adult General HPI HPI Patient is a 55-year-old male with a past medical history significant for anxiety, depression and insulin-dependent diabetes who presents to the emergency department initially for altered mental state/unresponsiveness. Patient's sister states she came up to the house and she thought he was asleep on the couch and when trying to wake him up he would not wake up so called the ambulance. Per EMS patient's vitals were normal, blood sugar with 300, with a normal EKG. Gave Narcan. States that he appeared to be unresponsive but appeared to be trying to keep his eyes closed when trying to do a pupil exam. S tates since he was unresponsive for what ever reason they stroke activated him. Per chart review he was in [place] a couple days ago and was diagnosed with C. difficile and discharged with oral vancomycin which he did not fill or take. Patient admits to abdominal bloating, with nonbloody nonbilious emesis and some nonbloody diarrhea. When asked why he did not start his treatment for C. difficile he stated he could not afford it. Review of Systems Review of Systems Review of systems otherwise unremarkable except noted in HPI Allergies Allergies Allergies Coded Allergies Type Severity Reaction Last Updated Verified tramadol Allergy Severe ANAPHYLAXIS 04/29/21 Yes acetaminophen Allergy Intermediate Hives 04/29/21 Yes aspirin Allergy Intermediate 04/29/21 Yes fentanyl Allergy Intermediate 04/29/21 Yes ketorolac Allergy Intermediate 04/29/21 Yes naproxen Allergy Intermediate 04/29/21 Yes Physical Exam Physical Exam Constitutional: Well developed, well nourished, no acute distress, non-toxic appearance. [] HENT: Normocephalic, atraumatic, bilateral external ears normal, oropharynx moist, no oral exudates, nose normal. [] Eyes: PERRLA, EOMI, conjunctiva normal, no discharge. [] Neck: Normal range of motion, no tenderness, supple, no stridor. [] Cardiovascular:Heart rate regular rhythm, no murmur [] Lungs & Thorax: Bilateral breath sounds clear to auscultation [] Abdomen: Bowel sounds normal, soft, no tenderness, no masses, no pulsatile masses. [] Skin: Warm, dry, no erythema, no rash. [] Back: No tenderness, no CVA tenderness. [] Extremities: No tenderness, no cyanosis, no clubbing, ROM intact, no edema. [] Neurologic: Initially patient with a presumed GCS of 3 but on further evaluation, patient purposefully keeping his eyes closed and not responding. After talking to the patient for a few seconds and offered him some medication, he woke up with a GCS of 15 and stated that he is nauseous. Alert and oriented X 3, normal motor function, normal sensory function, no focal deficits noted. [] Psychologic: Affect normal, judgment abnormal, as patient appeared for what ever reason to be feigning his illness and unresponsiveness. Denies any suicidal ideation, homicidal ideation or hallucinations. EKG EKG [] Radiology/Procedures Radiology/Procedures [] Heart Score C/O Chest Pain: No Risk Factors: Risk Factors: DM, Current or recent (<one month) smoker, HTN, HLP, family history of CAD, obesity. Risk Scores: Risk Factors: DM, Current or recent (<one month) smoker, HTN, HLP, family history of CAD, obesity. Course & Med Decision Making Course & Med Decision Making Patient to 55-year-old male with anxiety, depression diabetes who presented to the emergency department in apparent unresponsive state but soon after arriving to the emergency department was awake, and alert saying he has some abdominal bloating and was nauseous. Vital signs notable for hypertension. Physical exam noted above. CT of the head normal. EKG with a rate of 82, QRS of 82, QTc of 412, no STEMI. Troponin normal. Upon further questioning and chart review patient diagnosed with C. difficile a few days ago at [place] but did not take his oral vancomycin as he states he could not afford it. Placed on the monitor with IV access and IV fluid resuscitation begun. Given antiemetics. Given pain medication. CT with wall thickening and hyperenhancement of the small bowel suggesting enteritis and wall thickening of the rectum suggesting proctitis most likely secondary to his untreated C. difficile. Started on oral vancomycin. Discussed findings with patient and recommended admission since he states that he does not have any ability to buy any antibiotics at home and cannot be treated. Discussed patient with hospitalist who accepted to [facility]. [] Curt Disclaimer Dragon Disclaimer This electronic medical record was generated, in whole or in part, using a voice recognition dictation system. Departure Departure: Impression: Primary Impression: C. difficile colitis Additional Impressions: Enteritis due to Clostridioides difficile Proctitis Disposition: ADMITTED INPATIENT Admitting Physician: Ho Fragoso Madi, Ahmed Condition: STABLE Referrals: AGNES VALDERRAMA MD (PCP) Problem Qualifiers JENIFER RAMOS MD May 07, 2021 00:47
--- NOTE | 2021-05-07 00:48 | RAD ---
PQRS Compliance Statement: One or more of the following individualized dose reduction techniques were utilized for this examinat ion: 1. Automated exposure control 2. Adjustment of the mA and/or kV according to patient size 3. Use of iterative reconstruction technique CT HEAD WITHOUT CONTRAST History: Reason: Code Stroke, unresponsive / Spl. Instructions: / History: Comparison: CT head without contrast December 27, 2020. Procedure: Axial images are obtained of the head from the skull base through the vertex without IV co ntrast. Findings: The ventricles and sulci are normal for the patient's age. No mass-effect, midline shift, hemorrhage, extra-axial fluid collection, or obvious acute infarction is identified. Basilar cisterns are patent. Bone windows demonstrate no acute calvarial abnormality. There is mild mucosal thickening of the right maxillary sinus. There is no air-fluid level. Mastoid a ir cells are well aerated. IMPRESSION: No acute intracranial abnormality. FOR INTERNAL CODING PURPOSES Critical result: Findings discussed with JENIFER RAMOS MD at 05/07/2021 12:44 AM. RESULT CODE: (C) Electronically signed by: Roger Mcadams MD (05/07/2021 12:45 AM) [facility]
[2021-05-07 01:16] LABS: BASO # 0.1 x10^3/uL (0.0-0.2); BASO % 1 % (0-3); EOS # 0.1 x10^3/uL (0.0-0.7); EOS % 1 % (0-3); HEMOGLOBIN 13.1 g/dL (13.0-17.5); LYMPH # 1.7 x10^3/uL (1.0-4.8); LYMPH % 23 % (24-48); MEAN CORPUSCULAR HEMOGLOBIN 29 pg (25-35); MEAN CORPUSCULAR HGB CONC 33 g/dL (31-37); MEAN CORPUSCULAR VOLUME 89 fL (79-100); MONO # 0.8 x10^3/uL (0.0-1.1); MONO % 11 % (0-9); NEUT # 4.8 x10^3uL (1.8-7.7); NEUT % 64 % (31-73); PLATELET COUNT 196 x10^3/uL (140-400); RED BLOOD COUNT 4.48 x10^6/uL (4.30-5.70); RED CELL DISTRIBUTION WIDTH 16.2 % (11.5-14.5); WHITE BLOOD COUNT 7.5 x10^3/uL (4.0-11.0)
[2021-05-07 01:25] LABS: CALCIUM 8.1 mg/dL (8.5-10.1); GFR 93.5; POTASSIUM 4.6 mmol/L (3.5-5.1)
[2021-05-07] MEDS ORDERED: IV RINGERS SOLUTION,LACTATED 1,000 ML IV ONE (01:30)
[2021-05-07 01:31] LABS: ALBUMIN 2.6 g/dL (3.4-5.0); ALBUMIN/GLOBULIN RATIO 0.8 (1.0-1.7); MAGNESIUM 2.4 mg/dL (1.8-2.4); TOTAL BILIRUBIN 0.3 mg/dL (0.2-1.0); TOTAL PROTEIN 5.7 g/dL (6.4-8.2)
[2021-05-07] MEDS ORDERED: CONTRAST GIVEN. MC PRN (01:45)
[2021-05-07] MEDS ORDERED: IOHEXOL 300 MG/ML 75 ML VIAL. IV ONE (01:45)
--- NOTE | 2021-05-07 01:45 | EKG ---
[address] [address] Test Date: 2021-05-07 Test Time: 00:51:38 Pat Name: ADAM CASTELAN Department: Room: Gender: M Proposal Specialist: : [id number] Requested By: JENIFER RAMOS Order Number: [id number] Reading MD: Soto Perkins Measurements Intervals [place] Rate: 82 P: 44 MD: 142 QRS: 28 QRSD: 82 T: 52 QT: 350 QTc: 412 Interpretive Statements SINUS RHYTHM LOW LIMB LEAD VOLTAGE Electronically Signed On 05-07-2021 19:27:10 [employer] by Soto Perkins
[2021-05-07 01:57] LABS: BILIRUBIN,URINE NEG (NEG); CLARITY,URINE CLEAR; COLOR,URINE YELLOW; GLUCOSE,URINE >=1000 mg/dL (NEG); NITRITE,URINE NEG (NEG); UROBILINOGEN,URINE 0.2 mg/dL (0.2 mg/dL)
[2021-05-07 01:58] LABS: BACTERIA,URINE 0 /HPF (0-FEW); RBC,URINE 0 /HPF (0-2); SQUAMOUS EPITHELIAL CELL,UR OCC /LPF; WBC,URINE OCC /HPF (0-4)
[2021-05-07 02:00] LABS: BARBITURATES NEG (NEG); BENZODIAZEPINES NEG (NEG); CANNABINOIDS POS (NEG); COCAINE NEG (NEG); METHADONE NEG (NEG); OPIATES NEG (NEG); PHENCYCLIDINE NEG (NEG)
[2021-05-07 02:03] LABS: AMPHETAMINE/METHAMPHETAMINE NEG (NEG)
--- NOTE | 2021-05-07 02:40 | RAD ---
PQRS Compliance Statement: One or more of the following individualized dose reduction techniques were utilized for this examinat ion: 1. Automated exposure control 2. Adjustment of the mA and/or kV according to patient size 3. Use of iterative reconstruction technique CT ABDOMEN+PELVIS W Clinical Indication: Reason: Abd pain, untreated C-Diff Comparison: CT abdomen and pelvis without contrast April 29, 2021. Technique: Helical CT imaging of the abdomen and pelvis is performed after 75 cc of Omnipaque 300 IV contrast. Oral contrast not administered. Findings: The lung bases are clear. Cardiac size is normal. Cholecystectomy. The liver, spleen, right adrenal gland and abdominal aorta caliber are normal. Atrop hic pancreas, unchanged. Stable left adrenal adenoma. Kidneys enhance symmetrically, no hydronephrosi s. Small left renal cyst does not require follow-up. The stomach is unremarkable. There is intramural thickening and enhancement of multiple small bowel l oops. No small bowel obstruction is identified. The appendix is normal. Scattered stool in the colon. There is wall thickening of the rectum. Urinary bladder is normal. Prostate and seminal vesicles are normal. No pelvic free fluid is identifi ed. No acute bone abnormality. IMPRESSION: 1. There is wall thickening and hyperenhancement of the small bowel suggesting enteritis. 2. There is wall thickening of the rectum suggesting proctitis. Electronically signed by: Roger Mcadams MD (05/07/2021 2:38 AM) [facility]
[2021-05-07] MEDS ORDERED: MORPHINE SULFATE 2 MG/ML DISP.SYRIN. IV ONE ×2 (03:00→08:15)
[2021-05-07] MEDS ORDERED: diphenhydrAMINE 50 MG/ML VIAL ONE (03:09)
[2021-05-07] MEDS ORDERED: diphenhydrAMINE 50 MG/ML VIAL IM ONE (03:15)
[2021-05-07 04:12] LABS: INFLUENZA A PATIENT NEGATIVE (NEGATIVE); INFLUENZA B PATIENT NEGATIVE (NEGATIVE)
[2021-05-07] MEDS ORDERED: amLODIPine BESYLATE 5 MG TABLET PO SCH (04:22)
[2021-05-07] MEDS: amLODIPine BESYLATE 5 MG TABLET PO SCH ×2 (05:23→05:47)
[2021-05-07] MEDS ORDERED: MORPHINE SULFATE 2 MG/ML DISP.SYRIN. ONE (07:56)
[2021-05-07 09:41] VITALS: BP 151/85
[2021-05-07] MEDS ORDERED: ONDANSETRON ODT 4 MG TAB.RAPDIS PO PRN ×2 (10:15→12:00)
[2021-05-07] MEDS: MORPHINE SULFATE 2 MG/ML DISP.SYRIN. IV PRN ×4 (10:22→23:14)
--- NOTE | 2021-05-07 11:06 | NUR ---
Nursing note Miah Dawson was admitted to the floor from the ED with compliant of nausea, vomiting and diarhea. Placed in room, admission assessments done and documented. admission questions asked and documented. PT verbalized he was in pain. Doctor notified and pain medication administered per doctors orders. Medications reconciled and restarted per doctors orders. Breakfast tray with a diabetic diet ordered for the PT. PT verbalized he will like to have something stronger for his pain, the nurse told the PT she will notify the doctor about the PTs request. PT in bed, call light within reach, PT watching television and verbalized no other needs. Will continue to monitor.
[2021-05-07 11:19] VITALS: BP 137/79
[2021-05-07] MEDS: VANCOMYCIN 125 MG/2.5 ML ORAL SOLUTION. PO SCH ×4 (12:29→20:47)
[2021-05-07] MEDS: oxyCODONE/APAP 10/325 1 TAB TABLET PO PRN ×2 (12:29→17:34)
[2021-05-07] MEDS: INSULIN LISPRO 300 UNITS/3 ML VIAL. SQ SCH ×2 (12:30→17:23)
[2021-05-07 16:12] VITALS: BP 124/74
[2021-05-07] MEDS: IV NORMAL SALINE 1,000ML 1,000 ML IV SCH (17:22)
[2021-05-07 19:00] VITALS: BP 131/85
--- NOTE | 2021-05-07 19:56 | HP ---
DATE OF SERVICE: 05/07/2021 ADMIT DATE: 05/07/2021 HISTORY OF PRESENT ILLNESS: The patient is a 55-year-old -Serbian male patient who presented to the Emergency Room with altered mental status. Apparently, his sister found him sleeping on the couch and when tried to wake him up, he would not wake up and so she called the ambulance. Per EMS, the patient's vital signs were normal. His blood sugar was 300. He had a normal EKG. They gave Narcan, states that he appeared to be unresponsive, but appears to be trying to keep his eyes closed. Per chart review, he was in [place] a couple of days ago and was discharged with C. diff and discharged on oral vancomycin, which he did not fill or take, the patient admits to abdominal bloating with nonbloody, nonbilious emesis and some nonbloody diarrhea. When we asked him why he did not start his medication treatment for C. diff, he said he could not afford it. He was extensively investigated in the Emergency Room, has had lab work done, which showed that CBC was well within normal range. His chemistry showed that his electrolytes are normal. However he has hyperglycemia and he has slightly elevated liver enzymes, although bilirubin is normal. His total protein 5.7, albumin was 2.6. His blood gases were normal. Urinalysis essentially unremarkable other than glycosuria. His toxic screen was negative and his SARS-COVID2 by PCR was not detectable. His influenza A and B were negative. The patient was admitted with altered mental status as well as Clostridium difficile colitis. He was started on oral vancomycin 125 mg 4 times a day. PAST MEDICAL HISTORY: Significant for type 2 diabetes mellitus, hypertension, pancreatitis. He has also history of depression and C. diff colitis. PAST SURGICAL HISTORY: Significant for Whipple's procedure, cervical spine fusion, bilateral carpal tunnel release. He underwent esophagogastroduodenoscopy twice and colonoscopy with polypectomy twice. He apparently has had surgery for that at [facility] and Whipple procedure was done in 2016 at [facility]. ALLERGIES: HE IS ALLERGIC TO ASPIRIN, FENTANYL, KETOROLAC, NAPROXEN, AND TRAMADOL. FAMILY HISTORY: He has one brother and one sister, both are younger and 5 sisters older almost all of them have diabetes and hypertension. His father at age of 78 because of lymphoma and his mother at age of 76 because of end-stage renal disease and complication of hemodialysis. SOCIAL HISTORY: He is , has 1 daughter and 1 son. He smokes almost a pack a day. He used to be a heavy drinker, he quit about 7 years ago. His last alcoholic drink was about 6 years ago according to him. He smokes marijuana. He never used illicit drugs. MEDICATIONS: He is currently disabled. PHYSICAL EXAMINATION: GENERAL: On arrival to the Emergency Room, he looked well and was clearly in no apparent respiratory distress. He is somewhat pale, but not jaundiced or cyanosed, no lymphadenopathy, no thyromegaly, no jugular venous distention. No limb edema. VITAL SIGNS: His heart rate was 85, blood pressure was 137/79, temperature was 98.3, respiratory rate was 16 and oxygen saturation was 99%. HEAD, EYES, EARS, NOSE, AND THROAT: Showed normocephalic, atraumatic. NECK: Supple. HEART: Showed normal first and second heart sounds, no gallop or murmur. CHEST: Clear to auscultation, no crepitation or rhonchi. ABDOMEN: Distended, soft, nontender, no guarding or rigidity. No organomegaly. All hernial orifice intact. Bowel sounds normal. LABORATORY DATA: This morning showed a white cell count 7500, hemoglobin 13, hematocrit 40, MCV 89 and platelet count of 196,000. His chemistry showed a serum sodium 139, potassium 4.6, chloride 103, bicarbonate 30, anion gap of 6, BUN 9, creatinine 1, estimated GFR was 93 mL per minute. His glucose was 312, calcium was 8.1, magnesium was 2.4. Total bilirubin normal. AST, ALT, alkaline phosphatase are slightly elevated. His total protein was 5.7, albumin 2.6. ASSESSMENT AND PLAN: This is a 55-year-old -Serbian male patient who was admitted with altered mental status, C. diff colitis, has multiple other medical problems including type 2 diabetes mellitus, hypertension, chronic pancreatitis. Plan is to continue all his medications as well as oral vancomycin as well as Lactobacillus rhamnosus and start him also on IV fluid and continue with his insulin. FAVIAN/NANCY DR: Awais TID: [id number]
[2021-05-07] MEDS ORDERED: DEXTROSE ORAL GEL 15 GM TUBE. ONE (20:33)
[2021-05-07] MEDS: LACTOBACILLUS RHAMNOSUS GG 1 CAPSULE. PO SCH (20:46)
[2021-05-07] MEDS: PREGABALIN 75 MG CAPSULE PO SCH (20:46)
[2021-05-07] MEDS: oxyCODONE ER 10 MG TAB.ER.12H PO SCH (20:47)
[2021-05-07] MEDS: INSULIN GLARGINE SYRINGE. SQ SCH (21:00)
[2021-05-07 23:00] VITALS: BP 165/80
[2021-05-07] MEDS: ZOLPIDEM 5 MG TABLET. PO PRN (23:14)
[2021-05-08] MEDS: oxyCODONE/APAP 10/325 1 TAB TABLET PO PRN ×5 (00:50→23:41)
[2021-05-08] MEDS: MORPHINE SULFATE 2 MG/ML DISP.SYRIN. IV PRN ×4 (03:17→13:50)
[2021-05-08] MEDS: IV NORMAL SALINE 1,000ML 1,000 ML IV SCH ×3 (03:22→23:00)
[2021-05-08 06:03] VITALS: BP 133/77
--- NOTE | 2021-05-08 06:23 | NUR ---
Patient continues to have diarrhea and is reporting abdominal pain, he is rating it 8/10. He had multiple PRN pain medications throughout the night in an attempt to control his pain, see Emar. Patients blood sugar was 21 at HS. Glucose oral syrup was given and blood sugar was rechecked and 75. Patient had juice and a snack, when it was checked, his blood sugar was then 243. Early in the shift patient left his room. He was found outside smoking a cigarette. Nurse went outside and retrieved patient, provided education on isolation and that this is a non-smoking facility. Patient apologized and stated he would not leave his room again, nor attempt to go outside and smoke. Patient has been pleasant, calm and is oriented x4.
[2021-05-08 07:00] VITALS: BP 165/92
[2021-05-08 07:08] LABS: ALBUMIN 2.1 g/dL (3.4-5.0); ALBUMIN/GLOBULIN RATIO 0.8 (1.0-1.7); CALCIUM 7.2 mg/dL (8.5-10.1); CREATININE 0.5 mg/dL (0.7-1.3); GFR 208.1; POTASSIUM 5.2 mmol/L (3.5-5.1); TOTAL BILIRUBIN 0.2 mg/dL (0.2-1.0); TOTAL PROTEIN 4.7 g/dL (6.4-8.2)
[2021-05-08] MEDS: PREGABALIN 75 MG CAPSULE PO SCH ×2 (09:05→19:45)
[2021-05-08] MEDS: amLODIPine BESYLATE 5 MG TABLET PO SCH (09:05)
[2021-05-08] MEDS: oxyCODONE ER 10 MG TAB.ER.12H PO SCH (09:05)
[2021-05-08] MEDS: LACTOBACILLUS RHAMNOSUS GG 1 CAPSULE. PO SCH ×2 (09:05→19:44)
[2021-05-08] MEDS: VANCOMYCIN 125 MG/2.5 ML ORAL SOLUTION. PO SCH ×4 (09:07→19:46)
[2021-05-08] MEDS: INSULIN LISPRO 300 UNITS/3 ML VIAL. SQ SCH ×3 (09:08→17:00)
[2021-05-08 10:50] VITALS: BP 163/90
[2021-05-08] MEDS ORDERED: INSU100I17 SQ (13:10)
[2021-05-08 15:03] LABS: BASO # 0.1 x10^3/uL (0.0-0.2); BASO % 1 % (0-3); EOS # 0.1 x10^3/uL (0.0-0.7); EOS % 1 % (0-3); HEMATOCRIT 36.8 % (39.0-53.0); LYMPH # 1.9 x10^3/uL (1.0-4.8); LYMPH % 23 % (24-48); MEAN CORPUSCULAR HEMOGLOBIN 28 pg (25-35); MEAN CORPUSCULAR HGB CONC 33 g/dL (31-37); MEAN CORPUSCULAR VOLUME 87 fL (79-100); MONO # 0.9 x10^3/uL (0.0-1.1); MONO % 11 % (0-9); NEUT # 5.5 x10^3uL (1.8-7.7); NEUT % 64 % (31-73); PLATELET COUNT 200 x10^3/uL (140-400); RED BLOOD COUNT 4.21 x10^6/uL (4.30-5.70); RED CELL DISTRIBUTION WIDTH 16.1 % (11.5-14.5); WHITE BLOOD COUNT 8.5 x10^3/uL (4.0-11.0)
[2021-05-08] MEDS ORDERED: DEXTROSE 50% 25 GM / 50ML DISP.SYRIN. IV PRN (15:15)
[2021-05-08 15:29] VITALS: BP 151/79
[2021-05-08 19:00] VITALS: BP 147/79
[2021-05-08] MEDS: INSULIN GLARGINE SYRINGE. SQ SCH (20:01)
[2021-05-08] MEDS: ZOLPIDEM 5 MG TABLET. PO PRN ×2 (21:03→23:40)
--- NOTE | 2021-05-08 22:56 | PN ---
DATE: 05/08/2021 SUBJECTIVE: The patient is resting, slightly propped up in bed, in no apparent distress. Awake, alert. Continued to complain of having diarrhea. He said he had so far 9 episodes of loose bowel movement, continued to complain of pain. PHYSICAL EXAMINATION: GENERAL: When I examined him, he looked well and was clearly in no apparent respiratory distress. There is no pallor, jaundice, cyanosis or thyromegaly. No jugular venous distention. No limb edema. LABORATORY DATA: His serum sodium was 138, potassium 5.2, chloride 106, bicarbonate 24, anion gap of 8, BUN 7, creatinine 0.5. Estimated GFR was 208, glucose 222, calcium was 7.2. Total bilirubin normal. AST, ALT, alkaline phosphatase are all elevated. Total protein 4.7, albumin 2.1. His urinalysis essentially unremarkable. Toxic screen was negative. ASSESSMENT: This is a 55-year-old -[place]i male patient who was admitted again with: 1. Altered mental status, resolved. The patient is now awake, alert, responding appropriately. 2. Clostridium difficile colitis for which he is now on oral vancomycin. Unfortunately, he continued to have recurrent bouts of diarrhea. He had up until now 9 bowel movements for which I started him on IV fluids. 3. Other medical problems include: A. Type 2 diabetes mellitus that is suboptimally controlled. B. Hypertension. C. Chronic pancreatitis. PLAN: To continue with oral vancomycin and Lactobacillus rhamnosus. I changed his pain medication to oxycodone/APAP 10/325 one tablet every 4 hours. I discontinued all other orders. We will monitor his lab work on a daily basis and adjust the electrolytes as needed. FAVIAN/EKT DR: FAVIAN/kyleigh TID: [id number]
[2021-05-09] MEDS: oxyCODONE/APAP 10/325 1 TAB TABLET PO PRN ×5 (03:57→20:49)
[2021-05-09 05:00] VITALS: BP 131/72
--- NOTE | 2021-05-09 06:31 | NUR ---
Pt refused morning labs this am.
[2021-05-09] MEDS: INSULIN LISPRO 300 UNITS/3 ML VIAL. SQ SCH ×3 (08:00→17:06)
[2021-05-09] MEDS: LACTOBACILLUS RHAMNOSUS GG 1 CAPSULE. PO SCH ×2 (08:07→20:48)
[2021-05-09] MEDS: amLODIPine BESYLATE 5 MG TABLET PO SCH (08:07)
[2021-05-09] MEDS: VANCOMYCIN 125 MG/2.5 ML ORAL SOLUTION. PO SCH ×4 (08:09→20:49)
[2021-05-09] MEDS: PREGABALIN 75 MG CAPSULE PO SCH ×2 (08:18→20:48)
[2021-05-09] MEDS: IV NORMAL SALINE 1,000ML 1,000 ML IV SCH (09:00)
--- NOTE | 2021-05-09 09:03 | NUR ---
Nursing note PT in bed, blood glucose assessed and blood sugar was 41, Pt assessed and verbalized he is feeling ok, no weakness or dizziness and did not know his blood sugar was that low. PT given some juice and breakfast to eat. Morning assessments done, PT verbalized pain at 7 and intolerable. Pain medication administered per doctors orders with morning medications. Blood sugar assess 50minutes later and sugar was 145. PT stated he wants some wash cloths with warm water to clean up, and was given some by the CONTAINER COORDINATOR. PT in bathroom, call light within reach, PT verbalized no other needs. Will continue to monitor.
[2021-05-09 11:48] VITALS: BP 153/76
--- NOTE | 2021-05-09 12:06 | NUR ---
Nursing notes PT in bed, blood sugar assessed by [facility] and PT blood sugar was 282. Insulin administered using sliding scale per doctors orders, pain medication administered per patient request with afternoon medications. PT eating launch, bed low, call light within reach, PT verbalized no other needs. Will continue to monitor.
[2021-05-09 15:41] VITALS: BP 120/67
[2021-05-09 16:21] LABS: BASO % 1 % (0-3); EOS # 0.1 x10^3/uL (0.0-0.7); EOS % 1 % (0-3); HEMOGLOBIN 11.5 g/dL (13.0-17.5); LYMPH # 1.5 x10^3/uL (1.0-4.8); LYMPH % 22 % (24-48); MEAN CORPUSCULAR HEMOGLOBIN 29 pg (25-35); MEAN CORPUSCULAR HGB CONC 32 g/dL (31-37); MEAN CORPUSCULAR VOLUME 90 fL (79-100); MONO % 15 % (0-9); NEUT # 4.3 x10^3uL (1.8-7.7); NEUT % 62 % (31-73); PLATELET COUNT 183 x10^3/uL (140-400); RED BLOOD COUNT 3.99 x10^6/uL (4.30-5.70); RED CELL DISTRIBUTION WIDTH 16.5 % (11.5-14.5)
[2021-05-09 16:36] LABS: ALBUMIN 2.2 g/dL (3.4-5.0); ALBUMIN/GLOBULIN RATIO 0.8 (1.0-1.7); CALCIUM 7.4 mg/dL (8.5-10.1); CREATININE 1.1 mg/dL (0.7-1.3); GFR 83.8; POTASSIUM 4.8 mmol/L (3.5-5.1); TOTAL BILIRUBIN 0.2 mg/dL (0.2-1.0)
--- NOTE | 2021-05-09 18:02 | NUR ---
Nursing note PT in bed, meal try placed in room by LAB TECHNOLOGIST, PT blood sugar check and was 231, Insulin administered per doctors orders following sliding scale. PT son called, called picked up by LAB TECHNOLOGIST who gave information to the clients son information when he requested, clients son continued asking the same question and the LAB TECHNOLOGIST gave the phone to the RN to respond to the PTs son. RN told PT son, the clients blood sugar was assessed 20 minutes ago which was 231 and insuiln was administered following a sliding scale, and he stated he heard 281 and was told it might be the way she said it and it sounded like 281, the RN told him it was 231. PT son insisted insulin should be checked on a regular schedule and was told by the RN, insulin is checked on a schedule in the hospital. He asked again what the clients blood sugar was and the RN told him it was 231 and its not 281. Clients son asked the same information again and the RN told him sir it was 231 and client son stated they are giving him different information, started coursing RN on the phone and stated he was going to call the boss to report this dropped the call. PT in bed, all light within reach.
[2021-05-09 19:58] VITALS: BP 131/71
[2021-05-09] MEDS: ZOLPIDEM 5 MG TABLET. PO PRN (20:49)
[2021-05-09] MEDS: INSULIN GLARGINE SYRINGE. SQ SCH (21:04)
[2021-05-09 23:24] VITALS: BP 136/72
[2021-05-10] MEDS: IV NORMAL SALINE 1,000ML 1,000 ML IV SCH ×2 (00:28→05:00)
[2021-05-10] MEDS: oxyCODONE/APAP 10/325 1 TAB TABLET PO PRN ×3 (00:28→09:23)
--- NOTE | 2021-05-10 03:31 | PN ---
DATE: 05/09/2021 SUBJECTIVE: The patient is resting, slightly propped up in bed, in no apparent distress. He continued to complain of abdominal pain, recurrent bouts of diarrhea. He stated that he has so far about 8 loose bowel movement. Denied any nausea or vomiting. Denied any chills, rigors or fever. PHYSICAL EXAMINATION: GENERAL: When I examined him, he looked well and was clearly in no apparent respiratory distress. He was pale, but no jaundice, cyanosis or thyromegaly. No jugular venous distention. No limb edema. VITAL SIGNS: His heart rate was 85, blood pressure was 120/67, temperature was 97.8, respiratory rate was 18 and oxygen saturation was 96%. HEAD, EYES, EARS, NOSE, AND THROAT: Normocephalic, atraumatic. NECK: Supple. HEART: Showed normal first and second heart sounds. No gallop, rub or murmur. CHEST: Clear to auscultation, no crepitation or rhonchi. ABDOMEN: Distended, soft, nontender. NEUROLOGIC: He was grossly intact. His intake is 1780, output was 450. LABORATORY DATA: As of this morning, his white cell count was 7000, hemoglobin 11.5, hematocrit 36, MCV 90 and platelet count of 183,000. His chemistry is still pending at the time of this dictation. As of yesterday, his serum sodium 138, potassium 5.2, chloride 106, bicarbonate 24, anion gap of 8, BUN 7, creatinine 0.7. His blood sugar is much better controlled. ASSESSMENT: 1. Altered mental status, resolved. The patient is now awake, alert, responding appropriately. 2. Clostridium difficile colitis for which he is now on oral vancomycin. Unfortunately, he continued to have recurrent bouts of diarrhea. He had up to 8 hours a bowel movement from this morning till this afternoon. 3. Other medical problems include A. Type 2 diabetes mellitus, seems to be reasonably controlled. B. Hypertension. C. Chronic pancreatitis. PLAN: To continue with oral vancomycin and lactobacillus. Continue his pain medication. Continue with IV fluid. We will monitor his lab work on a daily basis and once his diarrhea subsided, the patient can be discharge. [place] DR: Awais TID: [id number]
[2021-05-10 05:09] VITALS: BP 153/82
[2021-05-10 07:48] LABS: HEMATOCRIT 38.9 % (39.0-53.0); HEMOGLOBIN 12.5 g/dL (13.0-17.5); RED BLOOD COUNT 4.22 x10^6/uL (4.30-5.70); WHITE BLOOD COUNT 6.2 x10^3/uL (4.0-11.0)
[2021-05-10] MEDS: LACTOBACILLUS RHAMNOSUS GG 1 CAPSULE. PO SCH (08:45)
[2021-05-10] MEDS: PREGABALIN 75 MG CAPSULE PO SCH (08:45)
[2021-05-10] MEDS: amLODIPine BESYLATE 5 MG TABLET PO SCH (08:46)
[2021-05-10] MEDS: VANCOMYCIN 125 MG/2.5 ML ORAL SOLUTION. PO SCH ×2 (08:46→12:29)
[2021-05-10 08:56] LABS: ALBUMIN 2.3 g/dL (3.4-5.0); ALBUMIN/GLOBULIN RATIO 0.7 (1.0-1.7); CALCIUM 7.8 mg/dL (8.5-10.1); CREATININE 0.6 mg/dL (0.7-1.3); GFR 168.6; POTASSIUM 4.6 mmol/L (3.5-5.1); TOTAL BILIRUBIN 0.3 mg/dL (0.2-1.0); TOTAL PROTEIN 5.4 g/dL (6.4-8.2)
[2021-05-10] MEDS: INSULIN LISPRO 300 UNITS/3 ML VIAL. SQ SCH ×2 (09:24→12:00)
[2021-05-10 11:10] VITALS: BP 154/79
[2021-05-10] MEDS ORDERED: VANC125C3 PO (13:24)
[2021-05-10] MEDS ORDERED: LACT1CAP19 PO (13:24)
[2021-05-10] MEDS ORDERED: OXYC-317 PO ×2 (13:24→13:56)
--- NOTE | 2021-05-10 14:56 | NUR ---
discharge note: pt discharged at 1456 via ambulation accompanied by staff members. pt given written and verbal instructions with verbal statement of understanding received.
== END 2021-05-10 14:58 | disposition home or self-care (01) | DRG 371 ==
LOC: ER 00:32 → ER HOLD 03:02 → 1 SOUTH 05:48
PROVIDERS: ADMIT Hospitalist; ATTEND Hospitalist
DX: A04.72 Enterocolitis due to Clostridium difficile, not specified as recurrent (principal); G93.41 Metabolic encephalopathy; K86.1 Other chronic pancreatitis; E11.9 Type 2 diabetes mellitus without complications; F12.90 Cannabis use, unspecified, uncomplicated; I10 Essential (primary) hypertension; K62.89 Other specified diseases of anus and rectum; F32.A Depression, unspecified; F41.9 Anxiety disorder, unspecified; G89.29 Other chronic pain; K21.9 Gastro-esophageal reflux disease without esophagitis; Z79.4 Long term (current) use of insulin; Z80.7 Family history of other malignant neoplasms of lymphoid, hematopoietic and related tissues; Z87.891 Personal history of nicotine dependence; Z20.822 Contact with and (suspected) exposure to COVID-19; Z98.1 Arthrodesis status; Z88.6 Allergy status to analgesic agent; Z88.8 Allergy status to other drugs, medicaments and biological substances
CPT/HCPCS: 36415; 36569; 70450; 74177; 80053; 80307; 81001; 82803; 82947; 83605; 83735; 84484; 85025; 85027; 87428; 93005; 96361; 96365; 96372; G0480; J1200; J1815; J2270; J3490; J7120; Q0162; Q9967; U0003; 99285-25; J7030

== ENCOUNTER 2021-05-31 09:08 | Emergency (ER) | payer MEDICARE, MEDICAID ==
[~2021-05-31] VITALS: Ht 165.1 cm; Wt 55.2 kg
[~2021-05-31 09:08] MED LIST changes: +INSU100I17 SQ; +LACT1CAP19 PO; +VANC125C3 PO
--- NOTE | 2021-05-31 09:32 | PHYS DOC ---
Past History Past Medical History: Anxiety, Depression, Diabetes, GERD, Hypertension Additional Past Medical Histor: COLITIS, chronic pain Past Surgical History: No Surgical History Additional Past Surgical Histo: whipple, intestinal repair x 2 Smoking: Cigarettes, Less than 1pk/day Alcohol Use: None Drug Use: Marijuana Adult General Chief Complaint Chief Complaint: DIARRHEA HPI HPI Patient is a 55-year-old male presenting for diarrhea. This is an acute on chronic issue. Patient who is well-known to our facility had recent change in baseline health, he was diagnosed with COVID and subsequent C. difficile infection late April 2020. He represented to our facility and later to [facility] for recurrence/ongoing symptoms and was actually admitted to [facility] 05/23/2021 and discharged 05/26/2021. He had extensive work-up performed there involving GI consultation with ultimate recommendation to switch from vancomycin to Dificid 200 p.o. twice daily. He was discharged home and reports ongoing diarrhea. Reports he called EMS today due to his chronic abdominal pain. Admits he has been taking all medications prescribed to him at discharge, states it is just annoying that he continues to have ongoing diarrhea Review of Systems Review of Systems Fourteen body systems of review of systems have been reviewed. See HPI for pertinent positives and negative responses, other schultz all other systems are negative, non-pertinent or non-contributory Allergies Allergies Allergies Coded Allergies Type Severity Reaction Last Updated Verified tramadol Allergy Severe ANAPHYLAXIS 04/29/21 Yes acetaminophen Allergy Intermediate Hives 04/29/21 Yes aspirin Allergy Intermediate 04/29/21 Yes fentanyl Allergy Intermediate 04/29/21 Yes ketorolac Allergy Intermediate 04/29/21 Yes naproxen Allergy Intermediate 04/29/21 Yes Physical Exam Physical Exam Constitutional: Well developed, well nourished, no acute distress, non-toxic appearance. HENT: Normocephalic, atraumatic, bilateral external ears normal, oropharynx moist, no oral exudates, nose normal. Eyes: PERRLA, EOMI, conjunctiva normal, no discharge. Neck: Normal range of motion, no tenderness, supple, no stridor. Cardiovascular: Heart rate regular, sinus rhythm, no murmurs rubs or gallops Lungs & Thorax: Bilateral breath sounds clear to auscultation Abdomen: Bowel sounds normal, soft, no tenderness, voluntary guarding, no rebound. No masses, no pulsatile masses. Nonsurgical abdomen, no peritoneal signs Skin: Warm, dry, no erythema, no rash. Well-appearing midline abdominal scars from prior surgeries Back: No tenderness, no CVA tenderness. Extremities: No tenderness, no cyanosis, no clubbing, ROM intact, no edema. Neurologic: Alert and oriented X 3, grossly normal motor & sensory function, no focal deficits noted. Psychologic: Affect normal, judgement normal, mood normal. Current Patient Data Vital Signs Vital Signs Date Time Temp Pulse Resp B/P (MAP) Pulse Ox O2 Delivery O2 Flow Rate FiO2 05/31/21 09:08 77 18 140/67 (91) 99 Room Air Lab Results Laboratory Tests Test 05/31/21 09:30 White Blood Count 9.8 x10^3/uL Red Blood Count 5.25 x10^6/uL Hemoglobin 15.1 g/dL Hematocrit 46.0 % Mean Corpuscular Volume 88 fL Mean Corpuscular Hemoglobin 29 pg Mean Corpuscular Hemoglobin Concent 33 g/dL Red Cell Distribution Width 18.0 % Platelet Count 447 x10^3/uL Neutrophils (%) (Auto) 80 % Lymphocytes (%) (Auto) 13 % Monocytes (%) (Auto) 6 % Eosinophils (%) (Auto) 1 % Basophils (%) (Auto) 1 % Neutrophils # (Auto) 7.8 x10^3uL Lymphocytes # (Auto) 1.2 x10^3/uL Monocytes # (Auto) 0.6 x10^3/uL Eosinophils # (Auto) 0.1 x10^3/uL Basophils # (Auto) 0.1 x10^3/uL Sodium Level 136 mmol/L Potassium Level 5.0 mmol/L Chloride Level 102 mmol/L Carbon Dioxide Level 26 mmol/L Anion Gap 8 Blood Urea Nitrogen 8 mg/dL Creatinine 0.5 mg/dL Estimated GFR (Cockcroft-Gault) 208.1 BUN/Creatinine Ratio 16 Glucose Level 261 mg/dL Lactic Acid Level 1.8 mmol/L Calcium Level 8.6 mg/dL Total Bilirubin 0.6 mg/dL Aspartate Amino Transf (AST/SGOT) 32 U/L Alanine Aminotransferase (ALT/SGPT) 39 U/L Alkaline Phosphatase 310 U/L Troponin I High Sensitivity 9 ng/L Total Protein 6.6 g/dL Albumin 2.8 g/dL Albumin/Globulin Ratio 0.7 Current Medications Medications (Trade) Dose Ordered Sig/Elfego Route PRN Reason Start Time Stop Time Status Last Admin Dose Admin Sodium Chloride 1,000 ml @ 1,000 mls/hr 1X ONCE IV 05/31/21 10:45 05/31/21 11:42 DC 05/31/21 10:56 EKG EKG EKG ordered and interpreted by myself at 0943 hrs. as sinus rhythm at 69 bpm, unremarkable intervals, no axis deviation, no obvious ischemic findings, no STEMI Radiology/Procedures Radiology/Procedures [] Heart Score C/O Chest Pain: No Risk Factors: Risk Factors: DM, Current or recent (<one month) smoker, HTN, HLP, family history of CAD, obesity. Risk Scores: Risk Factors: DM, Current or recent (<one month) smoker, HTN, HLP, family history of CAD, obesity. Course & Med Decision Making Course & Med Decision Making Hemodynamically stable patient with unremarkable ABCs HPI physical exam and ER work-up nonconcerning for any emergent or surgical issues Patient's main complaint today is pain control, this is a chronic issue for patient. He has been taking his prescribed home pain medications and given his history, I discussed there is no indication for further pain management in ER setting for him Patient reports main reason he came in was to have pain controlled, if it is not being controlled he wants to go home. Admits his diarrhea has been problematic but is not had any concerning symptoms such as lightheadedness, dizziness, fatigue, blood production, inability to tolerate p.o. intake etc. as such, joint decision made to discharge patient home with continued care for recent diagnosis of C. difficile and close outpatient follow-up when appropriate to do so Dragon Disclaimer Dragon Disclaimer This electronic medical record was generated, in whole or in part, using a voice recognition dictation system. Departure Departure: Impression: Primary Impression: C. difficile diarrhea Disposition: HOME / SELF CARE / HOMELESS Condition: STABLE Referrals: AGNES VALDERRAMA MD (PCP) Patient Instructions: Clostridium Difficile Infection Additional Instructions: You were seen for diarrhea. This is likely due to your recent diagnosis of C. difficile for which you are being adequately treated with antibiotics for an outpatient setting. There is little to no indication for hospitalization at present based on comprehensive ER evaluation and work-up. You should return to the ED if you develop abdominal pain, fever > 100.3, black/bloody stools, black/bloody vomiting, cannot keep water down, or any other new or concerning symptoms. ANTHONY VARGAS DO May 31, 2021 09:32
[2021-05-31 09:48] LABS: BASO # 0.1 x10^3/uL (0.0-0.2); BASO % 1 % (0-3); EOS # 0.1 x10^3/uL (0.0-0.7); EOS % 1 % (0-3); HEMOGLOBIN 15.1 g/dL (13.0-17.5); LYMPH # 1.2 x10^3/uL (1.0-4.8); LYMPH % 13 % (24-48); MEAN CORPUSCULAR HEMOGLOBIN 29 pg (25-35); MEAN CORPUSCULAR HGB CONC 33 g/dL (31-37); MEAN CORPUSCULAR VOLUME 88 fL (79-100); MONO # 0.6 x10^3/uL (0.0-1.1); MONO % 6 % (0-9); NEUT # 7.8 x10^3uL (1.8-7.7); NEUT % 80 % (31-73); PLATELET COUNT 447 x10^3/uL (140-400); RED BLOOD COUNT 5.25 x10^6/uL (4.30-5.70); WHITE BLOOD COUNT 9.8 x10^3/uL (4.0-11.0)
--- NOTE | 2021-05-31 09:56 | EKG ---
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
[2021-05-31 10:01] LABS: CALCIUM 8.6 mg/dL (8.5-10.1); CREATININE 0.5 mg/dL (0.7-1.3); GFR 208.1
[2021-05-31 10:03] LABS: ALBUMIN 2.8 g/dL (3.4-5.0); ALBUMIN/GLOBULIN RATIO 0.7 (1.0-1.7); TOTAL BILIRUBIN 0.6 mg/dL (0.2-1.0); TOTAL PROTEIN 6.6 g/dL (6.4-8.2)
[2021-05-31] MEDS ORDERED: IV NORMAL SALINE 1,000ML 1,000 ML IV ONE (10:45)
[2021-05-31 11:00] VITALS: BP 141/85
== END 2021-05-31 11:40 | disposition home or self-care (01) ==
LOC: ER 09:08
DX: A04.72 Enterocolitis due to Clostridium difficile, not specified as recurrent (principal); E11.9 Type 2 diabetes mellitus without complications; K21.9 Gastro-esophageal reflux disease without esophagitis; I10 Essential (primary) hypertension; G89.29 Other chronic pain; F17.210 Nicotine dependence, cigarettes, uncomplicated; Z88.6 Allergy status to analgesic agent; Z88.8 Allergy status to other drugs, medicaments and biological substances
CPT/HCPCS: 80053; 83605; 84484; 85025; 93005; 96360; 99284; J7030

== ENCOUNTER 2021-06-21 20:22 | Emergency (ER) | payer MEDICARE, MEDICAID ==
[~2021-06-21] VITALS: Ht 165.1 cm; Wt 62.9 kg
--- NOTE | 2021-06-21 20:29 | PHYS DOC ---
Past History Past Medical History: Anxiety, Depression, Diabetes, GERD, Hypertension Additional Past Medical Histor: COLITIS, chronic pain, C diff Past Surgical History: No Surgical History Additional Past Surgical Histo: whipple, intestinal repair x 2 Smoking: Cigarettes, Less than 1pk/day Alcohol Use: None Drug Use: Marijuana General Adult EDM: Chief Complaint: MECHANICAL FALL HPI: HPI: ".. I got up the other day.. my Lt leg was asleep.. and I fell.. it been hurting ever since.. and I falled again .. 3 times.. My hip hurts;; ,My Lt. my knee.... on the Lt.. my low back.. my Lt. ankle.. .. " Patient is a 56 year old male who presents with above hx and complaints of fall. Patient has extensive medical history of diabetes, peripheral neuropathy, hypertension, pancreatitis, depression, C. difficile colitis, gastric ulcers, duodenal ulcers,. Underwent Whipple procedure in 2016. Follows at for surgery. Follows with Dr. Jim as primary. Patient denies any changes in meds. No recent travel. No specific ill contacts. Patient still smokes approximately a pack a day. Used to be heavy drinker but has been off alcohol for the past 7 years. Does smoke marijuana. Denies other illicit drugs. Review of Systems: Review of Systems: Constitutional: Denies fever or chills Eyes: Denies change in visual acuity HENT: Denies nasal congestion or sore throat Respiratory: Denies cough or shortness of breath Cardiovascular: Denies chest pain or edema GI: Denies abdominal pain, nausea, vomiting, bloody stools or diarrhea : Denies dysuria Musculoskeletal: Denies back pain or joint pain Integument: Denies rash Neurologic: Denies headache, focal weakness or sensory changes Endocrine: Denies polyuria or polydipsia Lymphatic: Denies swollen glands Psychiatric: Denies depression or anxiety Family History: Family History: Has 1 brother and 1 sister both are younger. Both of them have hypertension diabetes. Father at 78 because of lymphoma, mother age 76 because of end-stage renal disease and complications with hemodialysis. Current Medications: Current Meds: See nursing for home meds Allergies: Allergies: Allergies Coded Allergies Type Severity Reaction Last Updated Verified tramadol Allergy Severe ANAPHYLAXIS 04/29/21 Yes acetaminophen Allergy Intermediate Hives 04/29/21 Yes aspirin Allergy Intermediate 1/18/22 Yes fentanyl Allergy Intermediate 04/29/21 Yes ketorolac Allergy Intermediate 04/29/21 Yes naproxen Allergy Intermediate 04/29/21 Yes Physical Exam: PE: Constitutional: Moderate acute distress, non-toxic appearance. [] HENT: Normocephalic, atraumatic, bilateral external ears normal, oropharynx moist, no oral exudates, nose normal. [] Eyes: PERRLA, EOMI, conjunctiva normal, no discharge. [] Neck: Normal range of motion, no tenderness, supple, no stridor. [] Cardiovascular:Heart rate regular rhythm, no murmur [] Lungs & Thorax: Bilateral breath sounds equal apex with scattered wheezes auscultation [] Abdomen: Bowel sounds normal, soft, no tenderness, no masses, no pulsatile masses. Large abdomen incision scars. Wipple x 2 Skin: Warm, dry, no erythema, no rash. Poor turgor. Back: No tenderness, no CVA tenderness. [] Extremities: No tenderness, no cyanosis, no clubbing, ROM intact, no edema. Arthritic changes. Contusion to left knee. Left hip pain Neurologic: Alert and oriented X 3, moves all extremities on request, decreased plantar l sensory function, no focal deficits noted. [] Psychologic: Affect anxious, judgement normal, mood normal. [] EKG: EKG: My interpretation of EKG shows low voltage in all leads. Some nonspecific changes in left lateral leads. Abnormal EKG. Time of EKG is 2057 hrs. [] Radiology/Procedures: Radiology/Procedures: [address] [address] IMAGING REPORT Signed PATIENT: ADAM CASTELAN ACCOUNT: [id number] : 1965 LOCATION: ER AGE: 56 SEX: M EXAM STATUS: REG ER ORD. PHYSICIAN: ISSAC DORAN MD REASON: fall PROCEDURE: CT HEAD WO CONTRAST CT head, lumbar spine and pelvis without contrast 06/21/2021. Reason for exam: Patient fell. TECHNIQUE: Helical noncontrast images were performed. Sagittal and coronal reconstructions were obtained. Head CT is compared with exam of 05/07/2021. CT HEAD: There is no apparent intracranial hemorrhage or abnormal extra-axial fluid collection. No new area of abnormal density is seen in the brain. The ventricles and basilar cisterns are normally positioned. Bone windows show no apparent fracture of the skull or abnormal sinus or mastoid opacification. CT lumbar spine: Alignment is normal. There is no loss of vertebral body height or other evidence for fracture. Intervertebral disks appear fairly well m aintained. Evaluation of the soft tissue components of the canal is limited without intrathecal contrast. CT PELVIS: No fracture or dislocation is seen. Mild degenerative changes are evident at the hips. There is no apparent soft tissue hematoma. IMPRESSION: Negative studies. Electronically signed by: Rayshawn Cordero Jr., MD (06/21/2021 10:09 PM) [facility] DICTATED AND SIGNED BY: RAYSHAWN CORDERO Jr, MD DATE: 06/21/212200 CC: ISSAC DORAN MD; AGNES JIM MD ~MTH0 [address] [place] [address] IMAGING REPORT Signed PATIENT: ADAM CASTELAN ACCOUNT: [id number] : 1965 LOCATION: ER AGE: 56 SEX: M EXAM STATUS: REG ER ORD. PHYSICIAN: ISSAC DORAN MD REASON: fall PROCEDURE: CT LUMBAR SPINE WO CONTRAST CT head, lumbar spine and pelvis without contrast 06/21/2021. Reason for exam: Patient fell. TECHNIQUE: Helical noncontrast images were performed. Sagittal and coronal reconstructions were obtained. Head CT is compared with exam of 05/07/2021. CT HEAD: There is no apparent intracranial hemorrhage or abnormal extra-axial fluid collection. No new area of abnormal density is seen in the brain. The ventricles and basilar cisterns are normally positioned. Bone windows show no apparent fracture of the skull or abnormal sinus or mastoid opacification. CT lumbar spine: Alignment is normal. There is no loss of vertebral body height or other evidence for fracture. Intervertebral disks appear fairly well maintained. Evaluation of the soft tissue components of the canal is limited without intrathecal contrast. CT PELVIS: No fracture or dislocation is seen. Mild degenerative changes are evident at the hips. There is no apparent soft tissue hematoma. IMPRESSION: Negative studies. Electronically signed by: Rayshawn Cordero Jr., MD (06/21/2021 10:09 PM) [facility] DICTATED AND SIGNED BY: RAYSHAWN CORDERO Jr, MD DATE: 06/21/212200 CC: ISSAC DORAN MD; AGNES JIM MD ~MTH0 0 [][place] [address] IMAGING REPORT Signed PATIENT: ADAM CASTELAN ACCOUNT: [id number] : 1965 LOCATION: ER AGE: 56 SEX: M EXAM STATUS: REG ER ORD. PHYSICIAN: ISSAC DORAN MD REASON: fall PROCEDURE: CT PELVIS WO CONTRAST CT head, lumbar spine and pelvis without contrast 06/21/2021. Reason for exam: Patient fell. TECHNIQUE: Helical noncontrast images were performed. Sagittal and coronal reconstructions were obtained. Head CT is compared with exam of 05/07/2021. CT HEAD: There is no apparent intracranial hemorrhage or abnormal extra-axial fluid collection. No new area of abnormal density is seen in the brain. The ventricles and basilar cisterns are normally positioned. Bone windows show no apparent fracture of the skull or abnormal sinus or mastoid opacification. CT lumbar spine: Alignment is normal. There is no loss of vertebral body height or other evidence for fracture. Intervertebral disks appear fairly well maintained. Evaluation of the soft tissue components of the canal is limited without intrathecal contrast. CT PELVIS: No fracture or dislocation is seen. Mild degenerative changes are evident at the hips. There is no apparent soft tissue hematoma. IMPRESSION: Negative studies. Electronically signed by: Rayshawn Cordero Jr., MD (06/21/2021 10:09 PM) [facility] DI[facility]ATED AND SIGNED BY: RAYSHAWN CORDERO Jr, MD DATE: 06/21/212200 CC: ISSAC DORAN MD; AGNES JIM MD ~MTH0 0 Heart Score: C/O Chest Pain: N/A HEART Score for Chest Pain: HEART Score for Chest Pain Response (Comments) Value History Slighlty/Non-Suspicious 0 ECG Normal 0 Age >45 - < 65 1 Risk Factors 1 or 2 Risk Factors 1 Troponin < Normal Limit 0 Total 2 Risk Factors: Risk Factors: DM, Current or recent (<one month) smoker, HTN, HLP, family history of CAD, obesity. Risk Scores: Score 0 - 3: 2.5% MACE over next 6 weeks - Discharge Home Score 4 - 6: 20.3% MACE over next 6 weeks - Admit for Clinical Observation Score 7 - 10: 72.7% MACE over next 6 weeks - Early Invasive Strategies Course & Med Decision Making: Course & Med Decision Making Pertinent Labs and Imaging studies reviewed. (See chart for details) Pt. follow up with Dr. Jim. Pt. encourage to not smoke. Pt. review ED work up with primary. Return if any concerns. Try use of Lidocaine patches. Impression: 1. Trip and Fall 2. Anemia 11.5 3. DM 263 4. Hx Peripheral Neuropathy 5. Contusions 6. Degenerative joint osteoarthritis 7. Tobacco use. 8, Drug Screen + for Marijuana and Meth. [] Dragon Disclaimer: Dragon Disclaimer: This electronic medical record was generated, in whole or in part, using a voice recognition dictation system. Departure Departure: Referrals: AGNES JIM MD (PCP) Scripts Lidocaine (Lidocaine PATCH ) 1 Each Adh..patch 1 EACH TP DAILY for FOR LOCAL PAIN, #10 PATCH REMOVE AFTER 12 HOURS Prov: ISSAC DORAN MD 06/21/21 Curt Disclaimer This chart was dictated in whole or in part using Voice Recognition software in a busy, high-work load, and often noisy Emergency Department environment. It may contain unintended and wholly unrecognized errors or omissions. Dragon Disclaimer This chart was dictated in whole or in part using Voice Recognition software in a busy, high-work load, and often noisy Emergency Department environment. It may contain unintended and wholly unrecognized errors or omissions. ISSAC DORAN MD Jun 21, 2021 20:29
[2021-06-21] MEDS ORDERED: IV RINGERS SOLUTION,LACTATED 1,000 ML IV SCH (21:00)
[2021-06-21] MEDS ORDERED: MORPHINE SULFATE 10 MG/ML SYRINGE. SQ ONE ×2 (21:00→23:30)
[2021-06-21] MEDS ORDERED: ACETAMINOPHEN 500 MG TABLET PO ONE (21:00)
[2021-06-21] MEDS ORDERED: ONDANSETRON PF 4 MG/2 ML VIAL. ONE (21:56)
--- NOTE | 2021-06-21 22:11 | RAD ---
CT head, lumbar spine and pelvis without contrast 06/21/2021. Reason for exam: Patient fell. TECHNIQUE: Helical noncontrast images were performed. Sagittal and coronal reconstructions were obtai jocelin. Head CT is compared with exam of 05/07/2021. CT HEAD: There is no apparent intracranial hemorrhage or abnormal extra-axial fluid collection. No ne w area of abnormal density is seen in the brain. The ventricles and basilar cisterns are normally pos itioned. Bone windows show no apparent fracture of the skull or abnormal sinus or mastoid opacificati on. CT lumbar spine: Alignment is normal. There is no loss of vertebral body height or other evidence for fracture. Intervertebral disks appear fairly well maintained. Evaluation of the soft tissue componen ts of the canal is limited without intrathecal contrast. CT PELVIS: No fracture or dislocation is seen. Mild degenerative changes are evident at the hips. The re is no apparent soft tissue hematoma. IMPRESSION: Negative studies. Electronically signed by: Coleman Cordero Jr., MD (06/21/2021 10:09 PM) [facility]
[2021-06-21 22:15] LABS: BASO % 1 % (0-3); EOS # 0.1 x10^3/uL (0.0-0.7); EOS % 1 % (0-3); HEMOGLOBIN 11.7 g/dL (13.0-17.5); LYMPH # 1.1 x10^3/uL (1.0-4.8); LYMPH % 16 % (24-48); MEAN CORPUSCULAR HEMOGLOBIN 28 pg (25-35); MEAN CORPUSCULAR HGB CONC 33 g/dL (31-37); MEAN CORPUSCULAR VOLUME 86 fL (79-100); MONO # 0.6 x10^3/uL (0.0-1.1); MONO % 9 % (0-9); NEUT % 73 % (31-73); PLATELET COUNT 284 x10^3/uL (140-400); RED CELL DISTRIBUTION WIDTH 17.8 % (11.5-14.5); WHITE BLOOD COUNT 6.8 x10^3/uL (4.0-11.0)
[2021-06-21 22:24] LABS: ANION GAP 7 (6-14); BLOOD UREA NITROGEN 11 mg/dL (8-26); CALCIUM 7.2 mg/dL (8.5-10.1); CARBON DIOXIDE 26 mmol/L (21-32); CHLORIDE 106 mmol/L (98-107); CREATININE 0.5 mg/dL (0.7-1.3); GFR 207.4; GLUCOSE 263 mg/dL (70-99); POTASSIUM 4.2 mmol/L (3.5-5.1); SODIUM 139 mmol/L (136-145)
[2021-06-21 22:37] LABS: ALBUMIN 2.2 g/dL (3.4-5.0); ALK PHOS 263 U/L (46-116); ALT (SGPT) 42 U/L (16-63); AST (SGOT) 44 U/L (15-37); DIRECT BILIRUBIN 0.1 mg/dL (0.0-0.2); TOTAL BILIRUBIN 0.3 mg/dL (0.2-1.0)
[2021-06-21 22:43] LABS: LIPASE < 10 U/L (73-393)
[2021-06-21 22:52] LABS: BARBITURATES NEG (NEG); BENZODIAZEPINES NEG (NEG); CANNABINOIDS POS (NEG); COCAINE NEG (NEG); METHADONE NEG (NEG); OPIATES POS (NEG); PHENCYCLIDINE NEG (NEG)
[2021-06-21 23:16] LABS: INFLUENZA A PATIENT NEGATIVE (NEGATIVE); INFLUENZA B PATIENT NEGATIVE (NEGATIVE)
[2021-06-21] MEDS ORDERED: cloNIDine TTS-2 1 PATCH PATCH TD ONE (23:30)
[2021-06-21] MEDS ORDERED: cloNIDine HCL 0.1 MG TABLET PO ONE (23:30)
[2021-06-21 23:35] LABS: AMPHETAMINE/METHAMPHETAMINE POS (NEG)
[2021-06-21 23:42] LABS: BACTERIA,URINE 0 /HPF (0-FEW); CLARITY,URINE CLEAR; COLOR,URINE YELLOW; GLUCOSE,URINE 500 mg/dL (NEG); NITRITE,URINE NEG (NEG); UROBILINOGEN,URINE 0.2 mg/dL (0.2 mg/dL)
[2021-06-21] MEDS ORDERED: LIDO700A21 TP (23:51)
[2021-06-21 23:54] VITALS: BP 185/90
--- NOTE | 2021-06-22 00:27 | RAD ---
EXAM: CHEST ONE VIEW. HISTORY: Fall, pain. COMPARISON: 04/29/2021. FINDINGS: A frontal view of the chest is obtained. There are no confluent infiltrates. There is no pneumothorax or pleural effusion. The heart is not en larged. Changes of cervical fusion and cholecystectomy are suspected. IMPRESSION: 1. No confluent infiltrates. Electronically signed by: Mj Hernandez MD (06/22/2021 12:24 AM) [facility]
--- NOTE | 2021-06-22 00:30 | RAD ---
EXAM: 1. Left femur 2 views. 2. Left knee 4 views. 3. Left ankle 3 views. HISTORY: Fall, pain. COMPARISON: None. FINDINGS: No fractures are appreciated in the left femur. There is moderately decreased femoral head/ neck offset anteriorly. The joint spaces of the left hip appear maintained. No fractures are appreciated about the left knee. Joint spaces and alignment are maintained. Trabecul ar thickening within the proximal tibia suggests Paget disease. The joint spaces and alignment of the ankle mortise are maintained. No fractures are appreciated abou t the left ankle. Pes planus is partially visualized. IMPRESSION: 1. No fracture. 2. 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 Electronically signed by: Mj Hernandez MD (06/22/2021 12:27 AM) [facility]
--- NOTE | 2021-06-22 04:22 | EKG ---
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
== END 2021-06-22 00:26 | disposition home or self-care (01) ==
LOC: ER 20:22
DX: S80.02XA Contusion of left knee, initial encounter (principal); D64.9 Anemia, unspecified; E11.9 Type 2 diabetes mellitus without complications; M25.552 Pain in left hip; G62.9 Polyneuropathy, unspecified; M19.90 Unspecified osteoarthritis, unspecified site; F12.10 Cannabis abuse, uncomplicated; F15.10 Other stimulant abuse, uncomplicated; I10 Essential (primary) hypertension; G89.29 Other chronic pain; F41.9 Anxiety disorder, unspecified; F32.9 Major depressive disorder, single episode, unspecified; K21.9 Gastro-esophageal reflux disease without esophagitis; F17.210 Nicotine dependence, cigarettes, uncomplicated; Z20.822 Contact with and (suspected) exposure to COVID-19; W18.39XA Other fall on same level, initial encounter; Y93.89 Activity, other specified; Y92.89 Other specified places as the place of occurrence of the external cause; Y99.8 Other external cause status
CPT/HCPCS: 36415; 70450; 71045; 72131; 72192; 73552; 73564; 73610; 80048; 80076; 80307; 81001; 82550; 83690; 83735; 83880; 84443; 84484; 85025; 85379; 85610; 85730; 87428; 93005; 96360; 96361; 96372; 99285; J2270; J7120

== ENCOUNTER 2021-06-30 12:02 | Emergency (ER) | payer MEDICARE, MEDICAID ==
[~2021-06-30] VITALS: Ht 165.1 cm; Wt 62.9 kg
--- NOTE | 2021-06-30 12:09 | PHYS DOC ---
Past History Past Medical History: Anxiety, Depression, Diabetes, GERD, Hypertension Additional Past Medical Histor: COLITIS, chronic pain, C diff Past Surgical History: Other Additional Past Surgical Histo: whipple Smoking: Cigarettes, Less than 1pk/day Alcohol Use: None Drug Use: Marijuana Adult General HPI HPI Patient is a 56-year-old male with multiple medical problems who presents emergency department with a chief complaint of suicidal ideation initially. On further evaluation with the patient, stated that he was not really suicidal and is here because he is going through opiate withdrawals. States that he usually takes them every day but has been out for 2 days and his whole body is hurting. States he does have an appointment with the pain management center but has not been in to see him yet. States that he has an appointment next week with them. When asked about his pain he says he just hurts all over all the time and cannot identify any specific area. States that the pain nausea makes him nauseous but he has not thrown up. Denies any recent traumas, illnesses, fevers, chest pain, shortness of breath, abdominal pain, vomiting. States that he does not want any medical work-up such as blood draws and imaging, he just needs pain management and nobody is helping him with this. Review of Systems Review of Systems Review of systems otherwise unremarkable except noted in HPI Allergies Allergies Allergies Coded Allergies Type Severity Reaction Last Updated Verified tramadol Allergy Severe ANAPHYLAXIS 04/29/21 Yes acetaminophen Allergy Intermediate Hives 04/29/21 Yes aspirin Allergy Intermediate 04/29/21 Yes fentanyl Allergy Intermediate 04/29/21 Yes ketorolac Allergy Intermediate 04/29/21 Yes naproxen Allergy Intermediate 04/29/21 Yes Physical Exam Physical Exam Constitutional: Well developed, well nourished, no acute distress, non-toxic appearance. [] HENT: Normocephalic, atraumatic, oropharynx moist, no oral exudates, nose normal. [] Eyes: conjunctiva normal, no discharge. [] Neck: Normal range of motion, no tenderness, supple, no stridor. [] Cardiovascular:Heart rate regular rhythm, no murmur [] Lungs & Thorax: Bilateral breath sounds clear to auscultation [] Abdomen: Bowel sounds normal, soft, no tenderness, no masses, no pulsatile masses. [] Skin: Warm, dry, no erythema, no rash. [] Back: No tenderness, no CVA tenderness. [] Extremities: No tenderness, no cyanosis, no clubbing, ROM intact, no edema. [] Neurologic: Alert and oriented X 3, normal motor function, normal sensory function, no focal deficits noted. [] Psychologic: Affect normal,, anxious EKG EKG [] Radiology/Procedures Radiology/Procedures [] Heart Score C/O Chest Pain: No Risk Factors: Risk Factors: DM, Current or recent (<one month) smoker, HTN, HLP, family history of CAD, obesity. Risk Scores: Risk Factors: DM, Current or recent (<one month) smoker, HTN, HLP, family history of CAD, obesity. Course & Med Decision Making Course & Med Decision Making Patient is a 56-year-old male who presents with a chief complaint of suicidal ideation initially, but then stated that he is here for pain management as he is going through opioid withdrawal and is not suicidal, homicidal or hallucinating Vital signs notable for hypertension. Physical exam noted above. Had a long discussion with patient about why he was really here. Patient stated he did not need to say he was suicidal, he is just out of pain medicine. States that he did not want any blood draws or imaging, just wanted some pain medicine and go home and he was going to call his doctor to try to get a new prescription. Given patient an IM dose of pain medicine initially and an oral dose. Advised he needed to call his primary care physician as soon as he leaves the emergency department to discuss his ED visit and have his medications adjusted if he is using more than he supposed to. Patient grateful, verbalized understanding and agreed with plan of discharge. Dragon Disclaimer Dragon Disclaimer This electronic medical record was generated, in whole or in part, using a voice recognition dictation system. Departure Departure: Impression: Primary Impression: Opiate withdrawal Disposition: HOME / SELF CARE / HOMELESS Condition: STABLE Referrals: AGNES VALDERRAMA MD (PCP) Patient Instructions: Narcotic Withdrawal Additional Instructions: Thank you for coming into the emergency department tonight and allowing us to take care of you. Please read the attached information carefully to go over things we discussed. As we discussed, it is important you take your pain medicine as prescribed with other adjuncts such as Benadryl and Tylenol so you do not run out or use more than you should to avoid withdrawals. It is very important that you call your primary care physician and your pain management center as soon as you leave the emergency department to update on your ED visit and discuss need for immediate change in prescription or appointment for reevaluation. We discussed work-up in the emergency department including labs and imaging to ascertain your pain but you stated that you did not want any of that done and just needed pain management because you have been out of your pain medicine for 2 days. Please come back to the emergency department with new or concerning symptoms as discussed. Scripts Hydrocodone Bit/Acetaminophen (HYDROCODONE-APAP 5-325 ) 1 Each Tablet 1 TAB PO TID PRN for PAIN for 2 Days, #6 TAB 0 Refills Prov: JENIFER RAMOS MD 06/30/21 JENIFER RAMOS MD Jun 30, 2021 12:09
[2021-06-30] MEDS: MORPHINE SULFATE 4 MG/ML DISP.SYRIN. IM ONE (13:17)
[2021-06-30] MEDS: ONDANSETRON ODT 4 MG TAB.RAPDIS PO ONE (13:18)
[2021-06-30] MEDS: LOPERAMIDE 2 MG CAPSULE PO ONE (13:18)
[2021-06-30 14:01] VITALS: BP 133/76
[2021-06-30] MEDS: oxyCODONE/APAP 5/325 1 TAB TABLET PO ONE (14:11)
[2021-06-30] MEDS ORDERED: HYDR-2155 PO (14:13)
== END 2021-06-30 14:20 | disposition home or self-care (01) ==
LOC: ER 12:02
DX: F11.23 Opioid dependence with withdrawal (principal); F41.9 Anxiety disorder, unspecified; F32.9 Major depressive disorder, single episode, unspecified; E11.9 Type 2 diabetes mellitus without complications; K21.9 Gastro-esophageal reflux disease without esophagitis; I10 Essential (primary) hypertension; F17.210 Nicotine dependence, cigarettes, uncomplicated; Z88.6 Allergy status to analgesic agent; Z88.8 Allergy status to other drugs, medicaments and biological substances
CPT/HCPCS: 96372; 99285; J2270; Q0162

== ENCOUNTER 2021-06-30 21:34 | Emergency (ER) | payer MEDICARE, MEDICAID ==
[~2021-06-30] VITALS: Ht 165.1 cm; Wt 62.9 kg
[2021-06-30] MEDS ORDERED: IV NORMAL SALINE 1,000ML 1,000 ML IV SCH (21:45)
--- NOTE | 2021-06-30 21:48 | EKG ---
[address] [address] Test Date: 2021-06-30 Test Time: 21:41:33 Pat Name: ADAM CASTELAN Department: Room: Gender: M Room Service Clerk: : 1965 Requested By: KT PUGH Order Number: [id number] Reading MD: Measurements Intervals [place] Rate: 84 P: -50 NM: 112 QRS: 44 QRSD: 84 T: 72 QT: 366 QTc: 436 Interpretive Statements SINUS RHYTHM LOW LIMB LEAD VOLTAGE NO SPECIFIC ECG ABNORMALITIES RI6.01 No previous ECG available for comparison
--- NOTE | 2021-06-30 21:53 | PHYS DOC ---
Past History Past Medical History: Anxiety, Depression, Diabetes, GERD, Hypertension Additional Past Medical Histor: COLITIS, chronic pain, C diff (TK PUGH APRN) Past Surgical History: Other Additional Past Surgical Histo: whipple (TK PUGH APRN) Smoking: Cigarettes, Less than 1pk/day Alcohol Use: None Drug Use: Marijuana (TK PUGH APRN) General Adult EDM: Chief Complaint: SUICIDAL IDEATION HPI: HPI: Patient is a 56-year-old male who presents to the emergency department for right-sided chest pain that radiates to his back that started this afternoon when he was seen previously in this emergency department. Patient is also reporting nausea and shortness of breath. He rates his pain 9 out of 10. He describes it as a sharp pain. No alleviating or aggravating factors. Patient was seen in this emergency department this afternoon for generalized pain due to opioid withdrawal and was given pain medication in the emergency department and discharged home with pain medication. EMS reports that patient's blood sugar read high which was greater than 600. Patient is also reporting suicidal i deation. He denies any active plan. He reports history of SI in the past. He denies any homicidal ideation . Denies fevers. It appears the patient does have a history of diabetes, DKA, chronic pancreatitis and Whipple surgery. (TK PUGH APRN) Review of Systems: Review of Systems: Constitutional: See HPI Respiratory: See HPI Cardiovascular: See HPI GI: See HPI Psychiatric: See HPI (TK PUGH APRN) Allergies: Allergies: Allergies Coded Allergies Type Severity Reaction Last Updated Verified tramadol Allergy Severe ANAPHYLAXIS 04/29/21 Yes aspirin Allergy Intermediate 04/29/21 Yes fentanyl Allergy Intermediate 04/29/21 Yes ketorolac Allergy Intermediate 04/29/21 Yes naproxen Allergy Intermediate 04/29/21 Yes (TK PUGH APRN) Physical Exam: PE: Constitutional: No acute distress HENT: Normocephalic, atraumatic, bilateral external ears normal, oropharynx moist, no oral exudates, nose normal. [] Eyes: PERRL, EOMI, conjunctiva normal, no discharge. [] Neck: Normal range of motion, no tenderness, supple, no stridor. [] Cardiovascular:Heart rate regular rhythm, no murmur [], right sided chest wall tenderness with palpation Lungs & Thorax: Bilateral breath sounds clear to auscultation [] Abdomen: Bowel sounds normal, soft, no tenderness, no masses, no pulsatile masses. [] Skin: Warm, dry, no erythema, no rash. [] Back: Normal range of motion Extremities: No tenderness, no cyanosis, no clubbing, ROM intact, no edema. [] Neurologic: Alert and oriented X 3, normal motor function, normal sensory function, no focal deficits noted. [] Psychologic: Affect normal, judgement normal, mood normal. [] (TK PUGH APRN) EKG: EKG: EKG performed by ER staff at 2141 shows sinus rhythm with a rate of 84, QTC of 436, no STEMI read by Dr. Rowan. [] (TK PUGH APRN) Radiology/Procedures: Radiology/Procedures: [] (TK PUGH APRN) Radiology/Procedures: [place] [address] IMAGING REPORT Signed PATIENT: ADAM CASTELAN ACCOUNT: [id number] : 1965 LOCATION: ER AGE: 56 SEX: M EXAM STATUS: REG ER ORD. PHYSICIAN: TK PUGH APRN REASON: soa, cp PROCEDURE: PORTABLE CHEST 1V Exam Date: 06/30/2021 10:43 PM XR CHEST 1V Indication: Reason: soa, cp / Spl. Instructions: / History: . Comparison: June 21, 2021 FINDINGS/ IMPRESSION: There is a large right pneumothorax. There may be mild mediastinal shift to the left suggesting tension. Left lung is clear. No pleural effusion. The cardiac silhouette is not enlarged. Findings discussed with Dr. Fausto Lakhani at 06/30/2021 11:31 PM. FOR INTERNAL CODING PURPOSES Critical result: RESULT CODE: (C) Electronically signed by: Taj Rojas MD (06/30/2021 11:34 PM) [facility] DICTATED AND SIGNED BY: TAJ ROJAS MD DATE: 06/30/21 0294 CC: FAUSTO ROWAN MD; AGNES VALDERRAMA MD; TK PUGH APRN ~ [place] [address] IMAGING REPORT Signed PATIENT: ADAM CASTELAN ACCOUNT: [id number] : 1965 LOCATION: ER AGE: 56 SEX: M EXAM STATUS: REG ER ORD. PHYSICIAN: FAUSTO ROWAN MD REASON: after chest tube PROCEDURE: CHEST AP ONLY XR CHEST 1V History: Chest tube. Comparison: 06/30/2021, 06/21/2021 Technique: Portable AP radiograph of the chest. Findings: There is a new right upper chest small caliber pleural catheter. Interval reexpansion of the right lung with small residual pneumothorax. Right upper lobe dense opacity and linear opacities in the right lung base. The left lung is clear. No pleural effusions. Cardiac mediastinal silhouette and pulmonary vasculature are within normal limits. Osseous structures and soft tissues are unremarkable. Impression: 1. New right pleural catheter with reexpansion of the right lung and small residual pneumothorax. 2. Right upper lobe opacity may represent consolidation, mass, loculated pleural fluid collection, or reexpansion edema. Electronically signed by: Reggie Abreu MD (07/01/2021 2:19 AM) [facility] DICTATED AND SIGNED BY: REGGIE ABREU MD DATE: 07/01/21214 CC: FAUSTO ROWAN MD; AGNES VALDERRAMA MD ~ (FAUSTO ROWAN MD) Heart Score: C/O Chest Pain: Yes HEART Score for Chest Pain: HEART Score for Chest Pain Response (Comments) Value History Slighlty/Non-Suspicious 0 Age >45 - < 65 1 Risk Factors >3 Risk Factors or Hx CAD 2 Total 3 Risk Factors: Risk Factors: DM, Current or recent (<one month) smoker, HTN, HLP, family history of CAD, obesity. Risk Scores: Score 0 - 3: 2.5% MACE over next 6 weeks - Discharge Home Score 4 - 6: 20.3% MACE over next 6 weeks - Admit for Clinical Observation Score 7 - 10: 72.7% MACE over next 6 weeks - Early Invasive Strategies (TK PUGH APRN) Course & Med Decision Making: Course & Med Decision Making Pertinent Labs and Imaging studies reviewed. (See chart for details) [] Patient presents to the emergency department for right-sided chest pain with nausea and shortness of breath that started this afternoon when he was seen previously in the emergency department. EMS reports that patient's blood sugar read high for them. Patient is also reporting suicidal ideation without a plan. Work-up in the ER consisted of blood work including acetone levels and a VBG, EKG, chest x-ray. Patient was given a liter of normal saline. Suicidal precautions placed and PET team consult placed. Work up pending at this time. I discussed patients case with supervising physician, he will assume patient care at this time due to shift change. 2208. (TK PUGH APRN) Course & Med Decision Making See earlier ED visit and charting . See Sebastian charting for details this visit. Pt. reported had a fall earlier this morning. Since that time had Rt. chest wall pain. Pt. Hx. of poor medical compliance for DM and Psych follow ups. Pt. Hx was helpful in managing his medical care. Procedure -Chest Tube Placement- patient's right anterior chest wall second third intercostal space cleaned with Betadine and site prep. Then sterile drape with sterile gloves mask and technique injected site with lidocaine. Then inserted Cook like size chest tube. Had return of air, and the tube was passed without problems. Biopatch placed on site. Chest tube sutured in place. Attachment of to flutter valve and chest tube suction. Slight was covered with OpSite and then reinforced tape. Post procedure showed re expansion of lung with some re expansion edema versus pulmonary contusion from earlier fall. There is still a small residual pneumothorax. Patient remain on oxygen. Patient's consider CT for further evaluation of pneumothorax once completely e xpanded.. Critical Care 60 min. - Not counting procedure- Tension Pneumothorax. Discussed presentation, testing and tx. plan with Dr. Jeong. - Transfer to [facility]- Dr. Jeong and pulmonary consult. Impression: 1. Chest Pain 2. Fall 3. Pneumothorax- Tension 4. DM-Hyperglycemia - Glucose - 506 5. Depression 6. Suicidal Ideation 7. Anxiety 8. Hx. Wipple- GI bleed 9. Tobacco and Marijuana Use 10. GERD (FAUSTO ROWAN MD) Dragon Disclaimer: Dragon Disclaimer: This electronic medical record was generated, in whole or in part, using a voice recognition dictation system. (TK PUGH APRN) Departure Departure: Referrals: AGNES VALDERRAMA MD (PCP) Curt Disclaimer This chart was dictated in whole or in part using Voice Recognition software in a busy, high-work load, and often noisy Emergency Department environment. It may contain unintended and wholly unrecognized errors or omissions. (FAUSTO ROWAN MD) Dragon Disclaimer This chart was dictated in whole or in part using Voice Recognition software in a busy, high-work load, and often noisy Emergency Department environment. It may contain unintended and wholly unrecognized errors or omissions. (TK PUGH APRN) Dragon Disclaimer This chart was dictated in whole or in part using Voice Recognition software in a busy, high-work load, and often noisy Emergency Department environment. It may contain unintended and wholly unrecognized errors or omissions. (FAUSTO ROWAN MD) Attending Signature Attending Signature I have participated in the care of this patient and I have reviewed and agree with all pertinent clinical information above including history, exam, and recommendations. (FAUSTO ROWAN MD) Attending Signature I have participated in the care of this patient and I have reviewed and agree with all pertinent clinical information above including history, exam, and recommendations. (TK PUGH APRN) TK PUGH APRN Jun 30, 2021 21:53 FAUSTO ROWAN MD Jun 30, 2021 22:08
[2021-06-30 22:28] LABS: BASO # 0.1 x10^3/uL (0.0-0.2); BASO % 1 % (0-3); EOS % 0 % (0-3); HEMATOCRIT 44.7 % (39.0-53.0); HEMOGLOBIN 14.4 g/dL (13.0-17.5); LYMPH # 1.3 x10^3/uL (1.0-4.8); LYMPH % 13 % (24-48); MEAN CORPUSCULAR HEMOGLOBIN 28 pg (25-35); MEAN CORPUSCULAR HGB CONC 32 g/dL (31-37); MEAN CORPUSCULAR VOLUME 87 fL (79-100); MONO # 0.7 x10^3/uL (0.0-1.1); MONO % 8 % (0-9); NEUT # 7.9 x10^3uL (1.8-7.7); NEUT % 79 % (31-73); PLATELET COUNT 295 x10^3/uL (140-400); RED BLOOD COUNT 5.15 x10^6/uL (4.30-5.70); RED CELL DISTRIBUTION WIDTH 18.1 % (11.5-14.5)
--- NOTE | 2021-06-30 23:36 | RAD ---
Exam Date: 06/30/2021 10:43 PM XR CHEST 1V Indication: Reason: soa, cp / Spl. Instructions: / History: . Comparison: June 21, 2021 FINDINGS/ IMPRESSION: There is a large right pneumothorax. There may be mild mediastinal shift to the left suggesting tens ion. Left lung is clear. No pleural effusion. The cardiac silhouette is not enlarged. Findings discussed with Dr. Fausto Lakhani at 06/30/2021 11:31 PM. FOR INTERNAL CODING PURPOSES Critical result: RESULT CODE: (C) Electronically signed by: Jonel Rojas MD (06/30/2021 11:34 PM) [facility]
[2021-07-01 00:02] LABS: BARBITURATES NEG (NEG); BENZODIAZEPINES NEG (NEG); CANNABINOIDS POS (NEG); COCAINE NEG (NEG); METHADONE NEG (NEG); OPIATES POS (NEG); PHENCYCLIDINE NEG (NEG)
[2021-07-01 00:03] LABS: AMPHETAMINE/METHAMPHETAMINE NEG (NEG)
[2021-07-01] MEDS ORDERED: MORPHINE SULFATE 10 MG/ML SYRINGE. SQ ONE ×2 (00:15→02:30)
[2021-07-01] MEDS ORDERED: NICOTINE 21MG PATCH. TD ONE ×2 (00:44→01:00)
[2021-07-01 01:29] LABS: CLARITY,URINE CLEAR; COLOR,URINE YELLOW; GLUCOSE,URINE >=1000 mg/dL (NEG)
[2021-07-01 01:30] LABS: BACTERIA,URINE 0 /HPF (0-FEW); NITRITE,URINE NEG (NEG); RBC,URINE 0 /HPF (0-2); SQUAMOUS EPITHELIAL CELL,UR OCC /LPF; UROBILINOGEN,URINE 0.2 mg/dL (0.2 mg/dL); WBC,URINE 0 /HPF (0-4)
[2021-07-01 01:52] LABS: ALBUMIN 2.3 g/dL (3.4-5.0); ALBUMIN/GLOBULIN RATIO 0.8 (1.0-1.7); CALCIUM 7.1 mg/dL (8.5-10.1); CREATININE 0.8 mg/dL (0.7-1.3); GFR 120.6; POTASSIUM 4.3 mmol/L (3.5-5.1); TOTAL BILIRUBIN 0.5 mg/dL (0.2-1.0); TOTAL PROTEIN 5.1 g/dL (6.4-8.2)
--- NOTE | 2021-07-01 02:21 | RAD ---
XR CHEST 1V History: Chest tube. Comparison: 06/30/2021, 06/21/2021 Technique: Portable AP radiograph of the chest. Findings: There is a new right upper chest small caliber pleural catheter. Interval reexpansion of the right ayaz ng with small residual pneumothorax. Right upper lobe dense opacity and linear opacities in the right lung base. The left lung is clear. No pleural effusions. Cardiac mediastinal silhouette and pulmonar y vasculature are within normal limits. Osseous structures and soft tissues are unremarkable. Impression: 1. New right pleural catheter with reexpansion of the right lung and small residual pneumothorax. 2. Right upper lobe opacity may represent consolidation, mass, loculated pleural fluid collection, o r reexpansion edema. Electronically signed by: Reggie Harris MD (07/01/2021 2:19 AM) [facility]
[2021-07-01 02:30] VITALS: BP 159/87
[2021-07-01] MEDS ORDERED: ONDANSETRON ODT 4 MG TAB.RAPDIS PO ONE ×2 (03:00)
[2021-07-01] MEDS ORDERED: INSULIN REGULAR 100 UNIT/ML 3ML VIAL. IV ONE (03:00)
== END 2021-07-01 03:20 | disposition short-term general hospital (02) ==
LOC: ER 21:34
DX: J93.0 Spontaneous tension pneumothorax (principal); E11.65 Type 2 diabetes mellitus with hyperglycemia; R45.851 Suicidal ideations; R07.89 Other chest pain; F41.9 Anxiety disorder, unspecified; F32.9 Major depressive disorder, single episode, unspecified; K21.9 Gastro-esophageal reflux disease without esophagitis; I10 Essential (primary) hypertension; F17.210 Nicotine dependence, cigarettes, uncomplicated; F12.10 Cannabis abuse, uncomplicated; G89.29 Other chronic pain; Z20.822 Contact with and (suspected) exposure to COVID-19; Z88.6 Allergy status to analgesic agent; Z88.8 Allergy status to other drugs, medicaments and biological substances; W18.39XA Other fall on same level, initial encounter; Y93.89 Activity, other specified; Y92.89 Other specified places as the place of occurrence of the external cause; Y99.8 Other external cause status
CPT/HCPCS: 32551; 36415; 71045; 80053; 80307; 81001; 82010; 82803; 82947; 83735; 84484; 85025; 87426; 93005; 96361; 96372; 96374; 99291; C9803; J1815; J2270; J7030; Q0162; U0003

== ENCOUNTER 2021-07-25 18:18 | Emergency (ER) | payer MEDICARE, MEDICAID ==
[~2021-07-25] VITALS: Ht 165.1 cm; Wt 62.9 kg
[~2021-07-25 18:18] MED LIST changes: -BUPR150T11 PO; +BUPR150T24 PO
[2021-07-25] MEDS ORDERED: MORPHINE SULFATE 4 MG/ML DISP.SYRIN. IV ONE ×2 (19:30→20:00)
[2021-07-25] MEDS ORDERED: IV NORMAL SALINE 1,000ML 1,000 ML IV ONE (19:45)
[2021-07-25] MEDS ORDERED: ONDANSETRON 4MG ODT 4TABLET STARTPACK. PO ONE (20:00)
--- NOTE | 2021-07-25 20:06 | PHYS DOC ---
Past History Past Medical History: Anxiety, Depression, Diabetes, GERD, Hypertension Additional Past Medical Histor: COLITIS, chronic pain, C diff (ALLISON DOMÍNGUEZ APRN) Past Surgical History: Other Additional Past Surgical Histo: whipple (ALLISON DOMÍNGUEZ APRN) Smoking: Cigarettes, Less than 1pk/day Alcohol Use: None Drug Use: Marijuana (ALLISON DOMÍNGUEZ APRN) General Adult EDM: Chief Complaint: GENERALIZED BODY ACHES HPI: HPI: Patient is a 56-year-old male who presents with generalized pain. Patient is well-known to this ER. Patient has a history of chronic back, hip pain. Patient states that he tripped and fell earlier in the day. Denied loss of consciousness. Denied head or neck pain. Patient is reporting lower back pain and hip pain. Denies taking anything for pain prior to arrival. Patient has history of hypertension, GERD, diabetes. (ALLISON DOMÍNGUEZ APRN) Review of Systems: Review of Systems: ROS At least 10 ROS systems have been reviewed and are negative except as documented in the HPI. General: Negative except as outlined in HPI above. Skin: Negative except as outlined in HPI above. HEENT: Negative except as outlined in HPI above. Neck: Negative except as outlined in HPI above. Respiratory: Negative except as outlined in HPI above.. Cardiovascular: Negative except as outlined in HPI above. Abdomen: Negative except as outlined in HPI above. : Negative except as outlined in HPI above. Back/MSK: Negative except as outlined in HPI above. Neuro: Negative except as outlined in HPI above. Psych: Negative except as outlined in HPI above. (ALLISON DOMÍNGUEZ APRN) Current Medications: Current Meds: Current Medications Medications (Trade) Dose Ordered Sig/Elfego Start Time Stop Time Status Last Admin Dose Admin Morphine Sulfate (Morphine 4mg Syringe) 4 mg 1X ONCE 07/25/21 20:00 07/25/21 20:01 UNV Ondansetron HCl (Starter Pack - Zofran Odt) 1 startpack 1X ONCE 07/25/21 20:00 07/25/21 20:01 UNV Sodium Chloride 1,000 ml @ 1,000 mls/hr 1X ONCE 07/25/21 19:45 07/25/21 20:44 (ALLISON DOMÍNGUEZ APRN) Allergies: Allergies: Allergies Coded Allergies Type Severity Reaction Last Updated Verified tramadol Allergy Severe ANAPHYLAXIS 07/25/21 Yes aspirin Allergy Intermediate 07/25/21 Yes fentanyl Allergy Intermediate 07/25/21 Yes ketorolac Allergy Intermediate 07/25/21 Yes naproxen Allergy Intermediate 07/25/21 Yes (ALLISON DOMÍNGUEZ APRN) Physical Exam: PE: Constitutional: Well developed, well nourished, no acute distress, non-toxic appearance. [] HENT: bilateral external ears normal, oropharynx moist, no oral exudates, nose normal. [] Eyes: PERRLA, conjunctiva normal, no discharge. [] Neck: Normal range of motion, no tenderness, supple Cardiovascular:Heart rate regular rhythm, no murmur [] Lungs & Thorax: Bilateral breath sounds clear to auscultation [] Abdomen: Bowel sounds normal, soft, no tenderness, no masses, no pulsatile masses. [] Skin: Warm, dry, no erythema, no rash. [] Back: Generalized tenderness, no CVA tenderness. [] Extremities: No tenderness, no cyanosis, no clubbing, ROM intact, no edema. [] Neurologic: Alert and oriented X 3, normal motor function, normal sensory function, no focal deficits noted. [] Psychologic: Affect normal, normal judgment, anxious mood (ALLISON DOMÍNGUEZ APRN) Current Patient Data: Vital Signs: Vital Signs Date Time Temp Pulse Resp B/P (MAP) Pulse Ox O2 Delivery O2 Flow Rate FiO2 07/25/21 18:26 98.4 84 18 155/91 (112) 99 (ALLISON DOMÍNGUEZ APRN) EKG: EKG: [] (ALLISON DOMÍNGUEZ APRN) Radiology/Procedures: Radiology/Procedures: []XR CHEST 2V History: Reason: fall Comparison: None. Findings: The cardiomediastinal silhouette is normal. There is right perihilar opacity and filter device. There is right apical pneumothorax estimated to be 20%. There is right perihilar opacity. The left lung is clear. Blunting of the right costophrenic angle may be due to small pleural effusion or pleural thickening. Degenerative spondylosis of the thoracic spine. Surgical change of the cervical spine. IMPRESSION: 1. There is small right apical pneumothorax. 2. Right perihilar opacity may be atelectasis. FOR INTERNAL CODING PURPOSES Critical result: Findings discussed with Dr. Dawson in the ED at 07/25/2021 8:29 PM. RESULT CODE: (C) (ALLISON DOMÍNGUEZ APRN) Impressions: XR CHEST 2V History: Reason: fall Comparison: None. Findings: The cardiomediastinal silhouette is normal. There is right perihilar opacity and filter device. There is right apical pneumothorax estimated to be 20%. There is right perihilar opacity. The left lung is clear. Blunting of the right costophrenic angle may be due to small pleural effusion or pleural thickening. Degenerative spondylosis of the thoracic spine. Surgical change of the cervical spine. IMPRESSION: 1. There is small right apical pneumothorax. 2. Right perihilar opacity may be atelectasis. FOR INTERNAL CODING PURPOSES Critical result: Findings discussed with Dr. Dawson in the ED at 07/25/2021 8:29 PM. RESULT CODE: (C) Electronically signed by: Roger Mcadams MD (07/25/2021 8:33 PM) [facility] DICTATED AND SIGNED BY: ROGER MCADAMS MD DATE: 07/25/212022 CC: ALLISON DOMÍNGUEZ APRN; AGNES VALDERRAMA MD ~ Exam: CT of chest without contrast INDICATION: Pneumothorax TECHNIQUE: Sequential axial images through the chest obtained without IV contrast. Sagittal and coronal reformatted images were reconstructed from the axial data and reviewed. Exposure: One or more of the following in the visualized dose reduction techniques were utilized for this examination: 1. Automated exposure control 2. Adjustment of the MA and/or KV according to patient size 3. Use of iterative of reconstructive technique Comparisons: Chest x-ray same day FINDINGS: Visual is portions of the thyroid are unremarkable. No enlarged mediastinal lymph nodes are identified. Heart size is normal. Mild coronary artery calcifications. Thoracic aorta has normal course and caliber. Pulmonary artery is not enlarged. Airways are patent. Bronchial plugs noted at the right upper lobe. There is a small to moderate right-sided pneumothorax with atelectasis of the right upper lobe. Small right pleural effusion. Visualized upper abdomen is unremarkable. No suspicious osseous lesions or acute fractures. IMPRESSION: 1. Small to moderate right apical pneumothorax. 2. Bronchial plugs noted at the right upper lobe with atelectasis of the right upper lobe. Correlate with procedural history. 3. Small amount of subcutaneous emphysema overlying the right chest wall. Electronically signed by: Estella Singleton MD (07/25/2021 11:03 PM) [facility] DICTATED AND SIGNED BY: ESTELLA SINGLETON MD DATE: 07/25/21 8919 CC: CHAVO JASSO DO; AGNES VALDERRAMA MD ~ (CHAVO JASSO DO) Heart Score: C/O Chest Pain: No Risk Factors: Risk Factors: DM, Current or recent (<one month) smoker, HTN, HLP, family history of CAD, obesity. Risk Scores: Score 0 - 3: 2.5% MACE over next 6 weeks - Discharge Home Score 4 - 6: 20.3% MACE over next 6 weeks - Admit for Clinical Observation Score 7 - 10: 72.7% MACE over next 6 weeks - Early Invasive Strategies (ALLISON DOMÍNGUEZ APRN) Course & Med Decision Making: Course & Med Decision Making Pertinent Labs and Imaging studies reviewed. (See chart for details) [] 56-year-old male presents with generalized and hip pain. Patient is well- known to this ER for chronic pain complaints. Work-up in ER consist of CBC, CMP, chest x-ray, urinalysis. Patient is requesting pain medication. Patient given 4 mg of morphine. Patient is hemodynamically stable. Satting 100% on room air. Patient states that pain is still 8/10. Patient is requesting more pain medication. Patient given second dose of 4 mg of morphine. Last time patient was here he had have a chest tube placed and had it removed on 07/13.X-ray showed small right apical pneumothorax And right perihilar opacity may be atelectasis. Patient still reporting pain. Patient given 1 of Dilaudid. Transfer of patient report to Dr. Jasso at 213. (ALLISON DOMÍNGUEZ APRN) Course & Med Decision Making The patient's vitals are within normal limits. He is having no difficulty breathing. He is maintaining his oxygen on room air. I have consulted the local [place] [employer] that removed the patient's chest tube. Dr. Olivera has recommended that if the pneumothorax is less than 40% and the patient is asymptomatic he does not necessarily need a chest tube or admission. He recommends follow-up chest x-ray in 2 days and then again in a week. I will CT the patient for further clarification on pneumothorax size. The CT scan shows some subcutaneous emphysema as well as small to moderate right pneumothorax. This subcutaneous air may be the cause of the patient's generalized discomfort. He has been given pain medication emergency room. He is stable for discharge at this time. (CHAVO JASSO DO) Dragon Disclaimer: Dragon Disclaimer: This electronic medical record was generated, in whole or in part, using a voice recognition dictation system. (ALLISON DOMÍNGUEZ APRN) Departure Departure: Impression: Primary Impression: Pneumothorax on right Disposition: HOME / SELF CARE / HOMELESS Condition: STABLE Referrals: AGNES VALDERRAMA MD (PCP) Additional Instructions: You need to have a repeat chest x-ray in 2 days to ensure that your pneumothorax is stable or getting smaller. You should then have an x-ray 1 week later. Please follow-up with your local [place] [facility] at [facility]. ALLISON DOMÍNGUEZ APRN Jul 25, 2021 20:06 CHAVO JASSO DO Jul 25, 2021 22:49
[2021-07-25 20:20] LABS: CLARITY,URINE CLEAR; COLOR,URINE YELLOW; GLUCOSE,URINE >=1000 mg/dL (NEG)
[2021-07-25 20:21] LABS: BACTERIA,URINE 0 /HPF (0-FEW); NITRITE,URINE NEG (NEG); RBC,URINE 0 /HPF (0-2); SQUAMOUS EPITHELIAL CELL,UR OCC /LPF; UROBILINOGEN,URINE 0.2 mg/dL (0.2 mg/dL); WBC,URINE 0 /HPF (0-4)
--- NOTE | 2021-07-25 20:36 | RAD ---
XR CHEST 2V History: Reason: fall Comparison: None. Findings: The cardiomediastinal silhouette is normal. There is right perihilar opacity and filter device. There is right apical pneumothorax estimated to b e 20%. There is right perihilar opacity. The left lung is clear. Blunting of the right costophrenic a ngle may be due to small pleural effusion or pleural thickening. Degenerative spondylosis of the thor acic spine. Surgical change of the cervical spine. IMPRESSION: 1. There is small right apical pneumothorax. 2. Right perihilar opacity may be atelectasis. FOR INTERNAL CODING PURPOSES Critical result: Findings discussed with Dr. Dawson in the ED at 07/25/2021 8:29 PM. RESULT CODE: (C) Electronically signed by: Roger Mcadams MD (07/25/2021 8:33 PM) [facility]
[2021-07-25 20:42] LABS: BASO # 0.1 x10^3/uL (0.0-0.2); BASO % 1 % (0-3); EOS # 0.3 x10^3/uL (0.0-0.7); EOS % 4 % (0-3); HEMATOCRIT 35.5 % (39.0-53.0); HEMOGLOBIN 11.6 g/dL (13.0-17.5); LYMPH # 1.7 x10^3/uL (1.0-4.8); LYMPH % 22 % (24-48); MEAN CORPUSCULAR HEMOGLOBIN 28 pg (25-35); MEAN CORPUSCULAR HGB CONC 33 g/dL (31-37); MEAN CORPUSCULAR VOLUME 85 fL (79-100); MONO # 0.7 x10^3/uL (0.0-1.1); MONO % 9 % (0-9); NEUT % 64 % (31-73); PLATELET COUNT 315 x10^3/uL (140-400); RED BLOOD COUNT 4.18 x10^6/uL (4.30-5.70); RED CELL DISTRIBUTION WIDTH 20.1 % (11.5-14.5); WHITE BLOOD COUNT 7.8 x10^3/uL (4.0-11.0)
[2021-07-25] MEDS ORDERED: ONDANSETRON PF 4 MG/2 ML VIAL. IVP ONE (20:45)
[2021-07-25 20:57] LABS: CALCIUM 7.5 mg/dL (8.5-10.1); CREATININE 0.7 mg/dL (0.7-1.3); GFR 140.7; POTASSIUM 4.2 mmol/L (3.5-5.1)
[2021-07-25 21:02] LABS: ALBUMIN 2.2 g/dL (3.4-5.0); ALBUMIN/GLOBULIN RATIO 0.7 (1.0-1.7); TOTAL BILIRUBIN 0.3 mg/dL (0.2-1.0); TOTAL PROTEIN 5.2 g/dL (6.4-8.2)
[2021-07-25] MEDS ORDERED: HYDROmorphone PF 1 MG/ML DISP.SYRIN IVP ONE ×2 (21:45→23:00)
--- NOTE | 2021-07-25 23:05 | RAD ---
Exam: CT of chest without contrast INDICATION: Pneumothorax TECHNIQUE: Sequential axial images through the chest obtained without IV contrast. Sagittal and coron al reformatted images were reconstructed from the axial data and reviewed. Exposure: One or more of the following in the visualized dose reduction techniques were utilized for this examination: 1. Automated exposure control 2. Adjustment of the MA and/or KV according to patient size 3. Use of iterative of reconstructive technique Comparisons: Chest x-ray same day FINDINGS: Visual is portions of the thyroid are unremarkable. No enlarged mediastinal lymph nodes are identifie d. Heart size is normal. Mild coronary artery calcifications. Thoracic aorta has normal course and calib er. Pulmonary artery is not enlarged. Airways are patent. Bronchial plugs noted at the right upper lobe. There is a small to moderate right -sided pneumothorax with atelectasis of the right upper lobe. Small right pleural effusion. Visualized upper abdomen is unremarkable. No suspicious osseous lesions or acute fractures. IMPRESSION: 1. Small to moderate right apical pneumothorax. 2. Bronchial plugs noted at the right upper lobe with atelectasis of the right upper lobe. Correlate with procedural history. 3. Small amount of subcutaneous emphysema overlying the right chest wall. Electronically signed by: Estella Hall MD (07/25/2021 11:03 PM) [facility]
[2021-07-25 23:21] VITALS: BP 155/89
[2021-07-25] MEDS ORDERED: HYDR-2763 PO (23:35)
== END 2021-07-25 23:23 | disposition home or self-care (01) ==
LOC: ER 18:18
DX: J93.9 Pneumothorax, unspecified (principal); G89.29 Other chronic pain; E11.9 Type 2 diabetes mellitus without complications; K21.9 Gastro-esophageal reflux disease without esophagitis; I10 Essential (primary) hypertension; F17.210 Nicotine dependence, cigarettes, uncomplicated; Z88.6 Allergy status to analgesic agent; Z88.8 Allergy status to other drugs, medicaments and biological substances; W01.0XXA Fall on same level from slipping, tripping and stumbling without subsequent striking against object, initial encounter; Y93.89 Activity, other specified; Y92.89 Other specified places as the place of occurrence of the external cause; Y99.8 Other external cause status
CPT/HCPCS: 36415; 71046; 71250; 80053; 81001; 82947; 85025; 96361; 96374; 96375; 96376; 99285; J1170; J2270; J2405; J7030

== ENCOUNTER 2021-08-05 18:33 | Emergency (ER) | payer MEDICARE, MEDICAID ==
[~2021-08-05] VITALS: Ht 165.1 cm; Wt 62.9 kg
[~2021-08-05 18:33] MED LIST changes: +HYDR-2763 PO
--- NOTE | 2021-08-05 19:24 | PHYS DOC ---
Past History Past Medical History: Anxiety, Depression, Diabetes, GERD, Hypertension Additional Past Medical Histor: COLITIS, chronic pain, C diff (ALLISON RIBEIRO LENS MAKER) Past Surgical History: Other Additional Past Surgical Histo: whipple (ALLISON RIBEIRO LENS MAKER) Smoking: Cigarettes, Less than 1pk/day Alcohol Use: None Drug Use: Marijuana (ALLISON RIBEIRO APRN) General Adult EDM: Chief Complaint: GENERALIZED BODY ACHES HPI: HPI: Patient is a 56-year-old male presents with generalized body aches, chronic abdominal pain. Patient is well-known to this ER for pain control. No chest pain, no shortness of breath. Denies fever. Denies nausea/vomiting/diarrhea. No numbness, tingling, weakness. History of anxiety, depression, GERD, chronic back pain (ALLISON RIBEIRO LENS MAKER) Review of Systems: Review of Systems: ROS At least 10 ROS systems have been reviewed and are negative except as documented in the HPI. General: Negative except as outlined in HPI above. Skin: Negative except as outlined in HPI above. HEENT: Negative except as outlined in HPI above. Neck: Negative except as outlined in HPI above. Respiratory: Negative except as outlined in HPI above.. Cardiovascular: Negative except as outlined in HPI above. Abdomen: Negative except as outlined in HPI above. : Negative except as outlined in HPI above. Back/MSK: Negative except as outlined in HPI above. Neuro: Negative except as outlined in HPI above. Psych: Negative except as outlined in HPI above. (ALLISON RIBEIRO LENS MAKER) Allergies: Allergies: Allergies Coded Allergies Type Severity Reaction Last Updated Verified tramadol Allergy Severe ANAPHYLAXIS 07/25/21 Yes aspirin Allergy Intermediate 07/25/21 Yes fentanyl Allergy Intermediate 07/25/21 Yes ketorolac Allergy Intermediate 07/25/21 Yes naproxen Allergy Intermediate 07/25/21 Yes (ALLISON RIBEIRO LENS MAKER) Physical Exam: PE: Constitutional: Well developed, well nourished, no acute distress, non-toxic appearance. [] HENT: Normocephalic, atraumatic, bilateral external ears normal, oropharynx moist, no oral exudates, nose normal. [] Eyes: PERRLA, EOMI, conjunctiva normal, no discharge. [] Neck: Normal range of motion, no tenderness, supple, no stridor. [] Cardiovascular:Heart rate regular rhythm, no murmur [] Lungs & Thorax: Bilateral breath sounds clear to auscultation [] Abdomen: Bowel sounds normal, soft, no tenderness, no masses, no pulsatile masses. [] Skin: Warm, dry, no erythema, no rash. [] Back: No tenderness, no CVA tenderness. [] Extremities: No tenderness, no cyanosis, no clubbing, ROM intact, no edema. [] Neurologic: Alert and oriented X 3, normal motor function, normal sensory function, no focal deficits noted. [] Psychologic: Affect normal, judgement normal, mood normal. [] (ALLISON RIBEIRO APRN) Current Patient Data: Vital Signs: Vital Signs Date Time Temp Pulse Resp B/P (MAP) Pulse Ox O2 Delivery O2 Flow Rate FiO2 08/05/21 18:43 98.0 98 16 122/80 (94) 98 Room Air (ALLISON RIBEIRO APRN) EKG: EKG: [] (ALLISON RIBEIRO APRN) Radiology/Procedures: Radiology/Procedures: []EXAMINATION: Chest radiograph. VIEWS: Frontal and lateral views the chest COMPARISON: CT chest from 07/25/2021 INDICATION:56 years, Male, chest pressure. FINDINGS: Stable cardiomediastinal silhouette. Similar right perihilar opacity and filter device. Small residual right apical pneumothorax measuring up to 1 cm to the pleural edge. Right perihilar atelectasis. Similar blunting of the right costophrenic angle may be due to small effusion or pleural thickening. No acute osseous finding. IMPRESSION: 1. Small residual right apical pneumothorax. 2. Right perihilar opacities consistent with atelectasis. These findings were discussed with Allison Ribeiro APRN at 08/05/2021 8:[address] Yang Electronically signed by: Marco A Yang DO (08/05/2021 8:42 PM) [facility] (ALLISON RIBEIRO APRN) Heart Score: C/O Chest Pain: No Risk Factors: Risk Factors: DM, Current or recent (<one month) smoker, HTN, HLP, family history of CAD, obesity. Risk Scores: Score 0 - 3: 2.5% MACE over next 6 weeks - Discharge Home Score 4 - 6: 20.3% MACE over next 6 weeks - Admit for Clinical Observation Score 7 - 10: 72.7% MACE over next 6 weeks - Early Invasive Strategies (ALLISON RIBEIRO APRN) Course & Med Decision Making: Course & Med Decision Making Pertinent Labs and Imaging studies reviewed. (See chart for details) [] 56-year-old male presents with generalized body aches, chronic pain. Chest x-ray still showed a small, less than 1 cm residual pneumo. All labs unremarkable. Patient given pain medication. Discussed all results with patient. Advised patient he need to follow-up with his PCP for chronic pain management. Patient given oral pain medication at disposition. Patient is hemodynamically stable. (ALLISON RIBEIRO APRN) Course & Med Decision Making Do not see or evaluate patient. Did not discuss patient with RESPIRATORY SCIENTIST. Generally agree with RESPIRATORY SCIENTIST's work-up and disposition per note (JENIFER RAMOS MD) Dragon Disclaimer: Dragon Disclaimer: This electronic medical record was generated, in whole or in part, using a voice recognition dictation system. (ALLISON RIBEIRO APRN) Departure Departure: Impression: Primary Impression: Chronic pain syndrome Additional Impression: Chronic back pain Qualified Codes: M54.6 - Pain in thoracic spine; G89.29 - Other chronic pain Disposition: HOME / SELF CARE / HOMELESS Condition: STABLE Referrals: AGNES VALDERRAMA MD (PCP) Patient Instructions: Chronic Back Pain Additional Instructions: You were seen the emergency room for generalized body aches. You were given pain medication. Chest x-ray was unremarkable. All your labs were unremarkable. Please follow-up with your PCP for further pain management. EMERGENCY DEPARTMENT GENERAL DISCHARGE INSTRUCTIONS Thank you for coming to [facility] (ED) today and trusting us with you care. We trust that you had a positivie experience in our Emergency Department. If you wish to speak to the department management, you may call the director at [phone]. YOUR FOLLOW UP INSTRUCTIONS ARE FOLLOWS: 1. Do you have a private Doctor? If you do not have a private doctor, please ask for a resource list of physicians or clinics that may be able to assist you with follow up care. 2. The Emergency Physician has interpreted your x-rays. The X-Ray specialist will also review them. If there is a change in the findings, you will be notified in 48 hours when at all possible. 3. A lab test or culture has been done, your results will be reviewed and you will be notified if you need a change in treatment. ADDITIONAL INSTRUCTIONS AND INFORMATION: 1. Your care today has been supervised by a physician who is specially trained in emergency care. Many problems require more than one evaluation for a complete diagnosis and treatment. We recommend that you schedule your follow up appointment as recommended to ensure complete treatment of you illness or injury. If you are unable to obtain follow up care and continue to have a problem, or if your condition worsens, we recommend that you return to the ED. 2. We are not able to safely determine your condition over the phone nor are we able to give sound medical advice over the phone. For these safety reasons, if you call for medical advice we will ask you to come to the ED for further evaluation. 3. If you have any questions regarding these discharge instructions please call the ED at [phone]. SAFETY INFORMATION: In the interest of safety, wellness, and injury prevention; we encourage you to wear your sealbelt, if you smoke; quite smoking, and we encourage family to use a protective helmet for bicycling and other sporting events that present an increased risk for head injury. IF YOUR SYMPTOMS WORSEN OR NEW SYMPTOMS DEVELOP, OR YOU HAVE CONCERNS ABOUT YOUR CONDITION; OR IF YOUR CONDITION WORSENS WHILE YOU ARE WAITING FOR YOUR FOLLOW UP APPOINTMENT; EITHER CONTACT YOUR PRIMARY CARE DOCTOR, THE PHYSICIAN WHOSE NAME AND NUMBER YOU WERE GIVEN, OR RETURN TO THE ED IMMEDIATELY. ALLISON RIBEIRO APRN Aug 05, 2021 19:24 JENIFER RAMOS MD Aug 05, 2021 22:18
[2021-08-05] MEDS ORDERED: IV NORMAL SALINE 1,000ML 1,000 ML IV ONE (19:30)
[2021-08-05] MEDS ORDERED: MORPHINE SULFATE 4 MG/ML DISP.SYRIN. IV ONE (20:00)
[2021-08-05 20:06] LABS: CALCIUM 8.1 mg/dL (8.5-10.1); CREATININE 1.1 mg/dL (0.7-1.3); GFR 83.5; POTASSIUM 4.4 mmol/L (3.5-5.1)
[2021-08-05 20:15] LABS: BASO # 0.1 x10^3/uL (0.0-0.2); BASO % 1 % (0-3); EOS # 0.1 x10^3/uL (0.0-0.7); EOS % 2 % (0-3); HEMATOCRIT 39.3 % (39.0-53.0); HEMOGLOBIN 12.9 g/dL (13.0-17.5); LYMPH # 1.7 x10^3/uL (1.0-4.8); LYMPH % 18 % (24-48); MEAN CORPUSCULAR HEMOGLOBIN 28 pg (25-35); MEAN CORPUSCULAR HGB CONC 33 g/dL (31-37); MEAN CORPUSCULAR VOLUME 86 fL (79-100); MONO # 0.8 x10^3/uL (0.0-1.1); MONO % 8 % (0-9); NEUT % 72 % (31-73); PLATELET COUNT 260 x10^3/uL (140-400); RED BLOOD COUNT 4.57 x10^6/uL (4.30-5.70); RED CELL DISTRIBUTION WIDTH 20.3 % (11.5-14.5); WHITE BLOOD COUNT 9.6 x10^3/uL (4.0-11.0)
--- NOTE | 2021-08-05 20:44 | RAD ---
EXAMINATION: Chest radiograph. VIEWS: Frontal and lateral views the chest COMPARISON: CT chest from 07/25/2021 INDICATION:56 years, Male, chest pressure. FINDINGS: Stable cardiomediastinal silhouette. Similar right perihilar opacity and filter device. Small residua l right apical pneumothorax measuring up to 1 cm to the pleural edge. Right perihilar atelectasis. Si milar blunting of the right costophrenic angle may be due to small effusion or pleural thickening. No acute osseous finding. IMPRESSION: 1. Small residual right apical pneumothorax. 2. Right perihilar opacities consistent with atelectasis. These findings were discussed with Angella Ribeiro APRN at 08/05/2021 8:[address] Yang Electronically signed by: Marco A Yang DO (08/05/2021 8:42 PM) [facility]
[2021-08-05 20:52] LABS: ANISOCYTOSIS SLIGHT; PLT ESTIMATE ADEQUATE (ADEQUATE)
[2021-08-05] MEDS ORDERED: oxyCODONE/APAP 5/325 1 TAB TABLET ONE (21:08)
[2021-08-05 21:14] VITALS: BP 119/38
[2021-08-05] MEDS ORDERED: oxyCODONE/APAP 5/325 1 TAB TABLET PO ONE (21:15)
== END 2021-08-05 21:15 | disposition home or self-care (01) ==
LOC: ER 18:33
DX: G89.4 Chronic pain syndrome (principal); M54.6 Pain in thoracic spine; R10.9 Unspecified abdominal pain; E11.9 Type 2 diabetes mellitus without complications; K21.9 Gastro-esophageal reflux disease without esophagitis; I10 Essential (primary) hypertension; F17.210 Nicotine dependence, cigarettes, uncomplicated; Z88.6 Allergy status to analgesic agent; Z88.8 Allergy status to other drugs, medicaments and biological substances
CPT/HCPCS: 36415; 71046; 80048; 85025; 96361; 96374; 99284; J2270; J7030

== ENCOUNTER 2021-08-06 20:55 | Emergency (ER) | payer MEDICARE, MEDICAID ==
[~2021-08-06] VITALS: Ht 165.1 cm; Wt 62.9 kg
[2021-08-06 20:55] VITALS: BP 136/78
[2021-08-06] MEDS ORDERED: oxyCODONE/APAP 10/325 1 TAB TABLET PO ONE (21:00)
[2021-08-06] MEDS ORDERED: ORPHENADRINE CITRATE 60 MG/2 ML VIAL. IM ONE (21:00)
[2021-08-06] MEDS ORDERED: ONDANSETRON ODT 4 MG TAB.RAPDIS ONE (21:18)
--- NOTE | 2021-08-06 21:20 | PHYS DOC ---
Past History Past Medical History: Anxiety, Depression, Diabetes, GERD, Hypertension Additional Past Medical Histor: COLITIS, chronic pain, C diff Past Surgical History: Other Additional Past Surgical Histo: whipple Smoking: Cigarettes, Less than 1pk/day Alcohol Use: None Drug Use: Marijuana General Adult EDM: Chief Complaint: BACK PAIN OR INJURY HPI: HPI: Patient is a 56-year-old male who presents with chronic back pain and generalized body aches. Patient was seen in the emergency room yesterday for same complaint. Patient is out of his Percocet and cannot get a refill until Wednesday. Patient has an appointment on Wednesday with his PCP. Denies injury or fall. No weakness, numbness, tingling. Denies loss of bowel or bladder. Patient has history of chronic pain and narcotic abuse. Review of Systems: Review of Systems: ROS At least 10 ROS systems have been reviewed and are negative except as documented in the HPI. General: Negative except as outlined in HPI above. Skin: Negative except as outlined in HPI above. HEENT: Negative except as outlined in HPI above. Neck: Negative except as outlined in HPI above. Respiratory: Negative except as outlined in HPI above.. Cardiovascular: Negative except as outlined in HPI above. Abdomen: Negative except as outlined in HPI above. : Negative except as outlined in HPI above. Back/MSK: Negative except as outlined in HPI above. Neuro: Negative except as outlined in HPI above. Psych: Negative except as outlined in HPI above. Allergies: Allergies: Allergies Coded Allergies Type Severity Reaction Last Updated Verified tramadol Allergy Severe ANAPHYLAXIS 07/25/21 Yes aspirin Allergy Intermediate 07/25/21 Yes fentanyl Allergy Intermediate 07/25/21 Yes ketorolac Allergy Intermediate 07/25/21 Yes naproxen Allergy Intermediate 07/25/21 Yes Physical Exam: PE: Constitutional: Well developed, well nourished, no acute distress, non-toxic appearance. [] HENT: Normocephalic, atraumatic, bilateral external ears normal, oropharynx moist, no oral exudates, nose normal. [] Eyes: PERRLA, EOMI, conjunctiva normal, no discharge. [] Neck: Normal range of motion, no tenderness, supple, no stridor. [] Cardiovascular:Heart rate regular rhythm, no murmur [] Lungs & Thorax: Bilateral breath sounds clear to auscultation [] Abdomen: Bowel sounds normal, soft, no tenderness, no masses, no pulsatile masses. [] Skin: Warm, dry, no erythema, no rash. [] Back: Chronic back tenderness, no CVA tenderness. [] Extremities: No tenderness, ROM intact, no saddle anesthesia Neurologic: Alert and oriented X 3, normal motor function, normal sensory function Psychologic: Affect normal, judgement normal, mood normal. [] EKG: EKG: [] Radiology/Procedures: Radiology/Procedures: [] Heart Score: C/O Chest Pain: No Risk Factors: Risk Factors: DM, Current or recent (<one month) smoker, HTN, HLP, family history of CAD, obesity. Risk Scores: Score 0 - 3: 2.5% MACE over next 6 weeks - Discharge Home Score 4 - 6: 20.3% MACE over next 6 weeks - Admit for Clinical Observation Score 7 - 10: 72.7% MACE over next 6 weeks - Early Invasive Strategies Course & Med Decision Making: Course & Med Decision Making Pertinent Labs and Imaging studies reviewed. (See chart for details) [] 56-year-old male presents with chronic back and generalized body aches. Patient is well-known to this ER and seen yesterday for same complaint. Patient is out of his pain meds and cannot get a refill until Wednesday. Patient takes 10/325, Percocet. Patient received 150 tabs on 07/17. Denies injury. Advised patient I would not be sending him home with pain medications. I gave patient 1 Percocet while in the ER along with Norflex to help with pain. Advised patient to follow-up with his PCP on Wednesday for refill of his pain meds. Patient also would benefit from pain management. Discussed return precautions with patient. Patient verbalized understanding of discharge instructions. Dragon Disclaimer: Dragon Disclaimer: This electronic medical record was generated, in whole or in part, using a voice recognition dictation system. Departure Departure: Impression: Primary Impression: Chronic abdominal pain Additional Impression: Chronic back pain Qualified Codes: M54.50 - Low back pain, unspecified; G89.29 - Other chronic pain Disposition: HOME / SELF CARE / HOMELESS Condition: STABLE Referrals: AGNES VALDERRAMA MD (PCP) Patient Instructions: Back Pain, Adult Additional Instructions: You were seen emergency room for chronic back pain. You were given pain medication while in the emergency room and also Zofran for nausea. Please follow-up with your PCP on Wednesday to get your pain medication refilled. Return to emergency room for worsening symptoms or concerns. EMERGENCY DEPARTMENT GENERAL DISCHARGE INSTRUCTIONS Thank you for coming to [facility] (ED) today and trusting us with you care. We trust that you had a positivie experience in our Emergency Department. If you wish to speak to the department management, you may call the director at [phone]. YOUR FOLLOW UP INSTRUCTIONS ARE FOLLOWS: 1. Do you have a private Doctor? If you do not have a private doctor, please ask for a resource list of physicians or clinics that may be able to assist you with follow up care. 2. The Emergency Physician has interpreted your x-rays. The X-Ray specialist will also review them. If there is a change in the findings, you will be notified in 48 hours when at all possible. 3. A lab test or culture has been done, your results will be reviewed and you will be notified if you need a change in treatment. ADDITIONAL INSTRUCTIONS AND INFORMATION: 1. Your care today has been supervised by a physician who is specially trained in emergency care. Many problems require more than one evaluation for a complete diagnosis and treatment. We recommend that you schedule your follow up appointment as recommended to ensure complete treatment of you illness or injury. If you are unable to obtain follow up care and continue to have a problem, or if your condition worsens, we recommend that you return to the ED. 2. We are not able to safely determine your condition over the phone nor are we able to give sound medical advice over the phone. For these safety reasons, if you call for medical advice we will ask you to come to the ED for further evaluation. 3. If you have any questions regarding these discharge instructions please call the ED at [phone]. SAFETY INFORMATION: In the interest of safety, wellness, and injury prevention; we encourage you to wear your sealbelt, if you smoke; quite smoking, and we encourage family to use a protective helmet for bicycling and other sporting events that present an increased risk for head injury. IF YOUR SYMPTOMS WORSEN OR NEW SYMPTOMS DEVELOP, OR YOU HAVE CONCERNS ABOUT YOUR CONDITION; OR IF YOUR CONDITION WORSENS WHILE YOU ARE WAITING FOR YOUR FOLLOW UP APPOINTMENT; EITHER CONTACT YOUR PRIMARY CARE DOCTOR, THE PHYSICIAN WHOSE NAME AND NUMBER YOU WERE GIVEN, OR RETURN TO THE ED IMMEDIATELY. ALLISON DOMÍNGUEZ APRN Aug 06, 2021 21:20
[2021-08-06] MEDS ORDERED: ONDANSETRON ODT 4 MG TAB.RAPDIS PO ONE (21:30)
[2021-08-07] MEDS ORDERED: OXYC1TAB19 PO (16:03)
== END 2021-08-06 21:42 | disposition home or self-care (01) ==
LOC: ER 20:55
DX: G89.29 Other chronic pain (principal); R10.9 Unspecified abdominal pain; M54.59 Other low back pain; E11.9 Type 2 diabetes mellitus without complications; K21.9 Gastro-esophageal reflux disease without esophagitis; I10 Essential (primary) hypertension; F17.210 Nicotine dependence, cigarettes, uncomplicated; Z88.6 Allergy status to analgesic agent; Z88.8 Allergy status to other drugs, medicaments and biological substances
CPT/HCPCS: 96372; 99283; J2360; Q0162

== ENCOUNTER 2021-08-07 14:46 | Emergency (ER) | payer MEDICARE, MEDICAID ==
[~2021-08-07] VITALS: Ht 165.1 cm; Wt 62.9 kg
[2021-08-07] MEDS ORDERED: PROMETHAZINE 25 MG TABLET. PO ONE (15:15)
[2021-08-07] MEDS ORDERED: oxyCODONE/APAP 7.5/325 1 TAB TABLET PO ONE (15:15)
--- NOTE | 2021-08-07 15:17 | PHYS DOC ---
Past History Past Medical History: Anxiety, Depression, Diabetes, GERD, Hypertension Additional Past Medical Histor: COLITIS, chronic pain, C diff Past Surgical History: Other Additional Past Surgical Histo: whipple Smoking: Cigarettes, Less than 1pk/day Alcohol Use: None Drug Use: Marijuana General Adult EDM: Chief Complaint: Abdominal pain HPI: HPI: 56-year-old male who is well-known to the emergency room presents with abdominal pain and generalized body aches. I asked the patient if he is out of his chronic pain medications. He states that he is. He only had 1 pill yesterday which he got from the emergency room. I simply asked him if he believes his symptoms are related to being out of his medications or if he thinks he has a new problem that he would like me to work-up. Patient states he would prefer to try Phenergan and a pain pill to see if this takes care of his symptoms. He has no other specific complaints at this time. Review of Systems: Review of Systems: Constitutional: Denies fever or chills Eyes: Denies change in visual acuity HENT: Denies nasal congestion or sore throat Respiratory: Denies cough or shortness of breath Cardiovascular: Denies chest pain or edema GI: Generalized abdominal pain, nausea. : Denies dysuria Musculoskeletal: Denies back pain or joint pain Integument: Denies rash Neurologic: Denies headache, focal weakness or sensory changes Endocrine: Denies polyuria or polydipsia Lymphatic: Denies swollen glands Psychiatric: Denies depression or anxiety Allergies: Allergies: Allergies Coded Allergies Type Severity Reaction Last Updated Verified tramadol Allergy Severe ANAPHYLAXIS 08/07/21 Yes aspirin Allergy Intermediate 08/07/21 Yes fentanyl Allergy Intermediate 08/07/21 Yes ketorolac Allergy Intermediate 08/07/21 Yes naproxen Allergy Intermediate 08/07/21 Yes Physical Exam: PE: Constitutional: Well developed, well nourished, no acute distress, non-toxic appearance. [] HENT: Normocephalic, atraumatic, bilateral external ears normal, oropharynx moist, no oral exudates, nose normal. [] Eyes: PERRLA, EOMI, conjunctiva normal, no discharge. [] Neck: Normal range of motion, no tenderness, supple, no stridor. [] Cardiovascular: Heart rate regular rhythm, no murmur [] Lungs & Thorax: Bilateral breath sounds clear to auscultation [] Abdomen: Bowel sounds normal, soft, no tenderness, no masses, no pulsatile masses. [] Skin: Warm, dry, no erythema, no rash. [] Back: No tenderness, no CVA tenderness. [] Extremities: No tenderness, no cyanosis, no clubbing, ROM intact, no edema. [] Neurologic: Alert and oriented X 3, normal motor function, normal sensory function, no focal deficits noted. [] Psychologic: Affect normal, judgement normal, mood normal. [] Current Patient Data: Vital Signs: Vital Signs Date Time Temp Pulse Resp B/P (MAP) Pulse Ox O2 Delivery O2 Flow Rate FiO2 08/07/21 14:55 98.6 80 22 179/93 (121) 100 Room Air EKG: EKG: [] Radiology/Procedures: Radiology/Procedures: [] Heart Score: C/O Chest Pain: N/A Risk Factors: Risk Factors: DM, Current or recent (<one month) smoker, HTN, HLP, family history of CAD, obesity. Risk Scores: Score 0 - 3: 2.5% MACE over next 6 weeks - Discharge Home Score 4 - 6: 20.3% MACE over next 6 weeks - Admit for Clinical Observation Score 7 - 10: 72.7% MACE over next 6 weeks - Early Invasive Strategies Course & Med Decision Making: Course & Med Decision Making Pertinent Labs and Imaging studies reviewed. (See chart for details) The patient is on chronic pain medications. He is addicted to them whether or not this is due to his misuse for chronic use because of his chronic condition. It really does not matter. His symptoms are consistent with withdrawal. We will try Phenergan and oxycodone and avoid an unnecessary work-up if possible. The patient was feeling better and felt like he did not need further work-up. He did request 3 additional pills by prescription to get him through till his appointment tomorrow. I did send these to his pharmacy. I stressed the need for him to discuss changing treatment strategy with his doctor tomorrow for longer term pain medication or further management of the chronic concerns leading to requiring narcotic pain medication. He is stable for discharge at this time. Denion Disclaimer: Curt Disclaimer: This electronic medical record was generated, in whole or in part, using a voice recognition dictation system. Departure Departure: Impression: Primary Impression: Chronic pain syndrome Additional Impression: Withdrawal from opioids Disposition: HOME / SELF CARE / HOMELESS Condition: STABLE Referrals: AGNES VALDERRAMA MD (PCP) Patient Instructions: Chronic Pain Scripts Oxycodone Hcl/Acetaminophen (PERCOCET 7.5-325 MG TABLET ) 1 Each Tablet 1 TAB PO PRN TID PRN for PAIN MDD 3 Tablet(s), #3 TAB 0 Refills Prov: CHAVO JASSO DO 08/07/21 CHAVO JASSO DO Aug 07, 2021 15:17
--- NOTE | 2021-08-07 16:00 | EKG ---
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
[2021-08-07 16:02] VITALS: BP 174/87
[2021-08-07] MEDS ORDERED: OXYC1TAB19 PO (16:03)
== END 2021-08-07 16:13 | disposition home or self-care (01) ==
LOC: ER 14:46
DX: G89.4 Chronic pain syndrome (principal); F11.23 Opioid dependence with withdrawal; F41.9 Anxiety disorder, unspecified; F32.9 Major depressive disorder, single episode, unspecified; E11.9 Type 2 diabetes mellitus without complications; K21.9 Gastro-esophageal reflux disease without esophagitis; I10 Essential (primary) hypertension; F17.210 Nicotine dependence, cigarettes, uncomplicated; Z88.6 Allergy status to analgesic agent; Z88.8 Allergy status to other drugs, medicaments and biological substances
CPT/HCPCS: 93005; 99284; Q0169

== ENCOUNTER 2021-08-17 21:44 | Emergency (ER) | payer MEDICARE, MEDICAID ==
[~2021-08-17] VITALS: Ht 165.1 cm; Wt 61.0 kg
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
[2021-08-17] MEDS ORDERED: MORPHINE SULFATE 10 MG/ML SYRINGE. IM ONE (23:00)
[2021-08-17] MEDS ORDERED: OLANZapine IM 10 MG VIAL. IM ONE (23:00)
--- NOTE | 2021-08-17 23:10 | RAD ---
Exam: Bilateral ribs with PA chest INDICATION: Fall, pain TECHNIQUE: Frontal view of the chest with frontal and oblique views of bilateral ribs Comparisons: 08/05/2021 FINDINGS: The cardiomediastinal silhouette and pulmonary vessels are within normal limits. The lung and pleural spaces are clear. No displaced rib fractures IMPRESSION: 1. No acute cardiopulmonary process. 2. No displaced rib fractures Electronically signed by: Estella Hall MD (08/17/2021 11:07 PM) [facility]
[2021-08-17 23:30] VITALS: BP 141/58
== END 2021-08-17 23:30 | disposition home or self-care (01) ==
LOC: ER 21:44
DX: G89.29 Other chronic pain (principal); M54.9 Dorsalgia, unspecified; R07.89 Other chest pain; F41.9 Anxiety disorder, unspecified; F32.9 Major depressive disorder, single episode, unspecified; E11.9 Type 2 diabetes mellitus without complications; K21.9 Gastro-esophageal reflux disease without esophagitis; I10 Essential (primary) hypertension; F17.210 Nicotine dependence, cigarettes, uncomplicated; Z88.6 Allergy status to analgesic agent; Z88.8 Allergy status to other drugs, medicaments and biological substances
CPT/HCPCS: 71111; 96372; 99284; J2270; J3490

== ENCOUNTER 2021-08-23 18:57 | Emergency (ER) | payer MEDICARE, MEDICAID ==
[~2021-08-23] VITALS: Ht 165.1 cm; Wt 61.0 kg
[2021-08-23] MEDS ORDERED: MORPHINE SULFATE 10 MG/ML SYRINGE. ONE (20:01)
--- NOTE | 2021-08-23 20:07 | PHYS DOC ---
Past History Past Medical History: Anxiety, Depression, Diabetes, GERD, Hypertension Additional Past Medical Histor: COLITIS, chronic pain, C diff Past Surgical History: Other Additional Past Surgical Histo: hand, neck surgery, wipl surgery Smoking: Cigarettes, Less than 1pk/day Alcohol Use: None Drug Use: Marijuana General Adult EDM: Chief Complaint: CHEST PAIN HPI: HPI: ".. I ve been haviing chest pain ever since they seen me at [facility]-.. You had put a chest tube in me.. for a pneumo.. and that was okay.. but after I went to [place]... They then tried to put an additional tube and do a procedure... But they had problems and they then sent me to [place] and now I am supposed to go back there...".. " I hurts where that put in that last chest tube...especially with deep breaths.s.. and coughing. .." Patient is a 56 year old male who presents with above hx and complaints of chest pain. Patient does continue to smoke. Patient has past medical history of anxiety, depression, diabetes, GERD, hypertension, colitis, chronic pain, C. difficile, tobacco and marijuana use. Patient also has had problems with post Whipple issues. Patient has had past history of suspected narcotic seeking behaviors. Patient recently had pneumothorax which required chest tube placement and by history suspect completed pleurodesis on his right side. Patient normally follows with Dr. Jim. Review of Systems: Review of Systems: Constitutional: Denies fever or chills Eyes: Denies change in visual acuity HENT: Denies nasal congestion or sore throat Respiratory: Denies cough or shortness of breath Cardiovascular: Denies chest pain or edema GI: Denies abdominal pain, nausea, vomiting, bloody stools or diarrhea : Denies dysuria Musculoskeletal: Denies back pain or joint pain Integument: Denies rash Neurologic: Denies headache, focal weakness or sensory changes Endocrine: Denies polyuria or polydipsia Lymphatic: Denies swollen glands Psychiatric: Denies depression or anxiety Family History: Family History: Noncontributory to presentation. Current Medications: Current Meds: See nursing for home meds Allergies: Allergies: Allergies Coded Allergies Type Severity Reaction Last Updated Verified tramadol Allergy Severe ANAPHYLAXIS 08/07/21 Yes aspirin Allergy Intermediate 08/07/21 Yes fentanyl Allergy Intermediate 08/07/21 Yes ketorolac Allergy Intermediate 08/07/21 Yes naproxen Allergy Intermediate 08/07/21 Yes Physical Exam: PE: Constitutional: Moderate acute distress, non-toxic appearance. [] HENT: Normocephalic, atraumatic, bilateral external ears normal, oropharynx moist, no oral exudates, nose normal. [] Eyes: PERRLA, EOMI, conjunctiva normal, no discharge. [] Neck: Normal range of motion, no tenderness, supple, no stridor. [] Cardiovascular:Heart rate regular rhythm, no murmur [] Lungs & Thorax: Bilateral breath sounds equal apex with rub on right. And scattered wheezes with auscultation [] Abdomen: Bowel sounds normal, soft, no tenderness, no masses, no pulsatile masses. Extensive Whipple scar on abdomen Skin: Warm, dry, no erythema, no rash. [] Back: No tenderness, no CVA tenderness. [] Extremities: No tenderness, no cyanosis, no clubbing, ROM intact, no edema. No cording. Neurologic: Alert and oriented X 3, normal motor function, normal sensory function, no focal deficits noted. [] Psychologic: Affect anxious, judgement normal, mood normal. [] EKG: EKG: My interpretation EKG shows a sinus rhythm at 79 bpm. No acute morphology. Time of EKG is 1921 hrs. [] My interpretation second EKG shows a sinus rhythm at 65 bpm. No acute morphology. Low ventricular voltage in limb leads. No acute interval change. Time of EKG 2353 hrs. Radiology/Procedures: Radiology/Procedures: [[address] [address] IMAGING REPORT Signed PATIENT: ADAM CASTELAN ACCOUNT: [id number] : 1965 LOCATION: ER AGE: 56 SEX: M EXAM STATUS: REG ER ORD. PHYSICIAN: ISSAC DORAN MD REASON: CP PROCEDURE: CHEST AP ONLY EXAM: CHEST ONE VIEW. HISTORY: Chest pain. COMPARISON: 08/17/2021. FINDINGS: A frontal view of the chest is obtained. Mild right upper lobe infiltrates are better seen on CT. There is no pneumothorax or pleural effusion. The heart is not enlarged. Bronchial valves are noted on the right. There is a mild lower thoracic dextroscoliosis. IMPRESSION: 1. Mild right upper lobe infiltrates are better seen on today's CT. Electronically signed by: Mj Hernandez MD (08/23/2021 11:39 PM) [facility] DICTATED AND SIGNED BY: VIKAS HERNANDEZ MD DATE: 08/23/21 2101 CC: ISSAC DORAN MD; AGNES JIM MD ~ ][place] [address] IMAGING REPORT Signed PATIENT: ADAM CASTELAN ACCOUNT: [id number] : 1965 LOCATION: ER AGE: 56 SEX: M EXAM STATUS: REG ER ORD. PHYSICIAN: ISSAC DORAN MD REASON: pleuritic chest pain, recent chest tube PROCEDURE: CT ANGIOGRAPHY CHEST Examination: CT angiography chest with IV contrast HISTORY: History of pleuritic chest pain, recent chest tube COMPARISON: CT chest from 07/25/2021. TECHNIQUE: Axial CT angiographic images of chest were performed with IV contrast. Coronal and sagittal 3-D MIP reformats are performed Exposure: One or more of the following individualized dose reduction techniques were utilized for this examination: 1. Automated exposure control 2. Adjustment of the mA and/or kV according to patient size 3. Use of iterative reconstruction technique FINDINGS: The visualized thyroid gland grossly appears unremarkable. Central airways are patent. Coronary artery calcifications. The caliber of the aorta grossly appears unremarkable There is no evidence of filling defect identified in the main pulmonary arterial trunk and right and left main pulmonary arteries and the visualized lobar, segmental branches pulmonary arteries. Tree-in-bud airspace opacities identified in the right upper lobe of the lung. Mild bilateral lung emphysematous changes. The visualized liver, spleen, grossly appears unremarkable. Minimal prominent bilateral adrenal glands. Minimal questionable fat stranding identified about the left kidney. Moderate degenerative changes thoracic spine IMPRESSION: 1. No evidence of pulmonary embolism. 2. Tree-in-bud airspace opacities identified in the right upper lobe of the lung likely infectious or inflammatory etiology. Follow-up to resolution. 3. Minimal questionable fat stranding identified about the left kidney. Co rrelate with lab values for urinary tract infection. Electronically signed by: Ronnie Salas MD (08/23/2021 9:52 PM) [id number] DICTATED AND SIGNED BY: RONNIE SALAS MD DATE: 08/23/212147 CC: ISSAC DORAN MD; AGNES JIM MD ~ Heart Score: C/O Chest Pain: Yes HEART Score for Chest Pain: HEART Score for Chest Pain Response (Comments) Value History Slighlty/Non-Suspicious 0 ECG Normal 0 Age >45 - < 65 1 Risk Factors 1 or 2 Risk Factors 1 Troponin < Normal Limit 0 Total 2 Risk Factors: Risk Factors: DM, Current or recent (<one month) smoker, HTN, HLP, family history of CAD, obesity. Risk Scores: Score 0 - 3: 2.5% MACE over next 6 weeks - Discharge Home Score 4 - 6: 20.3% MACE over next 6 weeks - Admit for Clinical Observation Score 7 - 10: 72.7% MACE over next 6 weeks - Early Invasive Strategies Course & Med Decision Making: Course & Med Decision Making Pertinent Labs and Imaging studies reviewed. (See chart for details) Keep follow up as scheduled. Follow-up with primary care and have them review ED record. Keep follow-up with pulmonary as scheduled. May need eventual intercostal or rib blocks for his chest wall pain. Try topical lidocaine patches. Return if any concerns. Must have better control of diabetes. Patient encouraged to stop smoking. Patient take Zithromax 250 a day for the next 5 days for bronchiectasis. Impression: 1. Chest pain-suspect chest wall 2. Hx Pneumothorax-spontaneous 3. Diabetes glucose 344 4. Anemia 11.5 hemoglobin 5. Exhibits some findings consistent with narcotic seeking behaviors 6. Tobacco dependence 7 . Bronchitis 8. Elevated LFTs alk phos 199 9. Malnutrition albumin 2.2 10. Mild elevation BNP 484 [] Dragon Disclaimer: Dragon Disclaimer: This electronic medical record was generated, in whole or in part, using a voice recognition dictation system. Departure Departure: Referrals: AGNES JIM MD (PCP) Scripts Lidocaine (Lidocaine PATCH ) 1 Each Adh..patch 1 EACH TP DAILY for FOR LOCAL PAIN, #10 PATCH REMOVE AFTER 12 HOURS Prov: ISSAC DORAN MD 08/24/21 Azithromycin (ZITHROMAX) 250 Mg Tablet 250 MG PO DAILY for ANTI-BIOTIC for 5 Days, #5 TAB 0 Refills Prov: ISSAC DORAN MD 08/24/21 Curt Disclaimer This chart was dictated in whole or in part using Voice Recognition software in a busy, high-work load, and often noisy Emergency Department environment. It may contain unintended and wholly unrecognized errors or omissions. Dragon Disclaimer This chart was dictated in whole or in part using Voice Recognition software in a busy, high-work load, and often noisy Emergency Department environment. It may contain unintended and wholly unrecognized errors or omissions. ISSAC DORAN MD August 23, 2021 20:07
[2021-08-23] MEDS ORDERED: IOHEXOL 350 MG/ML 100 ML VIAL. IV ONE (20:15)
[2021-08-23] MEDS ORDERED: IV RINGERS SOLUTION,LACTATED 1,000 ML IV SCH (20:15)
[2021-08-23] MEDS ORDERED: CONTRAST GIVEN. MC PRN (20:30)
[2021-08-23 20:31] LABS: BASO # 0.1 x10^3/uL (0.0-0.2); BASO % 1 % (0-3); EOS # 0.1 x10^3/uL (0.0-0.7); EOS % 1 % (0-3); HEMATOCRIT 35.6 % (39.0-53.0); HEMOGLOBIN 11.5 g/dL (13.0-17.5); LYMPH # 1.5 x10^3/uL (1.0-4.8); LYMPH % 19 % (24-48); MEAN CORPUSCULAR HEMOGLOBIN 28 pg (25-35); MEAN CORPUSCULAR HGB CONC 33 g/dL (31-37); MEAN CORPUSCULAR VOLUME 86 fL (79-100); MONO # 0.8 x10^3/uL (0.0-1.1); MONO % 10 % (0-9); NEUT # 5.5 x10^3uL (1.8-7.7); NEUT % 70 % (31-73); PLATELET COUNT 235 x10^3/uL (140-400); RED BLOOD COUNT 4.13 x10^6/uL (4.30-5.70); RED CELL DISTRIBUTION WIDTH 19.5 % (11.5-14.5); WHITE BLOOD COUNT 7.9 x10^3/uL (4.0-11.0)
[2021-08-23 20:39] LABS: CALCIUM 7.8 mg/dL (8.5-10.1); CREATININE 0.8 mg/dL (0.7-1.3); GFR 120.6; POTASSIUM 4.1 mmol/L (3.5-5.1)
[2021-08-23] MEDS ORDERED: MORPHINE SULFATE 10 MG/ML SYRINGE. SQ ONE ×3 (20:45→21:30)
[2021-08-23 20:52] LABS: ALBUMIN 2.2 g/dL (3.4-5.0); DIRECT BILIRUBIN 0.1 mg/dL (0.0-0.2); MAGNESIUM 2.1 mg/dL (1.8-2.4); TOTAL BILIRUBIN 0.3 mg/dL (0.2-1.0); TOTAL PROTEIN 5.3 g/dL (6.4-8.2)
[2021-08-23 21:55] LABS: CLARITY,URINE CLEAR; COLOR,URINE YELLOW; GLUCOSE,URINE >=1000 mg/dL (NEG); NITRITE,URINE NEG (NEG); RBC,URINE OCC /HPF (0-2); UROBILINOGEN,URINE 0.2 mg/dL (0.2 mg/dL); WBC,URINE OCC /HPF (0-4)
--- NOTE | 2021-08-23 21:55 | RAD ---
Examination: CT angiography chest with IV contrast HISTORY: History of pleuritic chest pain, recent chest tube COMPARISON: CT chest from 07/25/2021. TECHNIQUE: Axial CT angiographic images of chest were performed with IV contrast. Coronal and sagitta l 3-D MIP reformats are performed Exposure: One or more of the following individualized dose reduction techniques were utilized for thi s examination: 1. Automated exposure control 2. Adjustment of the mA and/or kV according to patient size 3. Use of iterative reconstruction technique FINDINGS: The visualized thyroid gland grossly appears unremarkable. Central airways are patent. Coronary arter y calcifications. The caliber of the aorta grossly appears unremarkable There is no evidence of filling defect identified in the main pulmonary arterial trunk and right and left main pulmonary arteries and the visualized lobar, segmental branches pulmonary arteries. Tree-in -bud airspace opacities identified in the right upper lobe of the lung. Mild bilateral lung emphysema tous changes. The visualized liver, spleen, grossly appears unremarkable. Minimal prominent bilateral adrenal gland s. Minimal questionable fat stranding identified about the left kidney. Moderate degenerative changes thoracic spine IMPRESSION: 1. No evidence of pulmonary embolism. 2. Tree-in-bud airspace opacities identified in the right upper lobe of the lung likely infectious o r inflammatory etiology. Follow-up to resolution. 3. Minimal questionable fat stranding identified about the left kidney. Correlate with lab values fo r urinary tract infection. Electronically signed by: Ronnie Salas MD (08/23/2021 9:52 PM) [id number]
[2021-08-23 21:56] LABS: BACTERIA,URINE 0 /HPF (0-FEW); SQUAMOUS EPITHELIAL CELL,UR FEW /LPF
[2021-08-23 22:06] LABS: INFLUENZA A PATIENT NEGATIVE (NEGATIVE); INFLUENZA B PATIENT NEGATIVE (NEGATIVE)
--- NOTE | 2021-08-23 23:41 | RAD ---
EXAM: CHEST ONE VIEW. HISTORY: Chest pain. COMPARISON: 08/17/2021. FINDINGS: A frontal view of the chest is obtained. Mild right upper lobe infiltrates are better seen on CT. There is no pneumothorax or pleural effusion . The heart is not enlarged. Bronchial valves are noted on the right. There is a mild lower thoracic dextroscoliosis. IMPRESSION: 1. Mild right upper lobe infiltrates are better seen on today's CT. Electronically signed by: Mj Hernandez MD (08/23/2021 11:39 PM) [facility]
[2021-08-24] MEDS ORDERED: INSULIN REGULAR 100 UNIT/ML 3ML VIAL. IV ONE (00:15)
[2021-08-24] MEDS ORDERED: AZITHROMYCIN 250 MG TABLET. PO ONE (00:15)
[2021-08-24] MEDS ORDERED: AZIT250T PO (00:44)
[2021-08-24] MEDS ORDERED: LIDO700A21 TP (00:45)
[2021-08-24] MEDS ORDERED: LIDOCAINE (700MG/PATCH) PATCH. TD SCH (00:46)
[2021-08-24 01:05] VITALS: BP 158/85
[2021-08-24] MEDS ORDERED: oxyCODONE/APAP 10/325 1 TAB TABLET PO ONE (01:15)
[2021-08-24] MEDS ORDERED: PATCH REMOVAL. MC SCH (21:00)
== END 2021-08-24 01:10 | disposition home or self-care (01) ==
LOC: ER 18:57
DX: R07.89 Other chest pain (principal); E11.9 Type 2 diabetes mellitus without complications; D64.9 Anemia, unspecified; J40 Bronchitis, not specified as acute or chronic; R79.89 Other specified abnormal findings of blood chemistry; E46 Unspecified protein-calorie malnutrition; F41.9 Anxiety disorder, unspecified; F32.9 Major depressive disorder, single episode, unspecified; K21.9 Gastro-esophageal reflux disease without esophagitis; I10 Essential (primary) hypertension; G89.29 Other chronic pain; F17.210 Nicotine dependence, cigarettes, uncomplicated; Z68.22 Body mass index [BMI] 22.0-22.9, adult; Z20.822 Contact with and (suspected) exposure to COVID-19; Z88.6 Allergy status to analgesic agent; Z88.8 Allergy status to other drugs, medicaments and biological substances
CPT/HCPCS: 36415; 71045; 71275; 80048; 80076; 81001; 82550; 83690; 83735; 83880; 84443; 84484; 85025; 85379; 85610; 85730; 87428; 93005; 96361; 96372; 96374; 99285; J1815; J2270; J7120; Q9967

== ENCOUNTER 2021-08-24 16:50 | Emergency (ER) | payer MEDICARE, MEDICAID ==
[~2021-08-24] VITALS: Ht 165.1 cm; Wt 61.0 kg
[~2021-08-24 16:50] MED LIST changes: +AZIT250T PO
--- NOTE | 2021-08-24 17:38 | PHYS DOC ---
Past History Past Medical History: Anxiety, Depression, Diabetes, GERD, Hypertension Additional Past Medical Histor: COLITIS, chronic pain, C diff Past Surgical History: Other Additional Past Surgical Histo: hand, neck surgery,whipple surgery; "procedure" on rt lung Smoking: Cigarettes, Less than 1pk/day Alcohol Use: Rarely Drug Use: Marijuana General Adult EDM: Chief Complaint: CHEST PAIN HPI: HPI: Patient is a 56-year-old male presents with right-sided chest pain. Patient is very well-known to this ER and was seen yesterday for same complaints. Patient denies any changes since then. Patient reports his pain has been constant since his last visit in the emergency room. Denies nausea/vomiting/diarrhea. No recent illness. No cough. Denies shortness of breath. Review of Systems: Review of Systems: ROS At least 10 ROS systems have been reviewed and are negative except as documented in the HPI. General: Negative except as outlined in HPI above. Skin: Negative except as outlined in HPI above. HEENT: Negative except as outlined in HPI above. Neck: Negative except as outlined in HPI above. Respiratory: Negative except as outlined in HPI above.. Cardiovascular: Negative except as outlined in HPI above. Abdomen: Negative except as outlined in HPI above. : Negative except as outlined in HPI above. Back/MSK: Negative except as outlined in HPI above. Neuro: Negative except as outlined in HPI above. Psych: Negative except as outlined in HPI above. Allergies: Allergies: Allergies Coded Allergies Type Severity Reaction Last Updated Verified tramadol Allergy Severe ANAPHYLAXIS 08/07/21 Yes aspirin Allergy Intermediate 08/07/21 Yes fentanyl Allergy Intermediate 08/07/21 Yes ketorolac Allergy Intermediate 08/07/21 Yes naproxen Allergy Intermediate 08/07/21 Yes Physical Exam: PE: Constitutional: Well developed, well nourished, no acute distress, non-toxic appearance. [] HENT: Normocephalic, atraumatic, bilateral external ears normal, oropharynx moist, no oral exudates, nose normal. [] Eyes: PERRLA, EOMI, conjunctiva normal, no discharge. [] Neck: Normal range of motion, no tenderness, supple, no stridor. [] Cardiovascular:Heart rate regular rhythm, no murmur [] Lungs & Thorax: Bilateral breath sounds clear to auscultation [] Abdomen: Bowel sounds normal, soft, no tenderness, no masses, no pulsatile masses. [] Skin: Warm, dry, no erythema, no rash. [] Back: No tenderness, no CVA tenderness. [] Extremities: No tenderness, no cyanosis, no clubbing, ROM intact, no edema. [] Neurologic: Alert and oriented X 3, normal motor function, normal sensory function, no focal deficits noted. [] Psychologic: Affect normal, judgement normal, mood normal. [] Current Patient Data: Vital Signs: Vital Signs Date Time Temp Pulse Resp B/P (MAP) Pulse Ox O2 Delivery O2 Flow Rate FiO2 08/24/21 16:50 97.8 92 20 151/85 (107) 100 Room Air EKG: EKG: [] Sinus rhythm. Heart rate [address] elevation or depression. Radiology/Procedures: Radiology/Procedures: [] Heart Score: C/O Chest Pain: Yes HEART Score for Chest Pain: HEART Score for Chest Pain Response (Comments) Value History Slighlty/Non-Suspicious 0 ECG Normal 0 Age >45 - < 65 1 Risk Factors 1 or 2 Risk Factors 1 Troponin < Normal Limit 0 Total 2 Risk Factors: Risk Factors: DM, Current or recent (<one month) smoker, HTN, HLP, family history of CAD, obesity. Risk Scores: Score 0 - 3: 2.5% MACE over next 6 weeks - Discharge Home Score 4 - 6: 20.3% MACE over next 6 weeks - Admit for Clinical Observation Score 7 - 10: 72.7% MACE over next 6 weeks - Early Invasive Strategies Course & Med Decision Making: Course & Med Decision Making Pertinent Labs and Imaging studies reviewed. (See chart for details) [] 56-year-old male presents with right-sided chest pain. Patient was seen less than 24 hours ago for same complaints. Patient states that his pain did not change and stayed constant. Patient is currently out of his pain meds. Patient is very well-known to this ER. Patient work-up included EKG, troponin, chest x-ray. EKG is unchanged from yesterday. Troponin is negative. Heart score of 2. Chest x-ray is also unchanged from previous x-ray yesterday. Patient given 10/325 Percocet. Discussed with patient I would not be able to send him home with narcotics since he had just had 120 Percocets filled 15 days ago. Patient states he understands and is appreciative. Patient is able to ambulate on his own out of the emergency room and hemodynamically stable. Curt Disclaimer: Curt Disclaimer: This electronic medical record was generated, in whole or in part, using a voice recognition dictation system. Departure Departure: Impression: Primary Impression: Chest pain Qualified Codes: R07.9 - Chest pain, unspecified Disposition: HOME / SELF CARE / HOMELESS Condition: STABLE Referrals: AGNES VALDERRAMA MD (PCP) Patient Instructions: Chest Pain (Nonspecific) Additional Instructions: EMERGENCY DEPARTMENT GENERAL DISCHARGE INSTRUCTIONS Thank you for coming to [facility] (ED) today and trusting us with you care. We trust that you had a positivie experience in our Emergency Department. If you wish to speak to the department management, you may call the director at [phone]. YOUR FOLLOW UP INSTRUCTIONS ARE FOLLOWS: 1. Do you have a private Doctor? If you do not have a private doctor, please ask for a resource list of physicians or clinics that may be able to assist you with follow up care. 2. The Emergency Physician has interpreted your x-rays. The X-Ray specialist will also review them. If there is a change in the findings, you will be notified in 48 hours when at all possible. 3. A lab test or culture has been done, your results will be reviewed and you will be notified if you need a change in treatment. ADDITIONAL INSTRUCTIONS AND INFORMATION: 1. Your care today has been supervised by a physician who is specially trained in emergency care. Many problems require more than one evaluation for a complete diagnosis and treatment. We recommend that you schedule your follow up appointment as recommended to ensure complete treatment of you illness or injury. If you are unable to obtain follow up care and continue to have a problem, or if your condition worsens, we recommend that you return to the ED. 2. We are not able to safely determine your condition over the phone nor are we able to give sound medical advice over the phone. For these safety reasons, if you call for medical advice we will ask you to come to the ED for further evaluation. 3. If you have any questions regarding these discharge instructions please call the ED at [phone]. SAFETY INFORMATION: In the interest of safety, wellness, and injury prevention; we encourage you to wear your sealbelt, if you smoke; quite smoking, and we encourage family to use a protective helmet for bicycling and other sporting events that present an increased risk for head injury. IF YOUR SYMPTOMS WORSEN OR NEW SYMPTOMS DEVELOP, OR YOU HAVE CONCERNS ABOUT YOUR CONDITION; OR IF YOUR CONDITION WORSENS WHILE YOU ARE WAITING FOR YOUR FOLLOW UP APPOINTMENT; EITHER CONTACT YOUR PRIMARY CARE DOCTOR, THE PHYSICIAN WHOSE NAME AND NUMBER YOU WERE GIVEN, OR RETURN TO THE ED IMMEDIATELY. ALLISON DOMÍNGUEZ APRN August 24, 2021 17:38
[2021-08-24] MEDS ORDERED: oxyCODONE/APAP 7.5/325 1 TAB TABLET PO ONE (18:15)
[2021-08-24] MEDS ORDERED: oxyCODONE/APAP 10/325 1 TAB TABLET PO ONE (19:00)
[2021-08-24 19:17] VITALS: BP 143/92
--- NOTE | 2021-08-24 20:03 | RAD ---
EXAM: CHEST 2 VIEWS. HISTORY: Chest pain. COMPARISON: 08/23/2021. FINDINGS: Frontal and lateral views of the chest are obtained. Mild airspace infiltrates in the right upper lobe appear stable to slightly improved. Bronchial valve s are noted in the same distribution. There is no pneumothorax or pleural effusion. The heart is not enlarged. There is a mild lower thoracic dextrocurvature. Surgical clips are noted within the abdomen . IMPRESSION: 1. Mild right upper lobe infiltrates appear slightly improved. Electronically signed by: Mj Hernandez MD (08/24/2021 8:00 PM) [facility]
== END 2021-08-24 19:15 | disposition home or self-care (01) ==
LOC: ER 16:50
DX: R07.89 Other chest pain (principal); F41.9 Anxiety disorder, unspecified; F32.9 Major depressive disorder, single episode, unspecified; E11.9 Type 2 diabetes mellitus without complications; K21.9 Gastro-esophageal reflux disease without esophagitis; I10 Essential (primary) hypertension; G89.29 Other chronic pain; F17.210 Nicotine dependence, cigarettes, uncomplicated; Z88.6 Allergy status to analgesic agent; Z88.8 Allergy status to other drugs, medicaments and biological substances
CPT/HCPCS: 36415; 71046; 84484; 93005; 99285

== ENCOUNTER 2021-08-25 15:10 | Emergency (ER) | payer MEDICARE, MEDICAID ==
[~2021-08-25] VITALS: Ht 165.1 cm; Wt 61.0 kg
[2021-08-25 15:30] VITALS: BP 158/77
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
== END 2021-08-25 16:10 | disposition home or self-care (01) ==
LOC: ER 15:10
DX: G89.29 Other chronic pain (principal); F17.210 Nicotine dependence, cigarettes, uncomplicated; E11.9 Type 2 diabetes mellitus without complications; I10 Essential (primary) hypertension; F12.10 Cannabis abuse, uncomplicated
CPT/HCPCS: 99282